=== PATIENT | female | born 1945 | race Caucasian/White ===

== ENCOUNTER 2016-08-21 11:17 | Outpatient (RCR) | payer MEDICARE, OTHER ==
--- OUTSIDE RECORDS SUMMARY | 2016-07-03 09:14 | XMS REPORT | Continuity of Care Document ---
Author Author [facility] Organization [facility] Address Unknown Phone Unavailable Care Team Providers Care Purchasing Contracting Clerk Name Role Phone Self, Referral PCP Unavailable Source Comments Some departments are not documenting in the electronic medical record. If you do not see the information that you expected, contact Release of Information in the Health Information Management department at [phone] for further assistance in locating additional records.[facility] Active Allergies and Adverse Reactions Not on File Current Medications Not on file Active Problems Not on file Most Recent Encounters Date Type Specialty Providers Description 06/19/2016 Telephone Oncology Jessie Cassidy RN Other Social History Tobacco Use Types Packs/Day Years Used Date Never Assessed Plan of Care Health Maintenance Due Date Last Done Comments Hepatitis C Screening 1945 Physical (Comprehensive) 1954 Exam Pertussis Vaccine 1958 Tetanus Vaccine 1964 Breast Cancer Screening 1987 Colorectal Cancer 1997 Screening Shingles Vaccine 2007 Osteoporosis Screening 2012 Prevnar/Pneumovax (#1) 2012 Influenza Vaccine 05/18/2016 Results from Last 3 Months PATHOLOGY REPORTS FROM OUTSIDE SCAN (04/10/2016 1:36 PM)Only the most recent of 2 results within the time period is included. Narrative Ordered by an unspecified provider.
[~2016-08-21 11:17] MED LIST: APIX2.5T PO; APIX5TAB PO; CALC-140 PO; CALC-654 PO; CARBOPLATIN IV SCH; CETI-214 PO; CHLO473M4 MM; CHOL10003 PO; CITA10TA7 PO; CNC1KV IJ; D5W IV SCH; DIGO125T18 PO; DIGO250T15 PO; DILT120C85 PO; DILT240C86 PO; ETOPOSIDE 160 MG in NORMAL SALINE (CANCER CENTER) 500 ML IV SCH; FAMOTIDINE 20MG/2ML IV (CANCER CTR) IV SCH; FISH1CAP15 PO; FLUT12AE4 IH; FOSAPREPITANT 150 MG/NS 150 MG IVPB (CANCER CTR) IV PRN; FURO40TA4 PO; HEParin (CENTRAL IV FLUSH) 500 UNIT/5 ML SYR ONE; HYDR-3812 PO; LISI2.5T PO; LORA0.5T PO; MAGN400T39 PO; METO-272 PO; METO-333 PO; METO50TA2 PO; MMT17NA NSEACH; NS IV 1000 ML (CANCER CTR) IV SCH; NS IV 500 ML (CANCER CENTER) IV SCH; OMEP20CA12 PO; ONDA8TAB12 PO; ONDANSETRON 16 MG, DEXAMETHASONE 10 MG/NS 50 ML IVPB IV SCH; PALONOSETRON 0.25 MG, DEXAMETHASONE 10 MG/NS 50 ML IVPB IV PRN; POTA10TA14 PO; POTA10TA6 PO; PRD10T PO; PRED10TA22 PO; TRAZ-28 PO; URSO300C3 PO; ZOLP10TA5 PO
[2016-09-08] MEDS ORDERED: HEParin (CENTRAL IV FLUSH) 500 UNIT/5 ML SYR ONE (11:23)
[2016-09-20] MEDS ORDERED: DILT240C PO (13:16)
[2016-09-20] MEDS ORDERED: DOXY100C2 PO (13:51)
[2016-09-20] MEDS ORDERED: GUAI120013 PO (13:51)
[2016-09-27] MEDS ORDERED: HYDR-3812 PO (10:41)
[2016-09-27] MEDS ORDERED: AMIO200T2 PO (10:41)
[2016-09-27] MEDS ORDERED: DILT120C63 PO (10:41)
[2016-09-27] MEDS ORDERED: LACT20SO2 PO (10:41)
[2016-09-27] MEDS ORDERED: ALPR0.5T7 PO (10:41)
[2016-09-27] MEDS ORDERED: LEVO750T9 PO (10:41)
[2016-09-27] MEDS ORDERED: DIGO125T18 PO (10:41)
[2016-09-27] MEDS ORDERED: ALPR0.5T PO (11:36)
== END 2016-10-01 | disposition home or self-care (01) ==
LOC: ONC 11:17
PROVIDERS: ATTEND Internal Medicine Hematology & Oncology
DX: C50.611 Malignant neoplasm of axillary tail of right female breast (principal); C79.51 Secondary malignant neoplasm of bone; Z92.21 Personal history of antineoplastic chemotherapy; Z92.3 Personal history of irradiation
CPT/HCPCS: 99213

== ENCOUNTER 2016-09-20 10:37 | Inpatient (IN) | payer MEDICARE, OTHER ==
[2016-09-20] VITALS (9 sets, daily range): BP systolic 91–132; BP diastolic 65–106
[~2016-09-20] VITALS: Ht 172.7 cm; Wt 57.8 kg
[~2016-09-20 10:37] MED LIST changes: -CARBOPLATIN IV SCH; -D5W IV SCH; -ETOPOSIDE 160 MG in NORMAL SALINE (CANCER CENTER) 500 ML IV SCH; -FAMOTIDINE 20MG/2ML IV (CANCER CTR) IV SCH; -FOSAPREPITANT 150 MG/NS 150 MG IVPB (CANCER CTR) IV PRN; -HEParin (CENTRAL IV FLUSH) 500 UNIT/5 ML SYR ONE; -NS IV 1000 ML (CANCER CTR) IV SCH; -NS IV 500 ML (CANCER CENTER) IV SCH; -ONDANSETRON 16 MG, DEXAMETHASONE 10 MG/NS 50 ML IVPB IV SCH; -PALONOSETRON 0.25 MG, DEXAMETHASONE 10 MG/NS 50 ML IVPB IV PRN
--- OUTSIDE RECORDS SUMMARY | 2016-09-20 10:43 | XMS REPORT | Continuity of Care Document ---
Author Author [facility] Organization [facility] Address Unknown Phone Unavailable Care Team Providers Care Manpower Development Advisor Name Role Phone Self, Referral PCP Unavailable Source Comments Some departments are not documenting in the electronic medical record. If you do not see the information that you expected, contact Release of Information in the Health Information Management department at [phone] for further assistance in locating additional records.[facility] Active Allergies and Adverse Reactions Not on File Current Medications Not on file Active Problems Not on file Social History Tobacco Use Types Packs/Day Years Used Date Never Assessed Plan of Care Health Maintenance Due Date Last Done Comments Hepatitis C Screening 1945 Physical (Comprehensive) 1954 Exam Pertussis Vaccine 1958 Tetanus Vaccine 1964 Breast Cancer Screening 1987 Colorectal Cancer 1997 Screening Shingles Vaccine 2007 Osteoporosis Screening 2012 Prevnar/Pneumovax (#1) 2012 Influenza Vaccine 05/18/2016 Results from Last 3 Months Not on file
--- NOTE | 2016-09-20 10:56 | ED Cardiac General ---
History of Present Illness General Stated Complaint: ANKLES/FEET SWELLING UNABLE TO SLEEP Source: patient Exam Limitations: no limitations History of Present Illness Time seen by provider: 10:54 Initial Comments To ER with lower extremity swelling and orthopnea getting progressively worse over the past 4-5 days. She has a history of congestive heart failure and atrial fibrillation followed by Dr. Carrillo. She states that she is unable to sleep because of the dyspnea when lying flat. She does take Lasix at home she believes it to be 40 mg daily. Echo report from July shows LVEF 30-35%. 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 Severity: moderate Associated Systoms: No Chest Pain, No Cough, No Diaphoresis, No Fever/Chills, No Headaches, No Loss of Appetite, No Malaise, No Nausea/Vomiting, No Rash, No Seizure, No Shortness of Air, No Syncope, No Weakness Allergies and Home Medications Allergies Coded Allergies: adhesive tape (Verified Allergy, Unknown, 04/16/08) cefdinir (Verified Allergy, Unknown, NAUSEA, 03/13/16) celecoxib (Verified Allergy, Unknown, NAUSEA, 03/13/16) clarithromycin (Verified Allergy, Unknown, 04/16/08) latex (Verified Allergy, Unknown, HIVES, 03/13/16) metolazone (Verified Adverse Reaction, Severe, SICK TO STOMACH, 08/10/16) Home Medications Apixaban 2.5 Mg Tablet 2.5 MG PO BID (Reported) Calcium Carbonate/Vitamin D3 1 Each Tablet 1 TAB PO BID (Reported) Chlorhexidine Gluconate 473 Ml Mouthwash 0.5 OZ MM BID (Reported) Cholecalciferol (Vitamin D3) 1,000 Unit Tablet 1,000 UNIT PO BID (Reported) Cyanocobalamin 1,000 Mcg/Ml Inj 1,000 MCG IJ MONTHLY (Reported) Diltiazem HCl 240 Mg Cap.er.24h 240 MG PO DAILY (Reported) Fish Oil/Dha/Epa 1 Each Capsule 1,200 MG PO BID (Reported) Fluticasone/Salmeterol 12 Gm Hfa.aer.ad 1 PUFF IH BID (Reported) Furosemide 40 Mg Tablet 80 MG PO DAILY (Reported) TAKES 2 (40 MG) TABLETS Hydrocodone/Acetaminophen 1 Each Tablet 1 TAB PO Q6H PRN PRN PAIN (Reported) Lisinopril 2.5 Mg Tablet 2.5 MG PO DAILY (Reported) Magnesium Oxide 400 Mg Tablet 400 MG PO BID (Reported) Mometasone Furoate 17 Gm Naspr 1 SPRAY NSEACH DAILY PRN PRN ALLERGIES (Reported ) Ondansetron HCl 8 Mg Tablet 8 MG PO Q8H PRN PRN NAUSEA/VOMITING (Reported) Potassium Chloride 10 Meq Tab.er.prt 20 MEQ PO BID (Reported) TAKES 2 (10 MEQ) TABLETS Trazodone HCl 50 Mg Tablet 50 MG PO HS (Reported) Ursodiol 300 Mg Capsule 600 MG PO DAILY (Reported) TAKES 2 (300 MG) CAPSULES Ursodiol 300 Mg Capsule 300 MG PO HS (Reported) Zolpidem Tartrate 10 Mg Tablet 10 MG PO HS PRN PRN INSOMNIA (Reported) Review of Systems Constitutional: see HPI EENTM: No Symptoms Reported Respiratory: See HPI Orthopnea Shortness of Air Cardiovascular: No Symptoms Reported Gastrointestinal: No Symptoms Reported Genitourinary: No Symptoms Reported Musculoskeletal: no symptoms reported Skin: no symptoms reported Psychiatric/Neurological: No Symptoms Reported Endocrine: No Symptoms Reported Hematologic/Lymphatic: No Symptoms Reported Past Rblmuxj-Gdhmim-Amddxk Hx Patient Social History Type Used: Cigarettes Recent Foreign Travel: No Contact w/Someone Who Travel: No Recent Hopitalizations: No Immunizations Up To Date Date of Influenza Vaccine: Jun 10, 2016 Surgeries HX Surgeries: Yes (shoulder sx, toe sx, port placed) Surgeries: Breast, Hysterectomy, Orthopedic Respiratory Hx Respiratory Disorders: No Cardiovascular Hx Cardiac Disorders: Yes Cardiac Disorders: Atrial Fibrillation Neurological Hx Neurological Disorders: No 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 System Hx 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 Disorders: No Genitourinary Hx Genitourinary Disorders: No Gastrointestinal Hx Gastrointestinal Disorders: Yes (Fatty liver) Musculoskeletal Hx Musculoskeletal Disorders: Yes (bone ca) Musculoskeletal Disorders: Arthritis Endocrine Hx Endocrine Disorders: No HEENT HX ENT Disorders: No Cancer Hx Cancer: Yes Cancer: Bone, Breast Psychosocial Hx Psychiatric Problems: Yes Behavioral Health Disorders: Depression Integumentary HX Skin/Integumentary Disorder: No Blood Transfusions Hx Blood Disorders: No Physical Exam Vital Signs Vital Sign - Last 12Hours 09/20/16 11:00 Temp 97.1 Pulse 155 Resp 20 B/P 97/81 Pulse Ox 95 O2 Delivery Room Air Capillary Refill : General Appearance: No Apparent Distress WD/WN HEENT: PERRL/EOMI TMs Normal Neck: Full Range of Motion Normal Inspection Other (JVD) Respiratory: No Accessory Muscle Use No Respiratory Distress Wheezing (left upper lobe) Other (speaks in full sentences, no respiratory distress) Cardiovascular: Irregularly Irregular (rate of 140s) Gastrointestinal: Non Tender Soft Extremity: Pedal Edema (4+ bilateral lower extremities) Neurologic/Psychiatric: Alert Oriented x3 No Motor/Sensory Deficits Skin: Normal Color Warm/Dry Progress/Results/Core Measures Results/Orders Lab Results Laboratory Tests Test 09/20/16 11:05 Range/Units Alanine Aminotransferase (ALT/SGPT) 28 0-55 U/L Albumin 3.7 3.2-4.5 G/DL Alkaline Phosphatase 121 40-136 U/L Anion Gap 10 5-14 MMOL/L Aspartate Amino Transf (AST/SGOT) 29 5-34 U/L B-Type Natriuretic Peptide 920.4 H <100.0 PG/ML BUN/Creatinine Ratio 20 Basophils # (Auto) 0.0 0.0-0.1 10^3/uL Basophils (%) (Auto) 0 0-10 % Blood Urea Nitrogen 15 7-18 MG/DL Calcium Level 9.1 8.5-10.1 MG/DL Carbon Dioxide Level 25 21-32 MMOL/L Chloride Level 88 L 98-107 MMOL/L Creatinine 0.76 0.60-1.30 MG/DL Digoxin Level < 0.30 L 0.80-2.00 NG/ML Eosinophils # (Auto) 0.0 0.0-0.3 10^3/uL Eosinophils (%) (Auto) 0 0-10 % Estimat Glomerular Filtration Rate > 60 Glucose Level 136 H 70-105 MG/DL Hematocrit 41 35-52 % Hemoglobin 14.4 11.5-16.0 G/DL Lymphocytes # (Auto) 0.9 L 1.0-4.0 X 10^3 Lymphocytes (%) (Auto) 10 L 12-44 % Magnesium Level 1.6 L 1.8-2.4 MG/DL Mean Corpuscular Hemoglobin 34 25-34 PG Mean Corpuscular Hemoglobin Concent 36 32-36 G/DL Mean Corpuscular Volume 96 80-99 FL Mean Platelet Volume 10.0 7.4-10.4 FL Monocytes # (Auto) 1.1 H 0.0-1.0 X 10^3 Monocytes (%) (Auto) 12 0-12 % Neutrophils # (Auto) 6.9 1.8-7.8 X 10^3 Neutrophils (%) (Auto) 78 H 42-75 % Platelet Count 220 130-400 10^3/uL Potassium Level 4.4 3.6-5.0 MMOL/L Red Blood Count 4.23 L 4.35-5.85 10^6/uL Red Cell Distribution Width 13.9 10.0-14.5 % Sodium Level 123 *L 135-145 MMOL/L Total Bilirubin 0.6 0.1-1.0 MG/DL Total Protein 6.5 6.4-8.2 G/DL Troponin I < 0.30 <0.30 NG/ML White Blood Count 8.9 4.3-11.0 10^3/uL My Orders Orders-GADIEL BARR APRN Cbc With Automated Diff (09/20/16 10:53) Comprehensive Metabolic Panel (09/20/16 10:53) BNP (09/20/16 10:53) Saline Lock/Iv-Start (09/20/16 10:53) Chest 1 View, Ap/Pa Only (09/20/16 10:53) Ekg Tracing (09/20/16 10:53) Magnesium (09/20/16 10:53) Levalbuterol (Non-Formulary) (Xopenex (N (09/20/16 11:00) Diltiazem Injection (Cardizem Injection) (09/20/16 11:15) Digoxin (09/20/16 11:03) Sodium Chloride (Ad... W/Diltiazem Drip (09/20/16 11:15) Troponin I (09/20/16 11:45) Medications Given in ED Current Medications Medications Dose Ordered Sig/Natty Route Start Time Stop Time Status Last Admin Dose Admin Diltiazem HCl 10 mg ONCE ONCE IVP 09/20/16 11:15 09/20/16 11:16 DC 09/20/16 11:26 10 MG Vital Signs/I&O Vital Sign - Last 12Hours 09/20/16 09/20/16 09/20/16 11:00 11:29 11:45 Temp 97.1 Pulse 155 127 Resp 20 18 B/P 97/81 104/65 Pulse Ox 95 94 96 O2 Delivery Room Air Room Air Progress Note : Progress Note ECHO report from 08/10/16 : 1. Moderate to moderately severe impairment of global left ventricular systolic function with global hypokinesis of left ventricular ejection fraction of approximately 30 to 35%, 2. Aortic stenosis with valve area approximately 1 sq cm. 3. Moderate tricuspid regurgitation. 4. Pulmonary artery systolic pressure is estimated to be approximately 45 mmHg. 5. Mitral annular calcification without significant mitral stenosis. 6. Mild concentric left ventricular hypertrophy. 7. No significant pericardial effusion is seen on this study. There appears to be some degree of pleural effusion. Diagnostic Imaging Diagonstic Imaging: Xray Plain Films/CT/US/NM/MRI: chest Comments [facility]: [facility] REC#: [id number] PT STATUS: REG ER : 1945 PHYSICIAN: GADIEL BRAR APRN ADMIT DATE: 09/20/16/ER Draft Date of Exam:09/20/16 CHEST 1 VIEW, AP/PA ONLY EXAMINATION: Portable upright radiograph of the chest. INDICATION: Feet and ankle swelling. FINDINGS: The heart size is enlarged with interstitial thickening likely related to edema. There is a right basilar infiltrate and atelectasis with a small to moderate effusion. There is a tiny effusion on the left side. There is an infusion port with the at the mid SVC level similar to prior exam. Surgical clips near the right axilla noted. IMPRESSION: There is interstitial pulmonary edema and right basilar infiltrate and effusion. Dictated on workstation # [id number] Dict: 09/20/16 1125 Trans: 09/20/16 1133 [facility] [id number] Interpreted by: WANG LOPEZ MD Electronically signed by: Departure Communication Time/Spoke to Admitting Phy: 13:01 Communication Will admit to Dr. Hopkins Time/Spoke to Consulting Physi: 13:01 Communication/Consulting Dr. Tuttle to consult Progress Notes 1149- her heart rate has improved from the 140s down to around 100 still atrial fibrillation. She feels better, however her blood pressure remains low at upper 90s to low 100 systolic despite appearing fluid overloaded. We will hold off on diuretics pending Dr. Tuttle's guidance. She does request to be DO NOT RESUSCITATE status. Impression Impression: Primary Impression: Atrial fibrillation with rapid ventricular response Additional Impressions: CHF (congestive heart failure) Metastatic carcinoma to bone Disposition: ADMITTED INPATIENT Condition: Improved Decision to Admit Reason: Admit from ER (General) Decision to Admit/Date: Sep 20, 2016 Time/Decision to Admit Time: 13:02 Departure-Patient Inst. Referrals: JANET VILLARREAL MD (PCP/Family) Primary Care Physician GADIEL BRAR APRN Sep 20, 2016 10:56 Primary Care Physician GADIEL BRAR APRN Sep 20, 2016 10:56
[2016-09-20] MEDS ORDERED: RT-LEVALBUTEROL (XOPENEX) 1.25 MG/3 ML NEB NON-FORMULARY INH SCH (11:00)
[2016-09-20 11:12] LABS: BASOPHILS % (AUTO) 0 % (0-10); EOSINOPHILS % (AUTO) 0 % (0-10); LYMPHOCYTES # (AUTO) 0.9 X 10^3 (1.0-4.0); LYMPHOCYTES % (AUTO) 10 % (12-44); MEAN CORPUSCULAR HEMOGLOBIN 34 PG (25-34); MEAN CORPUSCULAR HGB CONC 36 G/DL (32-36); MEAN CORPUSCULAR VOLUME 96 FL (80-99); MONOCYTES # (AUTO) 1.1 X 10^3 (0.0-1.0); MONOCYTES % (AUTO) 12 % (0-12); NEUTROPHILS # (AUTO) 6.9 X 10^3 (1.8-7.8); NEUTROPHILS % (AUTO) 78 % (42-75); PLATELET COUNT 220 10^3/uL (130-400); RED BLOOD COUNT 4.23 10^6/uL (4.35-5.85); RED CELL DISTRIBUTION WIDTH 13.9 % (10.0-14.5); WHITE BLOOD COUNT 8.9 10^3/uL (4.3-11.0)
[2016-09-20] MEDS ORDERED: DILTIAZEM DRIP 100 MG in SODIUM CHLORIDE (ADD-VANTAGE) 100 ML IV SCH (11:15)
[2016-09-20] MEDS ORDERED: DILTIAZEM 25 MG/5 ML INJ (CARDIZEM) VIAL IVP ONE (11:15)
--- NOTE | 2016-09-20 11:34 | Diagnostic Imaging Report ---
EXAMINATION: Portable upright radiograph of the chest. INDICATION: Feet and ankle swelling. FINDINGS: The heart size is enlarged with interstitial thickening likely related to edema. There is a right basilar infiltrate and atelectasis with a small to moderate effusion. There is a tiny effusion on the left side. There is an infusion port with the at the mid SVC level similar to prior exam. Surgical clips near the right axilla noted. IMPRESSION: There is interstitial pulmonary edema and right basilar infiltrate and effusion. Dictated by: Dictated on workstation # [id number]
[2016-09-20 11:39] LABS: ALANINE AMINOTRANSFERASE 28 U/L (0-55); ALBUMIN 3.7 G/DL (3.2-4.5); ANION GAP 10 MMOL/L (5-14); ASPARTATE AMINO TRANSFERASE 29 U/L (5-34); BILIRUBIN,TOTAL 0.6 MG/DL (0.1-1.0); BLOOD UREA NITROGEN 15 MG/DL (7-18); BUN/CREATININE RATIO 20; CALCIUM 9.1 MG/DL (8.5-10.1); CARBON DIOXIDE 25 MMOL/L (21-32); CHLORIDE 88 MMOL/L (98-107); CREATININE SERUM 0.76 MG/DL (0.60-1.30); GFR ESTIMATED > 60; GLUCOSE 136 MG/DL (70-105); MAGNESIUM 1.6 MG/DL (1.8-2.4); POTASSIUM 4.4 MMOL/L (3.6-5.0); TOTAL PROTEIN 6.5 G/DL (6.4-8.2)
[2016-09-20 11:42] LABS: SODIUM 123 MMOL/L (135-145)
[2016-09-20 11:45] LABS: DIGOXIN < 0.30 NG/ML (0.80-2.00)
--- NOTE | 2016-09-20 12:59 | Consultation-Cardiology ---
HPI-Cardiology Cardiology Consultation Date of Consultation 09/20/16 Date of Admission Indication: Afib with RVR, AE CHF HPI Patient is a very pleasant 71y/o female with history of PAF, CHF, , metastatic small cell CA. Presented to the ER with complaints of increased edema and dyspnea over the past 3-4 days. Complaining inability to sleep secondary to orthopnea. Denies any CP. Denies syncope. Currently patient is in Afib with HR in [id number]'s and hypotensive with systolic BP in the 90's. Patient was seen and evaluated with Kylie, she is a 71-year-old lady with history of congestive heart failure, chronic compensated left ventricular systolic dysfunction, nonischemic cardiomyopathy with ejection fraction around 30 percent, permanent atrial fibrillation. Came into the hospital for increasing shortness of breath and orthopnea with pedal edema. Paroxysmal nocturnal dyspnea. Noted to be tachycardic and in decompensated heart failure. Patient was borderline hypotensive, had difficulties with controlling her heart rate in the past due to hypotension, she was intolerant to digoxin and beta blockers, maintained on Cardizem 240 mg daily. She is maintained on oral anticoagulation and tolerated it well. Had extensive history with history of small cell carcinoma metastasis to the bone, breast cancer, received Adriamycin in the past. Home Medications & Allergies Allergies: Coded Allergies: adhesive tape (Verified Allergy, Unknown, 04/16/08) cefdinir (Verified Allergy, Unknown, NAUSEA, 03/13/16) celecoxib (Verified Allergy, Unknown, NAUSEA, 03/13/16) clarithromycin (Verified Allergy, Unknown, 04/16/08) latex (Verified Allergy, Unknown, HIVES, 03/13/16) metolazone (Verified Adverse Reaction, Severe, SICK TO STOMACH, 08/10/16) Home Medication List Reviewed: Yes LJF-Eanlau-Fppfym Hx Patient Social History Marital Status: Alcohol Use: Occasionally Uses Recreational Drug Use: No Smoking Status: Current Everyday Smoker Type Used: Cigarettes Recent Foreign Travel: No Recent Infectious Disease Expo: No Recent Hopitalizations: No Physical Abuse Screen: No Sexual Abuse: No Immunizations Up To Date Date of Influenza Vaccine: Jun 10, 2016 Past Medical History CHF, PAF, breast CA, Metatstatic small cell lung CA, Family Medical History Family Medical Hx noncontributory to her current condition Constitutional: No diaphoresis, No dizziness, No fever, malaise weakness EENTM: No blurred vision, No double vision Respiratory: dyspnea on exertion orthopnea short of breath Cardiovascular: No chest pain, edemaNo palpitations, No syncope Gastrointestinal: No abdominal pain, No constipation, No diarrhea Genitourinary: No dysuria, No frequency Musculoskeletal: back pain joint swelling Skin: No lesions, No rash Psychiatric/Neurological: Denies Anxiety, Denies Emotional Problems Reviewed Test Results Reviewed Test Results Lab Laboratory Tests 09/20/16 11:05: Alanine Aminotransferase (ALT/SGPT) 28, Albumin 3.7, Alkaline Phosphatase 121, Anion Gap 10, Aspartate Amino Transf (AST/SGOT) 29, B-Type Natriuretic Peptide 920.4H, BUN/Creatinine Ratio 20, Basophils # (Auto) 0.0, Basophils (%) (Auto) 0 , Blood Urea Nitrogen 15, Calcium Level 9.1, Carbon Dioxide Level 25, Chloride Level 88L, Creatinine 0.76, Digoxin Level < 0.30L, Eosinophils # (Auto) 0.0, Eosinophils (%) (Auto) 0, Estimat Glomerular Filtration Rate > 60, Glucose Level 136H, Hematocrit 41, Hemoglobin 14.4, Lymphocytes # (Auto) 0.9L, Lymphocytes (%) (Auto) 10L, Magnesium Level 1.6L, Mean Corpuscular Hemoglobin 34 , Mean Corpuscular Hemoglobin Concent 36, Mean Corpuscular Volume 96, Mean Platelet Volume 10.0, Monocytes # (Auto) 1.1H, Monocytes (%) (Auto) 12, Neutrophils # (Auto) 6.9, Neutrophils (%) (Auto) 78H, Platelet Count 220, Potassium Level 4.4, Red Blood Count 4.23L, Red Cell Distribution Width 13.9, Sodium Level 123*L, Total Bilirubin 0.6, Total Protein 6.5, Troponin I < 0.30, White Blood Count 8.9 ECG Impression ECG Initial ECG Rhythm: A Fib/Flutter Physical Exam Vital Signs Vital Sign - Last 12Hours 09/20/16 11:00 Temp 97.1 Pulse 155 Resp 20 B/P 97/81 Pulse Ox 95 O2 Delivery Room Air Capillary Refill : Less Than 3 Seconds General Appearance: No Apparent Distress WD/WN Anxious HEENT: PERRL/EOMI Normal ENT Inspection Neck: Non Tender Supple Respiratory: Chest Non Tender No Accessory Muscle Use No Respiratory Distress Decreased Breath Sounds Cardiovascular: No JVD Systolic Murmur Irregularly Irregular Tachycardia Other (+2-3 pitting edema bilaterally) Gastrointestinal: Non Tender Soft Rectal: Deferred Back: No CVA Tenderness Extremity: No Calf Tenderness Neurologic/Psychiatric: Alert 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 Most recent 2D echo 08/10/16 shows LVEF 30-35%; valvular heart disease consisting of mod-sev aortic stenosis (ao valve area 1 sq cm); MAC w/o significant MS; mod TR; PASP 45 mmHg. Continue to monitor. Atrial fibrillation, non-valvular, chronic, heart rate has been difficult to control in the past. Currently HR 100-[address]'s[address] on Cardizem gtt as blood pressure tolerates, add amiodarone, was intolerant to digoxin in the past , intolerant to beta blockers in the past. Intolerance to digoxin due to dizziness and nonspecific malaise Intolerance to beta-lelia due to symptomatic fall in chronically low bp Dilated cardiomyopathy, first documented in March 2016. 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 Status post adjuvant chemotherapy with Adriamycin and Cytoxan regimen 4 cycles followed by radiation therapy to the right breast completed in August 2008. Status post adjuvant hormonal therapy with Arimidex from August 2008 until early 2013. Thank you for allowing us to participate in the management of Ms. Newton. This is ATIF Reinoso as a scribe for Dr. Tuttle. This Dr. Tuttle, I have seen and evaluated Mrs. Newton with Kylie, she is laying down in bed, feeling better at this time, has been having worsening shortness of breath with orthopnea and pedal edema, noted to be in atrial fibrillation with rapid ventricular response, previously was intolerant to multiple medication to control her heart rate. Admitted to the intensive care unit and started on Cardizem drip. We will restart her home medication including oral anticoagulation in addition I am planning to continue with diuretics. Add amiodarone and evaluate partial response on examination lungs evaluation showed bilateral rhonchi, heart is tachycardic and irregular with systolic murmur, +2 pedal edema. I interviewed the patient, several for full physical examination and discussed the management plan with Kylie. Reviewed the note and agree with the current scribe, I made few modification to the note and used Italic Font KYLIE SHORT Sep 20, 2016 12:59 MAYCO TUTTLE MD Sep 20, 2016 14:09
[2016-09-20] MEDS ORDERED: DILT240C PO (13:16)
[2016-09-20] MEDS ORDERED: GUAI120013 PO (13:51)
[2016-09-20] MEDS ORDERED: DOXY100C2 PO (13:51)
[2016-09-20] MEDS: DILTIAZEM DRIP 100 MG in SODIUM CHLORIDE (ADD-VANTAGE) 100 ML IV SCH (14:00)
[2016-09-20] MEDS ORDERED: CATHETER FLUSH 10 ML SYR IV PRN (14:15)
[2016-09-20] MEDS ORDERED: AMIODARONE FOR BOLUS 150 MG in D5W 100 ML IVPB 100 ML IV NR (14:15)
[2016-09-20] MEDS ORDERED: AMIODARONE IV ONE (14:49)
[2016-09-20] MEDS ORDERED: SODIUM CHLORIDE (ADD-VANTAGE) 100 ML IV ONE (15:09)
[2016-09-20] MEDS ORDERED: DILTIAZEM 100 MG/VIAL (CARDIZEM) ADD-VANTAGE IV ONE (15:09)
--- NOTE | 2016-09-20 15:34 | History & Physical-Hospitalist ---
MILVIA FARLEY MED STUDENT 09/20/16 1534: HPI History of Present Illness: HPI/Chief Complaint CC: shortness of breath HPI: Ms. Newton is a 71yoF with a PMH of PAF, CHF, , and metastatic small cell CA admitted for increased work of breathing with lower extremity swelling that started roughly 5 days ago. She has had difficulty sleeping the last few days, and needs to sit up in bed. In the ED she was found to be in Afib with RVR. She has been in chronic afib for some time, and is intolerant to digoxin and beta blockers due to low blood pressure. Her pressure has been around 90-100/70-80's today. Her PCP is Dr. Gardner. Source: patient, RN/MD Exam Limitations: no limitations Date Seen 09/20/16 Attending Physician Katja Cummings DO PCP Edgar Gardner MD Referring Physician Date of Admission Sep 20, 2016 at 12:58 Home Medications & Allergies Home Medications Reviewed patient Home Medication Reconciliation Form Allergies Coded Allergies: adhesive tape (Verified Allergy, Unknown, 04/16/08) cefdinir (Verified Allergy, Unknown, NAUSEA, 03/13/16) celecoxib (Verified Allergy, Unknown, NAUSEA, 03/13/16) clarithromycin (Verified Allergy, Unknown, 04/16/08) latex (Verified Allergy, Unknown, HIVES, 03/13/16) metolazone (Verified Adverse Reaction, Severe, SICK TO STOMACH, 08/10/16) Past Lpnqzbn-Scoudt-Ubzlsn Hx Patient Social History Marrital Status: Alcohol Use: Occasionally Uses Recreational Drug Use: No Smoking Status: Current Everyday Smoker Type Used: Cigarettes Physical Abuse Screen: No Sexual Abuse: No Recent Foreign Travel: No Contact w/other who traveled: No Recent Hopitalizations: No Recent Infectious Disease Expo: No Immunizations Up To Date Date of Influenza Vaccine: Jun 10, 2016 Surgeries HX Surgeries: Yes (shoulder sx, toe sx, port placed) Surgeries: Breast, Hysterectomy, Orthopedic Respiratory Hx Respiratory Disorders: No Cardiovascular Hx Cardiovascular Disorders: Yes Cardiac Disorders: Atrial Fibrillation, Valvular Heart Disease Neurological Hx Neurological Disorders: No 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 System Hx 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 Disorders: No Genitourinary Hx Genitourinary Disorders: No Gastrointestinal Hx Gastrointestinal Disorders: Yes (Fatty liver) Musculoskeletal Hx Musculoskeletal Disorders: Yes (bone ca) Musculoskeletal Disorders: Arthritis Endocrine Hx Endocrine Disorders: No HEENT HX ENT Disorders: No Cancer Hx Cancer: Yes Cancer: Bone, Lung (small cell), Breast Psychosocial Hx Psychiatric Problems: Yes Behavioral Health Disorders: Depression Integumentary HX Skin/Integumentary Disorder: No Blood Transfusions Hx Blood Disorders: No Review of Systems Constitutional: No chills, No fever Respiratory: dyspnea on exertion orthopnea short of breath Cardiovascular: No chest pain All Other Systems Reviewed Negative Unless Noted: Yes Physical Exam Physical Exam Vital Signs Vital Sign - Last 12Hours 09/20/16 11:00 Temp 97.1 Pulse 155 Resp 20 B/P 97/81 Pulse Ox 95 O2 Delivery Room Air Capillary Refill : Less Than 3 Seconds General Appearance: No Apparent Distress Thin HEENT: PERRL/EOMI TMs Normal Normal ENT Inspection Pharynx Normal Neck: Full Range of Motion Normal Inspection Respiratory: Chest Non Tender Lungs Clear Normal Breath Sounds Cardiovascular: No JVD Irregularly Irregular Tachycardia Gastrointestinal: Normal Bowel Sounds No Organomegaly No Pulsatile Mass Non Tender Soft Rectal: Deferred Extremity: Pedal Edema (3+) Neurologic/Psychiatric: Alert Oriented x3 No Motor/Sensory Deficits Normal Mood/Affect Skin: Normal Color Warm/Dry Results Results/Procedures Lab Laboratory Tests 09/20/16 11:05 Radiology chest xray 09/20/16: There is interstitial pulmonary edema and right basilar infiltrate and effusion. Assessment/Plan Admission Diagnosis Afib with RVR Assessment and Plan 71yo with PMH of afib, CHF, metastatic SCC with new onset of SOA secondary to afib with RVR 1. Afib with RVR -will not tolerate digoxin or beta blockers -given bolus of amiodarone, will switch to oral afterwards -not a candidate for cardioversion due to chronic nature of her afib -will restart eloquis which she previously took -echo was done recently, will not redo -cardiology is consulted and following 2. CHF -cardiology following -chest xray with bibasilar infiltrate and effusion, will continue to monitor for increased work of breathing, currently breathing room air 3. metastatic small cell carcinoma -following Dr. 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 Pt was anxious throughout the night. Pt received Xanax but it did not make much of a difference. Pt could use morphine when she is really distressed. Pt was admitted before and wanted to go home on hospice. Patient Interview: Pt states her Oncologist is Dr. White. Physical exam was stable. Scribed by Simone Head under the direct supervision of Dr. Cummings. Source: patient, RN/MD Exam Limitations: no limitations Home Medications & Allergies Allergies Coded Allergies: adhesive tape (Verified Allergy, Unknown, 04/16/08) cefdinir (Verified Allergy, Unknown, NAUSEA, 03/13/16) celecoxib (Verified Allergy, Unknown, NAUSEA, 03/13/16) clarithromycin (Verified Allergy, Unknown, 04/16/08) latex (Verified Allergy, Unknown, HIVES, 03/13/16) metolazone (Verified Adverse Reaction, Severe, SICK TO STOMACH, 08/10/16) Past Dcmpjuq-Nowkib-Vlkwvz Hx Patient Social History Marrital Status: Employed/Student: employed ([employer] de[employer]) Surgeries HX Surgeries: Yes Respiratory Hx Respiratory Disorders: Yes Respiratory Disorders: COPD Cardiovascular Hx Cardiovascular Disorders: Yes Cardiac Disorders: Atrial Fibrillation, Cardiomyopathy, Chronic Edema/Swelling , Coronary Artery Disease, High Cholesterol, Hypertension, Valvular Heart Disease Neurological Hx Neurological Disorders: No Genitourinary Hx Genitourinary Disorders: Yes Genitourinary Disorders: Renal Failure Gastrointestinal Hx Gastrointestinal Disorders: Yes Gastrointestinal Disorders: Chronic Constipation Musculoskeletal Hx Musculoskeletal Disorders: No Endocrine Hx Endocrine Disorders: No HEENT HX ENT Disorders: No Cancer Hx Cancer: Yes Cancer: Bone, Lung (small cell), Breast Psychosocial Hx Psychiatric Problems: Yes Behavioral Health Disorders: Anxiety, Depression Integumentary HX Skin/Integumentary Disorder: No Review of Systems Constitutional: see HPI malaise weakness EENTM: no symptoms reported see HPI Respiratory: see HPI dyspnea on exertion orthopnea short of breath wheezing Cardiovascular: see HPI Gastrointestinal: see HPI abdominal pain (RUQ) Genitourinary: see HPI decreased output Musculoskeletal: see HPI back pain Skin: no symptoms reported see HPI Psychiatric/Neurological: See HPI Depressed All Other Systems Reviewed Negative Unless Noted: Yes Physical Exam Physical Exam Vital Signs Vital Sign - Last 12Hours 09/20/16 09/20/16 11:00 19:00 Temp 97.1 Pulse 155 Resp 20 B/P 97/81 Pulse Ox 95 O2 Delivery Room Air O2 Flow Rate 3.00 General Appearance: No Apparent Distress WD/WN Chronically ill Cachetic Thin Other (patient very withdrawn) Eyes: Bilateral Eye Normal Inspection, Bilateral Eye PERRL HEENT: PERRL/EOMI Normal ENT Inspection Pharynx Normal Neck: Full Range of Motion Normal Inspection Non Tender Supple Carotid Bruit Respiratory: Chest Non Tender No Accessory Muscle Use No Respiratory Distress Crackles Decreased Breath Sounds Wheezing Cardiovascular: No Edema No Gallop No JVD No Murmur Normal Peripheral Pulses Irregularly Irregular Tachycardia Gastrointestinal: Normal Bowel Sounds No Organomegaly No Pulsatile Mass Non Tender Soft Back: Normal Inspection No CVA Tenderness No Vertebral Tenderness Extremity: Normal Capillary Refill Normal Inspection Normal Range of Motion Non Tender No Calf Tenderness No Pedal Edema Neurologic/Psychiatric: Alert Oriented x3 No Motor/Sensory Deficits Normal Mood/Affect Skin: Normal Color Warm/Dry Lymphatic: No Adenopathy Results Results/Procedures Lab Laboratory Tests 09/20/16 11:05 09/21/16 04:40 Assessment/Plan Admission Diagnosis CHF Volume overload Anxiety Cancer w/widespread mets in apparent end of life stage Assessment and Plan Plan: Morphine 2mg IV q2 hours Initiate Xanax 0.[address] White consult Palliative Care consult Facilities Operator MILVIA FARLEY MED STUDENT Sep 20, 2016 15:34 KATJA CUMMINGS DO Sep 21, 2016 07:33
[2016-09-20] MEDS ORDERED: HYDROcodone/APAP 5 MG/325 MG (LORTAB) TAB PO PRN (18:00)
[2016-09-20] MEDS: HYDROcodone/APAP 5 MG/325 MG (LORTAB) TAB PO PRN (19:47)
[2016-09-20] MEDS: AMIODARONE 200 MG (CORDARONE) TAB PO SCH (20:13)
[2016-09-20] MEDS ORDERED: ALPRAZolam 0.25 MG (XANAX) TAB ONE ×2 (20:31→23:22)
[2016-09-20] MEDS ORDERED: ALPRAZolam 0.25 MG (XANAX) TAB PO ONE ×2 (20:45→23:30)
[2016-09-20] MEDS ORDERED: RT-ALBUTEROL/IPRATROPIUM 3 ML (DUONEB) VIAL INH SCH (21:00)
[2016-09-21] VITALS (24 sets, daily range): BP systolic 80–134; BP diastolic 40–112
[2016-09-21] MEDS: HYDROcodone/APAP 5 MG/325 MG (LORTAB) TAB PO PRN (01:33)
[2016-09-21 05:12] LABS: BASOPHILS % (AUTO) 1 % (0-10); EOSINOPHILS % (AUTO) 0 % (0-10); LYMPHOCYTES # (AUTO) 1.2 X 10^3 (1.0-4.0); LYMPHOCYTES % (AUTO) 14 % (12-44); MEAN CORPUSCULAR HEMOGLOBIN 34 PG (25-34); MEAN CORPUSCULAR HGB CONC 35 G/DL (32-36); MEAN CORPUSCULAR VOLUME 96 FL (80-99); MEAN PLATELET VOLUME 10.4 FL (7.4-10.4); MONOCYTES # (AUTO) 1.3 X 10^3 (0.0-1.0); MONOCYTES % (AUTO) 16 % (0-12); NEUTROPHILS # (AUTO) 5.9 X 10^3 (1.8-7.8); NEUTROPHILS % (AUTO) 69 % (42-75); PLATELET COUNT 244 10^3/uL (130-400); RED BLOOD COUNT 4.44 10^6/uL (4.35-5.85); RED CELL DISTRIBUTION WIDTH 13.8 % (10.0-14.5); WHITE BLOOD COUNT 8.5 10^3/uL (4.3-11.0)
[2016-09-21 05:27] LABS: ANION GAP 10 MMOL/L (5-14); BLOOD UREA NITROGEN 19 MG/DL (7-18); BUN/CREATININE RATIO 25; CALCIUM 9.4 MG/DL (8.5-10.1); CARBON DIOXIDE 26 MMOL/L (21-32); CHLORIDE 86 MMOL/L (98-107); CREATININE SERUM 0.76 MG/DL (0.60-1.30); GFR ESTIMATED > 60; GLUCOSE 129 MG/DL (70-105); MAGNESIUM 1.9 MG/DL (1.8-2.4); PHOSPHORUS 4.3 MG/DL (2.3-4.7); POTASSIUM 5.3 MMOL/L (3.6-5.0)
[2016-09-21 05:38] LABS: SODIUM 122 MMOL/L (135-145)
[2016-09-21] MEDS: KCL 20 MEQ TAB (K-DUR) PO SCH ×3 (05:40→20:55)
[2016-09-21] MEDS: MAGNESIUM 1 GM/100 ML IVPB 100 ML IV SCH (05:40)
[2016-09-21] MEDS: POTASSIUM CL 10MEQ/50ML IVPB 50 ML IV SCH (05:40)
[2016-09-21] MEDS ORDERED: DILTIAZEM 100 MG/VIAL (CARDIZEM) ADD-VANTAGE IV ONE (06:08)
[2016-09-21] MEDS ORDERED: SODIUM CHLORIDE (ADD-VANTAGE) 100 ML IV ONE (06:09)
[2016-09-21] MEDS: DILTIAZEM DRIP 100 MG in SODIUM CHLORIDE (ADD-VANTAGE) 100 ML IV SCH ×2 (06:22→15:51)
[2016-09-21] MEDS: morphine INJ 4 MG/ML 1 ML (VIAL/SYRINGE) IVP PRN (06:57)
[2016-09-21] MEDS: FUROSEMIDE 40 MG/4 ML INJ (LASIX) IVP SCH (07:08)
--- NOTE | 2016-09-21 07:11 | Pulmonary Consultation ---
History of Present Illness History of Present Illness Date of Consultation 09/21/16 07:04 Date of Admission Reason for Visit: Afib with RVR, AE CHF History of Present Illness 71yo with hx of metastatic small cell cancer and afib admitted secondary to worsening SOB and and bilateral LE edema. She was found to be in Afib RVR while in ED she was placed on cardizem gtt and transferred to ICU. today she is more dyspneic with accessory muscle use. She normally takes 80mg of lasix at home. Her BNP is 920. Her CXR shows cardiomegaly with increased bilateral infiltrates and pleural effusion. Currently unable to get full ROS secondary to respiratory distress. I am consulted for pulmonary management. Allergies and Home Medications Allergies Coded Allergies: adhesive tape (Verified Allergy, Unknown, 04/16/08) cefdinir (Verified Allergy, Unknown, NAUSEA, 03/13/16) celecoxib (Verified Allergy, Unknown, NAUSEA, 03/13/16) clarithromycin (Verified Allergy, Unknown, 04/16/08) latex (Verified Allergy, Unknown, HIVES, 03/13/16) metolazone (Verified Adverse Reaction, Severe, SICK TO STOMACH, 08/10/16) Home Medications Apixaban 2.5 Mg Tablet 2.5 MG PO BID (Reported) Calcium Carbonate/Vitamin D3 1 Each Tablet 1 TAB PO BID (Reported) Chlorhexidine Gluconate 473 Ml Mouthwash 0.5 OZ MM BID (Reported) Cholecalciferol (Vitamin D3) 1,000 Unit Tablet 1,000 UNIT PO BID (Reported) Cyanocobalamin 1,000 Mcg/Ml Inj 1,000 MCG IJ MONTHLY (Reported) Diltiazem HCl 240 Mg Cap.er.24h 240 MG PO DAILY (Reported) Doxycycline Hyclate 100 Mg Capsule 7Days 100 MG PO BID (Reported) FILLED 09/18/15 #14 FOR A 7 DAY THERAPY Fish Oil/Dha/Epa 1 Each Capsule 1,200 MG PO BID (Reported) Fluticasone/Salmeterol 12 Gm Hfa.aer.ad 1 PUFF IH BID (Reported) Furosemide 40 Mg Tablet 80 MG PO DAILY (Reported) TAKES 2 (40 MG) TABLETS Guaifenesin 1,200 Mg Tab.er.12h 1,200 MG PO BID (Reported) Hydrocodone/Acetaminophen 1 Each Tablet 1 TAB PO Q6H PRN PRN PAIN (Reported) Lisinopril 2.5 Mg Tablet 2.5 MG PO DAILY (Reported) Magnesium Oxide 400 Mg Tablet 400 MG PO BID (Reported) Mometasone Furoate 17 Gm Naspr 1 SPRAY NSEACH DAILY PRN PRN ALLERGIES (Reported ) Ondansetron HCl 8 Mg Tablet 8 MG PO Q8H PRN PRN NAUSEA/VOMITING (Reported) Potassium Chloride 10 Meq Tab.er.prt 20 MEQ PO BID (Reported) TAKES 2 (10 MEQ) TABLETS Trazodone HCl 50 Mg Tablet 50 MG PO HS (Reported) Ursodiol 300 Mg Capsule 600 MG PO DAILY (Reported) TAKES 2 (300 MG) CAPSULES Ursodiol 300 Mg Capsule 300 MG PO HS (Reported) Zolpidem Tartrate 10 Mg Tablet 10 MG PO HS PRN PRN INSOMNIA (Reported) Past Mnpwuhc-Nvzpne-Tapvgy Hx Patient Social History Alcohol Use: Occasionally Uses Recreational Drug Use: No Smoking Status: Current Everyday Smoker Type Used: Cigarettes Recent Foreign Travel: No Contact w/Someone Who Travel: No Recent Infectious Disease Expo: No Recent Hopitalizations: No Physical Abuse Screen: No Sexual Abuse: No Immunizations Up To Date Date of Influenza Vaccine: Jun 10, 2016 Surgeries HX Surgeries: Yes (shoulder sx, toe sx, port placed) Surgeries: Breast, Hysterectomy, Orthopedic Respiratory Hx Respiratory Disorders: No Cardiovascular Hx Cardiac Disorders: Yes Cardiac Disorders: Atrial Fibrillation, Valvular Heart Disease Neurological Hx Neurological Disorders: No 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 System Hx 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 Disorders: No Genitourinary Hx Genitourinary Disorders: No Gastrointestinal Hx Gastrointestinal Disorders: Yes (Fatty liver) Musculoskeletal Hx Musculoskeletal Disorders: Yes (bone ca) Musculoskeletal Disorders: Arthritis Endocrine Hx Endocrine Disorders: No HEENT HX ENT Disorders: No Cancer Hx Cancer: Yes Cancer: Bone, Lung (small cell), Breast Psychosocial Hx Psychiatric Problems: Yes Behavioral Health Disorders: Depression Integumentary HX Skin/Integumentary Disorder: No Blood Transfusions Hx Blood Disorders: No Exam Exam Vital Signs Date Time Temp Pulse Resp B/P Pulse Ox O2 Delivery O2 Flow Rate FiO2 09/21/16 06:22 112 100/64 09/21/16 06:00 129 15 124/112 90 Nasal Cannula 3.00 09/21/16 05:00 123 18 113/91 91 Nasal Cannula 3.00 09/21/16 04:10 93 Nasal Cannula 3.00 09/21/16 04:00 112 20 116/71 94 Nasal Cannula 3.00 09/21/16 03:00 109 12 114/97 94 Nasal Cannula 3.00 09/21/16 02:00 133 21 127/84 91 Nasal Cannula 3.00 09/21/16 01:00 130 09/21/16 01:00 130 15 117/77 95 Nasal Cannula 3.00 09/21/16 00:00 94 Nasal Cannula 3.00 09/21/16 00:00 116 20 134/90 91 Nasal Cannula 3.00 09/20/16 23:00 131 25 121/86 90 Nasal Cannula 3.00 09/20/16 22:00 134 21 105/74 94 Nasal Cannula 3.00 09/20/16 21:00 100 31 127/86 91 Nasal Cannula 3.00 09/20/16 20:00 152 26 115/78 92 Nasal Cannula 3.00 09/20/16 20:00 Nasal Cannula 3.00 09/20/16 19:15 95 Nasal Cannula 09/20/16 19:00 97.5 110 26 91/65 94 Nasal Cannula 3.00 09/20/16 19:00 105 09/20/16 18:15 20 118/92 09/20/16 17:45 116 18 104/76 09/20/16 16:45 128 18 119/106 09/20/16 15:56 132/95 09/20/16 14:12 108 09/20/16 13:30 97.1 115 18 96 Room Air 09/20/16 13:25 96 Room Air 09/20/16 11:45 96 Room Air 09/20/16 11:29 127 18 104/65 94 09/20/16 11:00 97.1 155 20 97/81 95 Room Air I & O 09/21/16 07:00 Intake Total 1005 ml Output Total 480 ml Balance 525 ml General Appearance: Anxious Moderate Distress Thin HEENT: PERRL/EOMI TMs Normal Normal ENT Inspection Pharynx Normal Neck: Full Range of Motion Normal Inspection Respiratory: Chest Non Tender Lungs Clear Normal Breath Sounds Cardiovascular: No JVD Irregularly Irregular Tachycardia Capillary Refill: Less Than 3 Seconds Extremity: Pedal Edema (3+) Neurologic/Psychiatric: Alert Oriented x3 No Motor/Sensory Deficits Normal Mood/Affect Skin: Normal Color Warm/Dry Results Lab Laboratory Tests 09/20/16 11:05 09/21/16 04:40 Assessment/Plan Assessment/Plan Acute respiratory failure with distress -80mg lasix IV first dose now -insert Vaughan -duoneb Q4 Afib RVR -cardizem gtt -Cardiology following pulmonary edema with pleural effusions -lasix Metastatic small cell lung cancer -Oncology is following 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
[2016-09-21] MEDS ORDERED: RT-ALBUTEROL/IPRATROPIUM 3 ML (DUONEB) VIAL ONE (07:17)
[2016-09-21] MEDS: RT-ALBUTEROL/IPRATROPIUM 3 ML (DUONEB) VIAL INH SCH ×4 (07:25→22:44)
[2016-09-21] MEDS ORDERED: RT-LEVALBUTEROL (XOPENEX) 1.25 MG/3 ML NEB NON-FORMULARY INH SCH (08:00)
[2016-09-21] MEDS ORDERED: ONDANSETRON 8 MG (ZOFRAN) ORAL DISSOLVE TAB PO PRN (08:15)
[2016-09-21] MEDS ORDERED: RT-ADVAIR HFA 115/21 MCG PER PUFF IH SCH (09:00)
[2016-09-21] MEDS ORDERED: lisINopril 5 MG (PRINIVIL) TABLET PO SCH (09:00)
[2016-09-21] MEDS: URSODIOL 300 MG CAPSULE PO SCH ×2 (09:00→20:54)
--- NOTE | 2016-09-21 09:00 | Progress Note-Hospitalist ---
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 Pt was anxious throughout the night. Pt received Xanax but it did not make much of a difference. Pt could use morphine when she is really distressed. Pt was admitted before and wanted to go home on hospice. Patient Interview: Pt states her Oncologist is Dr. White. Physical exam was stable. Scribed by Simone Head under the direct supervision of Dr. Cummings. Progress Notes/Assess & Plan Date Seen 09/21/16 Admission Dx/Process Afib with RVR Diagonsis/Assessment & Plan 71yo with PMH of afib, CHF, metastatic SCC with new onset of SOA secondary to afib with RVR 1. Afib with RVR -will not tolerate digoxin or beta blockers -given bolus of amiodarone, will switch to oral afterwards -not a candidate for cardioversion due to chronic nature of her afib -will restart eloquis which she previously took -echo was done recently, will not redo -cardiology is consulted and following 2. CHF -cardiology following -chest xray with bibasilar infiltrate and effusion, will continue to monitor for increased work of breathing, currently breathing room air -volume overloaded, will get lasix today 3. metastatic small cell carcinoma -following Dr. White as outpatient 4. 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 debility/cachexia -secondary to metastatic disease, do not anticipate improvement -offer supplementation to patient 6. COPD -continue TILE DESIGNER inhalers 7.. continued smoker 8. anxiety -alprazolam prn, zolpidem for sleep aid -trazadone qhs TIO CUMMINGS DO 09/22/16 1153: Progress Note Progress Notes/Assess & Plan Diagonsis/Assessment & Plan Patient seen and examined Reviewed information documented above Patient has very poor prognosis overall Change morphine to Dilaudid due to nausea Anxiolytics Oxygen Lasix MILVIA FARLEY MED STUDENT Sep 21, 2016 09:00 TIO CUMMINGS DO Sep 22, 2016 11:53
[2016-09-21] MEDS: guaiFENesin (MUCINEX) 600 MG TAB PO SCH ×2 (10:25→20:55)
[2016-09-21] MEDS: VITAMIN D3 1,000 UNITS (CHOLECALCIFEROL) TABLET PO SCH ×2 (10:25→20:55)
[2016-09-21] MEDS: AMIODARONE 200 MG (CORDARONE) TAB PO SCH ×2 (10:26→20:55)
[2016-09-21] MEDS: APIXABAN 2.5 MG (ELIQUIS) TABLET PO SCH ×2 (10:26→20:55)
[2016-09-21] MEDS: MAGNESIUM OXIDE (MAG-OX)400 MG TAB PO SCH ×2 (10:26→20:55)
--- NOTE | 2016-09-21 10:27 | Diagnostic Imaging Report ---
INDICATION: Dyspnea. TECHNIQUE: Single view chest 5:11 AM. CORRELATION STUDY: 09/20/2016 FINDINGS: A left-sided IJ Bhzbjf-x-Hlqm catheter is unchanged. Rather pronounced cardiac enlargement is noted. There is presence of pulmonary vascular congestion increasing since prior study. There is also prominent interstitial markings which have increased since prior study. Bilateral pleural effusions along with atelectasis or infiltrate lung bases also slightly increased. Surgical clips over the right axillary region. Likely prior surgical changes with resection of the distal right clavicle. IMPRESSION: 1. Overall worsening findings of the chest. Pulmonary vasculature with interstitial edema along with bilateral pleural effusions as well as infiltrate and/or atelectasis lung bases overall have increased. Dictated by: Dictated on workstation # [id number]
[2016-09-21] MEDS: CHLORHEXIDINE 0.12% SOLN 15 ML (PERIDEX) UDC MM SCH ×2 (10:33→20:54)
--- NOTE | 2016-09-21 14:21 | Cardiology Progress Note ---
Subjective Subjective/Events-last exam Patient is sitting up in bed. Complains of nausea. Denies any CP. Continues to have some dyspnea. Review of Systems General: No Night Sweats, Fatigue HEENT: No Visual Changes, No Dysphasia, No Sore Throat Pulmonary: Dyspnea CoughNo Pleuritic Chest Pain Cardiovascular: : Edema: PalpitationsNo: Chest Pain, Lt Headedness, Paroxysmal Noc. Dyspnea Gastrointestinal: : NauseaNo: Abdominal Pain, Vomiting Genitourinary: No Dysuria, No Frequency Musculoskeletal: No: back pain, neck pain Neurological: : Numbness: WeaknessNo: Change in speech, Confusion Objective-Cardiology Exam Last Set of Vital Signs Vital Signs 09/21/16 09/21/16 09/21/16 10:00 12:00 14:03 Temp 98.5 Pulse 129 Resp 30 B/P 113/86 Pulse Ox 96 O2 Delivery Nasal Cannula O2 Flow Rate 3.00 Capillary Refill : Less Than 3 Seconds I&O Bad tableGeneral: Alert, Oriented X3, Cooperative HEENT: Atraumatic, PERRLA Neck: Supple, No JVD, No Thyromegaly Lungs: Other (diminished breath sounds bibasilarly) Heart: Other (irregularly irregular, tachycardic) Abdomen: Normal Bowel Sounds, Soft Skin: No Rashes, No Significant Lesion Neuro: Normal Speech, Cranial Nerves 3-12 NL Psych/Mental Status: Mental Status NL, Mood NL Results Lab Laboratory Tests 09/21/16 04:40 A/P-Cardiology Admission Diagnosis CHF AF Metastatic carcinoma Tobaccoism Assessment/Plan Acute on chronic diastolic and systolic CHF, diurese as blood pressure tolerates. Most recent 2D echo 08/10/16 shows LVEF 30-35%; valvular heart disease consisting of mod-sev aortic stenosis (ao valve area 1 sq cm); MAC w/o significant MS; mod TR; PASP 45 mmHg. Continue to monitor. Atrial fibrillation, non-valvular, chronic, heart rate has been difficult to control in the past. Currently HR 100-120's. Intolerant to beta blockers and digoxin in the past. Currently on Cardizem gtt and PO amiodarone. Continue to monitor. Hyperkalemia- hold potassium, continue Lasix and continue to monitor. Hyponatremia Intolerance to digoxin due to dizziness and nonspecific malaise Intolerance to beta-lelia due to symptomatic fall in chronically low bp Dilated cardiomyopathy, first documented in March 2016. 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 Status post adjuvant chemotherapy with Adriamycin and Cytoxan regimen 4 cycles followed by radiation therapy to the right breast completed in August 2008. Status post adjuvant hormonal therapy with Arimidex from August 2008 until early 2013. Clinical Quality Measures DVT/VTE Risk/Contraindication: Risk Factor Score Per Nursin RFS Level Per Nursing on Admit: 4+=Very High BISHOP SHORT Sep 21, 2016 14:21
--- NOTE | 2016-09-21 14:42 | Cardiology Progress Note ---
Subjective Subjective/Events-last exam Patient is laying down in bed, complaining of nausea, fatigue and shortness of breath, active wheezing. Dizzy and lightheaded. Poor urine output Review of Systems General: No Chills, No Night Sweats, Fatigue Malaise AppetiteNo Other HEENT: No Head Aches, No Visual Changes, No Eye Pain, No Ear Pain, No Dysphasia , No Sinus Congestion, No Post Nasal Drip, No Sore Throat, No Other Pulmonary: Dyspnea Cough Pleuritic Chest PainNo Other Cardiovascular: : Edema: Orthopnea: Palpitations: Paroxysmal Noc. DyspneaNo: Chest Pain, Lt Headedness, Other Gastrointestinal: : Nausea: Vomiting Objective-Cardiology Exam Last Set of Vital Signs Vital Signs 09/21/16 09/21/16 09/21/16 10:00 12:00 14:03 Temp 98.5 Pulse 129 Resp 30 B/P 113/86 Pulse Ox 96 O2 Delivery Nasal Cannula O2 Flow Rate 3.00 Capillary Refill : Less Than 3 Seconds I&O Bad tableGeneral: Alert, Oriented X3, Cooperative HEENT: Atraumatic, PERRLA Neck: Supple, No JVD, No Thyromegaly Lungs: Other (diminished breath sounds bibasilarly) Heart: Normal S1, Other (irregularly irregular, tachycardic) Abdomen: Normal Bowel Sounds, Soft Skin: No Rashes, No Significant Lesion Neuro: Normal Speech, Cranial Nerves 3-12 NL Psych/Mental Status: Mental Status NL, Mood NL Results Lab Laboratory Tests 09/21/16 04:40 A/P-Cardiology Admission Diagnosis CHF AF Metastatic carcinoma Tobaccoism Assessment/Plan Atrial fibrillation with rapid ventricular response, difficult heart rate control due to the hypotension, on Cardizem drip, I added amiodarone without significant improvement, I will add digoxin and monitor closely Nausea and vomiting after receiving morphine. Patient is fairly uncomfortable next Hypotensive shock, multifactorial. Cannot receive IV fluid due to the pulmonary edema. Acute on chronic diastolic and systolic CHF, diurese as blood pressure tolerates. Most recent 2D echo 08/10/16 shows LVEF 30-35%; valvular heart disease consisting of mod-sev aortic stenosis (ao valve area 1 sq cm); MAC w/o significant MS; mod TR; PASP 45 , receiving IV Lasix with close monitoring to her blood pressure. Hyperkalemia, recommend holding potassium and magnesium replacement and monitor electrolyte, repeat potassium level at this point and reevaluated in the morning. 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 Intolerance to digoxin due to dizziness and nonspecific malaise, agreed to try a low dose digoxin and evaluate tolerance and response Intolerance to beta-lelia due to symptomatic fall in chronically low BP Dilated cardiomyopathy, first documented in March 2016. 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 Status post adjuvant chemotherapy with Adriamycin and Cytoxan regimen 4 cycles followed by radiation therapy to the right breast completed in August 2008. Status post adjuvant hormonal therapy with Arimidex from August 2008 until early 2013. Clinical Quality Measures DVT/VTE Risk/Contraindication: Risk Factor Score Per Nursin RFS Level Per Nursing on Admit: 4+=Very High MAYCO VICENTE MD Sep 21, 2016 14:42
[2016-09-21] MEDS ORDERED: DIGOXIN 0.25 MG/ML (LANOXIN) 2 ML AMP IV NR (14:45)
[2016-09-21] MEDS: ALPRAZolam 0.5 MG (XANAX) TAB PO PRN ×2 (16:08→21:01)
[2016-09-21] MEDS ORDERED: HYDROmorphone (DILAUDID) 2 MG/ML VIAL IVP PRN (17:00)
[2016-09-21] MEDS: RT-ADVAIR HFA 115/21 MCG PER PUFF IH SCH (19:00)
[2016-09-21] MEDS: traZODone 50 MG (DESYREL) TAB PO SCH (20:55)
[2016-09-22] VITALS (22 sets, daily range): BP systolic 72–127; BP diastolic 43–96
[2016-09-22] MEDS: RT-ALBUTEROL/IPRATROPIUM 3 ML (DUONEB) VIAL INH SCH ×6 (02:57→22:00)
[2016-09-22 04:27] LABS: BASOPHILS % (AUTO) 0 % (0-10); EOSINOPHILS # (AUTO) 0.1 10^3/uL (0.0-0.3); EOSINOPHILS % (AUTO) 1 % (0-10); LYMPHOCYTES % (AUTO) 12 % (12-44); MEAN CORPUSCULAR HEMOGLOBIN 34 PG (25-34); MEAN CORPUSCULAR HGB CONC 35 G/DL (32-36); MEAN CORPUSCULAR VOLUME 97 FL (80-99); MEAN PLATELET VOLUME 10.2 FL (7.4-10.4); MONOCYTES # (AUTO) 1.3 X 10^3 (0.0-1.0); MONOCYTES % (AUTO) 16 % (0-12); NEUTROPHILS # (AUTO) 5.7 X 10^3 (1.8-7.8); NEUTROPHILS % (AUTO) 71 % (42-75); PLATELET COUNT 185 10^3/uL (130-400); RED BLOOD COUNT 3.97 10^6/uL (4.35-5.85); RED CELL DISTRIBUTION WIDTH 13.6 % (10.0-14.5)
[2016-09-22 04:57] LABS: ALANINE AMINOTRANSFERASE 29 U/L (0-55); ALBUMIN 3.1 G/DL (3.2-4.5); ANION GAP 8 MMOL/L (5-14); ASPARTATE AMINO TRANSFERASE 28 U/L (5-34); BILIRUBIN,TOTAL 0.4 MG/DL (0.1-1.0); BLOOD UREA NITROGEN 25 MG/DL (7-18); BUN/CREATININE RATIO 29; CALCIUM 8.9 MG/DL (8.5-10.1); CARBON DIOXIDE 27 MMOL/L (21-32); CHLORIDE 86 MMOL/L (98-107); CREATININE SERUM 0.85 MG/DL (0.60-1.30); GFR ESTIMATED > 60; GLUCOSE 114 MG/DL (70-105); POTASSIUM 5.6 MMOL/L (3.6-5.0); TOTAL PROTEIN 5.7 G/DL (6.4-8.2)
[2016-09-22 05:00] LABS: SODIUM 121 MMOL/L (135-145)
[2016-09-22 05:05] LABS: DIGOXIN 0.56 NG/ML (0.80-2.00)
[2016-09-22] MEDS: MAGNESIUM 1 GM/100 ML IVPB 100 ML IV SCH (05:15)
[2016-09-22] MEDS: POTASSIUM CL 10MEQ/50ML IVPB 50 ML IV SCH (05:15)
[2016-09-22] MEDS: KCL 20 MEQ TAB (K-DUR) PO SCH ×3 (05:16→20:14)
[2016-09-22] MEDS ORDERED: NS IV 500 ML 500 ML ONE (05:17)
[2016-09-22] MEDS ORDERED: D5W 100 ML IVPB 100 ML IV ONE (05:20)
[2016-09-22] MEDS ORDERED: AMIODARONE FOR BOLUS 150 MG in D5W 100 ML IVPB 100 ML IV ONE (05:45)
[2016-09-22] MEDS ORDERED: NS IV 500 ML 500 ML IV ONE (05:45)
[2016-09-22] MEDS: RT-ADVAIR HFA 115/21 MCG PER PUFF IH SCH ×2 (06:47→19:03)
--- NOTE | 2016-09-22 07:16 | Diagnostic Imaging Report ---
INDICATION: Followup. Dyspnea. COMPARISON: 09/21/2016 FINDINGS: Single frontal radiographic view of the chest was obtained and continues to show persistent moderate cardiomegaly. Pulmonary vasculature congestion remains, but does appear to be improved. Diffuse interstitial opacities are also improved. Bilateral effusions remain, right greater than left. Right-sided effusion does appear greater in volume on today's study. There is associated bibasilar atelectasis and/or infiltrate. No pneumothorax is identified. Left-sided Port-A-Cath is stable. Bony structures are unchanged. IMPRESSION: 1. Interval improved pulmonary vascular congestion and interstitial edema. 2. Findings suspicious for increasing right-sided effusion with associated atelectasis and/or infiltrate. 3. Stable left basilar effusion with associated atelectasis and/or infiltrate. Dictated by: Dictated on workstation # [id number]
--- NOTE | 2016-09-22 08:01 | CONSULTATION REPORT ---
DATE OF CONSULTATION: 09/21/2016 The patient is admitted to ICU bed 10. REFERRING PHYSICIAN: Katja Hopkins D.O. IMPRESSION: 1. 71-year-old female with history of metastatic small cell cancer to the bone, presumably of lung origin, status post palliative radiation therapy to the left tibia completed on 03/16/2016. Status post chemotherapy with carboplatin and etoposide regimen x3 cycles, stopped due to toxicity and on surveillance. 2. Admitted with atrial fibrillation with rapid ventricular response, increased shortness of breath with orthopnea. 3. Hyponatremia most likely due to SIADH. Rule out recurrent small cell cancer vs. other etiology. 4. Previous history of stage IIA invasive ductal carcinoma of the right breast, status post lumpectomy with axillary node dissection followed by adjuvant chemotherapy with Adriamycin and Cytoxan regimen x4 cycles, and radiation therapy to the right breast, completing all treatment by August 2008. Status post adjuvant hormonal therapy with Arimidex from August 2008 until early 2013. RECOMMENDATIONS: 1. Continue management of atrial fibrillation with rapid ventricular response and dilated cardiomyopathy as you are doing. 2. With regards to the possibility of recurrent small cell cancer, the patient was scheduled for restaging studies in mid September 2016 on an outpatient basis. I discussed the option of obtaining the restaging scans now to rule out recurrence as the cause of her symptoms. The patient wanted to think about this and will decide by tomorrow. 3. If the patient undergoes restaging studies and does not have any evidence of recurrent disease, may proceed with cardiac interventions including pacemaker placement. 4. If she has evidence of recurrent small cell cancer, her prognosis is poor and I will discuss the options of palliative chemotherapy versus best supportive care. 5. I will follow the patient with you and make appropriate recommendations. Mrs. Newton is a 71-year-old female who was admitted to the hospital on 09/20/2016 with palpitations, increased shortness of breath even at rest, and weakness. She was noted to be in atrial fibrillation with rapid ventricular response which has been a chronic problem and difficult to control. She has history of metastatic small cell cancer to a single site in her tibia which was radiated and did not have an identifiable primary. Immunohistochemical pattern was consistent with lung origin. She underwent 3 cycles of chemotherapy with carboplatin and etoposide regimen, which was stopped due to side effects. Medical oncology consultation was requested for concurrent follow-up. PAST MEDICAL HISTORY: Significant for: 1. Stage 2A breast cancer diagnosed in 2007. She underwent lumpectomy and sentinel lymph node biopsy followed by adjuvant chemotherapy with Adriamycin and Cytoxan regimen x4 cycles followed by radiation therapy to the right breast. She then took hormonal therapy with Arimidex until early 2013. She was diagnosed with metastatic small cell cancer to the left tibia with no identifiable primary and underwent radiation therapy to this area in February 2016. She took chemotherapy with carboplatin and etoposide regimen for 3 cycles, which was stopped due to side effects and has been on surveillance. 2. She was diagnosed with paroxysmal atrial fibrillation and dilated cardiomyopathy in mid 2005 and has been on medical management. 3. She has moderate aortic stenosis. 4. She has history of COPD. 5. She has had hysterectomy in the past. SOCIAL HISTORY: The patient is single and lives in [place], [place]. She works at [employer] since a long time. She has extensive history of tobacco use and is continuing to smoke daily. She uses alcohol socially. Denied any recreational drug use. FAMILY HISTORY: Unremarkable and noncontributory. PHYSICAL EXAMINATION: Today showed an elderly female, thin appearing and week in mild respiratory distress. She was afebrile with a pulse rate and 94, respirations 11, blood pressure 108/72, and oxygen saturation of 94% on 3 liters of oxygen by nasal cannula. HEENT: Normocephalic, extraocular muscles intact. Conjunctivae pink, oral mucosa slightly dry. NECK: Supple. JVD was seen extending to the angle of jaw at 45 degrees. No cervical, supraclavicular, or axillary lymphadenopathy palpable. CHEST: Chest was symmetrical with a port present on the left side. LUNGS: With diminished to absent breath sounds in both lung bases. The rest of the lung aguilar with decreased breath sounds. No wheezes or rales heard. CARDIOVASCULAR EXAM: Borderline tachycardic, irregular with no murmurs heard. ABDOMEN: Soft, nontender with no hepatosplenomegaly or other masses palpable. EXTREMITIES: Showed no edema. NEUROLOGICAL EXAM: Showed no focal motor deficits. LABORATORY: CBC done today showed white count of 8.5, hemoglobin 15, and platelet count of 244,000 with neutrophil count of 5.9, and monocyte count of 1.3. Chemistry panel showed a sodium level of 122, potassium 5.3, BUN was 19 and creatinine 0.76 with GFR more than 60 mL per minute. Liver function studies were within normal limits from yesterday. BNP was elevated at 920.4. Troponin was less than 0.3. Digoxin level was less than 0.3. Chest x-ray done at the time of admission showed interstitial pulmonary edema, right basilar infiltrates and effusion. A repeat done today morning, showed worsening of the chest with bilateral pleural effusion, as well as infiltrate and/or atelectasis in the lung bases. Thank you for allowing me to participate in this patient's care. I will follow the patient with you and make appropriate recommendations. Job ID: [id number] Dictated Date: 09/21/2016 17:51:33 Chief Specialist Leed Date: 09/22/2016 07:47:01/jose CRUZ
--- NOTE | 2016-09-22 08:52 | Cardiology Progress Note ---
Subjective Subjective/Events-last exam patient is laying down in bed. Feeling slightly better, less nauseous, tired, did not sleep well, asking to go home. Still borderline tachycardic, has been off the Cardizem drip due to hypotension Review of Systems General: No Chills, No Night Sweats, Fatigue MalaiseNo Appetite, No Other HEENT: No Head Aches, No Visual Changes, No Eye Pain, No Ear Pain, No Dysphasia , No Sinus Congestion, No Post Nasal Drip, No Sore Throat, No Other Pulmonary: Dyspnea CoughNo Pleuritic Chest Pain, No Other Cardiovascular: : PalpitationsNo: Chest Pain, Edema, Lt Headedness, Orthopnea, Other, Paroxysmal Noc. Dyspnea Objective-Cardiology Exam Last Set of Vital Signs Vital Signs 09/22/16 09/22/16 09/22/16 09/22/16 03:00 06:00 06:52 07:00 Temp 97.1 Pulse 126 Resp 11 B/P 82/68 Pulse Ox 98 O2 Delivery Nasal Cannula O2 Flow Rate 3.50 Capillary Refill : Less Than 3 Seconds I&O Intake and Output 09/22/16 00:00 Intake Total 874 ml Output Total 655 ml Balance 219 ml Intake Oral 774 ml IV Total 100 ml Output Urine Total 655 ml General: Alert, Oriented X3, Cooperative HEENT: Atraumatic, PERRLA Neck: Supple, No JVD, No Thyromegaly Lungs: Other (diminished breath sounds bibasilarly) Heart: Normal S1, Other (irregularly irregular, tachycardic) Abdomen: Normal Bowel Sounds, Soft Skin: No Rashes, No Significant Lesion Neuro: Normal Speech, Cranial Nerves 3-12 NL Psych/Mental Status: Mental Status NL, Mood NL Results Lab Laboratory Tests 09/21/16 16:00 09/22/16 04:18 A/P-Cardiology Admission Diagnosis CHF AF Metastatic carcinoma Tobaccoism Assessment/Plan Atrial fibrillation with rapid ventricular response, difficult heart rate control due to the hypotension, I will stop Cardizem drip and start oral Cardizem, continue on digoxin andmonitor heart rate and blood pressure, planning to transfer to telemetry today. Nausea and vomiting, reporting improvement. Continue to monitor Hypotension, better blood pressure today, continue to monitor. Acute on chronic diastolic and systolic CHF, diurese as blood pressure tolerates. Most recent 2D echo 08/10/16 shows LVEF 30-35%; valvular heart disease consisting of mod-sev aortic stenosis (ao valve area 1 sq cm); MAC w/o significant MS; mod TR; PASP 45 , receiving IV Lasix with close monitoring to her blood pressure. Cannot tolerate beta blockers and or Patrick inhibitors and/or ARB due to hypotension Hyperkalemia,hold potassium supplement at this time and monitor. 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 Intolerance to digoxin due to dizziness and nonspecific malaise, agreed to try a low dose digoxin and evaluate tolerance and response, continue to monitor Intolerance to beta-lelia due to symptomatic fall in chronically low BP Dilated cardiomyopathy, first documented in March 2016. 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 White, received palliative radiation therapy. History of breast cancer. Seen and followed by Dr. Blue, had lumpectomy and axillary node dissection in February 2008, receive Adriamycin and Cytoxan for 4 cycles followed by radiation therapy. Not suitable of ICD placement, given life expectancy as described above Chronic tobacco use Clinical Quality Measures DVT/VTE Risk/Contraindication: Risk Factor Score Per Nursin RFS Level Per Nursing on Admit: 4+=Very High MAYCO VICENTE MD Sep 22, 2016 08:52
--- NOTE | 2016-09-22 09:52 | Pulmonary Progress Note ---
Subjective Subjective/Events-last exam pt reports that she is going home tomorrow; family is at bedside; she denies shortness of breath, she has pc with clear phlegm; she is wearing oxygen 3.5 and is at 98%. Exam Exam Vital Signs Date Time Temp Pulse Resp B/P Pulse Ox O2 Delivery O2 Flow Rate FiO2 09/22/16 07:00 126 09/22/16 06:52 98 Nasal Cannula 3.50 09/22/16 06:47 95 Nasal Cannula 3.50 09/22/16 06:00 99 11 82/68 91 Nasal Cannula 3.00 09/22/16 05:00 90 12 79/43 95 Nasal Cannula 3.00 09/22/16 04:10 96 Nasal Cannula 3.00 09/22/16 04:00 106 12 77/65 Nasal Cannula 3.00 09/22/16 03:00 97.1 114 20 82/63 92 Nasal Cannula 3.00 09/22/16 02:58 98 Nasal Cannula 3.50 09/22/16 02:00 124 10 83/68 Nasal Cannula 3.00 09/22/16 01:00 109 12 96/65 96 Nasal Cannula 3.00 09/22/16 01:00 110 09/22/16 00:00 96 Nasal Cannula 3.00 09/22/16 00:00 97.8 92 18 95/66 96 Nasal Cannula 3.00 09/22/16 00:00 74 10 95/66 94 Nasal Cannula 3.00 09/21/16 23:00 97 10 97/82 92 Nasal Cannula 3.00 09/21/16 22:45 93 Nasal Cannula 3.50 09/21/16 22:00 101 10 95/83 94 Nasal Cannula 3.00 09/21/16 21:00 112 15 97/84 88 Nasal Cannula 3.00 09/21/16 20:00 83 9 80/40 93 Nasal Cannula 3.00 09/21/16 20:00 94 Nasal Cannula 3.00 09/21/16 19:08 94 Nasal Cannula 3.50 09/21/16 19:00 103 09/21/16 19:00 95 Nasal Cannula 3.50 09/21/16 19:00 98.8 113 27 101/72 91 Nasal Cannula 3.00 09/21/16 18:00 100 18 100/75 Nasal Cannula 3.00 09/21/16 17:00 93 13 105/82 Nasal Cannula 3.00 09/21/16 16:00 94 11 108/72 Nasal Cannula 3.00 09/21/16 16:00 94 Nasal Cannula 4.00 09/21/16 15:51 111 121/82 09/21/16 15:00 135 13 121/82 Nasal Cannula 3.00 09/21/16 14:03 96 Nasal Cannula 3.00 09/21/16 14:00 105 16 83/55 Nasal Cannula 3.00 09/21/16 13:00 110 09/21/16 13:00 113 13 97/80 Nasal Cannula 3.00 09/21/16 12:00 94 Nasal Cannula 4.00 09/21/16 12:00 98.5 09/21/16 12:00 112 12 90/73 Nasal Cannula 3.00 09/21/16 11:00 128 16 109/94 Nasal Cannula 3.00 09/21/16 10:00 129 30 113/86 88 Nasal Cannula 3.00 I & O 09/22/16 07:00 Intake Total 1087 ml Output Total 485 ml Balance 602 ml General Appearance: No Apparent Distress WD/WN Chronically ill Cachetic Thin HEENT: PERRL/EOMI Normal ENT Inspection Pharynx Normal Neck: Full Range of Motion Normal Inspection Non Tender Supple Carotid Bruit Respiratory: Chest Non Tender No Accessory Muscle Use No Respiratory Distress Crackles Decreased Breath Sounds Cardiovascular: No Edema No Gallop No JVD No Murmur Normal Peripheral Pulses Irregularly Irregular Tachycardia Capillary Refill: Less Than 3 Seconds Peripheral Pulses: 1+ Dorsalis Pedis (R), 1+ Left Dors-Pedis (L), 1+ Radial Pulses (R), 1+ Radial Pulses (L) Gastrointestinal: non tender soft Extremity: Normal Capillary Refill Normal Inspection Normal Range of Motion Non Tender No Calf Tenderness No Pedal Edema Neurologic/Psychiatric: Alert Oriented x3 No Motor/Sensory Deficits Normal Mood/Affect Skin: Normal Color Warm/Dry Lymphatic: No Adenopathy Results Lab Laboratory Tests 09/20/16 11:05 09/21/16 04:40 09/21/16 16:00 09/22/16 04:18 Assessment/Plan Assessment/Plan Acute respiratory failure with distress -80mg Lasix IV first dose now -Vaughan- hematuria noted -DuoNeb Q4 Afib RVR -Cardizem gtt -Cardiology following pulmonary edema with pleural effusions -Lasix Metastatic small cell lung cancer -Oncology is following 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
[2016-09-22] MEDS: FUROSEMIDE 40 MG/4 ML INJ (LASIX) IVP SCH (10:27)
[2016-09-22] MEDS: CHLORHEXIDINE 0.12% SOLN 15 ML (PERIDEX) UDC MM SCH ×2 (10:27→20:09)
[2016-09-22] MEDS: URSODIOL 300 MG CAPSULE PO SCH ×2 (10:27→20:11)
[2016-09-22] MEDS: AMIODARONE 200 MG (CORDARONE) TAB PO SCH ×2 (10:28→20:10)
[2016-09-22] MEDS: VITAMIN D3 1,000 UNITS (CHOLECALCIFEROL) TABLET PO SCH ×2 (10:28→20:10)
[2016-09-22] MEDS: MAGNESIUM OXIDE (MAG-OX)400 MG TAB PO SCH ×2 (10:28→20:11)
[2016-09-22] MEDS: guaiFENesin (MUCINEX) 600 MG TAB PO SCH ×2 (10:28→20:10)
[2016-09-22] MEDS: DIGOXIN 0.125 MG (LANOXIN) TAB PO SCH (10:28)
[2016-09-22] MEDS: APIXABAN 2.5 MG (ELIQUIS) TABLET PO SCH ×2 (10:29→20:11)
--- NOTE | 2016-09-22 10:53 | Progress Note-Hospitalist ---
Progress Note HPI/CC on Admission Chart Review: WBC normal 8.5, Na+ 122, Creat 0.76, Will change fluid restriction from 4500 a day to 1200 a day, Reviewed Cardiology consultation chain maker machine: Pt had a rough night. Pt was anxious throughout the night. Pt received Xanax but it did not make much of a difference. Pt could use morphine when she is really distressed. Pt was admitted before and wanted to go home on hospice. Patient Interview: Pt states her Oncologist is Dr. White. Physical exam was stable. Scribed by Simone Head under the direct supervision of Dr. Cummings. Progress Notes/Assess & Plan Date Seen 09/22/16 Admission Dx/Process CHF Volume overload Anxiety Cancer w/widespread mets in apparent end of life stage Diagonsis/Assessment & Plan Patient Interview: Pt states that her throat hurts. Pt would like to DC tomorrow, but this is unlikely. Scribed by Marshall Briones under the direct supervision of Dr. Cummings. no fever heart rate 138 blood pressure 100/52 Patient's extremities are cyanotic and mottling noted Tachycardic and irregular 138 Decreased breath sounds are on all aguilar 2+ edema lower extremities to mid tibia and 1+ above the knee Cachexia noted Laboratory Tests 09/21/16 16:00 09/22/16 04:18 Assessment: Recurrent atrial for ablation with rapid ventricular response with volume overload Severe COPD End-stage cancer with widespread metastasis Active mottling Severe and worsening hyponatremia now near seizure threshold Hyperkalemia Plan: Added Chloraseptic spray for throat. Cardiology consulted Continue fluid restriction to prevent seizures Dilaudid Oxygen End of life care indicated but patient has been approached with palliative care and hospice and she declines all support TIO CUMMINGS DO Sep 22, 2016 10:53
[2016-09-22] MEDS ORDERED: CHLORASEPTIC SPRAY 177 ML LIQUID MC PRN (11:00)
[2016-09-22] MEDS ORDERED: DILTIAZEM 60 MG (CARDIZEM) TAB PO SCH (12:00)
[2016-09-22] MEDS ORDERED: NS IV 1000 ML 1,000 ML ONE (12:10)
[2016-09-22] MEDS: NS IV 1000 ML 1,000 ML IV SCH ×3 (12:32→14:32)
[2016-09-22] MEDS ORDERED: NS IV 1000 ML 1,000 ML IV ONE (13:45)
--- NOTE | 2016-09-22 14:16 | Progress Note-Standard ---
Standard Progress Note Progress Notes/Assess & Plan Progress/Assessment & Plan 71-year-old female admitted with shortness of breath and orthopnea and found to be in atrial fibrillation with rapid ventricular response. 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 She completed radiation therapy to the left tibia followed by chemotherapy with the carboplatinum and Etoposide regimen for 3 cycles which was stopped due to side effects. She has a remote history of breast cancer and underwent adjuvant chemotherapy with Adriamycin and Cytoxan regimen 4 cycles followed by hormonal therapy for 5 years. Patient is sitting up in bed today and feels slightly better. She is still unable to lie down flat. On the curing finisher she still continues to be in atrial fibrillation with a rate in the 140-150 range. Still has JVD extending to the angle of the jaw while sitting up in bed. Oral mucosa slightly dry. Lungs with absent sounds in both bases. Diminished sounds in upper lung aguilar without wheezing or rales. Cardiovascular exam was irregularly irregular, tachycardic without murmurs. Extremities showed no significant edema. Laboratory Tests 09/21/16 16:00 09/22/16 04:18 Chest x-ray slightly improved compared to yesterday but continued atelectasis/ effusion in the bases. A/P: 1. Atrial fibrillation with rapid ventricular response, continue management per cardiology. I have discussed the case with Dr. Tuttle and would recommend repeating the echocardiogram to rule out pericardial effusion or masses. 2. Hyponatremia, rule out SIADH and paraneoplastic syndrome due to small cell carcinoma versus other lung pathology. 3. History of metastatic small cell cancer to the bone, treatment as mentioned above. Once again discussed about restaging studies with the patient. Since she is feeling slightly better today but still cannot lay down flat for the scans, she would like to wait until her symptoms improve further. 4. History of stage II a breast cancer treated as mentioned above. Currently on surveillance. 5. Dr. Brandon covering until Sunday09/25/2016. GATO ACOSTA Sep 22, 2016 14:16
[2016-09-22] MEDS ORDERED: meTOprolol 5 MG/5 ML (LOPRESSOR) VIAL IV ONE (16:30)
[2016-09-22] MEDS ORDERED: DILTIAZEM 120 MG (CARDIZEM CD) CAP PO SCH (16:30)
[2016-09-22] MEDS: traZODone 50 MG (DESYREL) TAB PO SCH (20:10)
[2016-09-22] MEDS: ZOLPIDEM 5 MG (AMBIEN) TAB PO PRN (20:10)
[2016-09-22] MEDS: DILTIAZEM 120 MG (CARDIZEM CD) CAP PO SCH (20:10)
[2016-09-22] MEDS: ALPRAZolam 0.5 MG (XANAX) TAB PO PRN (21:30)
[2016-09-22] MEDS: morphine INJ 4 MG/ML 1 ML (VIAL/SYRINGE) IVP PRN (23:06)
[2016-09-23] VITALS (28 sets, daily range): BP systolic 71–155; BP diastolic 50–107
[2016-09-23] MEDS: RT-ALBUTEROL/IPRATROPIUM 3 ML (DUONEB) VIAL INH SCH ×6 (02:00→21:59)
[2016-09-23] MEDS: HYDROcodone/APAP 5 MG/325 MG (LORTAB) TAB PO PRN (03:26)
[2016-09-23 04:42] LABS: BASOPHILS % (AUTO) 0 % (0-10); EOSINOPHILS % (AUTO) 0 % (0-10); LYMPHOCYTES # (AUTO) 0.7 X 10^3 (1.0-4.0); LYMPHOCYTES % (AUTO) 9 % (12-44); MEAN CORPUSCULAR HEMOGLOBIN 34 PG (25-34); MEAN CORPUSCULAR HGB CONC 34 G/DL (32-36); MEAN CORPUSCULAR VOLUME 99 FL (80-99); MEAN PLATELET VOLUME 9.9 FL (7.4-10.4); MONOCYTES # (AUTO) 1.2 X 10^3 (0.0-1.0); MONOCYTES % (AUTO) 15 % (0-12); NEUTROPHILS % (AUTO) 76 % (42-75); PLATELET COUNT 180 10^3/uL (130-400); RED BLOOD COUNT 3.85 10^6/uL (4.35-5.85); RED CELL DISTRIBUTION WIDTH 13.7 % (10.0-14.5); WHITE BLOOD COUNT 7.8 10^3/uL (4.3-11.0)
[2016-09-23 05:17] LABS: ALANINE AMINOTRANSFERASE 26 U/L (0-55); ALBUMIN 3.2 G/DL (3.2-4.5); ANION GAP 9 MMOL/L (5-14); ASPARTATE AMINO TRANSFERASE 26 U/L (5-34); BILIRUBIN,TOTAL 0.3 MG/DL (0.1-1.0); BLOOD UREA NITROGEN 18 MG/DL (7-18); BUN/CREATININE RATIO 26; CALCIUM 8.3 MG/DL (8.5-10.1); CARBON DIOXIDE 27 MMOL/L (21-32); CHLORIDE 90 MMOL/L (98-107); CREATININE SERUM 0.69 MG/DL (0.60-1.30); GFR ESTIMATED > 60; GLUCOSE 139 MG/DL (70-105); MAGNESIUM 1.7 MG/DL (1.8-2.4); PHOSPHORUS 3.7 MG/DL (2.3-4.7); POTASSIUM 4.9 MMOL/L (3.6-5.0); SODIUM 126 MMOL/L (135-145); TOTAL PROTEIN 5.6 G/DL (6.4-8.2)
[2016-09-23 05:23] LABS: DIGOXIN 0.54 NG/ML (0.80-2.00)
[2016-09-23] MEDS: POTASSIUM CL 10MEQ/50ML IVPB 50 ML IV SCH (05:23)
[2016-09-23] MEDS: MAGNESIUM 1 GM/100 ML IVPB 100 ML IV SCH ×2 (05:47→07:38)
[2016-09-23] MEDS: APIXABAN 2.5 MG (ELIQUIS) TABLET PO SCH ×3 (09:00→21:00)
[2016-09-23] MEDS: CHLORHEXIDINE 0.12% SOLN 15 ML (PERIDEX) UDC MM SCH ×3 (09:00→21:45)
[2016-09-23] MEDS: MAGNESIUM OXIDE (MAG-OX)400 MG TAB PO SCH ×2 (09:00→21:00)
[2016-09-23] MEDS: DILTIAZEM 120 MG (CARDIZEM CD) CAP PO SCH ×3 (09:00→21:00)
[2016-09-23] MEDS: VITAMIN D3 1,000 UNITS (CHOLECALCIFEROL) TABLET PO SCH ×3 (09:00→21:00)
[2016-09-23] MEDS: KCL 20 MEQ TAB (K-DUR) PO SCH ×2 (09:00→21:00)
[2016-09-23] MEDS: FLUTICASONE NASAL SPRAY (FLONASE) 16 GM BTL NS SCH (09:00)
[2016-09-23] MEDS: guaiFENesin (MUCINEX) 600 MG TAB PO SCH ×2 (09:00→21:00)
[2016-09-23] MEDS: AMIODARONE 200 MG (CORDARONE) TAB PO SCH ×3 (09:00→21:00)
--- NOTE | 2016-09-23 09:21 | ECHOCARDIOGRAPHY REPORT ---
PROCEDURE PHYSICIAN: MAYCO VICENTE DATE OF PROCEDURE: 09/22/2016 TWO DIMENSIONAL ECHOCARDIOGRAM REPORT PRIMARY PHYSICIAN: OTHER PHYSICIAN: REFERRING PHYSICIAN: Dr. Gardner ORDERING PHYSICIAN: PRIMARY SECTIONIZER: Dr. Carrillo INDICATION FOR THE PROCEDURE: 1. Tachycardia. 2. Hypotension. MEASUREMENTS DERIVED VALUES LV DIAMETER (LAX) NORMALS NORMALS Diastolic 4.1 (3.6-5.2) Eject. Fract. 30% (60%+/-6%) Systolic (2.3-3.9) Diastolic Vol. % Shortening (0.22-0.42) Systolic Vol. Aortic Root IVS THICKNESS Diastolic 1.3 (0.6-1.1) LVPW THICKNESS Diastolic 1.3 (0.6-1.1) LA DIAMETER Systolic 5.6 (2.1-3.7) FINDINGS: 1. The left ventricle is normal in size with moderate left ventricular hypertrophy noted diffusely. Systolic function appeared to be reduced. Estimated ejection fraction 30%. 2. The left atrium is dilated. No clot or thrombus were seen within the left atrium. 3. The right atrium and right ventricle are prominent. No clot or thrombus were seen within the right side. 4. Mitral valve is calcified with moderate mitral regurgitation noted by color Doppler flow. No mitral valve prolapse. No mitral valve stenosis. 5. Aortic valve aortic is heavily calcified. Doppler across the aortic valve estimated the peak gradient of 59 mmHg, mean gradient of 36 mmHg. Calculated valve area of 1.1 sq cm. Moderate aortic valve stenosis. Mild to moderate aortic regurgitation noted by color Doppler flow. 6. Tricuspid valve is normal in morphology with moderate tricuspid regurgitation noted by color Doppler flow. Doppler across tricuspid valve estimated pulmonary artery pressure of 21+ right atrial pressure. 7. Pulmonic valve is functioning normally. 8. No pericardial effusion. IN CONCLUSION: 1. Moderate left ventricular hypertrophy with diffuse left ventricular hypokinesia. Systolic function is reduced. Estimated ejection fraction 30%. 2. Left atrial enlargement with prominent right heart chambers. 3. Moderate aortic valve stenosis, mild to moderate aortic regurgitation. 4. Calcified mitral valve with moderate mitral regurgitation. Mild to moderate tricuspid regurgitation. 5. Estimated pulmonary artery pressure of 30 mmHg. 6. No significant pericardial effusion was noted. Incidental finding, left-sided pleural effusion was noted on this study. Job ID: [id number] Dictated Date: 09/22/2016 19:24:53 Water Project Engineer Date: 09/23/2016 09:17:43 / tbk
[2016-09-23] MEDS: FUROSEMIDE 40 MG/4 ML INJ (LASIX) IVP SCH (09:43)
[2016-09-23] MEDS: DIGOXIN 0.125 MG (LANOXIN) TAB PO SCH (09:43)
[2016-09-23] MEDS: URSODIOL 300 MG CAPSULE PO SCH ×2 (09:45→21:00)
[2016-09-23] MEDS ORDERED: LIDOCAINE TOPICAL 4% 50 ML BTL MM PRN (10:00)
[2016-09-23] MEDS ORDERED: meTOprolol 5 MG/5 ML (LOPRESSOR) VIAL IV ONE (10:00)
[2016-09-23] MEDS ORDERED: NS IV 1000 ML 1,000 ML IV ONE (10:00)
[2016-09-23] MEDS ORDERED: ENOXAPARIN 60 MG/0.6 ML (LOVENOX) SYR SC ONE (10:00)
--- NOTE | 2016-09-23 10:06 | Cardiology Progress Note ---
Subjective Subjective/Events-last exam Patient is laying down in bed, still having nausea, was concerned about the use of digoxin due to the fact that it caused dizziness in the past. Still borderline tachycardic, borderline hypotensive. Did not respond well to most of the medication, we had a long discussion regarding the management plan, I discussed with her and attempt for SAMI with electrical cardioversion, after discussing all the pros and cons she agreed on proceeding with the procedure today. Review of Systems General: No Chills, No Night Sweats, No Fatigue, No Malaise, No Appetite, No Other HEENT: No Head Aches, No Visual Changes, No Eye Pain, No Ear Pain, No Dysphasia , No Sinus Congestion, No Post Nasal Drip, No Sore Throat, No Other Pulmonary: Dyspnea CoughNo Pleuritic Chest Pain, No Other Cardiovascular: : Edema: Orthopnea: PalpitationsNo: Chest Pain, Lt Headedness, Other, Paroxysmal Noc. Dyspnea Objective-Cardiology Exam Last Set of Vital Signs Vital Signs 09/22/16 09/23/16 09/23/16 09/23/16 09/23/16 09/23/16 17:00 04:00 06:00 07:00 07:04 08:00 Temp 98.1 Pulse 121 Resp 16 B/P 100/51 Pulse Ox 96 O2 Delivery Nasal Cannula O2 Flow Rate 3.00 Capillary Refill : Less Than 3 Seconds I&O Intake and Output 09/23/16 00:00 Intake Total 3250 ml Output Total 2650 ml Balance 600 ml Intake Oral 650 ml IV Total 2600 ml Output Urine Total 2650 ml General: Alert, Oriented X3, Cooperative HEENT: Atraumatic, PERRLA Neck: Supple, No JVD, No Thyromegaly Lungs: Other (diminished breath sounds bibasilarly) Heart: Normal S1, Other (irregularly irregular, tachycardic) Abdomen: Normal Bowel Sounds, Soft Skin: No Rashes, No Significant Lesion Neuro: Normal Speech, Cranial Nerves 3-12 NL Psych/Mental Status: Mental Status NL, Mood NL Results Lab Laboratory Tests 09/23/16 04:30 A/P-Cardiology Admission Diagnosis CHF AF Metastatic carcinoma Tobaccoism Assessment/Plan Atrial fibrillation with rapid ventricular response, still borderline tachycardic with old the medication use. I had a long discussion with her regarding her [id number], she agreed on the procedure. I will proceed with the procedure today. She has been drinking sips of water only today. I will maintain her nothing by mouth and proceed with the procedure in 3 hours. Nausea and vomiting, reporting improvement. Continue to monitor Hypotension, some improvement today. Continue to monitor blood pressure. Acute on chronic diastolic and systolic CHF, diurese as blood pressure tolerates. Most recent 2D echo 08/10/16 shows LVEF 30-35%; valvular heart disease consisting of mod-sev aortic stenosis (ao valve area 1 sq cm); MAC w/o significant MS; mod TR; PASP 45 , receiving IV Lasix with close monitoring to her blood pressure. Cannot tolerate beta blockers and or Patrick inhibitors and/or ARB due to hypotension Hyperkalemia,hold potassium supplement at this time and monitor. 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 Intolerance to digoxin due to dizziness and nonspecific malaise, currently using the medication at low dose, dig level is acceptable, not having any dizziness but still tachycardic. Intolerance to beta-lelia due to symptomatic hypotension Dilated cardiomyopathy, first documented in March 2016. 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 White, received palliative radiation therapy. History of breast cancer. Seen and followed by Dr. Blue, had lumpectomy and axillary node dissection in February 2008, receive Adriamycin and Cytoxan for 4 cycles followed by radiation therapy. Not suitable of ICD placement, given life expectancy as described above Chronic tobacco use Clinical Quality Measures DVT/VTE Risk/Contraindication: Risk Factor Score Per Nursin RFS Level Per Nursing on Admit: 4+=Very High MAYCO VICENTE MD Sep 23, 2016 10:06
[2016-09-23] MEDS: RT-ADVAIR HFA 115/21 MCG PER PUFF IH SCH ×2 (10:40→20:51)
--- NOTE | 2016-09-23 11:17 | Diagnostic Imaging Report ---
INDICATION: Dyspnea. Compared 09/22/2016. FINDINGS: Bilateral effusions, greater right Cardiomegaly, vascular congestion and perihilar infiltrates or edema all unchanged. IMPRESSION: Unchanged bilateral pleural-parenchymal opacities. Dictated by: Dictated on workstation # [id number]
[2016-09-23] MEDS ORDERED: LIDOCAINE 2% VISCOUS 15 ML UDC PO ONE (12:30)
[2016-09-23] MEDS ORDERED: proPOfol 200 MG/20 ML (DIPRIVAN) VIAL IV ONE (12:43)
[2016-09-23 13:28] LABS: ABG BASE EXCESS 3.3 MMOL/L (-2.5-2.5); ABG HCO3 32 MMOL/L (23-27); ABG OXYGEN SATURATION 99 % (94-100); ABG PCO2 65 MMHG (35-45); ABG PO2 134 MMHG (79-93); ABG TCO2 34.1 MMOL/L (21.0-31.0)
[2016-09-23 13:31] LABS: ABG PH 7.31 (7.37-7.43)
[2016-09-23 13:32] LABS: PATIENT TEMP 96.9
--- NOTE | 2016-09-23 13:40 | Diagnostic Imaging Report ---
INDICATION: Respiratory distress. FINDINGS: ET tube has been placed, the tip projects over the midthoracic trachea. Left IJ catheter projects over the level of the upper SVC, unchanged. Bilateral effusions, greater right, showed no obvious change in volume when differing patient positioning taken into account. Perihilar infiltrates and/or edema redemonstrated. IMPRESSION: ET tube in good position when differing positioning taken into account resulting in redistribution of the pleural fluid. No other obvious change has occurred. Dictated by: Dictated on workstation # [id number]
--- NOTE | 2016-09-23 13:45 | Cardiology Progress Note ---
Subjective Subjective/Events-last exam Patient was scheduled for SAMI with electrical cardioversion, after signing the consent, anesthesia or cold, conscious sedation achieved with assistance of anesthesia examination grader, SAMI probe was introduced with the most of the esophagus into the stomach, up and inquiring few images patient was becoming more cyanotic , did not notice any breathing effort, became bradycardic with a heart rate in the 40s. At that point I aborted the procedure, had transient asystole, Ambu bag was started and chest compression, she was given one dose of atropine 1 mg and one dose of epinephrine 1 mg, within 2 minutes pulse was established, patient was intubated and oxygen saturation returned to the 90-99 percent. I visited with the family, explaining the findings, I will not proceed with cardioversion at this time. Dr. Moe was notified and he will manage the ventilator Objective-Cardiology Exam Last Set of Vital Signs Vital Signs 09/22/16 09/23/16 09/23/16 09/23/16 09/23/16 17:00 07:00 07:04 08:00 10:41 Temp 98.5 Pulse 121 Resp 16 B/P 100/51 Pulse Ox 92 O2 Delivery Nasal Cannula O2 Flow Rate 3.50 Capillary Refill : Less Than 3 Seconds I&O Intake and Output 09/23/16 00:00 Intake Total 3250 ml Output Total 2650 ml Balance 600 ml Intake Oral 650 ml IV Total 2600 ml Output Urine Total 2650 ml General: Severe Distress, Other (Intubated) Neck: No JVD, No Thyromegaly Lungs: Other (Bilateral rhonchi) Heart: Normal S1, Other (Atrial fibrillation, systolic ejection murmur of aortic stenosis) Abdomen: Soft, Other (Diminished bowel sounds) Skin: No Rashes, No Significant Lesion Neuro: Other (Unresponsive) Results Lab Laboratory Tests 09/23/16 04:30 Laboratory Tests Test 09/23/16 04:30 09/23/16 13:20 Range/Units Alanine Aminotransferase (ALT/SGPT) 26 0-55 U/L Albumin 3.2 3.2-4.5 G/DL Alkaline Phosphatase 108 40-136 U/L Anion Gap 9 5-14 MMOL/L Aspartate Amino Transf (AST/SGOT) 26 5-34 U/L BUN/Creatinine Ratio 26 Basophils # (Auto) 0.0 0.0-0.1 10^3/uL Basophils (%) (Auto) 0 0-10 % Blood Urea Nitrogen 18 7-18 MG/DL Calcium Level 8.3 L 8.5-10.1 MG/DL Carbon Dioxide Level 27 21-32 MMOL/L Chloride Level 90 L 98-107 MMOL/L Creatinine 0.69 0.60-1.30 MG/DL Digoxin Level 0.54 L 0.80-2.00 NG/ML Eosinophils # (Auto) 0.0 0.0-0.3 10^3/uL Eosinophils (%) (Auto) 0 0-10 % Estimat Glomerular Filtration Rate > 60 Glucose Level 139 H 70-105 MG/DL Hematocrit 38 35-52 % Hemoglobin 13.1 11.5-16.0 G/DL Lymphocytes # (Auto) 0.7 L 1.0-4.0 X 10^3 Lymphocytes (%) (Auto) 9 L 12-44 % Magnesium Level 1.7 L 1.8-2.4 MG/DL Mean Corpuscular Hemoglobin 34 25-34 PG Mean Corpuscular Hemoglobin Concent 34 32-36 G/DL Mean Corpuscular Volume 99 80-99 FL Mean Platelet Volume 9.9 7.4-10.4 FL Monocytes # (Auto) 1.2 H 0.0-1.0 X 10^3 Monocytes (%) (Auto) 15 H 0-12 % Neutrophils # (Auto) 6.0 1.8-7.8 X 10^3 Neutrophils (%) (Auto) 76 H 42-75 % Phosphorus Level 3.7 2.3-4.7 MG/DL Platelet Count 180 130-400 10^3/uL Potassium Level 4.9 3.6-5.0 MMOL/L Red Blood Count 3.85 L 4.35-5.85 10^6/uL Red Cell Distribution Width 13.7 10.0-14.5 % Sodium Level 126 L 135-145 MMOL/L Total Bilirubin 0.3 0.1-1.0 MG/DL Total Protein 5.6 L 6.4-8.2 G/DL White Blood Count 7.8 4.3-11.0 10^3/uL Harvinder Test NA Arterial Blood Base Excess 3.3 H -2.5-2.5 MMOL/L Arterial Blood HCO3 32 H 23-27 MMOL/L Arterial Blood Oxygen Saturation 99 94-100 % Arterial Blood Partial Pressure CO2 65 H 35-45 MMHG Arterial Blood Partial Pressure O2 134 H 79-93 MMHG Arterial Blood Total CO2 34.1 H 21.0-31.0 MMOL/L Arterial Blood pH 7.31 *L 7.37-7.43 Blood Gas Inspired Oxygen 100% Blood Gas Patient Temperature 96.9 Blood Gas Puncture Site RIGHT RADIAL Blood Gas Ventilator Setting NA A/P-Cardiology Admission Diagnosis CHF AF Metastatic carcinoma Tobaccoism Assessment/Plan Status post CODE BLUE and cardiopulmonary arrest during SAMI procedure, probably secondary to sedation. Transient anoxic. With asystole, restored pulse after compression receiving one dose of epinephrine and one dose of atropine, intubated, heart rate and blood pressure are back to baseline. Oxygen saturation is ranging between 90-99 percent, we'll management and await full recovery and reevaluation of her mental status prior to any further attempt to cardiovert her Findings on the morning note : Atrial fibrillation with rapid ventricular response, still borderline tachycardic with old the medication use. I had a long discussion with her regarding her [address] [place], she agreed on the procedure. I will proceed with the procedure today. She has been drinking sips of water only today. I will maintain her nothing by mouth and proceed with the procedure in 3 hours. Nausea and vomiting, reporting improvement. Continue to monitor Hypotension, some improvement today. Continue to monitor blood pressure. Acute on chronic diastolic and systolic CHF, diurese as blood pressure tolerates. Most recent 2D echo 08/10/16 shows LVEF 30-35%; valvular heart disease consisting of mod-sev aortic stenosis (ao valve area 1 sq cm); MAC w/o significant MS; mod TR; PASP 45 , receiving IV Lasix with close monitoring to her blood pressure. Cannot tolerate beta blockers and or Patrick inhibitors and/or ARB due to hypotension Hyperkalemia,hold potassium supplement at this time and monitor. 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 Intolerance to digoxin due to dizziness and nonspecific malaise, currently using the medication at low dose, dig level is acceptable, not having any dizziness but still tachycardic. Intolerance to beta-lelia due to symptomatic hypotension Dilated cardiomyopathy, first documented in March 2016. 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 White, received palliative radiation therapy. History of breast cancer. Seen and followed by Dr. Mirza, had lumpectomy and axillary node dissection in February 2008, receive Adriamycin and Cytoxan for 4 cycles followed by radiation therapy. Not suitable of ICD placement, given life expectancy as described above Chronic tobacco use Clinical Quality Measures DVT/VTE Risk/Contraindication: Risk Factor Score Per Nursin RFS Level Per Nursing on Admit: 4+=Very High MAYCO VICENTE MD Sep 23, 2016 13:45
--- NOTE | 2016-09-23 13:46 | Cardiac Procedure Note-CS/ASA ---
Pre-Procedure Note Pre-Op Procedure Note H&P Reviewed The H&P was reviewed, patient examined and no changes noted. Date H&P Reviewed: Sep 23, 2016 Time H&P Reviewed: 12:30 Conscious Sedation Pre-Proced Time Reviewed: 12:30 ASA Class: 3 Airway Mallampati Classification: ([place] appropriate class) I. II. III, IV Lungs Heart ASA score ASA 1: a normal healthy patient ASA 2: a patient with a mild systemic disease (mid diabetes, controlled hypertension, obesity x ASA 3: a patient with a severe systemic disease that limits activity (angina , COPD, prior Myocardial infarction) ASA 4: a patient with an incapacitating disease that is a constant threat to life (CHF, renal failure) ASA 5: a moribund patient not expected to survive 24 hrs. (ruptured aneurysm) ASA 6: a declared brain patient whose organs are being harvested. For emergent operations, add the letter E after the classification Grade 3 Sedation Plan: Analgesia, Amnesia, Plan communicated to team members, Discussed options with patient/fam, Discussed risks with patient/fam Note The patient is an appropriate candidate to undergo the planned procedure, sedation, and anesthesia. The patient immediately re-assessed prior to indication. MAYCO VICENTE MD Sep 23, 2016 1:46 pm
--- NOTE | 2016-09-23 13:58 | Anesthesia-Procedure Note ---
Procedure Start/Stop Time Date of Procedure: Sep 23, 2016 Start Time: 13:00 Referring Physician: Dr. Tuttle Brief History Atrial Fibrillation with rate 100-120, CHF, , EF 30%, metastatic small cell cancer bone Stop Time: 13:35 Procedures/Interventions Procedures Called to ICU to provide sedation for SAMI/Cardioversion. Pt awake, oriented. Discussed sedation/MAC with patient, and possibility of assisted ventilatory support as necessary, she wishes to proceed. Baseline SP02 78% on monitor at procedure start on 4LNC. Propofol 20mg given with no loss of consciousness, spontaneous ventilating with regular rate. Additional 30mg given (Total of 50mg for procedure.) SAMI probe passed per cardiology with no event. Pt then had little to no respiratory effort. Jaw lift performed with agonal breathing pattern. Bradycardia present on monitor, no pulsatile waveform for pulse oximetry present. No palpable pulse. SAMI probe removed and began positive pressure ventilation with ambu bag at 15L 02 immediately with good chest rise. Compressions started at 1310. Atropine and Epi given @1311 (see code record/nurses notes). Return of rhythm with pulse rate 106. @1312 Direct laryngoscopy performed with mac 3 blade, grade 1 view. 7.0 ETT passed x 1 attempt. +ETCO2, +bilateral breath sounds auscultated. ABGs drawn and patient placed on ventilatory support, RT at bedside. Post intubation CXR done. Dr. Tuttle speaking with family. Pt to remain intubated and managed by dog breeder, may attempt cardioversion at a later date. NORMA SHEPHERD CRNA Sep 23, 2016 13:58
[2016-09-23] MEDS ORDERED: fentaNYL INJECTION 100 MCG/2 ML AMP ONE (14:12)
--- NOTE | 2016-09-23 14:56 | Progress Note-Standard ---
Standard Progress Note Progress Notes/Assess & Plan Progress/Assessment & Plan 71-year-old female admitted with shortness of breath and orthopnea and found to be in atrial fibrillation with rapid ventricular response. 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 She completed radiation therapy to the left tibia followed by chemotherapy with the carboplatinum and Etoposide regimen for 3 cycles which was stopped due to side effects. She has a remote history of breast cancer and underwent adjuvant chemotherapy with Adriamycin and Cytoxan regimen 4 cycles followed by hormonal therapy for 5 years. Patient had Code Blue during SAMI procedure, was resuscitated and is now intubated and on Vent; Family is at bedside; Dr. Tuttle consulting. Vital Signs 09/23/16 09/23/16 09/23/16 09/23/16 09/23/16 07:04 12:00 14:50 15:30 16:00 Temp 98.5 Pulse 144 Resp 26 B/P 100/51 Pulse Ox 93 O2 Delivery Mechanical Ventilator O2 Flow Rate 3.50 FiO2 80 Patient intubated and remains on that ventilator; tachycardia and JVD noted. Bilateral air entry present with coarse breath sounds bilaterally. Abdomen soft nondistended. Extremities with edema. Laboratory Tests 09/21/16 16:00 09/22/16 04:18 09/23/16 04:30 Laboratory Tests 09/21/16 04:40: Blood Urea Nitrogen 19H, Chloride Level 86L, Glucose Level 129H, Monocytes # ( Auto) 1.3H, Monocytes (%) (Auto) 16H, Potassium Level 5.3H, Sodium Level 122*L 09/21/16 16:00: 09/22/16 04:18: Blood Urea Nitrogen 25H, Chloride Level 86L, Glucose Level 114H, Monocytes # ( Auto) 1.3H, Monocytes (%) (Auto) 16H, Potassium Level 5.6H, Sodium Level 121*L, Albumin 3.1L, Digoxin Level 0.56L, Phosphorus Level 5.0H, Red Blood Count 3.97L , Total Protein 5.7L 09/23/16 04:30: Chloride Level 90L, Glucose Level 139H, Monocytes # (Auto) 1.2H, Monocytes (%) ( Auto) 15H, Sodium Level 126L, Digoxin Level 0.54L, Red Blood Count 3.85L, Total Protein 5.6L, Calcium Level 8.3L, Lymphocytes # (Auto) 0.7L, Lymphocytes (%) ( Auto) 9L, Magnesium Level 1.7L, Neutrophils (%) (Auto) 76H 09/23/16 13:20: Arterial Blood Base Excess 3.3H, Arterial Blood HCO3 32H, Arterial Blood Partial Pressure CO2 65H, Arterial Blood Partial Pressure O2 134H, Arterial Blood Total CO2 34.1H, Arterial Blood pH 7.31*L Chest x-ray done 09/23/15: FINDINGS: ET tube has been placed, the tip projects over the midthoracic trachea. Left IJ catheter projects over the level of the upper SVC, unchanged. Bilateral effusions, greater right, showed no obvious change in volume when differing patient positioning taken into account. Perihilar infiltrates and/or edema redemonstrated. IMPRESSION: ET tube in good position when differing positioning taken into account resulting in redistribution of the pleural fluid. No other obvious change has occurred. A/P: 1. Status post CODE BLUE during SAMI procedure in patient with very high risk and poor pre-existing cardiac function. 2. Atrial fibrillation with rapid ventricular response, continue management per cardiology. Refractory and persistent rapid ventricular response may suggest cardiac muscle/ mass infiltration with tumor 2. Hyponatremia, rule out SIADH and paraneoplastic syndrome due to small cell carcinoma versus other lung pathology. 3. History of metastatic small cell cancer to the bone, treatment as mentioned above. 4. History of stage II a breast cancer treated as mentioned above. Currently on surveillance. JOSEFINA JOHNSON MD Sep 23, 2016 14:56
--- NOTE | 2016-09-23 14:57 | Progress Note-Hospitalist ---
Standard Progress Note Progress Notes/Assess & Plan Date Seen 09/23/16 Diagnosis CHF Volume overload Anxiety Cancer w/widespread mets in apparent end of life stage Assess & Plan/Chief Complaint The patient had been taken by Dr. Tuttle for an attempt at cardioversion of her atrial fibrillation. Early in the process she became hypopneic and asystolic. Resuscitation followed but required intubation. It had been my hope to extubate relatively quickly as she is a DO NOT RESUSCITATE. She appeared to be very anxious and restless and ultimately I gave her 25 g of fentanyl. She is now poorly responsive to verbal. Her blood pressures in the 78/50 range. Pulse rate is 105-120 and remains in atrial fibrillation and she is on the ventilator. Physical exam: She does not respond to verbal stimulus or light touch about the face. Auscultation of the lung shows distant breath sounds. CV is irregular. Abdomen is soft. Extremities move spontaneously but not with response to touch. There appears to be 1+ edema. Impression: Carcinoma of the breast and also newer diagnosis of carcinoma of the lung. 2. Widely metastatic tumor. 3.atrial fibrillation. 4.cardiopulmonary collapse during attempt at cardioversion for atrial fibrillation. Plan: Discussed with family. They are clear that she would not wish to be on the ventilator for any prolonged period. It is again noted that she is a DO NOT RESUSCITATE. To that and I will attempt to extubate as quickly as possible. They are not clear at this time as to whether if the extubation is not tolerated, they would wish to reintubate Labs LENNY WARREN MD Sep 23, 2016 14:57 09/22/16 04:18 09/23/16 04:30 LENNY WARREN MD Sep 23, 2016 14:57
[2016-09-23] MEDS ORDERED: ATROPINE INJECTION 1 MG/10 ML SYR (ABBOTT) ONE (15:00)
[2016-09-23] MEDS ORDERED: EPINEPHrine 0.1 MG/ML 10 ML (HOSPIRA) SYR ONE (15:00)
[2016-09-23] MEDS ORDERED: fentaNYL INJECTION 100 MCG/2 ML AMP IVP PRN (15:20)
[2016-09-23] MEDS ORDERED: DILTIAZEM 100 MG/VIAL (CARDIZEM) ADD-VANTAGE IV ONE (15:21)
[2016-09-23] MEDS: fentaNYL INJECTION 100 MCG/2 ML AMP IVP PRN ×3 (16:57→22:54)
[2016-09-23] MEDS ORDERED: FUROSEMIDE 40 MG/4 ML INJ (LASIX) IVP ONE (17:45)
[2016-09-23] MEDS: DIGOXIN 0.25 MG/ML (LANOXIN) 2 ML AMP IV SCH (18:01)
[2016-09-23] MEDS: traZODone 50 MG (DESYREL) TAB PO SCH (21:00)
[2016-09-23] MEDS: morphine INJ 4 MG/ML 1 ML (VIAL/SYRINGE) IVP PRN (21:00)
[2016-09-23] MEDS ORDERED: [UNRECOGNIZED DRUG - OTHER] ONE ×2 (21:14→23:21)
[2016-09-23] MEDS ORDERED: D5W 250 ML (IVPB) 250 ML IV ONE ×2 (21:15→23:21)
[2016-09-23] MEDS: PHENYLEPHRINE INJECTION 10 MG in D5W 250 ML (IVPB) 249 ML IV SCH ×2 (21:39→23:34)
[2016-09-23] MEDS ORDERED: PHENYLEPHRINE INJECTION 10 MG in D5W 250 ML (IVPB) 249 ML IV SCH (21:45)
[2016-09-24] VITALS (28 sets, daily range): BP systolic 78–136; BP diastolic 60–107
[2016-09-24] MEDS: morphine INJ 4 MG/ML 1 ML (VIAL/SYRINGE) IVP PRN ×5 (00:07→08:17)
[2016-09-24] MEDS ORDERED: PHENYLEPHRINE INJ 10 MG/ML (NEO-SYNEPHRINE 1%) ONE ×4 (00:42→00:47)
[2016-09-24] MEDS: PHENYLEPHRINE IV SCH ×5 (01:06→14:19)
[2016-09-24] MEDS: D5W IV SCH ×5 (01:06→14:19)
[2016-09-24] MEDS ORDERED: D5W 250 ML (IVPB) 250 ML IV ONE (01:07)
[2016-09-24] MEDS: LORazepam INJ 2 MG/ML (ATIVAN) VIAL IV PRN ×2 (01:18→04:07)
[2016-09-24] MEDS: RT-ALBUTEROL/IPRATROPIUM 3 ML (DUONEB) VIAL INH SCH ×6 (02:03→22:00)
[2016-09-24 04:19] LABS: BASOPHILS % (AUTO) 0 % (0-10); EOSINOPHILS % (AUTO) 0 % (0-10); LYMPHOCYTES # (AUTO) 0.5 X 10^3 (1.0-4.0); LYMPHOCYTES % (AUTO) 3 % (12-44); MEAN CORPUSCULAR HEMOGLOBIN 34 PG (25-34); MEAN CORPUSCULAR HGB CONC 35 G/DL (32-36); MEAN CORPUSCULAR VOLUME 99 FL (80-99); MEAN PLATELET VOLUME 9.6 FL (7.4-10.4); MONOCYTES # (AUTO) 1.7 X 10^3 (0.0-1.0); MONOCYTES % (AUTO) 10 % (0-12); NEUTROPHILS # (AUTO) 14.5 X 10^3 (1.8-7.8); NEUTROPHILS % (AUTO) 87 % (42-75); PLATELET COUNT 211 10^3/uL (130-400); RED BLOOD COUNT 3.92 10^6/uL (4.35-5.85); WHITE BLOOD COUNT 16.7 10^3/uL (4.3-11.0)
[2016-09-24 04:38] LABS: ABG BASE EXCESS 7.3 MMOL/L (-2.5-2.5); ABG HCO3 35 MMOL/L (23-27); ABG OXYGEN SATURATION 97 % (94-100); ABG PCO2 62 MMHG (35-45); ABG PH 7.36 (7.37-7.43); ABG PO2 85 MMHG (79-93); ABG TCO2 36.5 MMOL/L (21.0-31.0)
[2016-09-24 04:41] LABS: ALANINE AMINOTRANSFERASE 28 U/L (0-55); ALBUMIN 2.9 G/DL (3.2-4.5); ANION GAP 9 MMOL/L (5-14); ASPARTATE AMINO TRANSFERASE 27 U/L (5-34); BILIRUBIN,TOTAL 0.8 MG/DL (0.1-1.0); BLOOD UREA NITROGEN 16 MG/DL (7-18); BUN/CREATININE RATIO 21; CALCIUM 8.3 MG/DL (8.5-10.1); CARBON DIOXIDE 30 MMOL/L (21-32); CHLORIDE 88 MMOL/L (98-107); CREATININE SERUM 0.77 MG/DL (0.60-1.30); GFR ESTIMATED > 60; GLUCOSE 139 MG/DL (70-105); MAGNESIUM 1.7 MG/DL (1.8-2.4); PHOSPHORUS 2.8 MG/DL (2.3-4.7); SODIUM 127 MMOL/L (135-145); TOTAL PROTEIN 5.4 G/DL (6.4-8.2)
[2016-09-24 04:42] LABS: ALLENS TEST YES-POS
[2016-09-24 04:48] LABS: DIGOXIN 0.67 NG/ML (0.80-2.00)
[2016-09-24 05:04] LABS: BAND NEUTROPHILS 0 %; BASOPHILS % (MANUAL) 0 %; EOSINOPHILS % (MANUAL) 0 %; LYMPHOCYTES % (MANUAL) 1 %; NEUTROPHILS % (MANUAL) 91 %
[2016-09-24 05:05] LABS: ANISOCYTOSIS SLIGHT
[2016-09-24] MEDS: POTASSIUM CL 10MEQ/50ML IVPB 50 ML IV SCH (05:41)
[2016-09-24] MEDS: MAGNESIUM 1 GM/100 ML IVPB 100 ML IV SCH (05:42)
[2016-09-24] MEDS: RT-ADVAIR HFA 115/21 MCG PER PUFF IH SCH ×2 (06:19→18:28)
[2016-09-24] MEDS: FUROSEMIDE 40 MG/4 ML INJ (LASIX) IVP SCH (08:16)
[2016-09-24] MEDS: DIGOXIN 0.25 MG/ML (LANOXIN) 2 ML AMP IV SCH (08:17)
[2016-09-24] MEDS: CHLORHEXIDINE 0.12% SOLN 15 ML (PERIDEX) UDC MM SCH ×2 (08:17→21:19)
[2016-09-24] MEDS: DILTIAZEM 120 MG (CARDIZEM CD) CAP PO SCH ×2 (09:00→21:00)
[2016-09-24] MEDS: MAGNESIUM OXIDE (MAG-OX)400 MG TAB PO SCH ×2 (09:00→21:02)
[2016-09-24] MEDS: URSODIOL 300 MG CAPSULE PO SCH ×2 (09:00→21:19)
[2016-09-24] MEDS: fentaNYL INJECTION 100 MCG/2 ML AMP IVP PRN (09:16)
--- NOTE | 2016-09-24 09:45 | Progress Note-Standard ---
Standard Progress Note Progress Notes/Assess & Plan Progress/Assessment & Plan 71-year-old female admitted with shortness of breath and orthopnea and found to be in atrial fibrillation with rapid ventricular response. 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 She completed radiation therapy to the left tibia followed by chemotherapy with the carboplatinum and Etoposide regimen for 3 cycles which was stopped due to side effects. She has a remote history of breast cancer and underwent adjuvant chemotherapy with Adriamycin and Cytoxan regimen 4 cycles followed by hormonal therapy for 5 years. Patient had Code Blue during SAMI procedure, was resuscitated and is now intubated and on Vent; Family remains at bedside; She is awake this morning and shakes her head when asked if she had any pain. She is breathing spontaneously and has been fighting tube. Dr. Tuttle and Dr. Moe also on the floor. Plan is for patient is to be extubated later this morning. Vital Signs 09/24/16 09/24/16 09/24/16 09/24/16 06:00 08:01 08:58 08:59 Temp 97.8 Pulse 128 Resp 15 B/P 129/85 Pulse Ox 98 O2 Delivery Mechanical Ventilator O2 Flow Rate 40.00 FiO2 30 Patient intubated and remains on that ventilator; tachycardia and JVD noted. Bilateral air entry present with coarse breath sounds bilaterally. Abdomen soft nondistended. Laboratory Tests 09/24/16 04:00 Laboratory Tests 09/21/16 16:00: 09/22/16 04:18: Albumin 3.1L, Blood Urea Nitrogen 25H, Chloride Level 86L, Digoxin Level 0.56L, Glucose Level 114H, Monocytes # (Auto) 1.3H, Monocytes (%) (Auto) 16H, Phosphorus Level 5.0H, Potassium Level 5.6H, Red Blood Count 3.97L, Sodium Level 121*L, Total Protein 5.7L 09/23/16 04:30: Chloride Level 90L, Digoxin Level 0.54L, Glucose Level 139H, Monocytes # (Auto) 1.2H, Monocytes (%) (Auto) 15H, Red Blood Count 3.85L, Sodium Level 126L, Total Protein 5.6L, Calcium Level 8.3L, Lymphocytes # (Auto) 0.7L, Lymphocytes (%) ( Auto) 9L, Magnesium Level 1.7L, Neutrophils (%) (Auto) 76H 09/23/16 13:20: Arterial Blood Base Excess 3.3H, Arterial Blood HCO3 32H, Arterial Blood Partial Pressure CO2 65H, Arterial Blood Partial Pressure O2 134H, Arterial Blood Total CO2 34.1H, Arterial Blood pH 7.31*L 09/24/16 04:00: Albumin 2.9L, Calcium Level 8.3L, Chloride Level 88L, Digoxin Level 0.67L, Glucose Level 139H, Lymphocytes # (Auto) 0.5L, Lymphocytes (%) (Auto) 3L, Magnesium Level 1.7L, Monocytes # (Auto) 1.7H, Neutrophils # (Auto) 14.5H, Neutrophils (%) (Auto) 87H, Red Blood Count 3.92L, Sodium Level 127L, Total Protein 5.4L, White Blood Count 16.7H 09/24/16 04:30: Arterial Blood Base Excess 7.3H, Arterial Blood HCO3 35H, Arterial Blood Partial Pressure CO2 62H, Arterial Blood Total CO2 36.5H, Arterial Blood pH 7.36L Chest x-ray done 09/23/15: FINDINGS: ET tube has been placed, the tip projects over the midthoracic trachea. Left IJ catheter projects over the level of the upper SVC, unchanged. Bilateral effusions, greater right, showed no obvious change in volume when differing patient positioning taken into account. Perihilar infiltrates and/or edema redemonstrated. IMPRESSION: ET tube in good position when differing positioning taken into account resulting in redistribution of the pleural fluid. No other obvious change has occurred. A/P: 1. Status post CODE BLUE during SAMI procedure in patient with very high risk and poor pre-existing cardiac function. 2. Atrial fibrillation with rapid ventricular response, continue management per cardiology. Refractory and persistent rapid ventricular response may suggest cardiac muscle/ mass infiltration with tumor 2. Hyponatremia, rule out SIADH and paraneoplastic syndrome due to small cell carcinoma versus other lung pathology. 3. History of metastatic small cell cancer to the bone, treatment as mentioned above. 4. History of stage II a breast cancer treated as mentioned above. Currently on surveillance. JOSEFINA JOHNSON MD Sep 24, 2016 09:45
--- NOTE | 2016-09-24 10:11 | Diagnostic Imaging Report ---
INDICATION: Dyspnea. COMPARISON: 09/23/2016 TECHNIQUE: Single frontal radiograph of the chest dated 09/24/2016. FINDINGS: Endotracheal tube and left-sided Port-A-Cath are stable. Cardiac silhouette is unchanged. Increasing small left basilar pleural-parenchymal opacity. Stable moderate right basilar pleural-parenchymal opacity. Mixed interstitial and airspace opacities are identified bilaterally, greatest within the right lung. No pneumothorax. Osseous structures are stable. IMPRESSION: 1. Increasing small left basilar pleural-parenchymal opacity with stable moderate right-sided pleural parenchymal opacity. 2. Extensive mixed interstitial and airspace opacities, right greater than left. This appears improved within the right upper lung, though much of this may simply be positional. 3. Endotracheal tube is stable. Dictated by: Dictated on workstation # [id number]
--- NOTE | 2016-09-24 10:18 | Cardiology Progress Note ---
Subjective Subjective/Events-last exam Patient is awake, on SIMV, breathing spontaneously, fairly anxious. Trying to remove the tube. Has wrist restraint. Unable to provide history, events overnight were reviewed Review of Systems General: Other (Unable to provide review of system due to current condition) Objective-Cardiology Exam Last Set of Vital Signs Vital Signs 09/24/16 09/24/16 09/24/16 09/24/16 06:00 08:01 08:58 08:59 Temp 97.8 Pulse 128 Resp 15 B/P 129/85 Pulse Ox 98 O2 Delivery Mechanical Ventilator O2 Flow Rate 40.00 FiO2 30 Capillary Refill : Less Than 3 Seconds I&O Intake and Output 09/24/16 00:00 Intake Total 820 ml Output Total 3667 ml Balance -2847 ml Intake Oral 370 ml IV Total 450 ml Output Urine Total 3667 ml General: Alert, Cooperative, Severe Distress, Other (Intubated) HEENT: PERRLA, EOMI Neck: No JVD, No Thyromegaly Lungs: Other (Bilateral rhonchi) Heart: Normal S1, Normal S2, Other (Atrial fibrillation, systolic ejection murmur of aortic stenosis, tachycardia) Abdomen: Normal Bowel Sounds, Soft, Other Extremities: No Clubbing, Other (Mild cyanosis, trace edema) Skin: No Rashes, No Significant Lesion Neuro: Other (Intubated, following commands) Results Lab Laboratory Tests 09/24/16 04:00 A/P-Cardiology Admission Diagnosis CHF AF Metastatic carcinoma Tobaccoism Assessment/Plan Status post CODE BLUE and cardiopulmonary arrest during SAMI procedure, on SIMV, being weaned off the ventilator today, possible extubation. Continue with weaning parameters. Possible extubation today. Atrial fibrillation with rapid ventricular response, being weaned off the ventilator, still tachycardic, on digoxin IV. Could not tolerate Cardizem due to hypotension. Once extubated we will restart the medications. Hypotension, started on Jim-Synephrine last night, currently borderline hypotensive. Acute on chronic diastolic and systolic CHF, diurese as blood pressure tolerates. Most recent 2D echo 08/10/16 shows LVEF 30-35%; valvular heart disease consisting of mod-sev aortic stenosis (ao valve area 1 sq cm); MAC w/o significant MS; mod TR; PASP 45 , receiving IV Lasix with close monitoring to her blood pressure. 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 Intolerance to digoxin due to dizziness and nonspecific malaise, currently using the medication at low dose, continue to monitor this level, restart oral medications once extubated Intolerance to beta-lelia due to symptomatic hypotension Metastatic small cell carcinoma to the bone, seen and evaluated by Dr. White, received palliative radiation therapy. History of breast cancer. Seen and followed by Dr. Blue, had lumpectomy and axillary node dissection in February 2008, receive Adriamycin and Cytoxan for 4 cycles followed by radiation therapy. Not suitable of ICD placement, given life expectancy as described above Chronic tobacco use Clinical Quality Measures DVT/VTE Risk/Contraindication: Risk Factor Score Per Nursin RFS Level Per Nursing on Admit: 4+=Very High MAYCO VICENTE MD Sep 24, 2016 10:18
--- NOTE | 2016-09-24 10:58 | Progress Note-Hospitalist ---
Standard Progress Note Progress Notes/Assess & Plan Date Seen 09/24/16 Diagnosis CHF Volume overload Anxiety Cancer w/widespread mets in apparent end of life stage Assess & Plan/Chief Complaint The patient tolerated SIMV over the night quite well. Her FiO2 was reduced to 30 percent with good maintenance of SaO2's. The family and was eager to have her extubated today. The patient had been a DO NOT RESUSCITATE however her difficulties occurred during an attempt at cardioversion and she was therefore resuscitated and intubated. I made it clear that I expected her to tolerate extubation however if she were to have difficulties I would not then re- intubate. The family agreed to these terms and also spoke to the patient who also agreed. The patient was then extubated and placed on nasal cannula. She appeared greatly relieved. Physical exam: She is alert. Color is good. Lungs show scattered Rales and rhonchi. CV remains irregular with a rate of 110 or more. There is no pedal edema Impression: Small cell carcinoma of the lung with diffuse metastases. 2 past history of breast cancer. 3. Persistent atrial fibrillation. Plan: Resume previous oral medications as soon as she demonstrates the ability to swallow. Continue pulmonary toilet. Labs Laboratory Tests 09/23/16 04:30 09/24/16 04:00 LENNY WARREN MD Sep 24, 2016 10:58
[2016-09-24] MEDS ORDERED: NS IV 1000 ML 1,000 ML ONE (12:56)
[2016-09-24] MEDS: FLUTICASONE NASAL SPRAY (FLONASE) 16 GM BTL NS SCH (13:07)
[2016-09-24] MEDS: KCL 20 MEQ TAB (K-DUR) PO SCH ×2 (13:08→21:02)
[2016-09-24] MEDS: VITAMIN D3 1,000 UNITS (CHOLECALCIFEROL) TABLET PO SCH ×2 (13:08→21:02)
[2016-09-24] MEDS: guaiFENesin (MUCINEX) 600 MG TAB PO SCH ×2 (13:08→21:01)
[2016-09-24] MEDS: APIXABAN 2.5 MG (ELIQUIS) TABLET PO SCH ×2 (15:43→21:02)
[2016-09-24] MEDS: AMIODARONE 200 MG (CORDARONE) TAB PO SCH ×2 (15:43→21:02)
[2016-09-24] MEDS: DIGOXIN 0.125 MG (LANOXIN) TAB PO SCH (15:43)
--- NOTE | 2016-09-24 17:26 | TEE REPORT ---
DATE OF PROCEDURE: 09/23/2016 TRANSESOPHAGEAL ECHOCARDIOGRAPHY REPORT: BRIEF HISTORY: Mrs. Newton is a 71-year-old lady with metastatic cancer, paroxysmal atrial fibrillation, admitted for increasing shortness of breath and atrial fibrillation with rapid ventricular response in addition to hypotension, attempted with multiple medications to achieve adequate control of her heart rate without success. Continued to have borderline hypotension, which is limiting the use of rate control medication. She was started on amiodarone, digoxin, metoprolol and Cardizem. Continue to be borderline tachycardic. We discussed the management plan and recommended SAMI with possible cardioversion. The procedure was explained in length to the patient, all pros and cons were explained. All questions were answered. The patient signed a consent, then she was placed in the left lateral decubitus position, conscious sedation achieved with the assistance of anesthesia. SAMI probe was introduced through the mouth to the esophagus and then to the stomach. Transgastric views were acquired and lower esophageal views were required. During the procedure, I noted that the patient became more cyanotic. At the beginning of the test, her oxygen saturation was around 80%. Had difficulties acquiring pulse oximetry. During the test, her heart rate became 40 and she was becoming more cyanotic. Anesthesia started with Ambu bag providing oxygen. The SAMI probe was removed, continue with attempts to resuscitate her without success. Became more bradycardic then had transient episode of asystole immediately. Chest compression were initiated. She was given 1 mg of atropine and 1 mg of epinephrine. Then she was intubated. Pulse was reestablished within 2 minutes. Oxygen saturation was ranging between 90 to 99% and she was ventilator dependent. FINDINGS: 1. The left ventricle is normal in size, diffuse left ventricular hypokinesia with estimated ejection fraction of 30%. 2. Left atrium and left atrial appendage are dilated with smoke in the left atrium and left atrial appendage. Low velocity by Doppler. I was unable to fully evaluate the left atrial appendage to rule out a thrombus. 3. Mitral valve is heavily calcified with moderate to moderately severe mitral regurgitation. 4. Aortic valve is heavily calcified with some opening noted. Mild to moderate aortic regurgitation was noted. The patient is known to have moderate to severe aortic stenosis. 5. Tricuspid valve appeared to be functioning normally with mild tricuspid regurgitation. IN CONCLUSION: 1. Dilated left atrium and left atrial appendage with smoke in the left atrial appendage. Low velocity by Doppler, unable to fully evaluate and rule out a thrombus at this point. 2. Diffuse left ventricular hypokinesia with estimated ejection fraction 30%. 3. Moderate to severe aortic valve stenosis. Mild to moderate aortic regurgitation. 4. Moderate to severe mitral regurgitation. 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
[2016-09-24] MEDS: traZODone 50 MG (DESYREL) TAB PO SCH (21:00)
[2016-09-24] MEDS ORDERED: HEParin (CENTRAL IV FLUSH) 500 UNIT/5 ML SYR IV ONE (23:30)
[2016-09-25] VITALS (23 sets, daily range): BP systolic 82–145; BP diastolic 60–94
[2016-09-25] MEDS: D5W IV SCH (01:32)
[2016-09-25] MEDS: PHENYLEPHRINE IV SCH (01:32)
[2016-09-25] MEDS: RT-ALBUTEROL/IPRATROPIUM 3 ML (DUONEB) VIAL INH SCH ×6 (01:37→22:15)
[2016-09-25] MEDS: HEParin (CENTRAL IV FLUSH) 500 UNIT/5 ML SYR IV SCH ×2 (03:59→21:23)
[2016-09-25 04:21] LABS: BASOPHILS % (AUTO) 0 % (0-10); EOSINOPHILS % (AUTO) 0 % (0-10); LYMPHOCYTES # (AUTO) 0.6 X 10^3 (1.0-4.0); LYMPHOCYTES % (AUTO) 5 % (12-44); MEAN CORPUSCULAR HEMOGLOBIN 34 PG (25-34); MEAN CORPUSCULAR HGB CONC 34 G/DL (32-36); MEAN CORPUSCULAR VOLUME 99 FL (80-99); MEAN PLATELET VOLUME 9.7 FL (7.4-10.4); MONOCYTES # (AUTO) 1.7 X 10^3 (0.0-1.0); MONOCYTES % (AUTO) 15 % (0-12); NEUTROPHILS # (AUTO) 8.6 X 10^3 (1.8-7.8); NEUTROPHILS % (AUTO) 79 % (42-75); PLATELET COUNT 139 10^3/uL (130-400); RED BLOOD COUNT 3.77 10^6/uL (4.35-5.85); RED CELL DISTRIBUTION WIDTH 14.2 % (10.0-14.5); WHITE BLOOD COUNT 10.9 10^3/uL (4.3-11.0)
[2016-09-25 04:44] LABS: ANION GAP 8 MMOL/L (5-14); BLOOD UREA NITROGEN 14 MG/DL (7-18); BUN/CREATININE RATIO 21; CALCIUM 8.5 MG/DL (8.5-10.1); CARBON DIOXIDE 32 MMOL/L (21-32); CHLORIDE 87 MMOL/L (98-107); CREATININE SERUM 0.68 MG/DL (0.60-1.30); GFR ESTIMATED > 60; GLUCOSE 101 MG/DL (70-105); MAGNESIUM 1.5 MG/DL (1.8-2.4); PHOSPHORUS 2.3 MG/DL (2.3-4.7); POTASSIUM 3.9 MMOL/L (3.6-5.0); SODIUM 127 MMOL/L (135-145)
[2016-09-25] MEDS: POTASSIUM CL 10MEQ/50ML IVPB 50 ML IV SCH (05:58)
[2016-09-25] MEDS: MAGNESIUM 1 GM/100 ML IVPB 100 ML IV SCH ×3 (06:00→09:43)
[2016-09-25] MEDS: RT-ADVAIR HFA 115/21 MCG PER PUFF IH SCH ×2 (07:14→20:34)
--- NOTE | 2016-09-25 07:23 | Pulmonary Progress Note ---
Subjective Subjective/Events-last exam pt is doing better she is s/p code during attempted cardioversion. Exam Exam Vital Signs Date Time Temp Pulse Resp B/P Pulse Ox O2 Delivery O2 Flow Rate FiO2 09/25/16 06:00 118 18 116/81 92 Nasal Cannula 3.00 09/25/16 05:00 128 15 91/65 91 Nasal Cannula 3.00 09/25/16 04:00 Nasal Cannula 3.00 09/25/16 04:00 98.0 133 14 91/76 91 Nasal Cannula 3.00 09/25/16 03:00 146 17 109/78 90 Nasal Cannula 3.00 09/25/16 02:00 135 17 94/68 95 Nasal Cannula 3.00 09/25/16 01:36 90 Nasal Cannula 3.00 09/25/16 01:00 142 09/25/16 01:00 144 15 120/79 90 Nasal Cannula 3.00 09/25/16 00:00 Nasal Cannula 3.00 09/25/16 00:00 98.0 151 18 105/77 90 Nasal Cannula 3.00 09/24/16 23:00 147 19 94/67 93 Nasal Cannula 3.00 09/24/16 22:00 158 15 115/93 93 Nasal Cannula 3.00 09/24/16 21:00 172 15 119/93 98 Nasal Cannula 3.00 09/24/16 20:00 Nasal Cannula 3.00 09/24/16 20:00 99.3 149 21 90/60 98 Nasal Cannula 3.00 09/24/16 19:00 156 16 84/62 98 Nasal Cannula 3.00 09/24/16 19:00 168 09/24/16 18:34 Nasal Cannula 3.00 09/24/16 18:28 95 Nasal Cannula 3.00 09/24/16 18:00 158 23 99/74 99 Nasal Cannula 4.00 09/24/16 17:00 165 15 87/64 100 Nasal Cannula 4.00 09/24/16 16:10 97.4 09/24/16 16:00 13 114/72 98 Nasal Cannula 4.00 09/24/16 15:57 Nasal Cannula 3.00 09/24/16 15:00 160 80/65 98 Nasal Cannula 4.00 09/24/16 14:43 96 Nasal Cannula 3.00 09/24/16 14:00 151 97/64 94 Nasal Cannula 4.00 09/24/16 13:00 147 09/24/16 13:00 134 102/90 95 Nasal Cannula 4.00 09/24/16 12:00 Nasal Cannula 3.00 09/24/16 12:00 97.3 09/24/16 11:15 98 Nasal Cannula 3.00 09/24/16 11:00 154 96/78 100 Nasal Cannula 4.00 09/24/16 10:45 100 Nasal Cannula 4.00 09/24/16 10:45 100 Nasal Cannula 3.00 3 09/24/16 10:00 149 108/71 100 Mechanical Ventilator 40.00 09/24/16 09:00 103 78/62 Mechanical Ventilator 40.00 09/24/16 08:59 97.8 09/24/16 08:58 Mechanical Ventilator 30 09/24/16 08:01 128 15 98 40 09/24/16 08:00 112 90/79 98 Mechanical Ventilator 40.00 I & O 09/25/16 07:00 Intake Total 1210 ml Output Total 2275 ml Balance -1065 ml General Appearance: No Apparent Distress WD/WN Chronically ill Cachetic Thin HEENT: PERRL/EOMI Normal ENT Inspection Pharynx Normal Neck: Full Range of Motion Normal Inspection Non Tender Supple Carotid Bruit Respiratory: Chest Non Tender No Accessory Muscle Use No Respiratory Distress Crackles Decreased Breath Sounds Cardiovascular: No Edema No Gallop No JVD No Murmur Normal Peripheral Pulses Irregularly Irregular Tachycardia Capillary Refill: Less Than 3 Seconds Peripheral Pulses: 1+ Dorsalis Pedis (R), 1+ Left Dors-Pedis (L), 1+ Radial Pulses (R), 1+ Radial Pulses (L) Gastrointestinal: non tender soft Extremity: Normal Capillary Refill Normal Inspection Normal Range of Motion Non Tender No Calf Tenderness No Pedal Edema Neurologic/Psychiatric: Alert Oriented x3 No Motor/Sensory Deficits Normal Mood/Affect Skin: Normal Color Warm/Dry Lymphatic: No Adenopathy Results Lab Laboratory Tests 09/24/16 04:00 09/25/16 03:55 Assessment/Plan Assessment/Plan Acute respiratory failure with distress Continue lasix -DuoNeb Q4 Status post CODE BLUE and cardiopulmonary arrest during SAMI procedure s/p vent Afib RVR -pt is off cardizem gtt pulmonary edema with pleural effusions -Lasix Metastatic small cell lung cancer -Oncology is following 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
[2016-09-25] MEDS ORDERED: LORazepam INJ 2 MG/ML (ATIVAN) VIAL IV PRN (08:00)
[2016-09-25] MEDS: guaiFENesin (MUCINEX) 600 MG TAB PO SCH ×2 (08:37→21:15)
[2016-09-25] MEDS: APIXABAN 2.5 MG (ELIQUIS) TABLET PO SCH ×2 (08:37→21:14)
[2016-09-25] MEDS: DIGOXIN 0.125 MG (LANOXIN) TAB PO SCH (08:37)
[2016-09-25] MEDS: KCL 20 MEQ TAB (K-DUR) PO SCH ×2 (08:37→21:15)
[2016-09-25] MEDS: MAGNESIUM OXIDE (MAG-OX)400 MG TAB PO SCH ×2 (08:37→21:15)
[2016-09-25] MEDS: AMIODARONE 200 MG (CORDARONE) TAB PO SCH ×2 (08:37→21:14)
[2016-09-25] MEDS: VITAMIN D3 1,000 UNITS (CHOLECALCIFEROL) TABLET PO SCH ×2 (08:37→21:15)
[2016-09-25] MEDS: DILTIAZEM 120 MG (CARDIZEM CD) CAP PO SCH ×2 (08:37→21:15)
[2016-09-25] MEDS: FUROSEMIDE 40 MG/4 ML INJ (LASIX) IVP SCH (08:37)
[2016-09-25] MEDS: FLUTICASONE NASAL SPRAY (FLONASE) 16 GM BTL NS SCH (08:38)
[2016-09-25] MEDS: URSODIOL 300 MG CAPSULE PO SCH ×2 (08:38→21:15)
[2016-09-25] MEDS: CHLORHEXIDINE 0.12% SOLN 15 ML (PERIDEX) UDC MM SCH ×2 (08:38→21:00)
--- NOTE | 2016-09-25 09:06 | Cardiology Progress Note ---
Subjective Subjective/Events-last exam patient is feeling better, still tachycardic, less dyspneic, having pain at her sternum Review of Systems General: No Chills, No Night Sweats, No Fatigue, No Malaise, No Appetite, No Other HEENT: No Head Aches, No Visual Changes, No Eye Pain, No Ear Pain, No Dysphasia , No Sinus Congestion, No Post Nasal Drip, No Sore Throat, No Other Pulmonary: Dyspnea CoughNo Pleuritic Chest Pain, No Other Cardiovascular: : Chest PainNo: Edema, Lt Headedness, Orthopnea, Other, Palpitations, Paroxysmal Noc. Dyspnea Objective-Cardiology Exam Last Set of Vital Signs Vital Signs 09/24/16 09/25/16 09/25/16 09/25/16 09/25/16 10:45 06:00 07:00 08:02 08:04 Temp 97.8 Pulse 129 Resp 18 B/P 116/81 O2 Delivery Nasal Cannula O2 Flow Rate 3.00 FiO2 3 Capillary Refill : Less Than 3 Seconds I&O Intake and Output 09/25/16 00:00 Intake Total 1861 ml Output Total 2375 ml Balance -514 ml Intake Oral 125 ml IV Total 1736 ml Output Urine Total 2375 ml General: Alert, Cooperative, Severe Distress, Other (Intubated) HEENT: PERRLA, EOMI Neck: No JVD, No Thyromegaly Lungs: Other (Bilateral rhonchi) Heart: Normal S1, Normal S2, Other (Atrial fibrillation, systolic ejection murmur of aortic stenosis, tachycardia) Abdomen: Normal Bowel Sounds, Soft, Other Extremities: No Clubbing, Other (Mild cyanosis, trace edema) Skin: No Rashes, No Significant Lesion Neuro: Other (Intubated, following commands) Results Lab Laboratory Tests 09/25/16 03:55 A/P-Cardiology Admission Diagnosis CHF AF Metastatic carcinoma Tobaccoism Assessment/Plan Atrial fibrillation with rapid ventricular response, restarted Cardizem CD 120 twice daily, continue on digoxin and amiodarone and monitor heart rate and blood pressure. Discussed the possibility of doing SAMI again with minimum sedation, patient preferred not to have the procedure done. Status post CODE BLUE secondary to sedation during SAMI. Recovered. Hypotension, better at this time, continue to monitor blood pressure Acute on chronic diastolic and systolic CHF, diurese as blood pressure tolerates. Most recent 2D echo 08/10/16 shows LVEF 30-35%; valvular heart disease consisting of mod-sev aortic stenosis (ao valve area 1 sq cm); MAC w/o significant MS; mod TR; PASP 45 , receiving IV Lasix with close monitoring to her blood pressure. 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 Intolerance to digoxin due to dizziness and nonspecific malaise, currently using the medication at low dose, continue to monitor this level, restart oral medications once extubated Intolerance to beta-lelia due to symptomatic hypotension Metastatic small cell carcinoma to the bone, seen and evaluated by Dr. White, received palliative radiation therapy. History of breast cancer. Seen and followed by Dr. Blue, had lumpectomy and axillary node dissection in February 2008, receive Adriamycin and Cytoxan for 4 cycles followed by radiation therapy. Not suitable of ICD placement, given life expectancy as described above Chronic tobacco use Clinical Quality Measures DVT/VTE Risk/Contraindication: Risk Factor Score Per Nursin RFS Level Per Nursing on Admit: 4+=Very High MAYCO VICENTE MD Sep 25, 2016 09:06
--- NOTE | 2016-09-25 09:22 | Diagnostic Imaging Report ---
INDICATION: Dyspnea. TECHNIQUE: A frontal chest was obtained at 0509 hours. COMPARISON: 09/24/2016. FINDINGS: There is cardiomegaly. There is central vascular congestion with interstitial edema and unchanged bibasilar infiltrates. There appears to be increasing right pleural fluid compared to the prior study. The patient has been extubated since the prior study. The Port-A-Cath is unchanged. IMPRESSION: Central vascular congestion with interstitial edema and cardiomegaly. Unchanged bibasilar infiltrates with mild increase in the right pleural fluid compared to the prior study. The patient has been extubated since the prior study. Dictated by: Dictated on workstation # [id number]
--- NOTE | 2016-09-25 11:29 | Progress Note-Hospitalist ---
MILVIA FARLEY MED STUDENT 09/25/16 1129: Progress Note HPI/CC on Admission Chart Review: WBC normal 10.9, Na+ 127, Creat 0.68, Will continue fluid restriction of 1200 a day, Reviewed Cardiology consultation Pt had a SAMI over the weekend for an attempt at cardioversion. Even with minimal sedation, she crashed during the procedure and needed chest compressions and resuscitation. Her pulse came back within the minute. She was intubated briefly. It is unknown at this time if she will tolerate any level of sedation for future procedures. 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 Patient Interview:Complains of sternal pain. She does not remember much of this weekend. She states she wants to stay in the ICU because she feels more comfortable there. Progress Notes/Assess & Plan Date Seen 09/25/16 Admission Dx/Process Afib with RVR Diagonsis/Assessment & Plan 71yo with PMH of afib, CHF, metastatic SCC with new onset of SOA secondary to afib with RVR 1. Afib with RVR -continue small dose of digoxin -restarted oral cardizem -continue oral amiodarone -heart rate continues to be elevated up to the 150's, will slowly change medications until rate is controlled -cardiology is consulted and following -unable to perform SAMI over weekend d/t patient not tolerating sedation, patient prefers to not have procedure done in future -cardiology following -chest xray with bibasilar infiltrate and effusion, will continue to monitor for increased work of breathing -volume overloaded, will get lasix today 3. metastatic small cell carcinoma -following Dr. White as outpatient 4. Hypernatremia -likely SIADH in setting of small cell carcinoma -continue fluid restriction -Na improving today at 127 5. debility/cachexia -secondary to metastatic disease, do not anticipate improvement -offer supplementation to patient 6. 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 continued smoker 8. anxiety -alprazolam prn, zolpidem for sleep aid -trazadone qhs TIO CUMMINGS DO 09/25/16 1204: Progress Note Progress Notes/Assess & Plan Diagonsis/Assessment & Plan Noted weekend events that included intubation after SAMI cause loss of airway and she was resuscitated along with chest compressions Very difficult situation considering her end-stage illness of cancer with metastasis Sodium level [id number] Patient appears to be improved today but overall having difficulty accepting overall fate She was to stay in the ICU because she feels more comfortable here which is making his physician very difficult Vitals stable, pleasant, flat affect Irregular irregular rhythm with tachycardia Decreased breath sounds in all aguilar with crackles noted in the bases Atrial fibrillation with rapid ventricular rate in widespread cancer patient Volume overload MILVIA FARLEY MED STUDENT Sep 25, 2016 11:29 TIO CUMMINGS DO Sep 25, 2016 12:04
[2016-09-25] MEDS: HYDROcodone/APAP 5 MG/325 MG (LORTAB) TAB PO PRN (13:03)
[2016-09-25] MEDS: traZODone 50 MG (DESYREL) TAB PO SCH (21:15)
[2016-09-26] VITALS (12 sets, daily range): BP systolic 85–132; BP diastolic 63–91
[2016-09-26] MEDS: RT-ALBUTEROL/IPRATROPIUM 3 ML (DUONEB) VIAL INH SCH ×6 (02:18→22:00)
[2016-09-26 05:24] LABS: BASOPHILS % (AUTO) 0 % (0-10); EOSINOPHILS # (AUTO) 0.1 10^3/uL (0.0-0.3); EOSINOPHILS % (AUTO) 1 % (0-10); LYMPHOCYTES # (AUTO) 0.5 X 10^3 (1.0-4.0); LYMPHOCYTES % (AUTO) 5 % (12-44); MEAN CORPUSCULAR HEMOGLOBIN 34 PG (25-34); MEAN CORPUSCULAR HGB CONC 34 G/DL (32-36); MEAN CORPUSCULAR VOLUME 98 FL (80-99); MEAN PLATELET VOLUME 9.7 FL (7.4-10.4); MONOCYTES # (AUTO) 1.4 X 10^3 (0.0-1.0); MONOCYTES % (AUTO) 15 % (0-12); NEUTROPHILS # (AUTO) 7.4 X 10^3 (1.8-7.8); NEUTROPHILS % (AUTO) 79 % (42-75); PLATELET COUNT 142 10^3/uL (130-400); RED BLOOD COUNT 3.71 10^6/uL (4.35-5.85); RED CELL DISTRIBUTION WIDTH 14.1 % (10.0-14.5); WHITE BLOOD COUNT 9.4 10^3/uL (4.3-11.0)
[2016-09-26 05:35] LABS: ANION GAP 8 MMOL/L (5-14); BLOOD UREA NITROGEN 12 MG/DL (7-18); BUN/CREATININE RATIO 18; CALCIUM 8.7 MG/DL (8.5-10.1); CARBON DIOXIDE 36 MMOL/L (21-32); CHLORIDE 90 MMOL/L (98-107); CREATININE SERUM 0.65 MG/DL (0.60-1.30); GFR ESTIMATED > 60; GLUCOSE 115 MG/DL (70-105); MAGNESIUM 1.8 MG/DL (1.8-2.4); PHOSPHORUS 2.6 MG/DL (2.3-4.7); POTASSIUM 3.7 MMOL/L (3.6-5.0); SODIUM 134 MMOL/L (135-145)
[2016-09-26] MEDS: POTASSIUM CL 10MEQ/50ML IVPB 50 ML IV SCH (05:51)
[2016-09-26] MEDS: MAGNESIUM 1 GM/100 ML IVPB 100 ML IV SCH (05:51)
[2016-09-26] MEDS: RT-ADVAIR HFA 115/21 MCG PER PUFF IH SCH ×2 (06:51→18:28)
--- NOTE | 2016-09-26 07:06 | Pulmonary Progress Note ---
Subjective Subjective/Events-last exam Pt complains of generalized pain. Exam Exam Vital Signs Date Time Temp Pulse Resp B/P Pulse Ox O2 Delivery O2 Flow Rate FiO2 09/26/16 06:48 91 Nasal Cannula 5.00 09/26/16 04:00 97.4 09/26/16 04:00 90 Nasal Cannula 5.00 09/26/16 04:00 109 11 95/72 92 Nasal Cannula 5.00 09/26/16 03:00 110 12 95/72 92 Nasal Cannula 5.00 09/26/16 02:18 92 Nasal Cannula 5.00 09/26/16 02:00 147 10 95/82 81 Nasal Cannula 5.00 09/26/16 01:00 133 12 85/63 93 Nasal Cannula 5.00 09/26/16 01:00 106 09/26/16 00:00 90 Nasal Cannula 5.00 09/26/16 00:00 96.6 92 Nasal Cannula 5.00 09/26/16 00:00 124 29 107/88 90 Nasal Cannula 5.00 09/25/16 23:00 156 14 89/68 96 Nasal Cannula 5.00 09/25/16 22:00 138 19 112/86 88 Nasal Cannula 5.00 09/25/16 21:00 138 19 108/68 88 Nasal Cannula 5.00 09/25/16 20:35 92 Nasal Cannula 5.00 09/25/16 20:00 98.1 93 Nasal Cannula 5.00 09/25/16 20:00 76 21 103/86 93 Nasal Cannula 5.00 09/25/16 20:00 92 Nasal Cannula 5.00 09/25/16 19:00 105 24 112/92 92 Nasal Cannula 5.00 09/25/16 19:00 103 09/25/16 18:00 94 102/69 97 Nasal Cannula 3.00 09/25/16 17:30 108/82 Nasal Cannula 3.00 09/25/16 16:30 107 105/62 Nasal Cannula 3.00 09/25/16 16:00 Nasal Cannula 3.00 09/25/16 16:00 97.7 09/25/16 15:30 127 82/68 91 Nasal Cannula 3.00 09/25/16 14:30 120 87/60 Nasal Cannula 3.00 09/25/16 13:49 90 Nasal Cannula 5.00 09/25/16 13:30 133 98/62 Nasal Cannula 3.00 09/25/16 13:00 107 09/25/16 12:28 97.3 09/25/16 12:28 Nasal Cannula 3.00 09/25/16 11:30 122 94/62 95 Nasal Cannula 3.00 09/25/16 10:56 93 Nasal Cannula 5.00 09/25/16 10:30 152 145/94 Nasal Cannula 3.00 09/25/16 09:00 109/78 Nasal Cannula 3.00 09/25/16 08:04 97.8 09/25/16 08:02 Nasal Cannula 3.00 09/25/16 08:00 141 15 119/88 Nasal Cannula 3.00 09/25/16 07:12 92 Nasal Cannula 5.00 09/25/16 07:12 92 I & O 09/26/16 07:00 Intake Total 960 ml Output Total 3625 ml Balance -2665 ml General Appearance: No Apparent Distress WD/WN Chronically ill Cachetic Thin HEENT: PERRL/EOMI Normal ENT Inspection Pharynx Normal Neck: Full Range of Motion Normal Inspection Non Tender Supple Carotid Bruit Respiratory: Chest Non Tender No Accessory Muscle Use No Respiratory Distress Crackles Decreased Breath Sounds Cardiovascular: No Edema No Gallop No JVD No Murmur Normal Peripheral Pulses Irregularly Irregular Tachycardia Capillary Refill: Less Than 3 Seconds Peripheral Pulses: 1+ Dorsalis Pedis (R), 1+ Left Dors-Pedis (L), 1+ Radial Pulses (R), 1+ Radial Pulses (L) Gastrointestinal: non tender soft Extremity: Normal Capillary Refill Normal Inspection Normal Range of Motion Non Tender No Calf Tenderness No Pedal Edema Neurologic/Psychiatric: Alert Oriented x3 No Motor/Sensory Deficits Normal Mood/Affect Skin: Normal Color Warm/Dry Lymphatic: No Adenopathy Results Lab Laboratory Tests 09/25/16 03:55 09/26/16 05:10 Assessment/Plan Assessment/Plan Acute respiratory failure with distress pulmonary edema with effusion Continue lasix -DuoNeb Q4 Status post CODE BLUE and cardiopulmonary arrest during SAMI procedure s/p vent Afib RVR -Cardiology following pulmonary edema with pleural effusions -Lasix 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
--- NOTE | 2016-09-26 07:31 | Diagnostic Imaging Report ---
INDICATION: Dyspnea. Comparison with 09/25/2016. FINDINGS: There continues to be cardiomegaly with bibasilar effusions and bilateral basilar alveolar infiltrates. There has been slight decrease in pulmonary venous congestive changes in the upper lungs when compared with previous exam. Left central line is unchanged. IMPRESSION: Findings are again noted of congestive failure with slight decrease in pulmonary venous congestion when compared with previous exam. Dictated by: Dictated on workstation # [id number]
[2016-09-26] MEDS: HYDROcodone/APAP 5 MG/325 MG (LORTAB) TAB PO PRN ×3 (07:50→22:17)
--- NOTE | 2016-09-26 08:09 | Cardiology Progress Note ---
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 No fever or chills, heart rate is slightly better Review of Systems General: No Chills, No Night Sweats, No Fatigue, No Malaise, No Appetite, No Other HEENT: No Head Aches, No Visual Changes, No Eye Pain, No Ear Pain, No Dysphasia , No Sinus Congestion, No Post Nasal Drip, No Sore Throat, No Other Pulmonary: Dyspnea CoughNo Pleuritic Chest Pain, No Other Cardiovascular: : Chest PainNo: Edema, Lt Headedness, Orthopnea, Other, Palpitations, Paroxysmal Noc. Dyspnea Objective-Cardiology Exam Last Set of Vital Signs Vital Signs 09/24/16 09/26/16 09/26/16 10:45 04:00 06:48 Pulse 109 Resp 11 B/P 95/72 Pulse Ox 91 O2 Delivery Nasal Cannula O2 Flow Rate 5.00 FiO2 3 Capillary Refill : Less Than 3 Seconds I&O Intake and Output 09/26/16 00:00 Intake Total 960 ml Output Total 3250 ml Balance -2290 ml Intake Oral 960 ml Output Urine Total 3250 ml General: Alert, Oriented X3, Cooperative, Moderate Distress HEENT: Atraumatic, PERRLA, EOMI, Mucous Memb Moist/[place] Neck: Supple, No Thyromegaly, Other (Neck veins aren't distended) Lungs: Other (Bilateral rhonchi, expiratory wheezing) Heart: Normal S1, Normal S2, Other (Atrial fibrillation, systolic ejection murmur of aortic stenosis, tachycardia) Abdomen: Normal Bowel Sounds, Soft Extremities: No Clubbing, No Cyanosis, Other Skin: No Rashes, No Significant Lesion Neuro: Normal Speech, Normal Tone, Sensation Intact Psych/Mental Status: Mental Status NL Results Lab Laboratory Tests 09/26/16 05:10 A/P-Cardiology Admission Diagnosis CHF AF Metastatic carcinoma Tobaccoism Assessment/Plan Atrial fibrillation with rapid ventricular response, I will change Cardizem CD to 240 mg daily, continue on amiodarone and digoxin and monitor heart rate. Monitor blood pressure closely Status post CODE BLUE secondary to sedation during SAMI. Recovered. Hypotension, better at this time, continue to monitor blood pressure Acute on chronic diastolic and systolic CHF, diurese as blood pressure tolerates. 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 White, received palliative radiation therapy. History of breast cancer. Seen and followed by Dr. Blue, had lumpectomy and axillary node dissection in February 2008, receive Adriamycin and Cytoxan for 4 cycles followed by radiation therapy. Not suitable of ICD placement, given life expectancy as described above Chronic tobacco use Clinical Quality Measures DVT/VTE Risk/Contraindication: Risk Factor Score Per Nursin RFS Level Per Nursing on Admit: 4+=Very High MAYCO VICENTE MD Sep 26, 2016 08:09
[2016-09-26] MEDS: HEParin (CENTRAL IV FLUSH) 500 UNIT/5 ML SYR IV SCH ×2 (08:31→20:59)
[2016-09-26] MEDS: DIGOXIN 0.125 MG (LANOXIN) TAB PO SCH (08:33)
[2016-09-26] MEDS: DILTIAZEM 240 MG (CARDIZEM CD) CAP PO SCH (08:33)
[2016-09-26] MEDS: VITAMIN D3 1,000 UNITS (CHOLECALCIFEROL) TABLET PO SCH ×2 (08:33→20:58)
[2016-09-26] MEDS: KCL 20 MEQ TAB (K-DUR) PO SCH ×2 (08:33→20:58)
[2016-09-26] MEDS: APIXABAN 2.5 MG (ELIQUIS) TABLET PO SCH ×2 (08:33→21:08)
[2016-09-26] MEDS: MAGNESIUM OXIDE (MAG-OX)400 MG TAB PO SCH ×2 (08:33→20:58)
[2016-09-26] MEDS: FUROSEMIDE 40 MG/4 ML INJ (LASIX) IVP SCH (08:33)
[2016-09-26] MEDS: guaiFENesin (MUCINEX) 600 MG TAB PO SCH ×2 (08:34→20:58)
[2016-09-26] MEDS: AMIODARONE 200 MG (CORDARONE) TAB PO SCH ×2 (08:34→20:58)
[2016-09-26] MEDS: morphine INJ 4 MG/ML 1 ML (VIAL/SYRINGE) IVP PRN (08:34)
--- NOTE | 2016-09-26 08:39 | Progress Note-Hospitalist ---
MARTINEMILVIA MED STUDENT 09/26/16 0839: Progress Note HPI/CC on Admission Chart Review: WBC continues to improve to 9.2 today, Na+ improving still 6to 134 , Creat 0.65, Will continue fluid restriction of 1200 a day, Reviewed Cardiology consultation Pt had a SAMI over the weekend for an attempt at cardioversion. Even with minimal sedation, she crashed during the procedure and needed chest compressions and resuscitation. Her pulse came back within the minute. She was intubated briefly. It is unknown at this time if she will tolerate any level of sedation for future procedures. Patient Interview:Patient continues to feel better and was in good spirits. Her only complaint is her dry cough that hurts her sternum. She reports her breathing and leg swelling are better. Progress Notes/Assess & Plan Date Seen 09/26/16 Admission Dx/Process Afib with RVR Diagonsis/Assessment & Plan 71yo with PMH of afib, CHF, metastatic SCC with new onset of SOA secondary to afib with RVR 1. Afib with RVR -continue small dose of digoxin -continue oral cardizem and amiodarone -heart rate better while interviewing patient, was in the lower 100's compared to 150 yesterday -cardiology is consulted and following -unable to perform SAMI over weekend d/t patient not tolerating sedation, patient prefers to not have procedure done in future -CXR today with improved pulmonary venous congestion, lasix appears to be working -doing much better today, will d/c catheter and tentatively plan for discharge tomorrow as long as no acute events occur 3. metastatic small cell carcinoma -following Dr. White as outpatient 4. 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 debility/cachexia -secondary to metastatic disease, do not anticipate improvement -offer supplementation to patient 6. COPD -continue [employer] inhalers 7.. continued smoker 8. anxiety -alprazolam prn, zolpidem for sleep aid -trazadone qhs 9. Constipation -start lactulose TIO CUMMINGS DO 09/26/16 1103: Progress Note Progress Notes/Assess & Plan Diagonsis/Assessment & Plan Patient feeling much better and overall getting around much better and heart rate is varied but now down to 92 with the very lowest. I did suggest home O2 evaluation which seemed to surprise her but will initiate that order in preparation for possible discharge tomorrow I did speak with case management social worker with the cancer Center and updated her on the plan for possible discharge tomorrow if able but prognosis is so poor is going to be difficult to place this patient without readmission for complete decompensation since she is a hospice candidate in my medical opinion. Palate of care consult has ensued but patient is not willing to even discuss end-of- life care due to the extensive metastasis I tried to reassure her and encourage her to learn more about end-of-life care. MILVIA FARLEY MED STUDENT Sep 26, 2016 08:39 TIO CUMMINGS DO Sep 26, 2016 11:03
[2016-09-26] MEDS: CHLORHEXIDINE 0.12% SOLN 15 ML (PERIDEX) UDC MM SCH ×2 (09:00→20:59)
[2016-09-26] MEDS: FLUTICASONE NASAL SPRAY (FLONASE) 16 GM BTL NS SCH (09:00)
[2016-09-26] MEDS: URSODIOL 300 MG CAPSULE PO SCH ×2 (09:31→20:59)
[2016-09-26] MEDS: LACTULOSE SYRUP 10GM/15ML (ENULOSE) 30ML UDC PO SCH ×2 (10:29→20:58)
[2016-09-26] MEDS: traZODone 50 MG (DESYREL) TAB PO SCH (20:58)
[2016-09-26] MEDS: ZOLPIDEM 5 MG (AMBIEN) TAB PO PRN (21:07)
[2016-09-27] VITALS (8 sets, daily range): BP systolic 82–130; BP diastolic 62–91
[2016-09-27] MEDS: RT-ALBUTEROL/IPRATROPIUM 3 ML (DUONEB) VIAL INH SCH ×3 (02:00→10:06)
[2016-09-27 04:49] LABS: BASOPHILS % (AUTO) 0 % (0-10); EOSINOPHILS # (AUTO) 0.2 10^3/uL (0.0-0.3); EOSINOPHILS % (AUTO) 2 % (0-10); LYMPHOCYTES # (AUTO) 0.6 X 10^3 (1.0-4.0); LYMPHOCYTES % (AUTO) 7 % (12-44); MEAN CORPUSCULAR HEMOGLOBIN 34 PG (25-34); MEAN CORPUSCULAR HGB CONC 34 G/DL (32-36); MEAN CORPUSCULAR VOLUME 99 FL (80-99); MEAN PLATELET VOLUME 9.5 FL (7.4-10.4); MONOCYTES # (AUTO) 1.6 X 10^3 (0.0-1.0); MONOCYTES % (AUTO) 16 % (0-12); NEUTROPHILS # (AUTO) 7.4 X 10^3 (1.8-7.8); NEUTROPHILS % (AUTO) 75 % (42-75); PLATELET COUNT 152 10^3/uL (130-400); RED BLOOD COUNT 3.89 10^6/uL (4.35-5.85); RED CELL DISTRIBUTION WIDTH 14.1 % (10.0-14.5); WHITE BLOOD COUNT 9.8 10^3/uL (4.3-11.0)
[2016-09-27] MEDS: HYDROcodone/APAP 5 MG/325 MG (LORTAB) TAB PO PRN (04:55)
[2016-09-27 05:07] LABS: ANION GAP 8 MMOL/L (5-14); BLOOD UREA NITROGEN 10 MG/DL (7-18); BUN/CREATININE RATIO 16; CALCIUM 8.8 MG/DL (8.5-10.1); CARBON DIOXIDE 36 MMOL/L (21-32); CHLORIDE 88 MMOL/L (98-107); CREATININE SERUM 0.62 MG/DL (0.60-1.30); GFR ESTIMATED > 60; GLUCOSE 109 MG/DL (70-105); MAGNESIUM 1.7 MG/DL (1.8-2.4); SODIUM 132 MMOL/L (135-145)
[2016-09-27] MEDS: POTASSIUM CL 10MEQ/50ML IVPB 50 ML IV SCH (05:43)
[2016-09-27] MEDS: MAGNESIUM 1 GM/100 ML IVPB 100 ML IV SCH (06:00)
--- NOTE | 2016-09-27 06:26 | Pulmonary Progress Note ---
Subjective Subjective/Events-last exam Pt feels improved no complications noted. Exam Exam Vital Signs Date Time Temp Pulse Resp B/P Pulse Ox O2 Delivery O2 Flow Rate FiO2 09/27/16 06:00 102 82/69 92 Nasal Cannula 6.00 09/27/16 05:00 140 130/91 90 Nasal Cannula 6.00 09/27/16 04:00 97.5 96 109/65 90 Nasal Cannula 6.00 09/27/16 03:00 90 108/67 Nasal Cannula 6.00 09/27/16 02:00 93 84/62 Nasal Cannula 6.00 09/27/16 01:00 99 09/27/16 01:00 99 102/81 92 Nasal Cannula 6.00 09/27/16 00:00 99.1 122 28 124/85 93 Nasal Cannula 6.00 09/26/16 23:00 112 17 114/71 92 Nasal Cannula 6.00 09/26/16 22:00 137 20 115/91 93 Nasal Cannula 6.00 09/26/16 21:00 149 24 132/83 91 Nasal Cannula 6.00 09/26/16 20:00 99 17 116/72 91 Nasal Cannula 6.00 09/26/16 20:00 98.9 Nasal Cannula 6.00 09/26/16 19:00 110 09/26/16 19:00 110 15 129/86 92 Nasal Cannula 6.00 09/26/16 18:29 92 Nasal Cannula 6.00 09/26/16 16:00 98.2 09/26/16 14:50 90 Nasal Cannula 6.00 09/26/16 14:44 93 5.00 09/26/16 13:00 105 09/26/16 12:00 92 Nasal Cannula 5.00 09/26/16 12:00 98.8 112 12 101/72 92 Nasal Cannula 5.00 09/26/16 11:07 90 Nasal Cannula 5.00 09/26/16 08:00 91 Nasal Cannula 5.00 09/26/16 08:00 98.5 116 21 104/80 91 Nasal Cannula 5.00 09/26/16 07:00 106 09/26/16 06:48 91 Nasal Cannula 5.00 I & O 09/27/16 07:00 Intake Total 1175 ml Output Total 2475 ml Balance -1300 ml General Appearance: No Apparent Distress WD/WN Chronically ill Cachetic Thin HEENT: PERRL/EOMI Normal ENT Inspection Pharynx Normal Neck: Full Range of Motion Normal Inspection Non Tender Supple Carotid Bruit Respiratory: Chest Non Tender No Accessory Muscle Use No Respiratory Distress Crackles Decreased Breath Sounds Cardiovascular: No Edema No Gallop No JVD No Murmur Normal Peripheral Pulses Irregularly Irregular Tachycardia Capillary Refill: Less Than 3 Seconds Peripheral Pulses: 1+ Dorsalis Pedis (R), 1+ Left Dors-Pedis (L), 1+ Radial Pulses (R), 1+ Radial Pulses (L) Gastrointestinal: non tender soft Extremity: Normal Capillary Refill Normal Inspection Normal Range of Motion Non Tender No Calf Tenderness No Pedal Edema Neurologic/Psychiatric: Alert Oriented x3 No Motor/Sensory Deficits Normal Mood/Affect Skin: Normal Color Warm/Dry Lymphatic: No Adenopathy Results Lab Laboratory Tests 09/26/16 05:10 09/27/16 04:30 Assessment/Plan Assessment/Plan Acute respiratory failure with distress pulmonary edema with effusion Continue lasix -DuoNeb Q4 PNA with Klebsiella -start merrem - pt is allergic to cephalosporins -could be switched to BCTM at discharge Status post CODE BLUE and cardiopulmonary arrest during SAMI procedure s/p vent Afib RVR -Cardiology following pulmonary edema with pleural effusions -Lasix Metastatic small cell lung cancer -Oncology is following 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
[2016-09-27] MEDS: RT-ADVAIR HFA 115/21 MCG PER PUFF IH SCH (06:44)
[2016-09-27] MEDS: FUROSEMIDE 40 MG/4 ML INJ (LASIX) IVP SCH (07:33)
[2016-09-27] MEDS: LACTULOSE SYRUP 10GM/15ML (ENULOSE) 30ML UDC PO SCH (07:33)
[2016-09-27] MEDS: morphine INJ 4 MG/ML 1 ML (VIAL/SYRINGE) IVP PRN (07:33)
[2016-09-27] MEDS: guaiFENesin (MUCINEX) 600 MG TAB PO SCH (07:34)
[2016-09-27] MEDS: APIXABAN 2.5 MG (ELIQUIS) TABLET PO SCH (07:34)
[2016-09-27] MEDS: AMIODARONE 200 MG (CORDARONE) TAB PO SCH (07:34)
[2016-09-27] MEDS: DIGOXIN 0.125 MG (LANOXIN) TAB PO SCH (07:34)
[2016-09-27] MEDS: KCL 20 MEQ TAB (K-DUR) PO SCH (07:34)
[2016-09-27] MEDS: DILTIAZEM 240 MG (CARDIZEM CD) CAP PO SCH (07:34)
[2016-09-27] MEDS: VITAMIN D3 1,000 UNITS (CHOLECALCIFEROL) TABLET PO SCH (07:35)
[2016-09-27] MEDS: URSODIOL 300 MG CAPSULE PO SCH (07:35)
--- NOTE | 2016-09-27 08:26 | Cardiology Progress Note ---
Subjective Subjective/Events-last exam Patient is feeling better, breathing better, asking to go home, chest is better, HR is slightly better Review of Systems General: No Chills, No Night Sweats, No Fatigue, No Malaise, No Appetite, No Other HEENT: No Head Aches, No Visual Changes, No Eye Pain, No Ear Pain, No Dysphasia , No Sinus Congestion, No Post Nasal Drip, No Sore Throat, No Other Pulmonary: Dyspnea CoughNo Pleuritic Chest Pain, No Other Cardiovascular: : Chest PainNo: Edema, Lt Headedness, Orthopnea, Other, Palpitations, Paroxysmal Noc. Dyspnea Objective-Cardiology Exam Last Set of Vital Signs Vital Signs 09/24/16 09/27/16 09/27/16 09/27/16 09/27/16 09/27/16 10:45 00:00 04:00 06:00 06:47 07:00 Temp 97.5 Pulse 118 Resp 28 B/P 82/69 Pulse Ox 90 O2 Delivery Nasal Cannula O2 Flow Rate 6.00 FiO2 3 Capillary Refill : Less Than 3 Seconds I&O Intake and Output 09/27/16 00:00 Intake Total 1200 ml Output Total 2650 ml Balance -1450 ml Intake Oral 1200 ml Output Urine Total 2500 ml Post Void Residual 150 ml General: Alert, Oriented X3, Cooperative, Moderate Distress HEENT: Atraumatic, PERRLA, EOMI, Mucous Memb Moist/[place] Neck: Supple, No Thyromegaly, Other (Neck veins aren't distended) Lungs: Other (Bilateral rhonchi, expiratory wheezing) Heart: Normal S1, Normal S2, Other (Atrial fibrillation, systolic ejection murmur of aortic stenosis, tachycardia) Abdomen: Normal Bowel Sounds, Soft Extremities: No Clubbing, No Cyanosis, Other Skin: No Rashes, No Significant Lesion Neuro: Normal Speech, Normal Tone, Sensation Intact Psych/Mental Status: Mental Status NL Results Lab Laboratory Tests 09/27/16 04:30 A/P-Cardiology Admission Diagnosis CHF AF Metastatic carcinoma Tobaccoism Assessment/Plan Atrial fibrillation with rapid ventricular response, continue on Digoxin and Amiodarone and continue Cardizem 240 in the morning and add 120 in evening, monitor HR and BP Status post CODE BLUE secondary to sedation during SAMI. Recovered. Pneumonia and pleural effusion, receiving antibiotics and managed by Dr Joseph and Kellie Hypotension, better at this time, continue to monitor blood pressure Acute on chronic diastolic and systolic CHF, diurese as blood pressure tolerates. 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 White, received palliative radiation therapy. History of breast cancer. Seen and followed by Dr. Blue, had lumpectomy and axillary node dissection in February 2008, receive Adriamycin and Cytoxan for 4 cycles followed by radiation therapy. Not suitable of ICD placement, given life expectancy as described above Chronic tobacco use Ok for discharge from cardiac standpoint and follow with Dr Carrillo next week Clinical Quality Measures DVT/VTE Risk/Contraindication: Risk Factor Score Per Nursin RFS Level Per Nursing on Admit: 4+=Very High MAYCO VICENTE MD Sep 27, 2016 08:26
--- NOTE | 2016-09-27 08:58 | Diagnostic Imaging Report ---
INDICATION: Dyspnea. COMPARISON: 09/26/2016. FINDINGS: The bilateral effusions (greater on the right), enlargement of the cardiac silhouette, and bilateral predominantly perihilar mixed interstitial and airspace opacities are all unchanged. There is no pneumothorax. There is a poor inspiratory volume with crowding of the lung markings and bibasilar atelectasis, greater right. A left IJ catheter tip projects over the level of the SVC, stable. IMPRESSION: Unchanged bilateral pleural/parenchymal opacities. Decreased inspiration and support apparatus. No pneumothorax. No change. Dictated by: Dictated on workstation # [id number]
[2016-09-27] MEDS: HEParin (CENTRAL IV FLUSH) 500 UNIT/5 ML SYR IV SCH (09:00)
[2016-09-27] MEDS: CHLORHEXIDINE 0.12% SOLN 15 ML (PERIDEX) UDC MM SCH (09:00)
[2016-09-27] MEDS: FLUTICASONE NASAL SPRAY (FLONASE) 16 GM BTL NS SCH (09:00)
--- NOTE | 2016-09-27 10:22 | Discharge Summary-Hospitalist ---
Diagnosis/Chief Complaint Date of Admission Sep 20, 2016 at 12:58 Date of Discharge Admission Diagnosis CHF Volume overload Anxiety Cancer w/widespread mets in apparent end of life stage Discharge Diagnosis 1. Afib with RVR -continue small dose of digoxin -continue oral cardizem and amiodarone -heart rate better while interviewing patient, was in the lower 100's compared to 150 yesterday -cardiology is consulted and following -unable to perform SAMI over weekend d/t patient not tolerating sedation, patient prefers to not have procedure done in future -CXR today with improved pulmonary venous congestion, lasix appears to be working -doing much better today, will d/c catheter and tentatively plan for discharge tomorrow as long as no acute events occur 3. metastatic small cell carcinoma -following Dr. White as outpatient 4. 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 debility/cachexia -secondary to metastatic disease, do not anticipate improvement -offer supplementation to patient 6. COPD -continue [employer] inhalers 7.. continued smoker 8. anxiety -alprazolam prn, zolpidem for sleep aid -trazadone qhs 9. Constipation -start lactulose Patient feeling much better and overall getting around much better and heart rate is varied but now down to 92 with the very lowest. I did suggest home O2 evaluation which seemed to surprise her but will initiate that order in preparation for possible discharge tomorrow I did speak with social services with the cancer Center and updated her on the plan for possible discharge tomorrow if able but prognosis is so poor is going to be difficult to place this patient without readmission for complete decompensation since she is a hospice candidate in my medical opinion. Palate of care consult has ensued but patient is not willing to even discuss end-of- life care due to the extensive metastasis I tried to reassure her and encourage her to learn more about end-of-life care. Reason Hospital Visit/Course Chart Review: WBC continues to improve to 9.2 today, Na+ improving still 6to 134 , Creat 0.65, Will continue fluid restriction of 1200 a day, Reviewed Cardiology consultation Pt had a SAMI over the weekend for an attempt at cardioversion. Even with minimal sedation, she crashed during the procedure and needed chest compressions and resuscitation. Her pulse came back within the minute. She was intubated briefly. It is unknown at this time if she will tolerate any level of sedation for future procedures. Patient Interview:Patient continues to feel better and was in good spirits. Her only complaint is her dry cough that hurts her sternum. She reports her breathing and leg swelling are better. Notes from 09/27/2016: Pharmacy Review: Pt has Klebsiella in her sputum. Levaquin 750, [address] worker: Pt qualified for 6L O2 continuous Pt took morphine once today Dr. Tuttle saw pt today Dr. Joseph started pt on Meropenem today. Patient Interview: Pt denies having any Lortab at home, and will need a new prescription. Pt states that she uses [facility]. Physical exam was stable. Pt denies having BM in the past few days, but has eaten very little. Klebsiella in sputum placed on Levaquin No fever vitals stable but heart rate does have labile levels at times Irregular irregular rhythm, clear to auscultation bilaterally but distant breath sounds all aguilar No edema Plan: DC 6 pills Levaquin 750 mg Lortab Bowel meds Home O2 6L Hospice consult for [facility] Follow-up with Cardiology and Oncology Scribed by Marshall Briones under the direct supervision of Dr. Cummings. Hospital course: Patient had a very lengthy complicated hospital course she was admitted for atrial fibrillation with rapid ventricular response with congestive heart failure volume overload and cardiology was consulted. She did undergo a SAMI during the hospital stay that resulted in a cardiac arrest compressions were performed along with intubation but she was extubated quickly. Overall her prognosis is extremely poor given the fact of the widespread metastasis we did begin speaking about hospice enrollment of which she was not ready just yet but patient is obviously at the end-stage of her life and we tried to support her in any way possible. She didn't meet criteria for home oxygen at 6 L continuous and information for hospice enrollment was given to the patient. Cardizem drip was ultimately converted over to pill form along with amiodarone and digoxin for rate control but they're again she does have end-stage problems and overall a very dismal prognosis but supportive care was given to the patient open communication and all in agreement with the plan for discharge home with her family with hospice information to enroll recommended. Discharge Summary Discharge Physical Examination Allergies: Coded Allergies: adhesive tape (Verified Allergy, Unknown, 04/16/08) cefdinir (Verified Allergy, Unknown, NAUSEA, 03/13/16) celecoxib (Verified Allergy, Unknown, NAUSEA, 03/13/16) clarithromycin (Verified Allergy, Unknown, 04/16/08) latex (Verified Allergy, Unknown, HIVES, 03/13/16) metolazone (Verified Adverse Reaction, Severe, SICK TO STOMACH, 08/10/16) Vitals & I&Os Vital Signs Date Time Temp Pulse Resp B/P Pulse Ox O2 Delivery O2 Flow Rate FiO2 09/27/16 10:06 92 Nasal Cannula 6.00 09/27/16 08:00 99.1 112 20 116/70 09/24/16 10:45 3 Hospital Course Labs (last 24 hrs) Laboratory Tests 09/27/16 04:30: Anion Gap 8, BUN/Creatinine Ratio 16, Basophils # (Auto) 0.0, Basophils (%) ( Auto) 0, Blood Urea Nitrogen 10, Calcium Level 8.8, Carbon Dioxide Level 36H, Chloride Level 88L, Creatinine 0.62, Eosinophils # (Auto) 0.2, Eosinophils (%) ( Auto) 2, Estimat Glomerular Filtration Rate > 60, Glucose Level 109H, Hematocrit 39, Hemoglobin 13.1, Lymphocytes # (Auto) 0.6L, Lymphocytes (%) (Auto ) 7L, Magnesium Level 1.7L, Mean Corpuscular Hemoglobin 34, Mean Corpuscular Hemoglobin Concent 34, Mean Corpuscular Volume 99, Mean Platelet Volume 9.5, Monocytes # (Auto) 1.6H, Monocytes (%) (Auto) 16H, Neutrophils # (Auto) 7.4, Neutrophils (%) (Auto) 75, Phosphorus Level 3.0, Platelet Count 152, Potassium Level 4.0, Red Blood Count 3.89L, Red Cell Distribution Width 14.1, Sodium Level 132L, White Blood Count 9.8 Microbiology 09/23/16 Gram Stain - Final, Complete 09/23/16 Sputum Culture - Final, Complete Klebsiella Oxytoca Normal cherry Pending Labs Laboratory Tests 09/27/16 04:30: Anion Gap 8, BUN/Creatinine Ratio 16, Basophils # (Auto) 0.0, Basophils (%) ( Auto) 0, Blood Urea Nitrogen 10, Calcium Level 8.8, Carbon Dioxide Level 36, Chloride Level 88, Creatinine 0.62, Eosinophils # (Auto) 0.2, Eosinophils (%) ( Auto) 2, Estimat Glomerular Filtration Rate > 60, Glucose Level 109, Hematocrit 39, Hemoglobin 13.1, Lymphocytes # (Auto) 0.6, Lymphocytes (%) (Auto) 7, Magnesium Level 1.7, Mean Corpuscular Hemoglobin 34, Mean Corpuscular Hemoglobin Concent 34, Mean Corpuscular Volume 99, Mean Platelet Volume 9.5, Monocytes # (Auto) 1.6, Monocytes (%) (Auto) 16, Neutrophils # (Auto) 7.4, Neutrophils (%) (Auto) 75, Phosphorus Level 3.0, Platelet Count 152, Potassium Level 4.0, Red Blood Count 3.89, Red Cell Distribution Width 14.1, Sodium Level 132, White Blood Count 9.8 Discharge Home Medications: Active Scripts Active Xanax (Alprazolam) 0.5 Mg Tablet 0.5 Mg PO TID PRN Levaquin (Levofloxacin) 750 Mg Tablet 750 Mg PO DAILY Lactulose 20 Gm/30 Ml Solution 10 Gm PO BID Diltiazem 24Hr Cd (Diltiazem HCl) 120 Mg Cap.er.24h 120 Mg PO HS Digox (Digoxin) 125 Mcg Tablet 0.125 Mg PO DAILY Amiodarone HCl 200 Mg Tablet 200 Mg PO BID Hydrocodon -Acetaminophen 5-325 (Hydrocodone/Acetaminophen) 1 Each Tablet 2 Tab PO Q6H PRN Reported Mucinex (Guaifenesin) 1,200 Mg Tab.er.12h 1,200 Mg PO BID Diltiazem 24Hr ER (Diltiazem HCl) 240 Mg Cap.er.24h 240 Mg PO DAILY Peridex (Chlorhexidine Gluconate) 473 Ml Mouthwash 0.5 Oz MM BID Advair Hfa 115-21 Mcg Inhaler (Fluticasone/Salmeterol) 12 Gm Hfa.aer.ad 1 Puff IH BID Cyanocobalamin Injection (Cyanocobalamin) 1,000 Mcg/Ml Inj 1,000 Mcg IJ MONTHLY Magnesium (Magnesium Oxide) 400 Mg Tablet 400 Mg PO BID Lisinopril 2.5 Mg Tablet 2.5 Mg PO DAILY Furosemide 40 Mg Tablet 80 Mg PO DAILY TAKES 2 (40 MG) TABLETS Nasonex (Mometasone Furoate) 17 Gm Naspr 1 [place] NSEACH DAILY PRN Klor-Con M10 (Potassium Chloride) 10 Meq Tab.er.prt 20 Meq PO BID TAKES 2 (10 MEQ) TABLETS Trazodone HCl 50 Mg Tablet 50 Mg PO HS Eliquis (Apixaban) 2.5 Mg Tablet 2.5 Mg PO BID Calcium + Vitamin D Tablet (Calcium Carbonate/Vitamin D3) 1 Each Tablet 1 Tab PO BID Zolpidem Tartrate 10 Mg Tablet 10 Mg PO HS PRN Ursodiol 300 Mg Capsule 300 Mg PO HS Ondansetron HCl 8 Mg Tablet 8 Mg PO Q8H PRN Fish Oil 1,200 mg Fish Oil (Fish Oil/Dha/Epa) 1 Each Capsule 1,200 Mg PO BID Vitamin D3 (Cholecalciferol (Vitamin D3)) 1,000 Unit Tablet 1,000 Unit PO BID Ursodiol 300 Mg Capsule 600 Mg PO DAILY TAKES 2 (300 MG) CAPSULES Instructions to patient/family Please see electonic discharge instructions given to patient. Clinical Quality Measures DVT/VTE Risk/Contraindication: Risk Factor Score Per Nursin RFS Level Per Nursing on Admit: 4+=Very High TIO CUMMINGS DO Sep 27, 2016 10:22
[2016-09-27] MEDS ORDERED: LACT20SO2 PO (10:41)
[2016-09-27] MEDS ORDERED: ALPR0.5T7 PO (10:41)
[2016-09-27] MEDS ORDERED: DIGO125T18 PO (10:41)
[2016-09-27] MEDS ORDERED: DILT120C63 PO (10:41)
[2016-09-27] MEDS ORDERED: LEVO750T9 PO (10:41)
[2016-09-27] MEDS ORDERED: AMIO200T2 PO (10:41)
[2016-09-27] MEDS ORDERED: HYDR-3812 PO (10:41)
--- NOTE | 2016-09-27 10:43 | Discharge Instructions ---
Discharge Instructions Discharge Medications New, Converted or Re-Newed RX: Transmitted to Pharmacy New Medications: Levofloxacin (Levaquin) 750 Mg Tablet 750 MG PO DAILY #6 TAB Alprazolam (Alprazolam) 0.5 Mg Tablet 0.5 MG PO TID PRN ANXIETY #30 TAB Amiodarone HCl (Amiodarone HCl) 200 Mg Tablet 200 MG PO BID #30 TAB Digoxin (Digox) 125 Mcg Tablet 0.125 MG PO DAILY #30 TAB Diltiazem HCl (Diltiazem 24Hr Cd) 120 Mg Cap.er.24h 120 MG PO HS #30 CAP Lactulose (Lactulose) 20 Gm/30 Ml Solution 10 GM PO BID #8 OZ Changed Medications: Hydrocodone/Acetaminophen (Hydrocodon -Acetaminophen 5-325) 1 Each Tablet 2 TAB PO Q6H PRN PAIN #60 (Changed from: 1 TAB) Continued Medications: Apixaban (Eliquis) 2.5 Mg Tablet 2.5 MG PO BID TAB Calcium Carbonate/Vitamin D3 (Calcium + Vitamin D Tablet) 1 Each Tablet 1 TAB PO BID TAB Chlorhexidine Gluconate (Peridex) 473 Ml Mouthwash 0.5 OZ MM BID ML Cholecalciferol (Vitamin D3) (Vitamin D3) 1,000 Unit Tablet 1000 UNIT PO BID TAB Cyanocobalamin (Cyanocobalamin Injection) 1,000 Mcg/Ml Inj 1000 MCG IJ MONTHLY VIAL Diltiazem HCl (Diltiazem 24Hr ER) 240 Mg Cap.er.24h 240 MG PO DAILY CAP Fish Oil/Dha/Epa (Fish Oil 1,200 mg Fish Oil) 1 Each Capsule 1200 MG PO BID CAP Fluticasone/Salmeterol (Advair Hfa 115-21 Mcg Inhaler) 12 Gm Hfa.aer.ad 1 PUFF IH BID GM Furosemide (Furosemide) 40 Mg Tablet 80 MG PO DAILY TAKES 2 (40 MG) TABLETS TAB Guaifenesin (Mucinex) 1,200 Mg Tab.er.12h 1200 MG PO BID TAB Lisinopril (Lisinopril) 2.5 Mg Tablet 2.5 MG PO DAILY Magnesium Oxide (Magnesium) 400 Mg Tablet 400 MG PO BID TAB Mometasone Furoate (Nasonex) 17 Gm Naspr 1 [place] NSEACH DAILY PRN ALLERGIES Ondansetron HCl (Ondansetron HCl) 8 Mg Tablet 8 MG PO Q8H PRN NAUSEA/VOMITING Potassium Chloride (Klor-Con M10) 10 Meq Tab.er.prt 20 MEQ PO BID TAKES 2 (10 MEQ) TABLETS Trazodone HCl (Trazodone HCl) 50 Mg Tablet 50 MG PO HS Ursodiol (Ursodiol) 300 Mg Capsule 600 MG PO DAILY TAKES 2 (300 MG) CAPSULES CAP Ursodiol (Ursodiol) 300 Mg Capsule 300 MG PO HS CAP Zolpidem Tartrate (Zolpidem Tartrate) 10 Mg Tablet 10 MG PO HS PRN INSOMNIA TAB Discontinued Medications: Doxycycline Hyclate (Doxycycline Hyclate) 100 Mg Capsule 100 MG PO BID FILLED 09/18/15 #14 FOR A 7 DAY THERAPY Days 7 CAP Patient Instructions Goal/Follow Up Appt: Dr Carrillo in [address] White in 1 week Patient Instructions: Consider Hospice enrollment Activity & Diet Discharge Diet: Cardiac Diet Activity as Tolerated: Yes TIO CUMMINGS DO Sep 27, 2016 10:43
[2016-09-27] MEDS ORDERED: ALPR0.5T PO (11:36)
[2016-09-27] MEDS ORDERED: MEROPENEM 1,000 MG in NORMAL SALINE (BAXTER MINI) 100 ML IV SCH (14:00)
[2016-09-27] MEDS ORDERED: DILTIAZEM 120 MG (CARDIZEM CD) CAP PO SCH (21:00)
== END 2016-09-27 13:35 | disposition home or self-care (01) | DRG 308 ==
LOC: EDUNIT# 10:37 → ER 10:40 → ICU 12:58 → UNDODISIN 09-27 11:07
PROVIDERS: ADMIT Internal Medicine; ATTEND Internal Medicine
PROC: 5A1935Z Respiratory Ventilation, Less than 24 Consecutive Hours (ICD-10-PCS; principal; 2016-09-23)
DX: I48.0 Paroxysmal atrial fibrillation (principal); I50.43 Acute on chronic combined systolic (congestive) and diastolic (congestive) heart failure; J96.00 Acute respiratory failure, unspecified whether with hypoxia or hypercapnia; R57.8 Other shock; C78.00 Secondary malignant neoplasm of unspecified lung; C79.51 Secondary malignant neoplasm of bone; E22.2 Syndrome of inappropriate secretion of antidiuretic hormone; R64 Cachexia; Z66 Do not resuscitate; I42.0 Dilated cardiomyopathy; J15.0 Pneumonia due to Klebsiella pneumoniae; J90 Pleural effusion, not elsewhere classified; J44.9 Chronic obstructive pulmonary disease, unspecified; I46.8 Cardiac arrest due to other underlying condition; I10 Essential (primary) hypertension; E87.5 Hyperkalemia; F17.210 Nicotine dependence, cigarettes, uncomplicated; F41.9 Anxiety disorder, unspecified; F32.9 Major depressive disorder, single episode, unspecified; I08.3 Combined rheumatic disorders of mitral, aortic and tricuspid valves; Z85.3 Personal history of malignant neoplasm of breast; K59.09 Other constipation; I50.1 Left ventricular failure, unspecified; E83.42 Hypomagnesemia
CPT/HCPCS: 36415; 71010; 80048; 80053; 80162; 82805; 83735; 83880; 84100; 84132; 84484; 85007; 85025; 85027; 87070; 87077; 87186; 87205; 93005; 93306; 93312; 94002; 94003; 94640; 94664; 94760; 94761; 94799; 96365; 96366

== ENCOUNTER 2016-10-01 20:11 | Emergency (ER) | payer MEDICARE, OTHER ==
[~2016-10-01] VITALS: Ht 172.7 cm; Wt 49.9 kg
[~2016-10-01 20:11] MED LIST changes: +ALPR0.5T PO; +ALPR0.5T7 PO; +AMIO200T2 PO; +DILT120C63 PO; +DILT240C PO; +DOXY100C2 PO; +GUAI120013 PO; +LACT20SO2 PO; +LEVO750T9 PO
--- OUTSIDE RECORDS SUMMARY | 2016-10-01 20:19 | XMS REPORT | Continuity of Care Document ---
Author Author [facility] Organization [facility] Address Unknown Phone Unavailable Care Team Providers Care Dairy Feed Sales Consultant Name Role Phone Self, Referral PCP Unavailable Source Comments Some departments are not documenting in the electronic medical record. If you do not see the information that you expected, contact Release of Information in the Health Information Management department at [phone] for further assistance in locating additional records.[facility] Active Allergies and Adverse Reactions Not on [...]
[2016-10-01] MEDS ORDERED: RT-ALBUTEROL/IPRATROPIUM 3 ML (DUONEB) VIAL ONE (20:25)
[2016-10-01] MEDS ORDERED: fentaNYL INJECTION 100 MCG/2 ML AMP IVP STA (20:38)
[2016-10-01] MEDS ORDERED: NS IV 500 ML 500 ML IV ONE (20:38)
--- NOTE | 2016-10-01 20:46 | ED General ---
General Chief Complaint: Respiratory Problems Stated Complaint: SOA, FEVER, A FIB Nursing Triage Note: CHEST WALL PAIN, SOA WORSE TODAY. DC' D FROM HOSPITAL 09/27/16 Nursing Sepsis Screen: Possible Sepsis Risk Source of Information: Patient, Family Exam Limitations: No Limitations History of Present Illness Time Seen by Provider: 20:25 Initial Comments Here with report of increasing shortness of air today. Discharged from the hospital 4 days ago after a bout of atrial fibrillation. She also had cardiac arrest after SAMI and was successfully resuscitated. Today she is complaining of central chest discomfort that has been going on for some time but worse today. Also increasing shortness of breath and difficulty with eating or drinking just due to fatigue. Denies fever or chills. Does report that she has wound to her bottom from being in bed so long. Denies nausea or vomiting. Also increasingly weak. Timing/Duration: 2-3 Days Severity: Moderate, Severe Modifying Factors: worse with Movement, improves with Rest Associated Systoms: Chest PainNo Cough, No Fever/Chills, Loss of AppetiteNo Nausea/Vomiting, Shortness of Air Weakness Allergies and Home Medications Allergies Coded Allergies: adhesive tape (Verified Allergy, Unknown, 04/16/08) cefdinir (Verified Allergy, Unknown, NAUSEA, 03/13/16) celecoxib (Verified Allergy, Unknown, NAUSEA, 03/13/16) clarithromycin (Verified Allergy, Unknown, 04/16/08) latex (Verified Allergy, Unknown, HIVES, 03/13/16) metolazone (Verified Adverse Reaction, Severe, SICK TO STOMACH, 08/10/16) Home Medications Alprazolam 0.5 Mg Tablet #30 0.5 MG PO TID PRN PRN ANXIETY Prescribed by: TIO CUMMINGS on 09/27/16 1136 Amiodarone HCl 200 Mg Tablet #30 200 MG PO BID Prescribed by: TIO CUMMINGS on 09/27/16 1041 Apixaban 2.5 Mg Tablet 2.5 MG PO BID (Reported) Calcium Carbonate/Vitamin D3 1 Each Tablet 1 TAB PO BID (Reported) Chlorhexidine Gluconate 473 Ml Mouthwash 0.5 OZ MM BID (Reported) Cholecalciferol (Vitamin D3) 1,000 Unit Tablet 1,000 UNIT PO BID (Reported) Cyanocobalamin 1,000 Mcg/Ml Inj 1,000 MCG IJ MONTHLY (Reported) Digoxin 125 Mcg Tablet #30 0.125 MG PO DAILY Prescribed by: TIO CUMMINGS on 09/27/16 1041 Diltiazem HCl 240 Mg Cap.er.24h 240 MG PO DAILY (Reported) Diltiazem HCl 120 Mg Cap.er.24h #30 120 MG PO HS Prescribed by: TIO CUMMINGS on 09/27/16 1041 Fish Oil/Dha/Epa 1 Each Capsule 1,200 MG PO BID (Reported) Fluticasone/Salmeterol 12 Gm Hfa.aer.ad 1 PUFF IH BID (Reported) Furosemide 40 Mg Tablet 80 MG PO DAILY (Reported) TAKES 2 (40 MG) TABLETS Guaifenesin 1,200 Mg Tab.er.12h 1,200 MG PO BID (Reported) Hydrocodone/Acetaminophen 1 Each Tablet #60 2 TAB PO Q6H PRN PRN PAIN Prescribed by: TIO CUMMINGS on 09/27/16 1041 Lactulose 20 Gm/30 Ml Solution #8 10 GM PO BID Prescribed by: TIO CUMMINGS on 09/27/16 1041 Levofloxacin 750 Mg Tablet #6 750 MG PO DAILY Prescribed by: TIO CUMMINGS on 09/27/16 1041 Lisinopril 2.5 Mg Tablet 2.5 MG PO DAILY (Reported) Magnesium Oxide 400 Mg Tablet 400 MG PO BID (Reported) Mometasone Furoate 17 Gm Naspr 1 SPRAY NSEACH DAILY PRN PRN ALLERGIES (Reported ) Ondansetron HCl 8 Mg Tablet 8 MG PO Q8H PRN PRN NAUSEA/VOMITING (Reported) Potassium Chloride 10 Meq Tab.er.prt 20 MEQ PO BID (Reported) TAKES 2 (10 MEQ) TABLETS Trazodone HCl 50 Mg Tablet 50 MG PO HS (Reported) Ursodiol 300 Mg Capsule 600 MG PO DAILY (Reported) TAKES 2 (300 MG) CAPSULES Ursodiol 300 Mg Capsule 300 MG PO HS (Reported) Zolpidem Tartrate 10 Mg Tablet 10 MG PO HS PRN PRN INSOMNIA (Reported) Constitutional: see HPINo chills, No fever EENTM: no symptoms reportedNo nose congestion, No throat pain Respiratory: no symptoms reported Cardiovascular: see HPI chest painNo edema, Hx of InterventionNo palpitations Gastrointestinal: loss of appetiteNo nausea, No vomiting Genitourinary: no symptoms reportedNo dysuria, No pain Musculoskeletal: joint pain muscle pain muscle weakness Skin: change in color (bruising from multiple IV sites.) Psychiatric/Neurological: No Symptoms Reported All Other Systems Reviewed Negative Unless Noted: Yes Past Jstsaib-Azehjz-Uithzi Hx Patient Social History Alcohol Use: Occasionally Uses Recreational Drug Use: No Smoking Status: Current Someday Smoker Type Used: Cigarettes Recent Foreign Travel: No Contact w/Someone Who Travel: No Recent Infectious Disease Expo: No Recent Hopitalizations: Yes (DC'D 09/27/16) Physical Abuse Screen: No Sexual Abuse: No Immunizations Up To Date Date of Influenza Vaccine: Jun 10, 2016 Seasonal Allergies Seasonal Allergies: No Surgeries HX Surgeries: Yes Surgeries: Breast, Hysterectomy, Orthopedic Respiratory Hx Respiratory Disorders: Yes (HOME O2.) Cardiovascular Hx Cardiac Disorders: Yes Cardiac Disorders: Atrial Fibrillation, Cardiomyopathy, Chronic Edema/Swelling , Coronary Artery Disease, High Cholesterol, Hypertension, Valvular Heart Disease Neurological Hx Neurological Disorders: No 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 System : No Hx 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 Disorders: No 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 Genitourinary Hx Genitourinary Disorders: Yes Genitourinary Disorders: Renal Failure Gastrointestinal Hx Gastrointestinal Disorders: Yes Gastrointestinal Disorders: Chronic Constipation Musculoskeletal Hx Musculoskeletal Disorders: No Musculoskeletal Disorders: Arthritis Endocrine Hx Endocrine Disorders: No HEENT HX ENT Disorders: No Cancer Hx Cancer: Yes Cancer: Bone, Lung, Breast Psychosocial Hx Psychiatric Problems: Yes Behavioral Health Disorders: Anxiety, Depression Integumentary HX Skin/Integumentary Disorder: No Blood Transfusions Hx Blood Disorders: No Reviewed Nursing Assessment Reviewed/Agree w Nursing PMH: Yes Family Medical History Significant Family History: No Pertinent Family Hx Physical Exam Vital Signs Vital Sign - Last 12Hours 10/01/16 20:27 Temp 99.5 Pulse 92 Resp 34 B/P 126/58 Pulse Ox 100 O2 Delivery Nasal Cannula O2 Flow Rate 6 Capillary Refill : Less Than 3 Seconds General Appearance: No Apparent Distress WD/WN HEENT: PERRL/EOMI Pharynx Normal Neck: Non Tender Supple Respiratory: Crackles Decreased Breath Sounds Wheezing Other (tender along the midsternum anteriorly.) Cardiovascular: Systolic Murmur Irregularly Irregular Gastrointestinal: Non Tender Soft Back: Normal Inspection No CVA Tenderness No Vertebral Tenderness Neurologic/Psychiatric: Alert Oriented x3 Skin: Normal Color Warm/Dry Date of ETT Placement: Sep 23, 2016 Progress/Results/Core Measures Results/Orders Lab Results Laboratory Tests Test 10/01/16 20:45 10/01/16 22:26 Range/Units Alanine Aminotransferase (ALT/SGPT) 22 0-55 U/L Albumin 3.2 3.2-4.5 G/DL Alkaline Phosphatase 110 40-136 U/L Anion Gap 11 5-14 MMOL/L Aspartate Amino Transf (AST/SGOT) 28 5-34 U/L B-Type Natriuretic Peptide 248.0 H <100.0 PG/ML BUN/Creatinine Ratio 19 Band Neutrophils 4 % Basophils # (Auto) 0.0 0.0-0.1 10^3/uL Basophils % (Manual) 0 % Basophils (%) (Auto) 0 0-10 % Blood Morphology Comment NORMAL Blood Urea Nitrogen 14 7-18 MG/DL C-Reactive Protein High Sensitivity 2.47 H 0.00-0.50 MG/DL Calcium Level 8.8 8.5-10.1 MG/DL Carbon Dioxide Level 33 H 21-32 MMOL/L Chloride Level 89 L 98-107 MMOL/L Creatinine 0.72 0.60-1.30 MG/DL Eosinophils # (Auto) 0.1 0.0-0.3 10^3/uL Eosinophils % (Manual) 0 % Eosinophils (%) (Auto) 1 0-10 % Estimat Glomerular Filtration Rate > 60 Glucose Level 101 70-105 MG/DL Hematocrit 41 35-52 % Hemoglobin 13.8 11.5-16.0 G/DL Lymphocytes # (Auto) 0.5 L 1.0-4.0 X 10^3 Lymphocytes % (Manual) 11 % Lymphocytes (%) (Auto) 5 L 12-44 % Mean Corpuscular Hemoglobin 33 25-34 PG Mean Corpuscular Hemoglobin Concent 34 32-36 G/DL Mean Corpuscular Volume 99 80-99 FL Mean Platelet Volume 8.9 7.4-10.4 FL Monocytes # (Auto) 1.7 H 0.0-1.0 X 10^3 Monocytes % (Manual) 8 % Monocytes (%) (Auto) 16 H 0-12 % Neutrophils # (Auto) 8.3 H 1.8-7.8 X 10^3 Neutrophils % (Manual) 77 % Neutrophils (%) (Auto) 78 H 42-75 % Platelet Count 215 130-400 10^3/uL Potassium Level 4.1 3.6-5.0 MMOL/L Red Blood Count 4.15 L 4.35-5.85 10^6/uL Red Cell Distribution Width 14.2 10.0-14.5 % Sodium Level 133 L 135-145 MMOL/L Total Bilirubin 0.7 0.1-1.0 MG/DL Total Protein 6.0 L 6.4-8.2 G/DL Troponin I < 0.30 <0.30 NG/ML White Blood Count 10.6 4.3-11.0 10^3/uL Urine Bacteria NONE /HPF Urine Bilirubin NEGATIVE NEGATIVE Urine Casts NONE /LPF Urine Clarity CLEAR Urine Color YELLOW Urine Crystals NONE /LPF Urine Culture Indicated NO Urine Glucose (UA) NEGATIVE NEGATIVE Urine Ketones NEGATIVE NEGATIVE Urine Leukocyte Esterase NEGATIVE NEGATIVE Urine Mucus NEGATIVE /LPF Urine Nitrite NEGATIVE NEGATIVE Urine Protein NEGATIVE NEGATIVE Urine RBC NONE /HPF Urine RBC (Auto) NEGATIVE NEGATIVE Urine Specific [place] 1.010 L 1.016-1.022 Urine Squamous Epithelial Cells 0-2 /HPF Urine Urobilinogen 1 NORMAL MG/DL Urine WBC NONE /HPF Urine pH 8 5-9 My Orders Orders-LINO MOYA MD Albuterol/Ipra Inhalation Soln (Duoneb I (10/01/16 20:25) Cbc With Automated Diff (10/01/16 20:38) Comprehensive Metabolic Panel (10/01/16 20:38) Hs C Reactive Protein (10/01/16 20:38) Troponin I (10/01/16 20:38) Ua Culture If Indicated (10/01/16 20:38) Saline Lock/Iv-Start (10/01/16 20:38) Ekg Tracing (10/01/16 20:38) O2 (10/01/16 20:38) Monitor-Rhythm Ecg Trace Only (10/01/16 20:38) Chest 1 View, Ap/Pa Only (10/01/16 20:38) Fentanyl Injection (Sublimaze Injection (10/01/16 20:38) Saline Lock/Iv-Start (10/01/16 20:38) Ns Iv 500 Ml (Sodium Chloride 0.9%) (10/01/16 20:38) Manual Differential (10/01/16 20:45) BNP (10/01/16 21:42) Prednisone Tablet (Deltasone Tablet) (10/01/16 23:00) Rx-Albuterol Inhaler (Rx-Proair) (10/01/16 23:00) Incentive Spirometryrt Initial (10/01/16 22:53) Incentive Spirometry (Nursing) Q2H (10/01/16 22:53) Heparin (Central Iv Flush) (Heparin (Mae (10/01/16 23:15) Medications Given in ED Current Medications Medications Dose Ordered Sig/Natty Route Start Time Stop Time Status Last Admin Dose Admin Albuterol/ Ipratropium 3 ml 3 ml STK-MED ONCE .ROUTE 10/01/16 20:25 10/01/16 20:34 DC 10/01/16 20:40 3 ML Sodium Chloride 500 ml @ 0 mls/hr Q0M ONCE IV 10/01/16 20:38 10/01/16 20:41 DC 10/01/16 20:54 0 MLS/HR Vital Signs/I&O Vital Sign - Last 12Hours 10/01/16 10/01/16 10/01/16 10/01/16 20:27 20:37 20:50 21:00 Temp 99.5 Pulse 92 94 Resp 34 16 B/P 126/58 122/52 Pulse Ox 100 99 100 92 O2 Delivery Nasal Cannula Nasal Cannula Nasal Cannula Nasal Cannula O2 Flow Rate 6 5 5 5 10/01/16 10/01/16 10/01/16 21:30 22:00 22:30 Pulse 88 94 85 Resp 18 18 22 B/P 116/63 100/57 108/70 Pulse Ox 95 96 98 O2 Delivery Nasal Cannula Nasal Cannula Nasal Cannula O2 Flow Rate 5 5 5 Blood Pressure Mean: 80 Progress Note : Progress Note Seen and evaluated. IV via port access, labs, EKG and chest x-ray ordered. Fentanyl 50 g IV ordered. Normal saline 500 mL bolus. Monitor patient. 2300 : Overall much improved. Incentive spirometer given. Albuterol MDI given. Prednisone 40 mg by mouth given. We will continue that outpatient for a few days. She is to follow-up with her doctor. She has appointment with Dr. Carrillo in the morning. She will continue her own meds especially for pain. Discharged home with return precautions. Patient verbalize understanding instructions and agreement with plan. ECG Initial ECG Impression Date: Oct 01, 2016 Initial ECG Impression Time: 21:05 Initial ECG Rate: 109 Initial ECG Rhythm: A Fib/Flutter Initial ECG Impression: Atrial Fibrillation Comment Atrial fibrillation with left axis deviation. No evidence of ST elevation IN. Overall similar to previous of 09/22/16 but rate is improved. Interpreted by me. Diagnostic Imaging Diagonstic Imaging: Xray Plain Films/CT/US/NM/MRI: chest Comments [facility] [place], [place] NAME: REGGIE ERWIN [facility] REC#: [id number] PT STATUS: REG ER : 1945 PHYSICIAN: LINO MOYA MD ADMIT DATE: 10/01/16/ER Signed Date of Exam:10/01/16 CHEST 1 VIEW, AP/PA ONLY INDICATION: Dyspnea. Comparison with 09/27/2016. FINDINGS: There continues to be cardiomegaly. There continues to be bilateral prominence of pulmonary vasculature with bilateral pleural effusions. Pleural effusions have decreased slightly in volume since previous exam. Left Port-A-Cath unchanged. IMPRESSION: Findings are consistent with congestive failure with slight decrease in pleural effusions when compared with previous exam. Dictated by: Dictated on workstation # [id number] Dict: 10/01/162108 Trans: 10/01/162150 [facility] [id number] Interpreted by: NITA GUZMAN MD Electronically signed by: NITA GUZMAN MD 10/01/162153 Reviewed: Reviewed by Me Departure Impression Impression: Primary Impression: COPD (chronic obstructive pulmonary disease) Qualified Code: J41.0 - Simple chronic bronchitis Additional Impression: Chest pain Qualified Code: R07.9 - Chest pain, unspecified Disposition: HOME, SELF-CARE Condition: Improved Departure-Patient Inst. Decision time for Depature: 23:08 Referrals: JANET GARDNER MD (PCP/Family) Primary Care Physician Patient Instructions: Chest Pain (DC), Chronic Bronchitis (DC) Add. Discharge Instructions: All discharge instructions reviewed with patient and/or family. Voiced understanding. Take home medications as directed. Use incentive spirometer as instructed. You may use albuterol inhaler 2 puffs every 4 hours as needed for wheezing or shortness of breath. Continue oxygen. Continue home medication. You may take your hydrocodone for the chest pain. Follow-up with your doctor tomorrow as scheduled. Follow-up with Dr. Gardner in one to 2 days for recheck and further evaluation. Return for worse pain, fever, vomiting, weakness, breathing problems or other concerns as needed. Copy Copies To 1: JANET GARDNER MD Copies To 2: DAVID CARRILLO MD FACP FACC CCDS LINO MOYA MD Oct 01, 2016 20:46
[2016-10-01 21:00] VITALS: BP 122/52
[2016-10-01 21:05] LABS: BASOPHILS % (AUTO) 0 % (0-10); EOSINOPHILS # (AUTO) 0.1 10^3/uL (0.0-0.3); EOSINOPHILS % (AUTO) 1 % (0-10); LYMPHOCYTES # (AUTO) 0.5 X 10^3 (1.0-4.0); LYMPHOCYTES % (AUTO) 5 % (12-44); MEAN CORPUSCULAR HEMOGLOBIN 33 PG (25-34); MEAN CORPUSCULAR HGB CONC 34 G/DL (32-36); MEAN CORPUSCULAR VOLUME 99 FL (80-99); MEAN PLATELET VOLUME 8.9 FL (7.4-10.4); MONOCYTES # (AUTO) 1.7 X 10^3 (0.0-1.0); MONOCYTES % (AUTO) 16 % (0-12); NEUTROPHILS # (AUTO) 8.3 X 10^3 (1.8-7.8); NEUTROPHILS % (AUTO) 78 % (42-75); PLATELET COUNT 215 10^3/uL (130-400); RED BLOOD COUNT 4.15 10^6/uL (4.35-5.85); RED CELL DISTRIBUTION WIDTH 14.2 % (10.0-14.5); WHITE BLOOD COUNT 10.6 10^3/uL (4.3-11.0)
--- NOTE | 2016-10-01 21:22 | Diagnostic Imaging Report ---
INDICATION: Dyspnea. Comparison with 09/27/2016. FINDINGS: There continues to be cardiomegaly. There continues to be bilateral prominence of pulmonary vasculature with bilateral pleural effusions. Pleural effusions have decreased slightly in volume since previous exam. Left Port-A-Cath unchanged. IMPRESSION: Findings are consistent with congestive failure with slight decrease in pleural effusions when compared with previous exam. Dictated by: Dictated on workstation # [id number]
[2016-10-01 21:23] LABS: BAND NEUTROPHILS 4 %; BASOPHILS % (MANUAL) 0 %; EOSINOPHILS % (MANUAL) 0 %; LYMPHOCYTES % (MANUAL) 11 %; NEUTROPHILS % (MANUAL) 77 %
[2016-10-01 21:24] LABS: ALANINE AMINOTRANSFERASE 22 U/L (0-55); ALBUMIN 3.2 G/DL (3.2-4.5); ANION GAP 11 MMOL/L (5-14); ASPARTATE AMINO TRANSFERASE 28 U/L (5-34); BILIRUBIN,TOTAL 0.7 MG/DL (0.1-1.0); BLOOD UREA NITROGEN 14 MG/DL (7-18); BUN/CREATININE RATIO 19; CALCIUM 8.8 MG/DL (8.5-10.1); CARBON DIOXIDE 33 MMOL/L (21-32); CHLORIDE 89 MMOL/L (98-107); CREATININE SERUM 0.72 MG/DL (0.60-1.30); GFR ESTIMATED > 60; GLUCOSE 101 MG/DL (70-105); POTASSIUM 4.1 MMOL/L (3.6-5.0); SODIUM 133 MMOL/L (135-145); hs C REACTIVE PROTEIN 2.47 MG/DL (0.00-0.50)
[2016-10-01 21:30] VITALS: BP 116/63
[2016-10-01 21:30] LABS: TROPONIN I < 0.30 NG/ML (<0.30)
[2016-10-01 22:00] VITALS: BP 100/57
[2016-10-01 22:30] VITALS: BP 108/70
[2016-10-01 22:31] LABS: BILIRUBIN,URINE NEGATIVE (NEGATIVE); KETONES,URINE NEGATIVE (NEGATIVE); LEUKOCYTE ESTERASE ,URINE NEGATIVE (NEGATIVE); NITRITE,URINE NEGATIVE (NEGATIVE); PH,URINE 8 (5-9); PROTEIN,URINE NEGATIVE (NEGATIVE); UROBILINOGEN,URINE 1 MG/DL (NORMAL)
[2016-10-01 22:38] LABS: SQUAMOUS EPITHELIAL CELL,UR 0-2 /HPF
[2016-10-01] MEDS ORDERED: predniSONE 20 MG TAB PO ONE (23:00)
[2016-10-01] MEDS ORDERED: RX-ALBUTEROL INHALER (PROAIR) 8 GM IH PRN (23:00)
[2016-10-01] MEDS ORDERED: HEParin (CENTRAL IV FLUSH) 500 UNIT/5 ML SYR IV ONE (23:15)
[2016-10-01 23:27] VITALS: BP 99/60
== END 2016-10-01 23:27 | disposition home or self-care (01) ==
LOC: EDUNIT# 20:11 → ER 20:14
DX: J44.0 Chronic obstructive pulmonary disease with (acute) lower respiratory infection (principal); R07.9 Chest pain, unspecified; I48.2 Chronic atrial fibrillation; I10 Essential (primary) hypertension; I25.10 Atherosclerotic heart disease of native coronary artery without angina pectoris; F17.210 Nicotine dependence, cigarettes, uncomplicated; Z79.01 Long term (current) use of anticoagulants; Z79.899 Other long term (current) drug therapy; Z86.74 Personal history of sudden cardiac arrest
CPT/HCPCS: 36415; 71010; 80053; 81000; 83880; 84484; 85007; 85027; 86141; 93005; 93041; 94640; 94664; 96361; 96374; 96375

== ENCOUNTER → 2016-10-23 | Outpatient (CLI) | payer MEDICARE, OTHER ==
[~2016-10-23] MED LIST changes: +BARIUM SUSPENSION 2.1% (VANILLA SILQ) 450 ML PO ONE; +CATHETER FLUSH 10 ML SYR IV PRN; +HEParin (CENTRAL IV FLUSH) 500 UNIT/5 ML SYR ONE; +IOHEXOL 350 MG/ML 100 ML (OMNIPAQUE 350) VIAL IV ONE; +NS 100 ML (IVPB) BAG IV ONE
--- OUTSIDE RECORDS SUMMARY | 2016-10-23 07:43 | XMS REPORT | Continuity of Care Document ---
Author Author [facility] Organization [facility] Address Unknown Phone Unavailable Care Team Providers Care Preventative Maintenance Technician Name Role Phone Self, Referral PCP Unavailable Source Comments Some departments are not documenting in the electronic medical record. If you do not see the information that you expected, contact Release of Information in the Health Information Management department at [phone] for further assistance in locating additional records.[facility] Active Allergies and Adverse Reactions Not [...]
--- NOTE | 2016-10-23 09:12 | Diagnostic Imaging Report ---
PROCEDURE: CT chest and abdomen with contrast. TECHNIQUE: Multiple contiguous axial images were obtained through the chest and abdomen after the administration of intravenous contrast. INDICATION: Small cell lung cancer. COMPARISON: 02/16/2016. 100 mL of Omnipaque 350 is administered intravenously. FINDINGS: CT CHEST: There is background upper lobe predominant emphysema. There is subsegmental atelectasis in the medial aspect of the right upper lobe. There is nonspecific subpleural nodular density measuring 6 mm seen anteriorly at the hilar level in the midright lung and there is a small to moderate right pleural effusion. There are acute mildly displaced rib fractures at multiple levels involving the third, fourth, fifth and sixth right ribs anteriorly. Other upper and lower subacute rib fractures are seen bilaterally. There is no obvious underlying osseous lesion identified. The left lung demonstrate minimal atelectasis in the medial aspect of the left upper lobe. No significant consolidation or mass. No left pleural effusion. No pericardial effusion. The heart size is moderately enlarged. There is no mediastinal mass. No significantly enlarged lymph nodes in the mediastinum or julio is seen. No axillary lymphadenopathy is noted. There is a deformity in the upper to mid aspect of the sternum compatible with a subacute fracture. Nonspecific lucency within the medulla of the bone is seen in this region with no definite aggressive underlying mass seen. CT ABDOMEN: The liver, the gallbladder, the spleen, the adrenal glands, and the pancreas appear unremarkable. The kidneys have symmetric enhancement and contrast excretion. There is no hydronephrosis. The abdominal aorta is normal in caliber. No para-aortic significantly enlarged lymph node is seen. The osseous structures appear grossly unremarkable. IMPRESSION: CT CHEST: 1. There are rib fractures and sternal fractures. There is a small to moderate right pleural effusion and nonspecific subpleural nodule in the anterior aspect of the right upper lobe, all could be related to injury to the chest. No definitive underlying neoplasm or lytic bone masses identified. 2. Emphysema. CT ABDOMEN: No evidence of metastasis or tumor recurrence. Dictated by: Dictated on workstation # [id number]
== END ==
LOC: RAD 07:39
PROVIDERS: ATTEND Nurse Practitioner Adult Health
DX: C34.91 Malignant neoplasm of unspecified part of right bronchus or lung (principal); J90 Pleural effusion, not elsewhere classified; J43.8 Other emphysema; S22.41XA Multiple fractures of ribs, right side, initial encounter for closed fracture; S22.20XA Unspecified fracture of sternum, initial encounter for closed fracture; X58.XXXA Exposure to other specified factors, initial encounter; Y99.8 Other external cause status
CPT/HCPCS: 71260; 74160

== ENCOUNTER → 2016-11-20 | Outpatient (CLI) | payer MEDICARE, OTHER ==
[~2016-11-20] MED LIST changes: -BARIUM SUSPENSION 2.1% (VANILLA SILQ) 450 ML PO ONE; -CATHETER FLUSH 10 ML SYR IV PRN; -HEParin (CENTRAL IV FLUSH) 500 UNIT/5 ML SYR ONE; -IOHEXOL 350 MG/ML 100 ML (OMNIPAQUE 350) VIAL IV ONE; -NS 100 ML (IVPB) BAG IV ONE
--- OUTSIDE RECORDS SUMMARY | 2016-11-20 09:21 | XMS REPORT | Continuity of Care Document ---
Author Author [facility] Organization [facility] Address Unknown Phone Unavailable Care Team Providers Care Silo Operator Name Role Phone Self, Referral PCP Unavailable Source Comments Some departments are not documenting in the electronic medical record. If you do not see the information that you expected, contact Release of Information in the Health Information Management department at [phone] for further assistance in locating additional records.[facility] Active Allergies and Adverse Reactions Not [...]
[2016-11-20 10:09] LABS: MAGNESIUM 1.8 MG/DL (1.8-2.4)
[2016-11-20 10:24] LABS: DIGOXIN 1.84 NG/ML (0.80-2.00)
== END ==
LOC: LAB 09:17
PROVIDERS: ATTEND Internal Medicine Cardiovascular Disease
DX: I48.2 Chronic atrial fibrillation (principal); J43.8 Other emphysema; I42.0 Dilated cardiomyopathy; I11.0 Hypertensive heart disease with heart failure; I50.41 Acute combined systolic (congestive) and diastolic (congestive) heart failure; C79.51 Secondary malignant neoplasm of bone; Z72.0 Tobacco use
CPT/HCPCS: 80162; 83735

== ENCOUNTER → 2016-12-13 | Outpatient (CLI) | payer MEDICARE, OTHER ==
[~2016-12-13] MED LIST changes: +BARIUM SUSPENSION 2.1% (VANILLA SILQ) 450 ML PO ONE; +CATHETER FLUSH 10 ML SYR IV PRN; +HEParin (CENTRAL IV FLUSH) 500 UNIT/5 ML SYR IV ONE; +HEParin (CENTRAL IV FLUSH) 500 UNIT/5 ML SYR ONE; +IOHEXOL 350 MG/ML 100 ML (OMNIPAQUE 350) VIAL IV ONE; +NS 100 ML (IVPB) BAG IV ONE
--- NOTE | 2016-12-13 11:40 | Diagnostic Imaging Report ---
PROCEDURE: CT chest and abdomen with contrast. TECHNIQUE: Multiple contiguous axial images were obtained through the chest and abdomen after the administration of intravenous contrast. INDICATION: Metastatic breast cancer. 100 mL of Omnipaque 350 is administered intravenously. COMPARISON: Comparison with 10/23/2016. FINDINGS: CT CHEST: There is upper lobe predominant emphysema. Multiple rib fractures seen with expected evolution and some demonstrating healing. There is also osseous bridging seen at the margins of the sternal fracture with persistent displacement. There is persistent small left pleural effusion slightly smaller compared to the previous exam. Chronic atelectasis and scarring in the anterior medial upper lobes and the right middle lobes seen. There is no significant consolidation, mass or suspicious pulmonary nodule. There is a scattered left supraclavicular lymph node measuring 2.3 x 1.9 cm. On the previous exam, at that location, there was an 8mm nonspecific nodule. This is suggestive of developing lymph node metastasis. There is no mediastinal enlarged lymph node seen. No axillary lymphadenopathy is noted. No hilar adenopathy seen. There is dilatation of the right atrium and more prominent dilatation of the left atrium. The thoracic spine demonstrates mild degenerative changes. CT ABDOMEN: The liver, the gallbladder, the spleen, the pancreas, and adrenals appear unremarkable. The kidneys have symmetric enhancement and contrast excretion. There is normal caliber of the abdominal aorta. No para-aortic significantly enlarged lymph nodes seen. The lumbar spine demonstrate mild degenerative changes. There is fusion of the SI joint on the left side. IMPRESSION: CT CHEST: A 2.3 cm left supraclavicular nodule concerning for lymph node metastasis. This appears easily accessible for an excisional or ultrasound-guided biopsy if needed. CT ABDOMEN: No evidence of metastatic disease. Dictated by: Dictated on workstation # [id number]
--- NOTE | 2016-12-13 14:15 | Diagnostic Imaging Report ---
Whole body bone scan. Technique: After the intravenous administration of 24.7 mCi of Technetium 99m MDP, whole body delayed phase bone scan images were obtained with lateral views of the head and neck and the chest regions. Indication: Breast cancer with metastasis. Findings: There is multiple foci of increased radiotracer uptake seen in the anterior ribs bilaterally and less prominent posterior activity is seen. There is also intense increased radiotracer activity noted in the upper sternum. These are sites that correspond to multiple rib fractures and sternum fracture on CT scan with no obvious underlying mass. The spine demonstrates only mild increased radiotracer activity around the cervical and lower thoracic spine probably degenerative. There is ptosis of the right kidney. Otherwise the renal and urinary bladder uptake and excretion is normal. There is mild degenerative joint activity also seen and probably periosteal reactive related activity in a symmetric fashion in both the proximal and mid tibia. IMPRESSION: Findings likely related to simple rib and sternum fracture with no definitive evidence of osseous metastasis. Dictated by: Dictated on workstation # [id number]
== END ==
LOC: CARD 08:07
PROVIDERS: ATTEND Nurse Practitioner Adult Health
DX: C50.611 Malignant neoplasm of axillary tail of right female breast (principal); C79.51 Secondary malignant neoplasm of bone; C76.8 Malignant neoplasm of other specified ill-defined sites
CPT/HCPCS: 71260; 74160; 78306

== ENCOUNTER → 2016-12-21 | Outpatient (CLI) | payer MEDICARE, OTHER ==
[~2016-12-21] VITALS: Ht 172.7 cm; Wt 50.1 kg
[~2016-12-21] MED LIST changes: -BARIUM SUSPENSION 2.1% (VANILLA SILQ) 450 ML PO ONE; -CATHETER FLUSH 10 ML SYR IV PRN; -HEParin (CENTRAL IV FLUSH) 500 UNIT/5 ML SYR IV ONE; -HEParin (CENTRAL IV FLUSH) 500 UNIT/5 ML SYR ONE; -IOHEXOL 350 MG/ML 100 ML (OMNIPAQUE 350) VIAL IV ONE; +LIDOCAINE 1% INJ 20 ML (XYLOCAINE) VIAL ONE; -NS 100 ML (IVPB) BAG IV ONE
[2016-12-21 13:00] VITALS: BP 130/68
[2016-12-21 13:41] VITALS: BP 128/68
--- NOTE | 2016-12-21 14:07 | Diagnostic Imaging Report ---
EXAMINATION: US-guided core biopsy-neck. INDICATION: Left supraclavicular mass. History of breast cancer Current history and physical and other medical records are reviewed prior to the procedure. CONSENT: Informed consent was obtained from the patient. The risks, benefits, potential complications and alternatives were reviewed and all questions answered to the patient's satisfaction. The patient's vital signs, cardiac rhythm, and pulse oximetry with observed throughout the procedure by qualified nursing personnel. Sedation/medications: none. FINDINGS: 2.4 CM hypoechoic left supraclavicular mass. PROCEDURE: After maximal sterile barrier technique preparation and draping, 1% lidocaine was utilized for local anesthesia. With the patient in supine position, and via anterior approach, a 19-gauge guide needle is introduced into the left supraclavicular mass under live ultrasound guidance. After confirming adequate positioning with saved ultrasound images, multiple 20 gauge core biopsy specimens were obtained. The patient tolerated the procedure well with no immediate complications. IMPRESSION: Successful US-guided core biopsy of left supraclavicular mass. Dictated by: Dictated on workstation # [id number]
== END ==
LOC: RAD 12:34
PROVIDERS: ATTEND Nurse Practitioner Adult Health
DX: R22.1 Localized swelling, mass and lump, neck (principal); C50.611 Malignant neoplasm of axillary tail of right female breast; C79.51 Secondary malignant neoplasm of bone; C76.8 Malignant neoplasm of other specified ill-defined sites
CPT/HCPCS: 76942; 88305; 88341; 88342

== ENCOUNTER 2017-01-03 13:26 | Outpatient (RCR) | payer MEDICARE, OTHER ==
--- OUTSIDE RECORDS SUMMARY | 2016-10-09 09:35 | XMS REPORT | Continuity of Care Document ---
Author Author [facility] Organization [facility] Address Unknown Phone Unavailable Care Team Providers Care Ob/Gyn Nurse Name Role Phone Self, Referral PCP Unavailable Source Comments Some departments are not documenting in the electronic medical record. If you do not see the information that you expected, contact Release of Information in the Health Information Management department at [phone] for further assistance in locating additional records.[facility] Active Allergies and Adverse Reactions Not [...]
[2016-10-09 09:45] LABS: BASOPHILS # (AUTO) 0.1 10^3/uL (0.0-0.1); BASOPHILS % (AUTO) 1 % (0-10); EOSINOPHILS # (AUTO) 0.2 10^3/uL (0.0-0.3); EOSINOPHILS % (AUTO) 2 % (0-10); LYMPHOCYTES # (AUTO) 0.9 X 10^3 (1.0-4.0); LYMPHOCYTES % (AUTO) 12 % (12-44); MEAN CORPUSCULAR HEMOGLOBIN 33 PG (25-34); MEAN CORPUSCULAR HGB CONC 33 G/DL (32-36); MEAN CORPUSCULAR VOLUME 98 FL (80-99); MONOCYTES # (AUTO) 0.7 X 10^3 (0.0-1.0); MONOCYTES % (AUTO) 9 % (0-12); NEUTROPHILS # (AUTO) 5.5 X 10^3 (1.8-7.8); NEUTROPHILS % (AUTO) 76 % (42-75); PLATELET COUNT 312 10^3/uL (130-400); RED BLOOD COUNT 4.29 10^6/uL (4.35-5.85); RED CELL DISTRIBUTION WIDTH 14.4 % (10.0-14.5); WHITE BLOOD COUNT 7.2 10^3/uL (4.3-11.0)
[2016-10-09 10:13] LABS: ANION GAP 6 MMOL/L (5-14); BLOOD UREA NITROGEN 17 MG/DL (7-18); BUN/CREATININE RATIO 19; CALCIUM 8.7 MG/DL (8.5-10.1); CARBON DIOXIDE 31 MMOL/L (21-32); CHLORIDE 96 MMOL/L (98-107); GFR ESTIMATED > 60; GLUCOSE 146 MG/DL (70-105); MAGNESIUM 1.8 MG/DL (1.8-2.4); POTASSIUM 4.7 MMOL/L (3.6-5.0); SODIUM 133 MMOL/L (135-145)
[2016-10-09 17:00] LABS: ALANINE AMINOTRANSFERASE 14 U/L (0-55); ALBUMIN 3.3 G/DL (3.2-4.5); ASPARTATE AMINO TRANSFERASE 20 U/L (5-34); BILIRUBIN,TOTAL 0.4 MG/DL (0.1-1.0); LACTATE DEHYDROGENASE 266 U/L (125-220); TOTAL PROTEIN 6.1 G/DL (6.4-8.2)
[2016-11-20 09:28] LABS: BASOPHILS % (AUTO) 0 % (0-10); EOSINOPHILS # (AUTO) 0.1 10^3/uL (0.0-0.3); EOSINOPHILS % (AUTO) 1 % (0-10); LYMPHOCYTES # (AUTO) 0.9 X 10^3 (1.0-4.0); LYMPHOCYTES % (AUTO) 13 % (12-44); MEAN CORPUSCULAR HEMOGLOBIN 34 PG (25-34); MEAN CORPUSCULAR HGB CONC 34 G/DL (32-36); MEAN CORPUSCULAR VOLUME 101 FL (80-99); MEAN PLATELET VOLUME 9.6 FL (7.4-10.4); MONOCYTES # (AUTO) 0.9 X 10^3 (0.0-1.0); MONOCYTES % (AUTO) 12 % (0-12); NEUTROPHILS # (AUTO) 5.1 X 10^3 (1.8-7.8); NEUTROPHILS % (AUTO) 73 % (42-75); PLATELET COUNT 225 10^3/uL (130-400); RED BLOOD COUNT 3.39 10^6/uL (4.35-5.85)
[2016-11-20 10:17] LABS: ALANINE AMINOTRANSFERASE 15 U/L (0-55); ALBUMIN 3.5 G/DL (3.2-4.5); ANION GAP 10 MMOL/L (5-14); ASPARTATE AMINO TRANSFERASE 22 U/L (5-34); BILIRUBIN,TOTAL 0.5 MG/DL (0.1-1.0); BLOOD UREA NITROGEN 11 MG/DL (7-18); BUN/CREATININE RATIO 13; CALCIUM 8.9 MG/DL (8.5-10.1); CARBON DIOXIDE 29 MMOL/L (21-32); CHLORIDE 99 MMOL/L (98-107); CREATININE SERUM 0.83 MG/DL (0.60-1.30); GFR ESTIMATED > 60; GLUCOSE 102 MG/DL (70-105); LACTATE DEHYDROGENASE 172 U/L (125-220); SODIUM 138 MMOL/L (135-145); TOTAL PROTEIN 6.3 G/DL (6.4-8.2)
[2016-12-27 09:02] LABS: BASOPHILS % (AUTO) 0 % (0-10); EOSINOPHILS # (AUTO) 0.1 10^3/uL (0.0-0.3); EOSINOPHILS % (AUTO) 2 % (0-10); LYMPHOCYTES % (AUTO) 14 % (12-44); MEAN CORPUSCULAR HEMOGLOBIN 35 PG (25-34); MEAN CORPUSCULAR HGB CONC 34 G/DL (32-36); MEAN CORPUSCULAR VOLUME 103 FL (80-99); MEAN PLATELET VOLUME 9.8 FL (7.4-10.4); MONOCYTES # (AUTO) 0.8 X 10^3 (0.0-1.0); MONOCYTES % (AUTO) 10 % (0-12); NEUTROPHILS # (AUTO) 5.6 X 10^3 (1.8-7.8); NEUTROPHILS % (AUTO) 74 % (42-75); PLATELET COUNT 237 10^3/uL (130-400); RED BLOOD COUNT 3.83 10^6/uL (4.35-5.85); RED CELL DISTRIBUTION WIDTH 13.5 % (10.0-14.5); WHITE BLOOD COUNT 7.6 10^3/uL (4.3-11.0)
[2016-12-27 09:32] LABS: ALBUMIN 3.9 G/DL (3.2-4.5); BILIRUBIN,TOTAL 0.4 MG/DL (0.1-1.0); CALCIUM 9.5 MG/DL (8.5-10.1); CREATININE SERUM 0.93 MG/DL (0.60-1.30); POTASSIUM 3.7 MMOL/L (3.6-5.0); TOTAL PROTEIN 7.1 G/DL (6.4-8.2)
[~2017-01-03] VITALS: Ht 172.7 cm; Wt 54.4 kg
[~2017-01-03 13:26] MED LIST changes: -LIDOCAINE 1% INJ 20 ML (XYLOCAINE) VIAL ONE; +NS IV 500 ML (CANCER CENTER) IV SCH; +NS IV SCH; +ONDANSETRON 16 MG, DEXAMETHASONE 10 MG/NS 50 ML IVPB IV SCH; +TOPOTECAN HCL IV SCH
== END 2017-01-07 | disposition home or self-care (01) ==
LOC: ONC 13:26
PROVIDERS: ATTEND Internal Medicine Hematology & Oncology
DX: Z51.11 Encounter for antineoplastic chemotherapy (principal); C50.611 Malignant neoplasm of axillary tail of right female breast; C79.51 Secondary malignant neoplasm of bone; Z92.21 Personal history of antineoplastic chemotherapy; Z92.3 Personal history of irradiation
CPT/HCPCS: 36591; 80053; 83615; 83735; 85025; 96375; 96413; 99213

== ENCOUNTER → 2017-02-13 | Outpatient (CLI) | payer MEDICARE, OTHER ==
[~2017-02-13] MED LIST changes: -NS IV 500 ML (CANCER CENTER) IV SCH; -NS IV SCH; -ONDANSETRON 16 MG, DEXAMETHASONE 10 MG/NS 50 ML IVPB IV SCH; -TOPOTECAN HCL IV SCH
[2017-02-13 12:11] LABS: ALBUMIN 3.7 G/DL (3.2-4.5); BILIRUBIN,DIRECT 0.2 MG/DL (0.0-0.3); BILIRUBIN,INDIRECT 0.1 MG/DL; BILIRUBIN,TOTAL 0.3 MG/DL (0.1-1.0); TOTAL PROTEIN 6.8 G/DL (6.4-8.2)
== END ==
LOC: LAB 09:33
PROVIDERS: ATTEND Internal Medicine Gastroenterology
DX: R74.8 Abnormal levels of other serum enzymes (principal)
CPT/HCPCS: 80076

== ENCOUNTER → 2017-02-13 | Outpatient (CLI) | payer MEDICARE, OTHER ==
[2017-02-13 12:05] LABS: MAGNESIUM 1.9 MG/DL (1.8-2.4)
[2017-02-13 12:18] LABS: DIGOXIN 1.34 NG/ML (0.80-2.00)
== END ==
LOC: LAB 10:10
PROVIDERS: ATTEND Nurse Practitioner Family
DX: I48.2 Chronic atrial fibrillation (principal); I10 Essential (primary) hypertension
CPT/HCPCS: 80162; 83735

== ENCOUNTER → 2017-03-01 | Outpatient (CLI) | payer MEDICARE, OTHER ==
[~2017-03-01] MED LIST changes: +GADOBUTROL 7.5 MMOL/7.5 ML (GADAVIST) VIAL IV ONE
--- NOTE | 2017-03-01 11:43 | Diagnostic Imaging Report ---
PROCEDURE: MR imaging of the brain with and without contrast. TECHNIQUE: Multiplanar, multisequence MR imaging of the brain was performed with and without contrast. INDICATION: Dizziness, headache. History of breast cancer. 5 mL of Gadovist is administered intravenously. FINDINGS: There is no diffusion restriction to suggest an acute infarct or other diffusion abnormality. There is periventricular and deep white matter T2 hyperintense signal abnormalities without mass effect or edema. No associated enhancement. These are compatible with chronic microvascular ischemic changes and appear overall similar to prior exam of 03/29/2016. No enhancing mass. No hydrocephalus. No extra-axial fluid collection. The pituitary gland is normal in size. No hypothalamic or pineal region mass. The internal auditory canals and inner ear structures appear symmetric. The mastoid air cells and paranasal sinuses appear grossly unremarkable. The orbits appear symmetric. IMPRESSION: White matter findings are compatible with mild chronic microvascular ischemic changes, commonly seen at the patient's age. No acute infarct or evidence of metastasis. Dictated by: Dictated on workstation # [id number]
== END ==
LOC: RAD 07:48
PROVIDERS: ATTEND Nurse Practitioner Adult Health
DX: C50.611 Malignant neoplasm of axillary tail of right female breast (principal); C79.51 Secondary malignant neoplasm of bone
CPT/HCPCS: 70553

== ENCOUNTER → 2017-03-14 | Outpatient (CLI) | payer MEDICARE, OTHER ==
[~2017-03-14] MED LIST changes: +CATHETER FLUSH 10 ML SYR IV PRN; -GADOBUTROL 7.5 MMOL/7.5 ML (GADAVIST) VIAL IV ONE; +HEParin (CENTRAL IV FLUSH) 500 UNIT/5 ML SYR IV PRN; +HEParin (CENTRAL IV FLUSH) 500 UNIT/5 ML SYR ONE; +IOHEXOL 350 MG/ML 100 ML (OMNIPAQUE 350) VIAL IV ONE; +NS 100 ML (IVPB) BAG IV ONE
[2017-03-14] MEDS: CATHETER FLUSH 10 ML SYR IV PRN ×2 (10:10→11:14)
--- NOTE | 2017-03-14 13:38 | Diagnostic Imaging Report ---
PROCEDURE: CT chest with and without contrast. TECHNIQUE: Multiple contiguous axial images were obtained through the chest before and after administration of intravenous contrast. INDICATION: Breast cancer, chemotherapy. COMPARISON: Exam compared 12/13/2016. FINDINGS: Previously, there was an irregular 2.3 cm long axis metastatic appearing node anterosuperior to the junction of the mid to distal third of the left clavicle. This is not identified on prior however its conceivably present just above the bqjwj-ee-bvpw as the exam terminates at its expected lower margin. Predominantly airspace like irregular parenchymal density in the left upper lobe anteromedially measures a long axis of about 2.4 cm. This reflects adverse change from prior. Its density and morphology suggests an inflammatory process such as atelectasis and pneumonia however neoplasm cannot be entirely excluded. Its followup recommended with repeat exam in one to three months suggested. Some mild subpleural scarring chronic. There is a small right pleural effusion may be minimally increased from prior showing no evidence for its loculation. Chronic centrilobular emphysema stable. Multiple subacute incompletely healed rib fractures noted not appreciably changed from prior. No new bony abnormality. The heart is enlarged. The visualized upper abdomen nonacute. IMPRESSION: New irregular parenchymal opacity, left upper lobe anteromedially predominantly airspace in density favoring inflammatory process, followup however recommended. The previously noted pre-and supraclavicular left-sided node is not visualized but could be above the rwinc-id-chnq. Small right pleural effusion perhaps minimally increased. No other potential adverse change. Dictated by: Dictated on workstation # [id number]
--- NOTE | 2017-03-14 13:45 | Diagnostic Imaging Report ---
PROCEDURE: CT abdomen with contrast only. TECHNIQUE: Multiple contiguous axial images were obtained through the abdomen after the administration of intravenous contrast. INDICATION: Metastatic disease. COMPARISON: Compared with study of 12/13/2016. FINDINGS: An irregular presumed metastatic lymph node ventral and superior to the junction of the mid to distal thirds of the left clavicle on the prior is not appreciable on followup. It is conceivable but doubtful that this is just above the gnvhi-cm-jtet. A new irregular parenchymal opacity in the left upper lobe anteromedially measures a long axis of 2.9 cm. Its largely airspace in its density and suggestive of an area of inflammatory change and early pneumonia however neoplasm could not be excluded. It warrants followup given the development. There is minimal increase in small nonloculated right-sided pleural effusion. No appreciable pleural thickening and nodularity or abnormal enhancement. Multiple subacute chest wall fracture deformities again noted. No acute rib pathology. No hilar or mediastinal lymphadenopathy. Cardiomegaly and chronic cardiac calcifications, calcifications of the coronary arteries and calcifications of the aortic valvular leaflets unchanged. No axillary adenopathy. 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 There is no adrenal mass. The liver appeared negative. There is some distention of the cava as well as hepatic veins which may reflect elevated right heart pressures or hypervolemia. No liver mass. No abdominal adenopathy. The pancreas negative. There is no ascites. IMPRESSION: 1. Minimal increased right pleural effusion. Nonidentification of previous left supraclavicular node however its conceivable that this is above the gjvau-am-gcjf. No hilar, mediastinal or axillary lymphadenopathy. New pleural parenchymal opacity in the left upper lobe anteromedially is largely airspace in its density and suggestive of an inflammatory process however given the development from prior, a followup exam is suggested. 2. The abdominal portion of the study is stable and negative. Dictated by: Dictated on workstation # [id number]
--- NOTE | 2017-03-14 18:14 | Diagnostic Imaging Report ---
Whole body bone scan. Technique: After the intravenous administration of 25.6 mCi of Technetium 99m MDP, whole body delayed phase bone scan images were obtained with lateral views of the head and neck and the chest regions. Indication: Breast cancer. COMPARISON: 12/13/2016 Findings: There is decreased intensity of uptake along the sternum compatible with subacute fracture as suggested on prior exam. Also multiple ribs activity previously seen is now decreased in intensity compatible with posttraumatic changes. There is otherwise no suspicious central axial skeleton lesions in a pattern to suggest metastatic disease. There is ptosis of the right kidney into the right lower quadrant. Otherwise, the renal collecting system excretion and bladder activity is seen as expected. IMPRESSION: Diminishing activity in the sternum and ribs is suggestive of evolving posttraumatic changes with no scintigraphic evidence of osseous metastasis. Dictated by: Dictated on workstation # [id number]
== END ==
LOC: CARD 09:40
PROVIDERS: ATTEND Nurse Practitioner Adult Health
DX: R42 Dizziness and giddiness (principal); R51 Headache; C50.611 Malignant neoplasm of axillary tail of right female breast; C79.51 Secondary malignant neoplasm of bone; R91.8 Other nonspecific abnormal finding of lung field
CPT/HCPCS: 71270; 74160; 78306

== ENCOUNTER 2017-04-03 09:07 | Outpatient (RCR) | payer MEDICARE, OTHER ==
[2017-01-09 09:28] LABS: BASOPHILS % (AUTO) 0 % (0-10); EOSINOPHILS # (AUTO) 0.1 10^3/uL (0.0-0.3); EOSINOPHILS % (AUTO) 2 % (0-10); LYMPHOCYTES # (AUTO) 0.9 X 10^3 (1.0-4.0); LYMPHOCYTES % (AUTO) 14 % (12-44); MEAN CORPUSCULAR HEMOGLOBIN 35 PG (25-34); MEAN CORPUSCULAR HGB CONC 33 G/DL (32-36); MEAN CORPUSCULAR VOLUME 104 FL (80-99); MEAN PLATELET VOLUME 9.9 FL (7.4-10.4); MONOCYTES # (AUTO) 0.5 X 10^3 (0.0-1.0); MONOCYTES % (AUTO) 8 % (0-12); NEUTROPHILS # (AUTO) 4.8 X 10^3 (1.8-7.8); NEUTROPHILS % (AUTO) 76 % (42-75); PLATELET COUNT 168 10^3/uL (130-400); RED BLOOD COUNT 3.44 10^6/uL (4.35-5.85); RED CELL DISTRIBUTION WIDTH 12.3 % (10.0-14.5); WHITE BLOOD COUNT 6.4 10^3/uL (4.3-11.0)
[2017-01-09 09:52] LABS: ANION GAP 8 MMOL/L (5-14); BLOOD UREA NITROGEN 15 MG/DL (7-18); BUN/CREATININE RATIO 18; CALCIUM 9.1 MG/DL (8.5-10.1); CARBON DIOXIDE 32 MMOL/L (21-32); CHLORIDE 99 MMOL/L (98-107); CREATININE SERUM 0.82 MG/DL (0.60-1.30); GFR ESTIMATED > 60; GLUCOSE 113 MG/DL (70-105); POTASSIUM 4.1 MMOL/L (3.6-5.0); SODIUM 139 MMOL/L (135-145)
[2017-01-16 09:07] LABS: BASOPHILS % (AUTO) 0 % (0-10); EOSINOPHILS # (AUTO) 0.1 10^3/uL (0.0-0.3); EOSINOPHILS % (AUTO) 3 % (0-10); LYMPHOCYTES % (AUTO) 18 % (12-44); MEAN CORPUSCULAR HEMOGLOBIN 35 PG (25-34); MEAN CORPUSCULAR HGB CONC 34 G/DL (32-36); MEAN CORPUSCULAR VOLUME 104 FL (80-99); MEAN PLATELET VOLUME 9.8 FL (7.4-10.4); MONOCYTES # (AUTO) 0.5 X 10^3 (0.0-1.0); MONOCYTES % (AUTO) 9 % (0-12); NEUTROPHILS # (AUTO) 3.8 X 10^3 (1.8-7.8); NEUTROPHILS % (AUTO) 71 % (42-75); PLATELET COUNT 159 10^3/uL (130-400); RED BLOOD COUNT 3.22 10^6/uL (4.35-5.85); RED CELL DISTRIBUTION WIDTH 12.3 % (10.0-14.5); WHITE BLOOD COUNT 5.4 10^3/uL (4.3-11.0)
[2017-01-16 09:29] LABS: ANION GAP 8 MMOL/L (5-14); BLOOD UREA NITROGEN 14 MG/DL (7-18); BUN/CREATININE RATIO 16; CALCIUM 9.3 MG/DL (8.5-10.1); CARBON DIOXIDE 31 MMOL/L (21-32); CHLORIDE 100 MMOL/L (98-107); CREATININE SERUM 0.87 MG/DL (0.60-1.30); GFR ESTIMATED > 60; GLUCOSE 115 MG/DL (70-105); POTASSIUM 3.9 MMOL/L (3.6-5.0); SODIUM 139 MMOL/L (135-145)
[2017-01-23 11:10] LABS: BASOPHILS % (AUTO) 0 % (0-10); EOSINOPHILS % (AUTO) 1 % (0-10); LYMPHOCYTES # (AUTO) 0.8 X 10^3 (1.0-4.0); LYMPHOCYTES % (AUTO) 16 % (12-44); MEAN CORPUSCULAR HEMOGLOBIN 35 PG (25-34); MEAN CORPUSCULAR HGB CONC 34 G/DL (32-36); MEAN CORPUSCULAR VOLUME 101 FL (80-99); MEAN PLATELET VOLUME 9.5 FL (7.4-10.4); MONOCYTES # (AUTO) 0.8 X 10^3 (0.0-1.0); MONOCYTES % (AUTO) 15 % (0-12); NEUTROPHILS # (AUTO) 3.6 X 10^3 (1.8-7.8); NEUTROPHILS % (AUTO) 68 % (42-75); PLATELET COUNT 263 10^3/uL (130-400); RED BLOOD COUNT 3.24 10^6/uL (4.35-5.85); RED CELL DISTRIBUTION WIDTH 12.3 % (10.0-14.5); WHITE BLOOD COUNT 5.3 10^3/uL (4.3-11.0)
[2017-01-23 11:25] LABS: CREATININE SERUM 0.95 MG/DL (0.60-1.30)
[2017-01-31 09:00] LABS: BASOPHILS % (AUTO) 0 % (0-10); EOSINOPHILS % (AUTO) 0 % (0-10); LYMPHOCYTES # (AUTO) 0.9 X 10^3 (1.0-4.0); LYMPHOCYTES % (AUTO) 12 % (12-44); MEAN CORPUSCULAR HEMOGLOBIN 35 PG (25-34); MEAN CORPUSCULAR HGB CONC 34 G/DL (32-36); MEAN CORPUSCULAR VOLUME 102 FL (80-99); MEAN PLATELET VOLUME 9.5 FL (7.4-10.4); MONOCYTES # (AUTO) 0.9 X 10^3 (0.0-1.0); MONOCYTES % (AUTO) 13 % (0-12); NEUTROPHILS # (AUTO) 5.4 X 10^3 (1.8-7.8); NEUTROPHILS % (AUTO) 75 % (42-75); PLATELET COUNT 263 10^3/uL (130-400); RED BLOOD COUNT 3.43 10^6/uL (4.35-5.85); RED CELL DISTRIBUTION WIDTH 13.6 % (10.0-14.5); WHITE BLOOD COUNT 7.2 10^3/uL (4.3-11.0)
[2017-01-31 09:25] LABS: ALBUMIN 3.8 G/DL (3.2-4.5); BILIRUBIN,TOTAL 0.3 MG/DL (0.1-1.0); CALCIUM 9.5 MG/DL (8.5-10.1); CREATININE SERUM 1.04 MG/DL (0.60-1.30); MAGNESIUM 2.2 MG/DL (1.8-2.4); POTASSIUM 3.9 MMOL/L (3.6-5.0); TOTAL PROTEIN 6.9 G/DL (6.4-8.2)
[2017-02-06 09:05] LABS: BASOPHILS % (AUTO) 0 % (0-10); EOSINOPHILS % (AUTO) 1 % (0-10); LYMPHOCYTES # (AUTO) 1.1 X 10^3 (1.0-4.0); LYMPHOCYTES % (AUTO) 17 % (12-44); MEAN CORPUSCULAR HEMOGLOBIN 35 PG (25-34); MEAN CORPUSCULAR HGB CONC 34 G/DL (32-36); MEAN CORPUSCULAR VOLUME 102 FL (80-99); MEAN PLATELET VOLUME 9.4 FL (7.4-10.4); MONOCYTES # (AUTO) 0.5 X 10^3 (0.0-1.0); MONOCYTES % (AUTO) 8 % (0-12); NEUTROPHILS # (AUTO) 4.6 X 10^3 (1.8-7.8); NEUTROPHILS % (AUTO) 74 % (42-75); PLATELET COUNT 244 10^3/uL (130-400); RED BLOOD COUNT 3.33 10^6/uL (4.35-5.85); RED CELL DISTRIBUTION WIDTH 13.3 % (10.0-14.5); WHITE BLOOD COUNT 6.3 10^3/uL (4.3-11.0)
[2017-02-06 09:32] LABS: CALCIUM 9.3 MG/DL (8.5-10.1); CREATININE SERUM 1.1 MG/DL (0.60-1.30); POTASSIUM 3.8 MMOL/L (3.6-5.0)
[2017-02-13 09:10] LABS: RED BLOOD COUNT 3.07 10^6/uL (4.35-5.85); WHITE BLOOD COUNT 4.5 10^3/uL (4.3-11.0)
[2017-02-13 09:11] LABS: BASOPHILS % (AUTO) 0 % (0-10); EOSINOPHILS # (AUTO) 0.1 10^3/uL (0.0-0.3); EOSINOPHILS % (AUTO) 1 % (0-10); LYMPHOCYTES # (AUTO) 0.8 X 10^3 (1.0-4.0); LYMPHOCYTES % (AUTO) 17 % (12-44); MEAN CORPUSCULAR HEMOGLOBIN 36 PG (25-34); MEAN CORPUSCULAR HGB CONC 34 G/DL (32-36); MEAN CORPUSCULAR VOLUME 103 FL (80-99); MEAN PLATELET VOLUME 9.6 FL (7.4-10.4); MONOCYTES # (AUTO) 0.4 X 10^3 (0.0-1.0); MONOCYTES % (AUTO) 9 % (0-12); NEUTROPHILS # (AUTO) 3.2 X 10^3 (1.8-7.8); NEUTROPHILS % (AUTO) 73 % (42-75); PLATELET COUNT 127 10^3/uL (130-400); RED CELL DISTRIBUTION WIDTH 13.2 % (10.0-14.5)
[2017-02-13 10:00] LABS: CALCIUM 9.6 MG/DL (8.5-10.1); CREATININE SERUM 1.24 MG/DL (0.60-1.30); POTASSIUM 3.9 MMOL/L (3.6-5.0)
[2017-02-20 10:05] LABS: BASOPHILS % (AUTO) 1 % (0-10); EOSINOPHILS % (AUTO) 1 % (0-10); LYMPHOCYTES # (AUTO) 0.5 X 10^3 (1.0-4.0); LYMPHOCYTES % (AUTO) 19 % (12-44); MEAN CORPUSCULAR HEMOGLOBIN 35 PG (25-34); MEAN CORPUSCULAR HGB CONC 34 G/DL (32-36); MEAN CORPUSCULAR VOLUME 104 FL (80-99); MEAN PLATELET VOLUME 8.8 FL (7.4-10.4); MONOCYTES # (AUTO) 0.3 X 10^3 (0.0-1.0); MONOCYTES % (AUTO) 11 % (0-12); NEUTROPHILS # (AUTO) 1.9 X 10^3 (1.8-7.8); NEUTROPHILS % (AUTO) 68 % (42-75); PLATELET COUNT 133 10^3/uL (130-400); RED BLOOD COUNT 2.61 10^6/uL (4.35-5.85); RED CELL DISTRIBUTION WIDTH 13.6 % (10.0-14.5); WHITE BLOOD COUNT 2.8 10^3/uL (4.3-11.0)
[2017-02-20 10:55] LABS: ANION GAP 9 MMOL/L (5-14); BLOOD UREA NITROGEN 14 MG/DL (7-18); BUN/CREATININE RATIO 15; CALCIUM 9.2 MG/DL (8.5-10.1); CARBON DIOXIDE 29 MMOL/L (21-32); CHLORIDE 101 MMOL/L (98-107); CREATININE SERUM 0.91 MG/DL (0.60-1.30); GFR ESTIMATED > 60; GLUCOSE 143 MG/DL (70-105); POTASSIUM 3.9 MMOL/L (3.6-5.0); SODIUM 139 MMOL/L (135-145)
[2017-02-27 08:57] LABS: BASOPHILS % (AUTO) 0 % (0-10); EOSINOPHILS # (AUTO) 0.1 10^3/uL (0.0-0.3); EOSINOPHILS % (AUTO) 1 % (0-10); LYMPHOCYTES # (AUTO) 0.5 X 10^3 (1.0-4.0); LYMPHOCYTES % (AUTO) 8 % (12-44); MEAN CORPUSCULAR HEMOGLOBIN 35 PG (25-34); MEAN CORPUSCULAR HGB CONC 33 G/DL (32-36); MEAN CORPUSCULAR VOLUME 105 FL (80-99); MEAN PLATELET VOLUME 10.3 FL (7.4-10.4); MONOCYTES # (AUTO) 1.1 X 10^3 (0.0-1.0); MONOCYTES % (AUTO) 17 % (0-12); NEUTROPHILS # (AUTO) 4.8 X 10^3 (1.8-7.8); NEUTROPHILS % (AUTO) 74 % (42-75); PLATELET COUNT 323 10^3/uL (130-400); RED CELL DISTRIBUTION WIDTH 14.7 % (10.0-14.5); WHITE BLOOD COUNT 6.4 10^3/uL (4.3-11.0)
[2017-02-27 09:18] LABS: ALANINE AMINOTRANSFERASE 39 U/L (0-55); ALBUMIN 3.2 GM/DL (3.2-4.5); ANION GAP 9 MMOL/L (5-14); ASPARTATE AMINO TRANSFERASE 37 U/L (5-34); BILIRUBIN,TOTAL 0.5 MG/DL (0.1-1.0); BLOOD UREA NITROGEN 13 MG/DL (7-18); BUN/CREATININE RATIO 14 (0-20); CALCIUM 9.2 MG/DL (8.5-10.1); CHLORIDE 94 MMOL/L (98-107); CREATININE SERUM 0.91 MG/DL (0.60-1.30); GFR ESTIMATED > 60; GLUCOSE 126 MG/DL (70-105); LACTATE DEHYDROGENASE 370 U/L (125-220); MAGNESIUM 1.6 MG/DL (1.8-2.4); POTASSIUM 4.1 MMOL/L (3.6-5.0); SODIUM 136 MMOL/L (135-145); TOTAL PROTEIN 6.2 GM/DL (6.4-8.2)
[2017-02-27 09:32] LABS: CARBON DIOXIDE 33 MMOL/L (21-32)
[2017-03-06 09:07] LABS: BASOPHILS # (AUTO) 0.1 10^3/uL (0.0-0.1); BASOPHILS % (AUTO) 1 % (0-10); EOSINOPHILS # (AUTO) 0.1 10^3/uL (0.0-0.3); EOSINOPHILS % (AUTO) 2 % (0-10); LYMPHOCYTES # (AUTO) 0.7 X 10^3 (1.0-4.0); LYMPHOCYTES % (AUTO) 10 % (12-44); MEAN CORPUSCULAR HEMOGLOBIN 35 PG (25-34); MEAN CORPUSCULAR HGB CONC 33 G/DL (32-36); MEAN CORPUSCULAR VOLUME 104 FL (80-99); MEAN PLATELET VOLUME 9.6 FL (7.4-10.4); MONOCYTES # (AUTO) 0.9 X 10^3 (0.0-1.0); MONOCYTES % (AUTO) 13 % (0-12); NEUTROPHILS # (AUTO) 5.2 X 10^3 (1.8-7.8); NEUTROPHILS % (AUTO) 74 % (42-75); PLATELET COUNT 302 10^3/uL (130-400); RED BLOOD COUNT 2.86 10^6/uL (4.35-5.85); RED CELL DISTRIBUTION WIDTH 14.4 % (10.0-14.5)
[2017-03-06 09:19] LABS: ANION GAP 10 MMOL/L (5-14); BLOOD UREA NITROGEN 17 MG/DL (7-18); BUN/CREATININE RATIO 19 (0-20); CALCIUM 9.6 MG/DL (8.5-10.1); CARBON DIOXIDE 30 MMOL/L (21-32); CHLORIDE 98 MMOL/L (98-107); CREATININE SERUM 0.91 MG/DL (0.60-1.30); GFR ESTIMATED > 60; GLUCOSE 110 MG/DL (70-105); HEMOLYSIS 7 (-100-29); ICTERUS 0.1 (-100-1.9); LIPEMIA 15 (-100-49); POTASSIUM 4.5 MMOL/L (3.6-5.0); SODIUM 138 MMOL/L (135-145)
[2017-03-13 08:54] LABS: BASOPHILS % (AUTO) 0 % (0-10); EOSINOPHILS # (AUTO) 0.1 10^3/uL (0.0-0.3); EOSINOPHILS % (AUTO) 2 % (0-10); LYMPHOCYTES # (AUTO) 0.7 X 10^3 (1.0-4.0); LYMPHOCYTES % (AUTO) 14 % (12-44); MEAN CORPUSCULAR HEMOGLOBIN 34 PG (25-34); MEAN CORPUSCULAR HGB CONC 33 G/DL (32-36); MEAN CORPUSCULAR VOLUME 104 FL (80-99); MEAN PLATELET VOLUME 9.3 FL (7.4-10.4); MONOCYTES # (AUTO) 0.5 X 10^3 (0.0-1.0); MONOCYTES % (AUTO) 11 % (0-12); NEUTROPHILS # (AUTO) 3.3 X 10^3 (1.8-7.8); NEUTROPHILS % (AUTO) 73 % (42-75); PLATELET COUNT 125 10^3/uL (130-400); RED BLOOD COUNT 2.54 10^6/uL (4.35-5.85); RED CELL DISTRIBUTION WIDTH 14.7 % (10.0-14.5); WHITE BLOOD COUNT 4.6 10^3/uL (4.3-11.0)
[2017-03-13 09:15] LABS: ANION GAP 10 MMOL/L (5-14); BLOOD UREA NITROGEN 15 MG/DL (7-18); BUN/CREATININE RATIO 16 (0-20); CARBON DIOXIDE 30 MMOL/L (21-32); CHLORIDE 99 MMOL/L (98-107); CREATININE SERUM 0.91 MG/DL (0.60-1.30); POTASSIUM 3.9 MMOL/L (3.6-5.0); SODIUM 139 MMOL/L (135-145)
[2017-03-13 09:16] LABS: CALCIUM 9.1 MG/DL (8.5-10.1); GFR ESTIMATED > 60; GLUCOSE 107 MG/DL (70-105); HEMOLYSIS 10 (-100-29); ICTERUS 0.2 (-100-1.9); LIPEMIA 18 (-100-49)
[2017-03-21 09:51] LABS: BASOPHILS % (AUTO) 0 % (0-10); EOSINOPHILS % (AUTO) 0 % (0-10); LYMPHOCYTES % (AUTO) 21 % (12-44); MEAN CORPUSCULAR HEMOGLOBIN 34 PG (25-34); MEAN CORPUSCULAR HGB CONC 33 G/DL (32-36); MEAN CORPUSCULAR VOLUME 104 FL (80-99); MEAN PLATELET VOLUME 9.1 FL (7.4-10.4); MONOCYTES # (AUTO) 0.6 X 10^3 (0.0-1.0); MONOCYTES % (AUTO) 13 % (0-12); NEUTROPHILS # (AUTO) 3.1 X 10^3 (1.8-7.8); NEUTROPHILS % (AUTO) 65 % (42-75); PLATELET COUNT 247 10^3/uL (130-400); RED BLOOD COUNT 2.59 10^6/uL (4.35-5.85); RED CELL DISTRIBUTION WIDTH 15.6 % (10.0-14.5); WHITE BLOOD COUNT 4.7 10^3/uL (4.3-11.0)
[2017-03-21 10:43] LABS: POTASSIUM 4.4 MMOL/L (3.6-5.0)
[2017-03-21 10:44] LABS: CALCIUM 9.3 MG/DL (8.5-10.1); CREATININE SERUM 1.18 MG/DL (0.60-1.30)
[~2017-04-03] VITALS: Ht 172.7 cm; Wt 54.9 kg
[~2017-04-03 09:07] MED LIST changes: +ACETAMINOPHEN 500 MG TAB (TYLENOL) CANCER CTR ONE; -CATHETER FLUSH 10 ML SYR IV PRN; -HEParin (CENTRAL IV FLUSH) 500 UNIT/5 ML SYR IV PRN; -HEParin (CENTRAL IV FLUSH) 500 UNIT/5 ML SYR ONE; -IOHEXOL 350 MG/ML 100 ML (OMNIPAQUE 350) VIAL IV ONE; -NS 100 ML (IVPB) BAG IV ONE; +NS IV 500 ML (CANCER CENTER) IV SCH; +NS IV SCH; +ONDANSETRON 16 MG, DEXAMETHASONE 10 MG/NS 50 ML IVPB IV SCH; +TOPOTECAN HCL IV SCH
[2017-04-03 09:24] LABS: BASOPHILS % (AUTO) 1 % (0-10); EOSINOPHILS # (AUTO) 0.1 10^3/uL (0.0-0.3); EOSINOPHILS % (AUTO) 1 % (0-10); LYMPHOCYTES # (AUTO) 0.8 X 10^3 (1.0-4.0); LYMPHOCYTES % (AUTO) 13 % (12-44); MEAN CORPUSCULAR HEMOGLOBIN 35 PG (25-34); MEAN CORPUSCULAR HGB CONC 32 G/DL (32-36); MEAN CORPUSCULAR VOLUME 109 FL (80-99); MEAN PLATELET VOLUME 9.1 FL (7.4-10.4); MONOCYTES # (AUTO) 1.1 X 10^3 (0.0-1.0); MONOCYTES % (AUTO) 16 % (0-12); NEUTROPHILS # (AUTO) 4.6 X 10^3 (1.8-7.8); NEUTROPHILS % (AUTO) 70 % (42-75); PLATELET COUNT 254 10^3/uL (130-400); RED BLOOD COUNT 2.78 10^6/uL (4.35-5.85); RED CELL DISTRIBUTION WIDTH 17.9 % (10.0-14.5); WHITE BLOOD COUNT 6.6 10^3/uL (4.3-11.0)
[2017-04-03 09:50] LABS: ALBUMIN 3.5 GM/DL (3.2-4.5); BILIRUBIN,TOTAL 0.4 MG/DL (0.1-1.0); CALCIUM 9.1 MG/DL (8.5-10.1); MAGNESIUM 1.8 MG/DL (1.8-2.4); POTASSIUM 4.3 MMOL/L (3.6-5.0); TOTAL PROTEIN 6.3 GM/DL (6.4-8.2)
== END 2017-04-09 | disposition home or self-care (01) ==
LOC: ONC 09:07
PROVIDERS: ATTEND Internal Medicine Hematology & Oncology
DX: Z51.11 Encounter for antineoplastic chemotherapy (principal); C50.611 Malignant neoplasm of axillary tail of right female breast; C79.51 Secondary malignant neoplasm of bone; Z92.21 Personal history of antineoplastic chemotherapy; Z92.3 Personal history of irradiation
CPT/HCPCS: 36430; 36591; 80048; 80053; 80162; 83615; 83735; 85025; 86850; 86900; 86901; 86920; 96375; 96413; 99213

== ENCOUNTER 2017-05-29 09:07 | Outpatient (RCR) | payer MEDICARE, OTHER ==
[2017-04-10 09:16] LABS: BASOPHILS % (AUTO) 1 % (0-10); EOSINOPHILS # (AUTO) 0.1 10^3/uL (0.0-0.3); EOSINOPHILS % (AUTO) 2 % (0-10); LYMPHOCYTES # (AUTO) 0.8 X 10^3 (1.0-4.0); LYMPHOCYTES % (AUTO) 15 % (12-44); MEAN CORPUSCULAR HEMOGLOBIN 36 PG (25-34); MEAN CORPUSCULAR HGB CONC 33 G/DL (32-36); MEAN CORPUSCULAR VOLUME 108 FL (80-99); MEAN PLATELET VOLUME 9.4 FL (7.4-10.4); MONOCYTES # (AUTO) 0.6 X 10^3 (0.0-1.0); MONOCYTES % (AUTO) 11 % (0-12); NEUTROPHILS # (AUTO) 3.9 X 10^3 (1.8-7.8); NEUTROPHILS % (AUTO) 72 % (42-75); PLATELET COUNT 169 10^3/uL (130-400); RED BLOOD COUNT 2.72 10^6/uL (4.35-5.85); WHITE BLOOD COUNT 5.4 10^3/uL (4.3-11.0)
[2017-04-10 09:39] LABS: CALCIUM 8.9 MG/DL (8.5-10.1); POTASSIUM 3.8 MMOL/L (3.6-5.0)
[2017-04-17 09:16] LABS: BASOPHILS % (AUTO) 0 % (0-10); EOSINOPHILS # (AUTO) 0.1 10^3/uL (0.0-0.3); EOSINOPHILS % (AUTO) 2 % (0-10); LYMPHOCYTES # (AUTO) 0.7 X 10^3 (1.0-4.0); LYMPHOCYTES % (AUTO) 18 % (12-44); MEAN CORPUSCULAR HEMOGLOBIN 36 PG (25-34); MEAN CORPUSCULAR HGB CONC 33 G/DL (32-36); MEAN CORPUSCULAR VOLUME 109 FL (80-99); MEAN PLATELET VOLUME 9.1 FL (7.4-10.4); MONOCYTES # (AUTO) 0.3 X 10^3 (0.0-1.0); MONOCYTES % (AUTO) 9 % (0-12); NEUTROPHILS # (AUTO) 2.8 X 10^3 (1.8-7.8); NEUTROPHILS % (AUTO) 72 % (42-75); PLATELET COUNT 124 10^3/uL (130-400); RED BLOOD COUNT 2.39 10^6/uL (4.35-5.85); RED CELL DISTRIBUTION WIDTH 16.2 % (10.0-14.5); WHITE BLOOD COUNT 3.9 10^3/uL (4.3-11.0)
[2017-04-17 09:52] LABS: CALCIUM 9.1 MG/DL (8.5-10.1); CREATININE SERUM 1.09 MG/DL (0.60-1.30); POTASSIUM 3.9 MMOL/L (3.6-5.0)
[2017-04-24 10:39] LABS: BASOPHILS % (AUTO) 1 % (0-10); EOSINOPHILS % (AUTO) 1 % (0-10); LYMPHOCYTES # (AUTO) 0.7 X 10^3 (1.0-4.0); LYMPHOCYTES % (AUTO) 20 % (12-44); MEAN CORPUSCULAR HEMOGLOBIN 37 PG (25-34); MEAN CORPUSCULAR HGB CONC 34 G/DL (32-36); MEAN CORPUSCULAR VOLUME 110 FL (80-99); MEAN PLATELET VOLUME 9.8 FL (7.4-10.4); MONOCYTES # (AUTO) 0.3 X 10^3 (0.0-1.0); MONOCYTES % (AUTO) 9 % (0-12); NEUTROPHILS # (AUTO) 2.4 X 10^3 (1.8-7.8); NEUTROPHILS % (AUTO) 69 % (42-75); PLATELET COUNT 205 10^3/uL (130-400); RED BLOOD COUNT 2.32 10^6/uL (4.35-5.85); RED CELL DISTRIBUTION WIDTH 16.4 % (10.0-14.5); WHITE BLOOD COUNT 3.5 10^3/uL (4.3-11.0)
[2017-04-24 10:59] LABS: CALCIUM 9.3 MG/DL (8.5-10.1); CREATININE SERUM 1.15 MG/DL (0.60-1.30); POTASSIUM 3.9 MMOL/L (3.6-5.0)
[2017-05-01 09:35] LABS: BASOPHILS % (AUTO) 1 % (0-10); EOSINOPHILS # (AUTO) 0.1 10^3/uL (0.0-0.3); EOSINOPHILS % (AUTO) 1 % (0-10); LYMPHOCYTES # (AUTO) 0.6 X 10^3 (1.0-4.0); LYMPHOCYTES % (AUTO) 9 % (12-44); MEAN CORPUSCULAR HEMOGLOBIN 35 PG (25-34); MEAN CORPUSCULAR HGB CONC 31 G/DL (32-36); MEAN CORPUSCULAR VOLUME 111 FL (80-99); MONOCYTES # (AUTO) 0.9 X 10^3 (0.0-1.0); MONOCYTES % (AUTO) 14 % (0-12); NEUTROPHILS # (AUTO) 5.1 X 10^3 (1.8-7.8); NEUTROPHILS % (AUTO) 76 % (42-75); PLATELET COUNT 278 10^3/uL (130-400); RED BLOOD COUNT 2.58 10^6/uL (4.35-5.85); RED CELL DISTRIBUTION WIDTH 17.3 % (10.0-14.5); WHITE BLOOD COUNT 6.6 10^3/uL (4.3-11.0)
[2017-05-01 09:57] LABS: ALANINE AMINOTRANSFERASE 26 U/L (0-55); ALBUMIN 3.4 GM/DL (3.2-4.5); ANION GAP 8 MMOL/L (5-14); ASPARTATE AMINO TRANSFERASE 31 U/L (5-34); BILIRUBIN,TOTAL 0.3 MG/DL (0.1-1.0); BLOOD UREA NITROGEN 11 MG/DL (7-18); BUN/CREATININE RATIO 13; CALCIUM 8.7 MG/DL (8.5-10.1); CARBON DIOXIDE 31 MMOL/L (21-32); CHLORIDE 101 MMOL/L (98-107); CREATININE SERUM 0.85 MG/DL (0.60-1.30); GFR ESTIMATED > 60; GLUCOSE 116 MG/DL (70-105); LACTATE DEHYDROGENASE 218 U/L (125-220); MAGNESIUM 1.8 MG/DL (1.8-2.4); POTASSIUM 4.1 MMOL/L (3.6-5.0); SODIUM 140 MMOL/L (135-145); TOTAL PROTEIN 6.1 GM/DL (6.4-8.2)
[2017-05-01 10:40] LABS: BILIRUBIN,URINE NEGATIVE (NEGATIVE); KETONES,URINE NEGATIVE (NEGATIVE); LEUKOCYTE ESTERASE ,URINE NEGATIVE (NEGATIVE); NITRITE,URINE NEGATIVE (NEGATIVE); PH,URINE 6 (5-9); PROTEIN,URINE NEGATIVE (NEGATIVE); UROBILINOGEN,URINE NORMAL (NORMAL)
[2017-05-01 10:49] LABS: SQUAMOUS EPITHELIAL CELL,UR RARE /HPF; WBC,URINE 0-2 /HPF
[2017-05-08 09:05] LABS: BASOPHILS % (AUTO) 1 % (0-10); EOSINOPHILS # (AUTO) 0.1 10^3/uL (0.0-0.3); EOSINOPHILS % (AUTO) 1 % (0-10); LYMPHOCYTES # (AUTO) 0.8 X 10^3 (1.0-4.0); LYMPHOCYTES % (AUTO) 13 % (12-44); MEAN CORPUSCULAR HEMOGLOBIN 35 PG (25-34); MEAN CORPUSCULAR HGB CONC 32 G/DL (32-36); MEAN CORPUSCULAR VOLUME 110 FL (80-99); MEAN PLATELET VOLUME 9.2 FL (7.4-10.4); MONOCYTES # (AUTO) 0.8 X 10^3 (0.0-1.0); MONOCYTES % (AUTO) 13 % (0-12); NEUTROPHILS # (AUTO) 4.6 X 10^3 (1.8-7.8); NEUTROPHILS % (AUTO) 73 % (42-75); PLATELET COUNT 286 10^3/uL (130-400); RED BLOOD COUNT 2.53 10^6/uL (4.35-5.85); WHITE BLOOD COUNT 6.3 10^3/uL (4.3-11.0)
[2017-05-08 09:32] LABS: CALCIUM 9.4 MG/DL (8.5-10.1); CREATININE SERUM 0.95 MG/DL (0.60-1.30); POTASSIUM 3.8 MMOL/L (3.6-5.0)
[2017-05-24 10:08] LABS: BASOPHILS % (AUTO) 0 % (0-10); EOSINOPHILS # (AUTO) 0.1 10^3/uL (0.0-0.3); EOSINOPHILS % (AUTO) 2 % (0-10); LYMPHOCYTES # (AUTO) 1.2 X 10^3 (1.0-4.0); LYMPHOCYTES % (AUTO) 16 % (12-44); MEAN CORPUSCULAR HEMOGLOBIN 35 PG (25-34); MEAN CORPUSCULAR HGB CONC 32 G/DL (32-36); MEAN CORPUSCULAR VOLUME 110 FL (80-99); MONOCYTES # (AUTO) 0.9 X 10^3 (0.0-1.0); MONOCYTES % (AUTO) 12 % (0-12); NEUTROPHILS # (AUTO) 5.3 X 10^3 (1.8-7.8); NEUTROPHILS % (AUTO) 70 % (42-75); PLATELET COUNT 322 10^3/uL (130-400); RED BLOOD COUNT 2.79 10^6/uL (4.35-5.85); RED CELL DISTRIBUTION WIDTH 15.6 % (10.0-14.5); WHITE BLOOD COUNT 7.6 10^3/uL (4.3-11.0)
[2017-05-24 10:32] LABS: CALCIUM 8.9 MG/DL (8.5-10.1); CREATININE SERUM 0.96 MG/DL (0.60-1.30); POTASSIUM 4.3 MMOL/L (3.6-5.0)
[~2017-05-29] VITALS: Ht 172.7 cm; Wt 55.3 kg
[~2017-05-29 09:07] MED LIST changes: -ACETAMINOPHEN 500 MG TAB (TYLENOL) CANCER CTR ONE; +DEXAMETHASONE IV SCH; +ONDANSETRON IV SCH; +[UNRECOGNIZED DRUG - OTHER] IV SCH
[2017-05-29 09:51] LABS: BASOPHILS % (AUTO) 1 % (0-10); EOSINOPHILS # (AUTO) 0.1 10^3/uL (0.0-0.3); EOSINOPHILS % (AUTO) 1 % (0-10); LYMPHOCYTES % (AUTO) 11 % (12-44); MEAN CORPUSCULAR HGB CONC 32 G/DL (32-36); MEAN CORPUSCULAR VOLUME 110 FL (80-99); MEAN PLATELET VOLUME 10.4 FL (7.4-10.4); MONOCYTES % (AUTO) 12 % (0-12); NEUTROPHILS # (AUTO) 6.5 X 10^3 (1.8-7.8); NEUTROPHILS % (AUTO) 75 % (42-75); PLATELET COUNT 321 10^3/uL (130-400); RED BLOOD COUNT 2.96 10^6/uL (4.35-5.85); RED CELL DISTRIBUTION WIDTH 14.8 % (10.0-14.5); WHITE BLOOD COUNT 8.6 10^3/uL (4.3-11.0)
[2017-05-29 09:53] LABS: MEAN CORPUSCULAR HEMOGLOBIN 34 PG (25-34)
[2017-05-29 10:10] LABS: ALBUMIN 3.5 GM/DL (3.2-4.5); BILIRUBIN,TOTAL 0.3 MG/DL (0.1-1.0); CALCIUM 9.1 MG/DL (8.5-10.1); CREATININE SERUM 1.1 MG/DL (0.60-1.30); POTASSIUM 4.3 MMOL/L (3.6-5.0); TOTAL PROTEIN 6.4 GM/DL (6.4-8.2)
== END 2017-06-13 11:32 | disposition home or self-care (01) ==
LOC: ONC 09:07
PROVIDERS: ATTEND Internal Medicine Hematology & Oncology
DX: Z51.11 Encounter for antineoplastic chemotherapy (principal); C50.611 Malignant neoplasm of axillary tail of right female breast; C79.51 Secondary malignant neoplasm of bone; Z92.21 Personal history of antineoplastic chemotherapy; Z92.3 Personal history of irradiation
CPT/HCPCS: 36591; 80048; 80053; 81000; 83615; 83735; 85025; 96375; 96413

== ENCOUNTER → 2017-06-27 | Outpatient (CLI) | payer MEDICARE, OTHER ==
[~2017-06-27] MED LIST changes: +BARIUM SUSPENSION 2.1% (VANILLA SILQ) 450 ML PO ONE; -DEXAMETHASONE IV SCH; +HEParin (CENTRAL IV FLUSH) 500 UNIT/5 ML SYR ONE; +IOHEXOL 350 MG/ML 100 ML (OMNIPAQUE 350) VIAL IV ONE; +NS 100 ML (IVPB) BAG IV ONE; -NS IV 500 ML (CANCER CENTER) IV SCH; -NS IV SCH; -ONDANSETRON 16 MG, DEXAMETHASONE 10 MG/NS 50 ML IVPB IV SCH; -ONDANSETRON IV SCH; -TOPOTECAN HCL IV SCH; -[UNRECOGNIZED DRUG - OTHER] IV SCH
--- NOTE | 2017-06-27 12:10 | Diagnostic Imaging Report ---
PROCEDURE: CT chest and abdomen with contrast. TECHNIQUE: Multiple contiguous axial images were obtained through the chest and abdomen after the administration of intravenous contrast. INDICATION: History of breast cancer. 100 mL of Omnipaque 350 is administered intravenously. COMPARISON: Comparison exams from 03/14/2017 are reviewed. FINDINGS: CT CHEST: In the left supraclavicular region laterally, there is a lobulated mass measuring 3.2 x 4.4 x estimated 3.5 cm craniocaudally. This is not completely included on this exam. It is not well seen on the previous exam within the gyzan-ua-dtty of the chest. There is a tiny right pleural effusion or pleural thickening. This is improved compared to the previous study. Nonspecific mild septal thickening is seen in the inferior lingula, could relate to atelectasis. Minimal similar changes are seen in the right middle lobe. There is mild upper lobe predominant emphysema change noted. The cardiac size is at the upper limits of normal. There is moderate dilatation of the right and left atrium. The thoracic aorta is normal in caliber. There is no significantly enlarged mediastinal or hilar lymph nodes. No significant axillary lymphadenopathy is seen. Surgical clips in the right axilla and right breast are noted. The osseous structures demonstrate mild degenerative changes. There is suggestion of a mild compression fracture of T5 vertebral body. This appears to be new from 03/14/2017. No definite underlying mass is seen. CT ABDOMEN: There is a hyperenhancing focus seen in the right hepatic lobe measuring 9 mm. The delayed phase images demonstrates isodense appearance of this area to the rest of the liver. This is a nonspecific finding. Other similar areas are seen in the rest of the liver but appear more subtle. These appear more prominent compared to the prior exam, possibly related to the early phase of enhancement and may reflect mild areas of vascular shunting with no discrete mass. The spleen, the pancreas and the gallbladder appear unremarkable. The adrenal glands demonstrate minimal thickening with no discrete mass. The kidneys have symmetric enhancement and contrast excretion. There is no hydronephrosis. It is similar to the previous exam. The abdominal aorta is normal in caliber. No para-aortic significantly enlarged lymph node is seen. The osseous structures demonstrate mild degenerative changes. IMPRESSION: CT CHEST: 1. There is a lateral left supraclavicular mass measuring 4.4 cm in size. This was outside the obszt-su-szjg on the previous study. It is however larger when compared to study of 12/13/2016 where the supraclavicular region is included. There is no evidence of metastasis in the chest otherwise. 2. Mild compression fracture of T5 vertebral body with no obvious underlying mass. This is presumably osteoporotic. 3. Emphysema. CT ABDOMEN: Subcentimeter foci of subtle hyperenhancement in the liver parenchyma are likely related to areas of vascular shunting. No definite evidence of metastasis. Dictated by: Dictated on workstation # [id number]
--- NOTE | 2017-06-27 13:20 | Diagnostic Imaging Report ---
Whole body bone scan. Technique: After the intravenous administration of 25 mCi of Technetium 99m MDP, whole body delayed phase bone scan images were obtained with lateral views of the head and neck and the chest regions. Indication: Breast cancer. COMPARISON: 03/14/2017 Findings: There are multiple foci of mild increased radiotracer activity in the ribs and costochondral junctions bilaterally similar to the previous exam compatible with posttraumatic activity. Also sternal fracture confirmed on CT scan is again seen with moderate intensity area of activity seen. There is no increased intense areas of activity particularly within the central skeleton in a pattern to suggest metastatic disease. Minimal increased activity in T5 vertebral body correlates with a simple appearing compression fracture of T5 vertebral body. This correlates with fall followed by a mild upper thoracic pain that the patient reports two months ago with resolution of the symptoms at this time. Kidneys and bladder activity is seen. IMPRESSION: The findings are likely related to prior trauma involving the ribs, the sternum and T5 vertebral body with no suspicious pattern of activity to suggest metastatic disease in the osseous structures. Dictated by: Dictated on workstation # [id number]
== END ==
LOC: RAD 08:55
PROVIDERS: ATTEND Nurse Practitioner Adult Health
DX: C50.611 Malignant neoplasm of axillary tail of right female breast (principal); C79.51 Secondary malignant neoplasm of bone; J43.9 Emphysema, unspecified; K76.9 Liver disease, unspecified
CPT/HCPCS: 71260; 74160; 78306

== ENCOUNTER → 2017-09-12 | Outpatient (CLI) | payer MEDICARE, OTHER ==
[~2017-09-12] MED LIST changes: +ACHD5005 PO; -BARIUM SUSPENSION 2.1% (VANILLA SILQ) 450 ML PO ONE; +CATHETER FLUSH 10 ML SYR IV PRN; +HEParin (CENTRAL IV FLUSH) 500 UNIT/5 ML SYR IV ONE; -HYDR-3812 PO; -METO-272 PO; +METO-370 PO; +METO50TA15 PO; -METO50TA2 PO
--- NOTE | 2017-09-12 09:35 | Diagnostic Imaging Report ---
PROCEDURE: CT head with and without contrast. TECHNIQUE: Multiple contiguous axial images were obtained through the brain before and after the administration of intravenous contrast. INDICATION: Small cell carcinoma. CONTRAST: 100 mL of Omnipaque 350 is administered intravenously. FINDINGS: There is no intracranial hemorrhage seen on the unenhanced phase. There is periventricular and deep white matter hypodensities compatible with chronic microvascular ischemic changes. After contrast administration, no enhancing mass to suggest metastatic disease is identified. No hydrocephalus. No extra-axial fluid collection is seen. The calvarium, the paranasal sinuses and orbits visualized portions appear grossly unremarkable. IMPRESSION: No evidence of metastatic disease. Dictated by: Dictated on workstation # [id number]
--- NOTE | 2017-09-12 10:28 | Diagnostic Imaging Report ---
EXAMINATION: CT scan of the neck, chest, and abdomen with intravenous contrast. INDICATION: Small cell carcinoma followup. 100 mL of Omnipaque 350 is administered intravenously. COMPARISON: 06/27/2017. FINDINGS: CT NECK: There is interval resolution of the previously seen mass in the lateral aspect of the left supraclavicular region with residual nonspecific soft tissue thickening in the subcutaneous tissue at this level. There is no lymphadenopathy in the cervical chain on either side. The mucosal pharyngeal space appear normal. There is symmetric parotid and submandibular glands. The thyroid gland demonstrates asymmetric larger left lobe. The carotid arteries demonstrate prominent atherosclerotic plaque at the proximal aspect of the right ICA with estimated underlying stenosis less than 50%. The osseous structures appear grossly unremarkable. CT CHEST: There is upper lobe predominant emphysema. There is minimal atelectasis in the anterior medial aspect of the left upper lobe. There is a small to moderate right pleural effusion seen with no significant nodularity or enhancing components to suggest malignant etiology. The heart size is mildly enlarged. There is dilatation of the IVC and the right and left atria which could relate to heart failure. There is no significant lymphadenopathy in the julio, mediastinum or axilla. There is a left IJ infusion port with the tip at the lower SVC level. The osseous structures appear grossly unremarkable. CT ABDOMEN: The liver demonstrates a small focus of hyperenhancement in the right hepatic lobe superiorly measuring 6 mm, less prominent compared to the prior exam. Other smaller tiny foci in the right hepatic lobe more inferiorly are seen. This is probably related to areas of vascular shunting. The spleen is not enlarged. The adrenal glands on the right side is normal. The left adrenal gland area of thickening previously seen demonstrates increased fullness with suspected discrete nodule. Its maximum dimension is 1.5 cm. When measured in a comparable fashion, on 06/27/2017, it was 1.1 cm. 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 The kidneys have symmetric enhancement. No hydronephrosis. The abdominal aorta is normal in caliber. No para-aortic significantly enlarged lymph nodes seen. The osseous structures demonstrate degenerative changes. IMPRESSION: CT NECK: Resolution of the previously seen lateral left supraclavicular mass with the remaining nonspecific minimal subcutaneous thickening at this site. CT CHEST: Development of small to moderate right pleural effusion with no discrete nodule or mass. Emphysema. CT ABDOMEN: 1. Increased thickening in the left adrenal gland with suggestion of developing discrete nodule measuring 1.5 cm in length concerning for metastatic disease. Followup CT scan or PET/CT can be helpful. 2. Persistent subcentimeter hyperenhancing foci in the right hepatic lobe are favored to be related to vascular shunts. Dictated by: Dictated on workstation # [id number]
--- NOTE | 2017-09-12 13:19 | Diagnostic Imaging Report ---
EXAMINATION: Whole body bone scan. TECHNIQUE: After the intravenous administration of 26.4 mCi of Technetium 99m MDP, whole body delayed phase bone scan images were obtained with lateral views of the head and neck and the chest regions. INDICATION: Breast cancer. FINDINGS: When compared to 06/27/2017, there is a moderately intense area of increased uptake in the sternum without change, compatible with the prior injury. There is an area of moderate intensity of increased uptake projecting over the lower aspect of the right SI joint. There are no other suspicious areas of increased uptake, particularly within the axial skeleton, to suggest metastatic disease. The kidneys and bladder activity is expected from excretion. IMPRESSION: 1. New small area of increased moderate radiotracer uptake projecting over the lower aspect of the left sacroiliac joint. Being at the joint level and without other suspicious lesions, this could relate to arthritis, or possibly posttraumatic. A solitary metastasis in the left sacral ala is not entirely excluded. Evaluation with MRI or CT scan of the pelvis might be helpful. 2. Stable moderate intensity uptake in the sternum related to prior trauma. Dictated by: Dictated on workstation # [id number]
== END ==
LOC: CARD 08:33
PROVIDERS: ATTEND Internal Medicine Hematology & Oncology
DX: C80.1 Malignant (primary) neoplasm, unspecified (principal); C79.51 Secondary malignant neoplasm of bone; C79.89 Secondary malignant neoplasm of other specified sites
CPT/HCPCS: 70470; 70491; 71260; 74160; 78306

== ENCOUNTER → 2017-09-18 | Outpatient (RCR) | payer MEDICARE, OTHER ==
[2017-06-20 10:15] LABS: BASOPHILS % (AUTO) 1 % (0-10); EOSINOPHILS # (AUTO) 0.1 10^3/uL (0.0-0.3); EOSINOPHILS % (AUTO) 2 % (0-10); HEMATOCRIT 37 % (35-52); HEMOGLOBIN 11.9 G/DL (11.5-16.0); LYMPHOCYTES # (AUTO) 0.9 X 10^3 (1.0-4.0); LYMPHOCYTES % (AUTO) 15 % (12-44); MEAN CORPUSCULAR HEMOGLOBIN 34 PG (25-34); MEAN CORPUSCULAR HGB CONC 32 G/DL (32-36); MEAN CORPUSCULAR VOLUME 105 FL (80-99); MEAN PLATELET VOLUME 10.3 FL (7.4-10.4); MONOCYTES # (AUTO) 0.6 X 10^3 (0.0-1.0); MONOCYTES % (AUTO) 10 % (0-12); NEUTROPHILS # (AUTO) 4.4 X 10^3 (1.8-7.8); NEUTROPHILS % (AUTO) 72 % (42-75); PLATELET COUNT 203 10^3/uL (130-400); RED BLOOD COUNT 3.55 10^6/uL (4.35-5.85); RED CELL DISTRIBUTION WIDTH 14.1 % (10.0-14.5); WHITE BLOOD COUNT 6.1 10^3/uL (4.3-11.0)
[2017-06-20 10:37] LABS: ALANINE AMINOTRANSFERASE 17 U/L (0-55); ALBUMIN 3.6 GM/DL (3.2-4.5); ALKALINE PHOSPHATASE 82 U/L (40-136); BILIRUBIN,TOTAL 0.3 MG/DL (0.1-1.0); BUN/CREATININE RATIO 15; CARBON DIOXIDE 33 MMOL/L (21-32); CHLORIDE 100 MMOL/L (98-107); CREATININE SERUM 0.92 MG/DL (0.60-1.30); GFR ESTIMATED > 60; GLUCOSE 103 MG/DL (70-105); MAGNESIUM 2.1 MG/DL (1.8-2.4); POTASSIUM 3.9 MMOL/L (3.6-5.0); SODIUM 139 MMOL/L (135-145); TOTAL PROTEIN 6.6 GM/DL (6.4-8.2)
[2017-07-19 09:24] LABS: BASOPHILS % (AUTO) 0 % (0-10); EOSINOPHILS % (AUTO) 0 % (0-10); HEMATOCRIT 38 % (35-52); HEMOGLOBIN 12.3 G/DL (11.5-16.0); LYMPHOCYTES # (AUTO) 0.9 X 10^3 (1.0-4.0); LYMPHOCYTES % (AUTO) 12 % (12-44); MEAN CORPUSCULAR HEMOGLOBIN 33 PG (25-34); MEAN CORPUSCULAR HGB CONC 33 G/DL (32-36); MEAN CORPUSCULAR VOLUME 101 FL (80-99); MEAN PLATELET VOLUME 10.4 FL (7.4-10.4); MONOCYTES # (AUTO) 0.7 X 10^3 (0.0-1.0); MONOCYTES % (AUTO) 10 % (0-12); NEUTROPHILS # (AUTO) 5.4 X 10^3 (1.8-7.8); NEUTROPHILS % (AUTO) 77 % (42-75); PLATELET COUNT 227 10^3/uL (130-400); RED BLOOD COUNT 3.77 10^6/uL (4.35-5.85); RED CELL DISTRIBUTION WIDTH 13.6 % (10.0-14.5)
[2017-07-19 09:48] LABS: ALBUMIN 3.6 GM/DL (3.2-4.5); BILIRUBIN,TOTAL 0.3 MG/DL (0.1-1.0); CALCIUM 9.2 MG/DL (8.5-10.1); CREATININE SERUM 0.97 MG/DL (0.60-1.30); POTASSIUM 4.2 MMOL/L (3.6-5.0); TOTAL PROTEIN 6.7 GM/DL (6.4-8.2)
[2017-08-16 10:31] LABS: BASOPHILS % (AUTO) 0 % (0-10); EOSINOPHILS # (AUTO) 0.1 10^3/uL (0.0-0.3); EOSINOPHILS % (AUTO) 1 % (0-10); HEMATOCRIT 37 % (35-52); LYMPHOCYTES # (AUTO) 0.6 X 10^3 (1.0-4.0); LYMPHOCYTES % (AUTO) 9 % (12-44); MEAN CORPUSCULAR HEMOGLOBIN 33 PG (25-34); MEAN CORPUSCULAR HGB CONC 33 G/DL (32-36); MEAN CORPUSCULAR VOLUME 100 FL (80-99); MEAN PLATELET VOLUME 10.1 FL (7.4-10.4); MONOCYTES # (AUTO) 0.7 X 10^3 (0.0-1.0); MONOCYTES % (AUTO) 10 % (0-12); NEUTROPHILS # (AUTO) 5.4 X 10^3 (1.8-7.8); NEUTROPHILS % (AUTO) 80 % (42-75); PLATELET COUNT 169 10^3/uL (130-400); RED BLOOD COUNT 3.66 10^6/uL (4.35-5.85); RED CELL DISTRIBUTION WIDTH 13.8 % (10.0-14.5); WHITE BLOOD COUNT 6.8 10^3/uL (4.3-11.0)
[2017-08-16 10:50] LABS: ALBUMIN 3.6 GM/DL (3.2-4.5); BILIRUBIN,TOTAL 0.4 MG/DL (0.1-1.0); CALCIUM 9.1 MG/DL (8.5-10.1); CREATININE SERUM 1.03 MG/DL (0.60-1.30); POTASSIUM 4.2 MMOL/L (3.6-5.0); TOTAL PROTEIN 6.4 GM/DL (6.4-8.2)
[~2017-09-18] MED LIST changes: -CATHETER FLUSH 10 ML SYR IV PRN; -HEParin (CENTRAL IV FLUSH) 500 UNIT/5 ML SYR IV ONE; -HEParin (CENTRAL IV FLUSH) 500 UNIT/5 ML SYR ONE; -IOHEXOL 350 MG/ML 100 ML (OMNIPAQUE 350) VIAL IV ONE; -NS 100 ML (IVPB) BAG IV ONE
[2017-09-18 11:24] LABS: BASOPHILS % (AUTO) 0 % (0-10); EOSINOPHILS # (AUTO) 0.1 10^3/uL (0.0-0.3); EOSINOPHILS % (AUTO) 1 % (0-10); HEMATOCRIT 36 % (35-52); HEMOGLOBIN 11.6 G/DL (11.5-16.0); LYMPHOCYTES # (AUTO) 0.7 X 10^3 (1.0-4.0); LYMPHOCYTES % (AUTO) 9 % (12-44); MEAN CORPUSCULAR HEMOGLOBIN 33 PG (25-34); MEAN CORPUSCULAR HGB CONC 33 G/DL (32-36); MEAN CORPUSCULAR VOLUME 101 FL (80-99); MONOCYTES # (AUTO) 0.8 X 10^3 (0.0-1.0); MONOCYTES % (AUTO) 10 % (0-12); NEUTROPHILS # (AUTO) 6.2 X 10^3 (1.8-7.8); NEUTROPHILS % (AUTO) 80 % (42-75); PLATELET COUNT 179 10^3/uL (130-400); RED BLOOD COUNT 3.53 10^6/uL (4.35-5.85); RED CELL DISTRIBUTION WIDTH 13.8 % (10.0-14.5); WHITE BLOOD COUNT 7.8 10^3/uL (4.3-11.0)
[2017-09-18 11:54] LABS: ALBUMIN 3.6 GM/DL (3.2-4.5); BILIRUBIN,TOTAL 0.4 MG/DL (0.1-1.0); CALCIUM 9.1 MG/DL (8.5-10.1); CREATININE SERUM 1.08 MG/DL (0.60-1.30); TOTAL PROTEIN 6.8 GM/DL (6.4-8.2)
== END | disposition home or self-care (01) ==
LOC: ONC 06-20 09:53
PROVIDERS: ATTEND Internal Medicine Hematology & Oncology
DX: Z51.0 Encounter for antineoplastic radiation therapy (principal); C50.611 Malignant neoplasm of axillary tail of right female breast; C79.51 Secondary malignant neoplasm of bone; Z92.21 Personal history of antineoplastic chemotherapy; Z92.3 Personal history of irradiation
CPT/HCPCS: 36415; 36591; 77290; 77295; 77300; 77334; 77336; 77402; 77417; 77470; 80053; 83615; 83735; 85025; 99213; 99214

== ENCOUNTER → 2017-09-25 | Outpatient (CLI) | payer MEDICARE, OTHER ==
--- NOTE | 2017-09-27 07:23 | Diagnostic Imaging Report ---
EXAM: PET/CT. INDICATION: Non-small cell lung carcinoma. TECHNIQUE: PET/CT imaging was obtained from the base of the skull through the pelvis after the administration of 14.3 mCi of F-[address] imaging was utilized for localization and attenuation correction purposes. The low energy CT utilized for attenuation correction is not considered to be of high enough spatial resolution to allow in and of itself a separate anatomical analysis. The previous PET/CT exam performed noted a hypermetabolic mass involving the proximal left tibia. The recent whole body bone scan of 09/12/2017 showed only slightly increased activity in this area. On this exam, there is again only slightly increased hypermetabolic activity. This is a significant improvement over the previous study. On the previous PET/CT exam, there was no other hypermetabolic activity identified to suggest malignancy. The CT neck, chest, abdomen and pelvis exams of 09/12/2017 however did note a new area of thickening involving the left adrenal gland. This measured approximately 1.5 cm. On this study, there is now indeed an increased metabolic activity associated with the left adrenal gland. This area has a maximum SUV of 5.0 and consequently should be considered neoplastic until proven otherwise. Furthermore, in the interval since the previous exam, a 1 cm hypermetabolic node has developed along the lateral aspect of the right thorax. This has a maximum SUV of 2.8 and this finding is worrisome for neoplasm, as well. There is also generalized increased activity about the left shoulder joint. This is probably due to muscular activity. No other hypermetabolic activity is seen to suggest the presence of neoplasm. The CT images through the thorax again show scar formation in the left upper lung. Most likely this is a sequela of radiation therapy. The small right pleural effusion seen on the previous CT chest exam is also again visualized and has decreased in size somewhat. The effusion now measures approximately 1.3 cm in maximum depth as opposed to 1.9 cm previously. IMPRESSION: 1. There are mixed results. There is much less hypermetabolic activity associated with the lesion arising from the proximal left tibia than noted on the prior exam. However, new areas of increased activity have developed in the left adrenal gland and in a small node along the periphery of the right thorax. These new areas of abnormal hypermetabolic activity should be considered neoplastic until proven otherwise. 2. These results were discussed with Dr. Blue by Dr. Agrawal at the time of dictation. Dictated by: Dictated on workstation # [id number]
== END ==
LOC: RAD 11:30
PROVIDERS: ATTEND Nurse Practitioner Adult Health
DX: C80.1 Malignant (primary) neoplasm, unspecified (principal); C79.51 Secondary malignant neoplasm of bone; C79.89 Secondary malignant neoplasm of other specified sites

== ENCOUNTER → 2018-01-17 | Outpatient (CLI) | payer MEDICARE, OTHER ==
[~2018-01-17] MED LIST changes: +BARIUM SUSPENSION 2.1% (VANILLA SILQ) 450 ML PO ONE; +CATHETER FLUSH 10 ML SYR IV PRN; +HEParin (CENTRAL IV FLUSH) 500 UNIT/5 ML SYR IV ONE; +HEParin (CENTRAL IV FLUSH) 500 UNIT/5 ML SYR ONE; +IOHEXOL 350 MG/ML 100 ML (OMNIPAQUE 350) VIAL IV ONE; +NS 250 ML (IVPB) BAG IV ONE
--- NOTE | 2018-01-17 09:42 | Diagnostic Imaging Report ---
PROCEDURE: CT chest and abdomen with contrast. TECHNIQUE: Multiple contiguous axial images were obtained through the chest and abdomen after the administration of intravenous contrast. INDICATION: Small cell cancer and adrenal metastases. Patient presents for followup. COMPARISON: Comparison is made with prior CT from 09/12/2017. FINDINGS: CT chest: There is a left chest wall port in place. No axillary lymphadenopathy is seen. There are surgical clips in the right axilla. No definite hilar or mediastinal lymphadenopathy is seen. No pericardial fluid is seen. Trace right pleural fluid is seen. Right-sided pleural effusion has significantly decreased in size since prior CT from August 2017. Parenchymal evaluation demonstrates centrilobular emphysematous changes in the upper lobes particularly. Area of atelectasis in the left upper lobe has improved. No parenchymal mass is seen. No infiltrates are identified. CT abdomen: Previously noted hyperenhancing mass in right lobe of liver remains visible and unchanged in size at approximately 5-6 mm. No additional liver mass is detected. Gallbladder is unremarkable. The pancreas and spleen are unremarkable. The right adrenal gland is unremarkable. Left adrenal gland mass has increased in size, now measuring 3.3 x 2.1 cm compared with approximately 1.5 x 1.0 cm. Kidneys are unremarkable. Aorta is nonaneurysmal. Visualized bowel loops are of normal caliber. There is no ascites. IMPRESSION: 1. Improved aeration to the left upper lobe since prior study from August. No thoracic lymphadenopathy or evidence of pulmonary metastatic disease is identified. The right-sided pleural effusion has significantly improved. 2. 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 Previously noted right lobe liver mass is stable. No new mass is seen. Dictated by: Dictated on workstation # [id number]
--- NOTE | 2018-01-17 12:59 | Diagnostic Imaging Report ---
INDICATION: Small cell carcinoma. TECHNIQUE: The patient was administered 26.7 mCi technetium 99m MDP intravenously and whole-body imaging was performed after a 3 hour delay. COMPARISON is made with prior exam from 09/12/2017. FINDINGS: There is uptake of activity by the axial and appendicular skeleton. There is uptake by both kidneys with excretion into the urinary bladder. Intense uptake in the mid sternum is similar to prior exam. The linear uptake involving the left sacrum near the SI joint best seen on the posterior projections appears stable to slightly less intense. No new focus of abnormal tracer accumulation is seen. IMPRESSION: Stable whole body bone scan when compared with examination from 09/12/2017. Dictated by: Dictated on workstation # [id number]
== END ==
LOC: CARD 08:14
PROVIDERS: ATTEND Internal Medicine Hematology & Oncology
DX: Z01.89 Encounter for other specified special examinations (principal); C80.1 Malignant (primary) neoplasm, unspecified; C79.72 Secondary malignant neoplasm of left adrenal gland; C79.51 Secondary malignant neoplasm of bone
CPT/HCPCS: 71260; 74160; 78306

== ENCOUNTER → 2018-02-13 | Outpatient (CLI) | payer MEDICARE, OTHER ==
[~2018-02-13] MED LIST changes: -BARIUM SUSPENSION 2.1% (VANILLA SILQ) 450 ML PO ONE; -CATHETER FLUSH 10 ML SYR IV PRN; +GADOBUTROL 7.5 MMOL/7.5 ML (GADAVIST) VIAL IV ONE; -HEParin (CENTRAL IV FLUSH) 500 UNIT/5 ML SYR IV ONE; -HEParin (CENTRAL IV FLUSH) 500 UNIT/5 ML SYR ONE; -IOHEXOL 350 MG/ML 100 ML (OMNIPAQUE 350) VIAL IV ONE; -NS 250 ML (IVPB) BAG IV ONE
--- NOTE | 2018-02-13 12:59 | Diagnostic Imaging Report ---
PROCEDURE: MR imaging of the brain with and without contrast. TECHNIQUE: Multiplanar, multisequence MR imaging of the brain was performed with and without contrast. INDICATION: New diagnosis of cancer complaining of shaking, recurrent falls and head pain. Remote history of breast cancer. Brain MRI compared 03/01/2017 and correlated with more recent CT performed 09/12/2017. Having developed since the previous exam is a tiny enhancing nodule measuring 5.5 mm cephalocaudal by 5 mm in the axial plane and the posterior fossa at the level of the posteromedial and superior margin of the cerebellar vermis. Seen best on postcontrast enhanced axial image 10, series 9, coronal image 9, series 10 and parasagittal image 14 series 11. It presents as a punctate focus of diffusion restriction and shows very slight elevated FLAIR and T2 signal. This is a new finding from prior therefore a metastatic deposit is suspected. Incidental tiny left frontal lobe venous angioma or developmental venous anomaly is a stable finding. No other areas of abnormal enhancement and no additional mass is suspected. There were no findings suggestive of hemorrhage nor infarct. No evidence for elevation of the intracranial pressures. The orbits, paranasal sinuses and mastoids were unremarkable. There are no abnormal extra-axial fluid collections. Impression: Tiny 5 mm posterior fossa nodule and development from previous unremarkable study. Solitary metastatic deposit could not be excluded. There was no other significant finding or change. Chronic mild atrophy and periventricular white matter small vessel sequelae were stable. Dictated by: Dictated on workstation # [id number]
== END ==
LOC: RAD 09:47
PROVIDERS: ATTEND Nurse Practitioner Adult Health
DX: C80.1 Malignant (primary) neoplasm, unspecified (principal); G31.9 Degenerative disease of nervous system, unspecified; R90.82 White matter disease, unspecified; R25.1 Tremor, unspecified; H53.9 Unspecified visual disturbance; Z85.3 Personal history of malignant neoplasm of breast
CPT/HCPCS: 70553

== ENCOUNTER 2018-03-07 10:44 | Outpatient (RCR) | payer MEDICARE, OTHER ==
[2018-01-10 09:53] LABS: BASOPHILS % (AUTO) 0 % (0-10); EOSINOPHILS % (AUTO) 0 % (0-10); HEMATOCRIT 36 % (35-52); HEMOGLOBIN 11.8 G/DL (11.5-16.0); LYMPHOCYTES # (AUTO) 0.6 X 10^3 (1.0-4.0); LYMPHOCYTES % (AUTO) 6 % (12-44); MEAN CORPUSCULAR HEMOGLOBIN 34 PG (25-34); MEAN CORPUSCULAR HGB CONC 33 G/DL (32-36); MEAN CORPUSCULAR VOLUME 104 FL (80-99); MONOCYTES # (AUTO) 0.9 X 10^3 (0.0-1.0); MONOCYTES % (AUTO) 9 % (0-12); NEUTROPHILS % (AUTO) 84 % (42-75); PLATELET COUNT 206 10^3/uL (130-400); RED BLOOD COUNT 3.47 10^6/uL (4.35-5.85); RED CELL DISTRIBUTION WIDTH 13.4 % (10.0-14.5); WHITE BLOOD COUNT 9.4 10^3/uL (4.3-11.0)
[2018-01-10 10:18] LABS: ALANINE AMINOTRANSFERASE 37 U/L (0-55); ALBUMIN 3.7 GM/DL (3.2-4.5); ALKALINE PHOSPHATASE 103 U/L (40-136); BILIRUBIN,TOTAL 0.4 MG/DL (0.1-1.0); BUN/CREATININE RATIO 21; CALCIUM 9.2 MG/DL (8.5-10.1); CARBON DIOXIDE 33 MMOL/L (21-32); CHLORIDE 98 MMOL/L (98-107); CREATININE SERUM 0.91 MG/DL (0.60-1.30); GFR ESTIMATED > 60; GLUCOSE 116 MG/DL (70-105); POTASSIUM 4.3 MMOL/L (3.6-5.0); SODIUM 138 MMOL/L (135-145); TOTAL PROTEIN 7.2 GM/DL (6.4-8.2)
[2018-01-22 09:59] LABS: BASOPHILS % (AUTO) 0 % (0-10); EOSINOPHILS % (AUTO) 0 % (0-10); HEMATOCRIT 37 % (35-52); HEMOGLOBIN 12.3 G/DL (11.5-16.0); LYMPHOCYTES # (AUTO) 0.7 X 10^3 (1.0-4.0); LYMPHOCYTES % (AUTO) 8 % (12-44); MEAN CORPUSCULAR HEMOGLOBIN 34 PG (25-34); MEAN CORPUSCULAR HGB CONC 34 G/DL (32-36); MEAN CORPUSCULAR VOLUME 102 FL (80-99); MEAN PLATELET VOLUME 10.3 FL (7.4-10.4); MONOCYTES # (AUTO) 0.9 X 10^3 (0.0-1.0); MONOCYTES % (AUTO) 10 % (0-12); NEUTROPHILS # (AUTO) 7.1 X 10^3 (1.8-7.8); NEUTROPHILS % (AUTO) 82 % (42-75); PLATELET COUNT 195 10^3/uL (130-400); RED CELL DISTRIBUTION WIDTH 13.5 % (10.0-14.5); WHITE BLOOD COUNT 8.7 10^3/uL (4.3-11.0)
[2018-01-22 10:29] LABS: ALBUMIN 3.8 GM/DL (3.2-4.5); BILIRUBIN,TOTAL 0.6 MG/DL (0.1-1.0); CREATININE SERUM 0.96 MG/DL (0.60-1.30); POTASSIUM 4.4 MMOL/L (3.6-5.0); TOTAL PROTEIN 6.9 GM/DL (6.4-8.2)
[2018-02-05 10:08] LABS: BASOPHILS % (AUTO) 1 % (0-10); EOSINOPHILS # (AUTO) 0.1 10^3/uL (0.0-0.3); EOSINOPHILS % (AUTO) 1 % (0-10); HEMATOCRIT 38 % (35-52); HEMOGLOBIN 12.5 G/DL (11.5-16.0); LYMPHOCYTES # (AUTO) 0.7 X 10^3 (1.0-4.0); LYMPHOCYTES % (AUTO) 11 % (12-44); MEAN CORPUSCULAR HEMOGLOBIN 34 PG (25-34); MEAN CORPUSCULAR HGB CONC 33 G/DL (32-36); MEAN CORPUSCULAR VOLUME 101 FL (80-99); MEAN PLATELET VOLUME 10.7 FL (7.4-10.4); MONOCYTES # (AUTO) 0.6 X 10^3 (0.0-1.0); MONOCYTES % (AUTO) 9 % (0-12); NEUTROPHILS % (AUTO) 78 % (42-75); PLATELET COUNT 201 10^3/uL (130-400); RED BLOOD COUNT 3.72 10^6/uL (4.35-5.85); RED CELL DISTRIBUTION WIDTH 12.8 % (10.0-14.5); WHITE BLOOD COUNT 6.4 10^3/uL (4.3-11.0)
[2018-02-05 10:25] LABS: ALBUMIN 3.7 GM/DL (3.2-4.5); BILIRUBIN,TOTAL 0.5 MG/DL (0.1-1.0); CALCIUM 9.2 MG/DL (8.5-10.1); CREATININE SERUM 1.37 MG/DL (0.60-1.30); TOTAL PROTEIN 6.8 GM/DL (6.4-8.2)
[2018-02-05 11:03] LABS: BILIRUBIN,URINE NEGATIVE (NEGATIVE); CLARITY,URINE CLEAR; COLOR,URINE YELLOW; GLUCOSE, URINE (UA) NEGATIVE (NEGATIVE); KETONES,URINE NEGATIVE (NEGATIVE); LEUKOCYTE ESTERASE ,URINE NEGATIVE (NEGATIVE); NITRITE,URINE NEGATIVE (NEGATIVE); PH,URINE 6 (5-9); PROTEIN,URINE NEGATIVE (NEGATIVE); UROBILINOGEN,URINE NORMAL (NORMAL)
[2018-02-05 11:14] LABS: BACTERIA,URINE NEGATIVE /HPF; HYALINE CASTS, URINE 25-50 /LPF; WBC,URINE RARE /HPF
[2018-02-12 10:40] LABS: CREATININE SERUM 1.26 MG/DL (0.60-1.30)
[2018-03-05 15:08] LABS: BASOPHILS % (AUTO) 0 % (0-10); EOSINOPHILS % (AUTO) 0 % (0-10); HEMATOCRIT 44 % (35-52); HEMOGLOBIN 15.2 G/DL (11.5-16.0); LYMPHOCYTES # (AUTO) 0.6 X 10^3 (1.0-4.0); LYMPHOCYTES % (AUTO) 2 % (12-44); MEAN CORPUSCULAR HEMOGLOBIN 33 PG (25-34); MEAN CORPUSCULAR HGB CONC 35 G/DL (32-36); MEAN CORPUSCULAR VOLUME 96 FL (80-99); MEAN PLATELET VOLUME 10.1 FL (7.4-10.4); MONOCYTES # (AUTO) 1.3 X 10^3 (0.0-1.0); MONOCYTES % (AUTO) 5 % (0-12); NEUTROPHILS # (AUTO) 21.8 X 10^3 (1.8-7.8); NEUTROPHILS % (AUTO) 92 % (42-75); PLATELET COUNT 259 10^3/uL (130-400); RED BLOOD COUNT 4.58 10^6/uL (4.35-5.85); RED CELL DISTRIBUTION WIDTH 12.8 % (10.0-14.5); WHITE BLOOD COUNT 23.6 10^3/uL (4.3-11.0)
[2018-03-05 15:30] LABS: ALBUMIN 3.2 GM/DL (3.2-4.5); CALCIUM 9.4 MG/DL (8.5-10.1); CREATININE SERUM 1.37 MG/DL (0.60-1.30); POTASSIUM 4.2 MMOL/L (3.6-5.0); TOTAL PROTEIN 6.5 GM/DL (6.4-8.2)
[~2018-03-07] VITALS: Ht 172.7 cm; Wt 54.4 kg
[~2018-03-07 10:44] MED LIST changes: -AMIO200T2 PO; +AMIO200T4 PO; -GADOBUTROL 7.5 MMOL/7.5 ML (GADAVIST) VIAL IV ONE; +NIVOLUMAB 200 MG, NIVOLUMAB 40 MG in NS (IVPB) CANCER CENTER 50 ML IV SCH; +NS (IVPB) CANCER CENTER 250 ML IV SCH; +NS IV 1000 ML (CANCER CTR) 1,000 ML ONE; +TRAZ-189 PO; -TRAZ-28 PO
[2018-03-13] MEDS ORDERED: PRAM0.257 PO (13:19)
[2018-03-13] MEDS ORDERED: POTA10CA68 PO (13:19)
[2018-03-13] MEDS ORDERED: DILT120C85 PO (13:19)
[2018-03-13] MEDS ORDERED: NYST1000 PO (13:41)
[2018-03-13] MEDS ORDERED: HYDR-3812 PO (13:41)
[2018-03-13] MEDS ORDERED: FEXO180T84 PO (13:41)
[2018-03-13] MEDS ORDERED: AMIO200T4 PO (13:41)
[2018-03-13] MEDS ORDERED: LORA0.5T PO (13:41)
[2018-03-13] MEDS ORDERED: DIGO125T PO (13:41)
[2018-03-15] MEDS ORDERED: DIGO125T PO (12:58)
[2018-03-15] MEDS ORDERED: FURO40TA4 PO (12:58)
[2018-03-15] MEDS ORDERED: AMIO200T4 PO (12:58)
[2018-03-15] MEDS ORDERED: LISI2.5T PO (12:58)
[2018-03-15] MEDS ORDERED: POTA10CA68 PO (12:58)
== END 2018-03-19 | disposition home or self-care (01) ==
LOC: ONC 10:44
PROVIDERS: ATTEND Internal Medicine Hematology & Oncology
DX: Z51.0 Encounter for antineoplastic radiation therapy (principal); Z51.11 Encounter for antineoplastic chemotherapy; C50.611 Malignant neoplasm of axillary tail of right female breast; C79.51 Secondary malignant neoplasm of bone; C79.89 Secondary malignant neoplasm of other specified sites; J43.9 Emphysema, unspecified; K76.9 Liver disease, unspecified; R51 Headache; H53.9 Unspecified visual disturbance; R25.1 Tremor, unspecified
CPT/HCPCS: 36415; 36591; 70553; 77290; 77295; 77300; 77334; 77336; 77417; 77470; 80048; 80053; 81000; 83615; 85025; 96360; 96413; 99214

== ENCOUNTER 2018-03-13 11:52 | Observation (INO) | payer MEDICARE, OTHER ==
[~2018-03-13] VITALS: Ht 175.3 cm; Wt 52.2 kg
[~2018-03-13 11:52] MED LIST changes: -NIVOLUMAB 200 MG, NIVOLUMAB 40 MG in NS (IVPB) CANCER CENTER 50 ML IV SCH; -NS (IVPB) CANCER CENTER 250 ML IV SCH; -NS IV 1000 ML (CANCER CTR) 1,000 ML ONE
[2018-03-13 12:21] LABS: BASOPHILS % (AUTO) 0 % (0-10); EOSINOPHILS % (AUTO) 0 % (0-10); HEMATOCRIT 41 % (35-52); LYMPHOCYTES # (AUTO) 0.4 X 10^3 (1.0-4.0); LYMPHOCYTES % (AUTO) 3 % (12-44); MEAN CORPUSCULAR HEMOGLOBIN 33 PG (25-34); MEAN CORPUSCULAR HGB CONC 34 G/DL (32-36); MEAN CORPUSCULAR VOLUME 97 FL (80-99); MEAN PLATELET VOLUME 10.4 FL (7.4-10.4); MONOCYTES # (AUTO) 0.7 X 10^3 (0.0-1.0); MONOCYTES % (AUTO) 6 % (0-12); NEUTROPHILS # (AUTO) 10.6 X 10^3 (1.8-7.8); NEUTROPHILS % (AUTO) 90 % (42-75); PLATELET COUNT 268 10^3/uL (130-400); RED BLOOD COUNT 4.21 10^6/uL (4.35-5.85); RED CELL DISTRIBUTION WIDTH 13.6 % (10.0-14.5); WHITE BLOOD COUNT 11.7 10^3/uL (4.3-11.0)
[2018-03-13 12:45] LABS: ALBUMIN 2.5 GM/DL (3.2-4.5); BILIRUBIN,TOTAL 0.8 MG/DL (0.1-1.0); CALCIUM 8.1 MG/DL (8.5-10.1); CREATININE SERUM 1.45 MG/DL (0.60-1.30); TOTAL PROTEIN 5.3 GM/DL (6.4-8.2)
[2018-03-13 12:53] LABS: LYMPHOCYTES % (MANUAL) 3 %; MONOCYTES % (MANUAL) 10 %; NEUTROPHILS % (MANUAL) 87 %; RBC MORPH NORMAL
[2018-03-13 13:01] LABS: DIGOXIN 2.52 NG/ML (0.80-2.00)
--- NOTE | 2018-03-13 13:10 | Diagnostic Imaging Report ---
PATIENT HISTORY: Cough and weakness. TECHNIQUE: Single frontal view of the chest COMPARISON: 10/01/2016 FINDINGS: Lung volumes are mildly large. There is mild cardiomegaly. There is central vascular congestion and diffuse interstitial opacities. The left-sided Port-A-Cath tip projects over the mid SVC. No pneumothorax or pleural effusion is seen. Old right-sided rib fractures noted. There is stable widening of the right acromioclavicular joint. IMPRESSION: 1. Cardiomegaly with central vascular congestion and mild interstitial edema. No significant pleural effusion. Dictated by: Dictated on workstation # [id number]
[2018-03-13] MEDS ORDERED: PRAM0.257 PO (13:19)
[2018-03-13] MEDS ORDERED: POTA10CA68 PO (13:19)
[2018-03-13] MEDS ORDERED: DILT120C85 PO (13:19)
[2018-03-13 13:22] LABS: INR 1.5 (0.8-1.4); PROTHROMBIN TIME PATIENT 18.1 SEC (12.2-14.7)
[2018-03-13] MEDS ORDERED: DIGO125T PO (13:41)
[2018-03-13] MEDS ORDERED: FEXO180T84 PO (13:41)
[2018-03-13] MEDS ORDERED: NYST1000 PO (13:41)
[2018-03-13] MEDS ORDERED: AMIO200T4 PO (13:41)
[2018-03-13] MEDS ORDERED: HYDR-3812 PO (13:41)
[2018-03-13] MEDS ORDERED: LORA0.5T PO (13:41)
[2018-03-13] MEDS ORDERED: NS IV 1000 ML 1,000 ML IV SCH (13:45)
--- NOTE | 2018-03-13 14:05 | ED General ---
General Chief Complaint: General Problems/Pain Stated Complaint: WEAKNESS Nursing Triage Note: PT ARRIVED PER EMS, PT HAS PORT ACCESSED BY EMS W NS INFUSING. PT CO OF WEAKNESS, STATES HAS NOT EATING WELL FOR A COUPLE WEEKS, HAS CA LUNGS W METS TO BRAIN, PT IS GETTING RADIATION AT THIS X. PT STATES HAS NOT TAKEN STERIODS FOR A WEEK Nursing Sepsis Screen: No Definite Risk History of Present Illness Date Seen by Provider: Mar 13, 2018 Time Seen by Provider: 13:00 Initial Comments Patient is a 72-year-old female who is brought to the emergency room by [facility] for reports of increased weakness for the past 2 weeks. 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 She is accompanied by her brother and [id number] they have been her caretakers for a while and they report she has become so weak she can no longer get up by herself and that's why they had to call EMS for transport because they could not get her out of the chair today. Timing/Duration: Other (2 weeks) Severity: Moderate Associated Systoms: Malaise, Weakness Allergies and Home Medications Allergies Coded Allergies: adhesive tape (Verified Allergy, Unknown, 04/16/08) cefdinir (Verified Allergy, Unknown, NAUSEA, 03/13/16) celecoxib (Verified Allergy, Unknown, NAUSEA, 03/13/16) clarithromycin (Verified Allergy, Unknown, 04/16/08) latex (Verified Allergy, Unknown, HIVES, 03/13/16) metolazone (Verified Adverse Reaction, Severe, SICK TO STOMACH, 08/10/16) Home Medications Amiodarone HCl 200 Mg Tablet, 200 MG PO BID, (Reported) Apixaban 2.5 Mg Tablet, 2.5 MG PO BID, (Reported) Chlorhexidine Gluconate 473 Ml Mouthwash, 0.5 OZ MM BID, (Reported) Cholecalciferol (Vitamin D3) 1,000 Unit Tablet, 1,000 UNIT PO BID, (Reported) Cyanocobalamin 1,000 Mcg/Ml Inj, 1,000 MCG IJ MONTHLY, (Reported) Digoxin 125 Mcg Tablet, 125 MCG PO DAILY, (Reported) Diltiazem HCl 120 Mg Capsule.er, 120 MG PO HS, (Reported) Fexofenadine HCl 180 Mg Tablet, 180 MG PO DAILY, (Reported) Furosemide 40 Mg Tablet, 40 MG PO BID, (Reported) Guaifenesin 1,200 Mg Tab.er.12h, 1,200 MG PO BID, (Reported) Hydrocodone/Acetaminophen 1 Each Tablet, 1-2 TAB PO Q6H PRN for PAIN-MODERATE, ( Reported) Lisinopril 2.5 Mg Tablet, 2.5 MG PO DAILY, (Reported) Lorazepam 0.5 Mg Tablet, 0.5 MG PO DAILY PRN for ANXIETY, (Reported) Magnesium Oxide 400 Mg Tablet, 400 MG PO BID, (Reported) Mometasone Furoate 17 Gm Naspr, 1 SPRAY NSEACH DAILY PRN for ALLERGIES, ( Reported) Nystatin 100,000 Unit/1 Ml Oral.susp, 5 ML PO QID, (Reported) FILLED 03-05-18 SWISH AND RETAIN IN MOUTH LONG POSSIBLE THEN SWALLOW Potassium Chloride 10 Meq Capsule.er, 10 MEQ PO DAILY, (Reported) Pramipexole Di-HCl 0.25 Mg Tablet, 0.25 MG PO HS, (Reported) Ursodiol 300 Mg Capsule, 300 MG PO BID, (Reported) LAST FILLED #[id number] 08-29-17 Patient Home Medication List Home Medication List Reviewed: Yes Review of Systems Constitutional: see HPI, malaise, weakness EENTM: see HPI, blurred vision Respiratory: see HPI; No cough, No dyspnea on exertion Cardiovascular: see HPI; No chest pain, No edema Gastrointestinal: see HPI; No abdominal pain, No constipation, No diarrhea, No nausea, No vomiting Genitourinary: see HPI; No decreased output, No discharge, No dysuria Musculoskeletal: see HPI; No gout, No joint pain, No joint swelling, No muscle pain Skin: see HPI; No change in color, No change in hair/nails Psychiatric/Neurological: See HPI; Denies Anxiety, Denies Depressed Hematologic/Lymphatic: See HPI; Denies Anemia, Denies Blood Clots Immunological/Allergic: see HPI; denies food allergy All Other Systems Reviewed Negative Unless Noted: Yes Past Aiggvsv-Kunejk-Juamyj Hx Past Med/Social Hx: Reviewed Nursing Past Med/Soc Hx Patient Social History Alcohol Use: Denies Use Number of Drinks Today: AA Alcohol Beverage of Choice: Beer Recreational Drug Use: No Smoking Status: Former Smoker Type Used: Cigarettes Recent Foreign Travel: No Contact w/Someone Who Travel: No Recent Infectious Disease Expo: No Recent Hopitalizations: Yes (DC'D 09/27/16) Immunizations Up To Date Date of Influenza Vaccine: Jun 10, 2016 Seasonal Allergies Seasonal Allergies: No Past Medical History Surgeries: Yes (shoulder sx, toe sx, port placed) Breast, Hysterectomy, Orthopedic Respiratory: Yes (HOME O2.) Currently Using CPAP: No Currently Using BIPAP: No Cardiac: No Atrial Fibrillation, Cardiomyopathy, Chronic Edema/Swelling, Coronary Artery Disease, High Cholesterol, Hypertension, Valvular Heart Disease Neurological: No 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 Genitourinary: No Renal Failure Gastrointestinal: Yes (Fatty liver) Chronic Constipation Musculoskeletal: No (bone ca) Arthritis Endocrine: No Cancer: Yes Bone, Lung, Breast Did You Recieve Any Treatments: Yes What Type of Treatment Did You: Chemotherapy Psychosocial: Yes Anxiety, Depression Integumentary: No Blood Disorders: No Family Medical History Reviewed Nursing Family Hx No Pertinent Family Hx Physical Exam Vital Signs Vital Signs - First Documented 03/13/18 16:44 FiO2 32 Capillary Refill : Less Than 3 Seconds General Appearance: No Apparent Distress, WD/WN HEENT: PERRL/EOMI, TMs Normal, Normal ENT Inspection, Pharynx Normal Neck: Full Range of Motion, Normal Inspection, Non Tender, Supple Respiratory: Chest Non Tender, Lungs Clear, Normal Breath Sounds, No Accessory Muscle Use, No Respiratory Distress Cardiovascular: Regular Rate, Rhythm, No Edema, No Gallop, No JVD, No Murmur, Normal Peripheral Pulses Gastrointestinal: Normal Bowel Sounds, No Organomegaly, No Pulsatile Mass, Non Tender, Soft Back: Normal Inspection, No CVA Tenderness, No Vertebral Tenderness Extremity: Normal Capillary Refill, Normal Inspection, Normal Range of Motion, Non Tender, No Calf Tenderness, No Pedal Edema, Other (the patient is experiencing generalized weakness. She requires 1-2 assist to get her out of the bed into the commode.) Neurologic/Psychiatric: Alert, Oriented x3, Normal Mood/Affect Skin: Normal Color, Warm/Dry Lymphatic: No Adenopathy Focused Exam Lactate Level 03/13/18 13:00: Lactic Acid Level 0.69 Lactic Acid Level Procedures/Interventions Date of ETT Placement: Sep 23, 2016 Progress/Results/Core Measures Suspected Sepsis Recent Fever Within 48 Hours: No Infection Criteria Present: None New/Unexplained Altered Menta: No Sepsis Screen: No Definite Risk SIRS Temperature:97.0 Pulse: 68 Respiratory Rate: 18 Laboratory Tests 03/13/18 11:57: White Blood Count 11.7H Blood Pressure 93 /45 Mean: 61 03/13/18 13:00: Lactic Acid Level 0.69 Laboratory Tests 03/13/18 11:57: Creatinine 1.45H, Platelet Count 268, Total Bilirubin 0.8 03/13/18 13:00: INR Comment 1.5H Results/Orders Lab Results Laboratory Tests Test 03/13/18 11:57 03/13/18 13:00 03/13/18 14:40 Range/Units White Blood Count 11.7 H 4.3-11.0 10^3/uL Red Blood Count 4.21 L 4.35-5.85 10^6/uL Hemoglobin 14.0 11.5-16.0 G/DL Hematocrit 41 35-52 % Mean Corpuscular Volume 97 80-99 FL Mean Corpuscular Hemoglobin 33 25-34 PG Mean Corpuscular Hemoglobin Concent 34 32-36 G/DL Red Cell Distribution Width 13.6 10.0-14.5 % Platelet Count 268 130-400 10^3/uL Mean Platelet Volume 10.4 7.4-10.4 FL Neutrophils (%) (Auto) 90 H 42-75 % Lymphocytes (%) (Auto) 3 L 12-44 % Monocytes (%) (Auto) 6 0-12 % Eosinophils (%) (Auto) 0 0-10 % Basophils (%) (Auto) 0 0-10 % Neutrophils # (Auto) 10.6 H 1.8-7.8 X 10^3 Lymphocytes # (Auto) 0.4 L 1.0-4.0 X 10^3 Monocytes # (Auto) 0.7 0.0-1.0 X 10^3 Eosinophils # (Auto) 0.0 0.0-0.3 10^3/uL Basophils # (Auto) 0.0 0.0-0.1 10^3/uL Neutrophils % (Manual) 87 % Lymphocytes % (Manual) 3 % Monocytes % (Manual) 10 % Blood Morphology Comment NORMAL Sodium Level 134 L 135-145 MMOL/L Potassium Level 4.0 3.6-5.0 MMOL/L Chloride Level 95 L 98-107 MMOL/L Carbon Dioxide Level 30 21-32 MMOL/L Anion Gap 9 5-14 MMOL/L Blood Urea Nitrogen 45 H 7-18 MG/DL Creatinine 1.45 H 0.60-1.30 MG/DL Estimat Glomerular Filtration Rate 36 BUN/Creatinine Ratio 31 Glucose Level 113 H 70-105 MG/DL Calcium Level 8.1 L 8.5-10.1 MG/DL Total Bilirubin 0.8 0.1-1.0 MG/DL Aspartate Amino Transf (AST/SGOT) 278 H 5-34 U/L Alanine Aminotransferase (ALT/SGPT) 419 H 0-55 U/L Alkaline Phosphatase 220 H 40-136 U/L Troponin I < 0.30 <0.30 NG/ML Total Protein 5.3 L 6.4-8.2 GM/DL Albumin 2.5 L 3.2-4.5 GM/DL Digoxin Level 2.52 *H 0.80-2.00 NG/ML Prothrombin Time 18.1 H 12.2-14.7 SEC INR Comment 1.5 H 0.8-1.4 Activated Partial Thromboplast Time 33 24-35 SEC Lactic Acid Level 0.69 0.50-2.00 MMOL/L Urine Color YELLOW Urine Clarity CLEAR Urine pH 6 5-9 Urine Specific Minerva 1.010 L 1.016-1.022 Urine Protein NEGATIVE NEGATIVE Urine Glucose (UA) NEGATIVE NEGATIVE Urine Ketones NEGATIVE NEGATIVE Urine Nitrite NEGATIVE NEGATIVE Urine Bilirubin NEGATIVE NEGATIVE Urine Urobilinogen NORMAL NORMAL MG/DL Urine Leukocyte Esterase 3+ H NEGATIVE Urine RBC (Auto) NEGATIVE NEGATIVE Urine RBC NONE /HPF Urine WBC 25-50 H /HPF Urine Squamous Epithelial Cells RARE /HPF Urine Crystals NONE /LPF Urine Bacteria TRACE /HPF Urine Casts PRESENT /LPF Urine Hyaline Casts 5-10 H /LPF Urine Mucus NEGATIVE /LPF Urine Culture Indicated YES Micro Results Microbiology 03/13/18 Urine Culture - Preliminary, Resulted Sent To [facility] My Orders Orders - JOSELIN ORTIZ Cbc With Automated Diff (03/13/18 12:01) Comprehensive Metabolic Panel (03/13/18 12:01) Lactic Acid Analyzer (03/13/18 12:01) Blood Culture (03/13/18 12:01) Sputum Culture (03/13/18 12:01) Ua Culture If Indicated (03/13/18 12:01) Protime With Inr (03/13/18 12:01) Partial Thromboplastin Time (03/13/18 12:01) Chest 1 View, Ap/Pa Only (03/13/18 12:01) O2 (03/13/18 12:01) Saline Lock/Iv-Start (03/13/18 12:01) Vital Signs Adult Sepsis Patie Q15M (03/13/18 12:01) Digoxin (03/13/18 12:01) Manual Differential (03/13/18 11:57) Ekg Tracing (03/13/18 13:11) Ns Iv 1000 Ml (Sodium Chloride 0.9%) (03/13/18 13:45) Troponin I (03/13/18 15:06) Urine Culture (03/13/18 14:40) Vital Signs/I&O 03/13/18 03/13/18 03/13/18 03/13/18 11:52 11:52 15:49 16:05 Temp 97.0 97.3 Pulse 68 57 70 Resp 18 18 20 B/P (MAP) 93/45 (61) 101/43 127/60 (82) Pulse Ox 100 100 100 93 O2 Delivery Nasal Cannula Nasal Cannula Nasal Cannula O2 Flow Rate 3.00 3.00 3.00 03/13/18 03/13/18 03/13/18 03/13/18 16:30 16:44 16:44 19:00 Pulse 66 62 Pulse Ox 98 98 98 O2 Delivery Nasal Cannula Nasal Cannula O2 Flow Rate 3.00 3.00 FiO2 32 03/13/18 19:38 Pulse Ox 98 O2 Delivery Nasal Cannula O2 Flow Rate 3.00 Capillary Refill : Less Than 3 Seconds Blood Pressure Mean: 61 Progress Note : Time: 15:[address] Ponce and care management were consulted in regards to the patient potentially meeting the SIRS criteria and they believe that the patient's symptoms are cancer related and that she does not meet sepsis criteria. ECG Initial ECG Impression Date: Mar 13, 2018 Initial ECG Impression Time: 21:26 Initial ECG Rate: 67 Initial ECG Rhythm: A Fib/Flutter Diagnostic Imaging Diagonstic Imaging: Xray Plain Films/CT/US/NM/MRI: chest Comments NAME: REGGIE ERWIN [facility] REC#: [id number] PT STATUS: REG ER : 1945 PHYSICIAN: JOSELIN ORTIZ ADMIT DATE: 03/13/18/ER Signed Date of Exam: 03/13/18 CHEST 1 VIEW, AP/PA ONLY PATIENT HISTORY: Cough and weakness. TECHNIQUE: Single frontal view of the chest COMPARISON: 10/01/2016 FINDINGS: Lung volumes are mildly large. There is mild cardiomegaly. There is central vascular congestion and diffuse interstitial opacities. The left-sided Port-A-Cath tip projects over the mid SVC. No pneumothorax or pleural effusion is seen. Old right-sided rib fractures noted. There is stable widening of the right acromioclavicular joint. IMPRESSION: 1. Cardiomegaly with central vascular congestion and mild interstitial edema. No significant pleural effusion. Dictated by: Dictated on workstation # [id number] Dict: 03/13/18 1307 Trans: 03/13/18 1519 Interpreted by: KADY QUAN MD Electronically signed by: KADY QUAN MD 03/13/18 1519 Reviewed: Reviewed by Me Departure Communication (Admissions) Time/Spoke to Admitting Phy: 14:[address] Ponce in regards to admission for Reggie and she agrees that the patient does meet admission criteria. She is to be admitted to cardiac stepdown with telemetry. Impression Primary Impression: Generalized weakness Additional Impression: Hypotension Qualified Codes: I95.9 - Hypotension, unspecified Disposition: 09 ADMITTED INPATIENT Condition: Stable/Unchanged Admissions Decision to Admit Reason: Admit from ER (Trauma) Decision to Admit/Date: Mar 13, 2018 Time/Decision to Admit Time: 14:45 Departure-Patient Inst. Referrals: JANET VILLARREAL MD (PCP/Family) Primary Care Physician JOSELIN ORTIZ Mar 13, 2018 14:05
[2018-03-13 14:56] LABS: BILIRUBIN,URINE NEGATIVE (NEGATIVE); CLARITY,URINE CLEAR; COLOR,URINE YELLOW; GLUCOSE, URINE (UA) NEGATIVE (NEGATIVE); KETONES,URINE NEGATIVE (NEGATIVE); LEUKOCYTE ESTERASE ,URINE 3+ (NEGATIVE); NITRITE,URINE NEGATIVE (NEGATIVE); PH,URINE 6 (5-9); PROTEIN,URINE NEGATIVE (NEGATIVE); UROBILINOGEN,URINE NORMAL (NORMAL)
[2018-03-13 15:06] LABS: BACTERIA,URINE TRACE /HPF; SQUAMOUS EPITHELIAL CELL,UR RARE /HPF; WBC,URINE 25-50 /HPF
--- OUTSIDE RECORDS SUMMARY | 2018-03-13 15:40 | XMS REPORT | Clinical Summary ---
Author Author [facility] Organization [facility] Address Unknown Phone Unavailable Care Team Providers Care Cardiothoracic Surgeon Name Role Phone Self, Referral PCP Unavailable Source Comments Some departments are not documenting in the electronic medical record. If you do not see the information that you expected, contact Release of Information in the Health Information Management department at [phone] for further assistance in locating additional records.[facility] Allergies Not on File Current Medications Not on file Active Problems Not on file Social History Tobacco Use Types Packs/Day Years Used Date Never Assessed Sex Assigned at Date Recorded Not on file Last Filed Vital Signs Not on file Plan of Treatment Health Maintenance Due Date Last Done Comments HEPATITIS C SCREENING 1945 PHYSICAL (COMPREHENSIVE) 1954 EXAM PERTUSSIS VACCINE 1958 TETANUS VACCINE 1964 BREAST CANCER SCREENING 1987 COLORECTAL CANCER 1997 SCREENING SHINGLES RECOMBINANT 1997 VACCINE (1 of 2) OSTEOPOROSIS SCREENING 2012 PNEUMONIA (PCV13/PPSV23) 2012 VACCINES (1 of 2 - PCV13) INFLUENZA VACCINE 06/17/2018 Results Not on filefrom Last 3 Months
--- NOTE | 2018-03-13 15:51 | History & Physical-Hospitalist ---
History of Present Illness HPI/Chief Complaint Pt is a 72CF with a PMH of metastatic small cell lung cancer who presented to the ER due to generalized weakness. She states that her symptoms started about 2 weeks ago and has progressed to the point where she is hardly able to ambulate through her house. She is normally very independent and can even do her own grocery shopping. She did start radiation to a brain lesion roughly 2 weeks ago as well. She was on a decadron taper for this which she believe was causing her symptoms so she stopped that on 03/09. She denies any nausea but has had a decreased appetite with little intake. Source: patient, family Exam Limitations: no limitations Date Seen 03/13/18 Time Seen by Provider: 15:45 Attending Physician Reagan Mason MD PCP Edgar Gardner MD Referring Physician Date of Admission Mar 13, 2018 at 15:36 Home Medications & Allergies Home Medications Reviewed patient Home Medication Reconciliation performed by pharmacy medication reconciliations environmental field technician and/or nursing. Patients Allergies have been reviewed. Allergies Allergies Coded Allergies adhesive tape (Verified Allergy, Unknown, 04/16/08) cefdinir (Verified Allergy, Unknown, NAUSEA, 03/13/16) celecoxib (Verified Allergy, Unknown, NAUSEA, 03/13/16) clarithromycin (Verified Allergy, Unknown, 04/16/08) latex (Verified Allergy, Unknown, HIVES, 03/13/16) metolazone (Verified Adverse Reaction, Severe, SICK TO STOMACH, 08/10/16) Past Chnkpkz-Lzjute-Cbmtuw Hx Past Med/Social Hx: Reviewed Nursing Past Med/Soc Hx Patient Social History Alcohol Use: Denies Use Number of Drinks Today: AA Alcohol Beverage of Choice: Beer Recreational Drug Use: No Smoking Status: Former Smoker Type Used: Cigarettes Recent Foreign Travel: No Contact w/other who traveled: No Recent Hopitalizations: Yes (DC'D 09/27/16) Recent Infectious Disease Expo: No Immunizations Up To Date Date of Influenza Vaccine: Jun 10, 2016 Seasonal Allergies Seasonal Allergies: No Past Medical History Surgeries: Breast, Hysterectomy, Orthopedic Respiratory: COPD Currently Using CPAP: No Currently Using BIPAP: No Cardiac: Atrial Fibrillation, Cardiomyopathy, Chronic Edema/Swelling, Coronary Artery Disease, High Cholesterol, Hypertension, Valvular Heart Disease 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: No Hysterectomy Genitourinary: Renal Failure Gastrointestinal: Chronic Constipation Musculoskeletal: Arthritis Cancer: Brain, Bone, Lung, Breast Did You Recieve Any Treatments: Yes What Type of Treatment Did You: Chemotherapy Psychosocial: Anxiety, Depression History of Blood Disorders: No Family History Reviewed Nursing Family Hx No Pertinent Family Hx Review of Systems Constitutional: weakness Physical Exam Physical Exam Vital Signs Vital Signs - First Documented 03/13/18 16:44 FiO2 32 Capillary Refill : Less Than 3 Seconds General Appearance: Chronically ill, Thin HEENT: No Scleral Icterus (L), No Scleral Icterus (R) Neck: Non Tender, Supple Respiratory: Lungs Clear, No Accessory Muscle Use, No Respiratory Distress Cardiovascular: Normal Peripheral Pulses, Systolic Murmur, Irregularly Irregular Gastrointestinal: Normal Bowel Sounds, Non Tender, Soft Extremity: No Calf Tenderness, No Pedal Edema Neurologic/Psychiatric: Alert, Oriented x3, Normal Mood/Affect Skin: Normal Color, Warm/Dry Results Results/Procedures Labs Laboratory Tests 03/13/18 11:57 Patient resulted labs reviewed. 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 Status: Acute Assessment & Plan: Oncology consulted, appreciate recs (3) CHF (congestive heart failure) Status: Acute Assessment & Plan: EF 35% on last echo with mod-severe aortic stensosi Will consult Cardiology Concerning for progressive valvular disease as etiology of symptoms Qualifiers: Heart failure type: systolic Heart failure chronicity: chronic Qualified Codes: I50.22 - Chronic systolic (congestive) heart failure (4) Atrial fibrillation Status: Acute Assessment & Plan: On digoxin Level high will hold Rate well controlled currently On anticoagulation Qualifiers: Atrial fibrillation type: chronic Qualified Codes: I48.2 - Chronic atrial fibrillation REAGAN MASON MD Mar 13, 2018 3:51 pm
[2018-03-13 16:05] VITALS: BP 127/60
[2018-03-13] MEDS ORDERED: CATHETER FLUSH 10 ML SYR IV PRN (16:15)
[2018-03-13 16:44] VITALS: BP 101/43
[2018-03-13] MEDS ORDERED: RT-ALBUTEROL SULF 2.5 MG/3 ML PRE-MIX VIAL INH PRN (17:00)
[2018-03-13] MEDS: NS IV 1000 ML 1,000 ML IV SCH (17:44)
[2018-03-13] MEDS ORDERED: ANTACID SUSP 30 ML UDC (MYLANTA) PO PRN (19:15)
[2018-03-13] MEDS ORDERED: MILK OF MAGNESIA 400 MG/5 ML 30 ML UDC PO PRN (19:15)
[2018-03-13] MEDS ORDERED: ONDANSETRON 4 MG/2 ML (SDV) Z0FRAN IV PRN (19:15)
[2018-03-13] MEDS ORDERED: BENZONATATE 100 MG (TESSALON) CAPSULE PO PRN (19:15)
[2018-03-13] MEDS ORDERED: MELATONIN 3 MG TABLET PO PRN (19:15)
[2018-03-13 19:25] VITALS: BP 110/56
[2018-03-13] MEDS: RT-ALBUTEROL SULF 2.5 MG/3 ML PRE-MIX VIAL INH SCH (19:38)
[2018-03-14] MEDS: ACETAMINOPHEN 325 MG TABLET PO PRN (00:03)
[2018-03-14 00:15] VITALS: BP 118/58
[2018-03-14] MEDS: NS IV 1000 ML 1,000 ML IV SCH ×3 (03:45→22:51)
[2018-03-14 04:38] VITALS: BP 127/70
[2018-03-14 05:44] LABS: BASOPHILS % (AUTO) 0 % (0-10); EOSINOPHILS % (AUTO) 0 % (0-10); HEMATOCRIT 34 % (35-52); HEMOGLOBIN 11.7 G/DL (11.5-16.0); LYMPHOCYTES # (AUTO) 0.3 X 10^3 (1.0-4.0); LYMPHOCYTES % (AUTO) 3 % (12-44); MEAN CORPUSCULAR HEMOGLOBIN 33 PG (25-34); MEAN CORPUSCULAR HGB CONC 34 G/DL (32-36); MEAN CORPUSCULAR VOLUME 97 FL (80-99); MEAN PLATELET VOLUME 10.2 FL (7.4-10.4); MONOCYTES # (AUTO) 0.6 X 10^3 (0.0-1.0); MONOCYTES % (AUTO) 5 % (0-12); NEUTROPHILS # (AUTO) 11.3 X 10^3 (1.8-7.8); NEUTROPHILS % (AUTO) 93 % (42-75); PLATELET COUNT 221 10^3/uL (130-400); RED BLOOD COUNT 3.52 10^6/uL (4.35-5.85); RED CELL DISTRIBUTION WIDTH 13.7 % (10.0-14.5); WHITE BLOOD COUNT 12.2 10^3/uL (4.3-11.0)
[2018-03-14 06:13] LABS: BILIRUBIN,TOTAL 0.5 MG/DL (0.1-1.0); CALCIUM 7.5 MG/DL (8.5-10.1); CREATININE SERUM 0.93 MG/DL (0.60-1.30); POTASSIUM 3.5 MMOL/L (3.6-5.0); TOTAL PROTEIN 4.3 GM/DL (6.4-8.2)
[2018-03-14 06:19] LABS: DIGOXIN 1.87 NG/ML (0.80-2.00)
[2018-03-14] MEDS: RT-ALBUTEROL SULF 2.5 MG/3 ML PRE-MIX VIAL INH SCH ×2 (08:24→19:48)
[2018-03-14 08:30] VITALS: BP 102/55
--- NOTE | 2018-03-14 09:15 | Consultation-Cardiology ---
HPI-Cardiology Cardiology Consultation: Date of Consultation 03/14/18 Time Seen by Provider: 09:20 Date of Admission 03-13-18 Attending Physician Fanta Mason MD Admitting Physician Edgar Gardner MD Consulting Physician Mel Carrillo MD HPI: Chief Complaint: Gen weakness Ms. Newton is a 72year old female who has been admitted to [facility] from the ED with increasing generalized weakness and malaise. 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 She states she took 3-4 days of steroid tx and began to feel weak. She then stopped the steroid thinking this may be the cause, but her symptoms continued to worsen. She states yesterday she was unable to even get out of a chair at home even with the assistance of her brother. She reports no appetite and she has not been eating or drinking well. She reports constipation. No c/o CP, palpitations, syncope or near syncope. No c/o dyspnea. She does use oxygen at home. Review of Systems-Cardiology Review of Systems Constitutional: No chills, No fever; malaise, tiredness, weight loss Eyes: vision change (when taking steroids; resolved after stopping) Ears/Nose/Throat: No epistaxis, No recent hearing loss Respiratory: As described under HPI Cardiovascular: As described under HPI Gastrointestinal: constipation; No diarrhea, No nausea, No vomiting Genitourinary: No dysuria, No hematuria Musculoskeletal: no symptoms reported Skin: No rash, No ulcerations Psychiatric/Neurological: No seizure, No focal weakness, No syncope Hematologic: No bleeding abnormalities All Other Systems Reviewed Negative Unless Noted: Yes FAA-Sgmbnq-Dhuweo Hx Patient Social History Alcohol Use: Denies Use Recreational Drug Use: No Smoking Status: Former Smoker Type Used: Cigarettes Recent Foreign Travel: No Recent Infectious Disease Expo: No Hospitalization with Isolation: Denies Physical Abuse Screen: No Sexual Abuse: No Immunizations Up To Date Date of Influenza Vaccine: Jun 10, 2016 Past Medical History PMH As described under Assessment. Family Medical History Family Medical History: Does not report fam history of early CAD or SCD Allergies and Home Medications Allergies Coded Allergies: adhesive tape (Verified Allergy, Unknown, 04/16/08) cefdinir (Verified Allergy, Unknown, NAUSEA, 03/13/16) celecoxib (Verified Allergy, Unknown, NAUSEA, 03/13/16) clarithromycin (Verified Allergy, Unknown, 04/16/08) latex (Verified Allergy, Unknown, HIVES, 03/13/16) metolazone (Verified Adverse Reaction, Severe, SICK TO STOMACH, 08/10/16) Home Medications Amiodarone HCl 200 Mg Tablet, 200 MG PO BID, (Reported) Apixaban 2.5 Mg Tablet, 2.5 MG PO BID, (Reported) Chlorhexidine Gluconate 473 Ml Mouthwash, 0.5 OZ MM BID, (Reported) Cholecalciferol (Vitamin D3) 1,000 Unit Tablet, 1,000 UNIT PO BID, (Reported) Cyanocobalamin 1,000 Mcg/Ml Inj, 1,000 MCG IJ MONTHLY, (Reported) Digoxin 125 Mcg Tablet, 125 MCG PO DAILY, (Reported) Diltiazem HCl 120 Mg Capsule.er, 120 MG PO HS, (Reported) Fexofenadine HCl 180 Mg Tablet, 180 MG PO DAILY, (Reported) Furosemide 40 Mg Tablet, 40 MG PO BID, (Reported) Guaifenesin 1,200 Mg Tab.er.12h, 1,200 MG PO BID, (Reported) Hydrocodone/Acetaminophen 1 Each Tablet, 1-2 TAB PO Q6H PRN for PAIN-MODERATE, ( Reported) Lisinopril 2.5 Mg Tablet, 2.5 MG PO DAILY, (Reported) Lorazepam 0.5 Mg Tablet, 0.5 MG PO DAILY PRN for ANXIETY, (Reported) Magnesium Oxide 400 Mg Tablet, 400 MG PO BID, (Reported) Mometasone Furoate 17 Gm Naspr, 1 SPRAY NSEACH DAILY PRN for ALLERGIES, ( Reported) Nystatin 100,000 Unit/1 Ml Oral.susp, 5 ML PO QID, (Reported) FILLED 03-05-18 SWISH AND RETAIN IN MOUTH LONG POSSIBLE THEN SWALLOW Potassium Chloride 10 Meq Capsule.er, 10 MEQ PO DAILY, (Reported) Pramipexole Di-HCl 0.25 Mg Tablet, 0.25 MG PO HS, (Reported) Ursodiol 300 Mg Capsule, 300 MG PO BID, (Reported) LAST FILLED #[id number] 08-29-17 Patient Home Medication List Home Medication List Reviewed: Yes Physical Exam-Cardiology Physical Exam Vital Signs/I&O 03/14/18 03/14/18 03/14/18 03/14/18 04:38 07:15 08:30 09:00 Temp 98.4 97.5 Pulse 70 64 68 Resp 20 18 B/P (MAP) 127/70 (89) 102/55 (71) Pulse Ox 97 97 97 O2 Delivery Nasal Cannula Nasal Cannula Nasal Cannula O2 Flow Rate 3.00 3.00 3.00 03/14/18 13:08 Pulse 58 03/14/18 00:00 Intake Total 1300 ml Output Total 100 ml Balance 1200 ml Capillary Refill : Less Than 3 Seconds Constitutional: AAO x 3, other (thin) HEENT: PERRL, hearing is well preserved Neck: No carotid bruit; carotid pulses are 2 + bilaterally Respiratory: No accessory muscle use, No respiratory distress; chest expansion is symmetric, chest is bilaterally symmetric, other (diminshed lower lobes bilat ) Cardiovascular: irregularly irregular; No JVD; S1 and S2, systolic murmur (3/ MSM) Gastrointestinal: No tender; audible bowel sounds Rectal: deferred Extremities: no lower extremity edema bilateral Neurologic/Psychiatric: grossly intact Skin: No rash, No ulcerations Other comments Generalized weakness Data Review Labs Laboratory Tests 03/14/18 05:34: White Blood Count 12.2H, Red Blood Count 3.52L, Hemoglobin 11.7, Hematocrit 34L , Mean Corpuscular Volume 97, Mean Corpuscular Hemoglobin 33, Mean Corpuscular Hemoglobin Concent 34, Red Cell Distribution Width 13.7, Platelet Count 221, Mean Platelet Volume 10.2, Neutrophils (%) (Auto) 93H, Lymphocytes (%) (Auto) 3L , Monocytes (%) (Auto) 5, Eosinophils (%) (Auto) 0, Basophils (%) (Auto) 0, Neutrophils # (Auto) 11.3H, Lymphocytes # (Auto) 0.3L, Monocytes # (Auto) 0.6, Eosinophils # (Auto) 0.0, Basophils # (Auto) 0.0, Sodium Level 137, Potassium Level 3.5L, Chloride Level 104, Carbon Dioxide Level 25, Anion Gap 8, Blood Urea Nitrogen 27H, Creatinine 0.93, Estimat Glomerular Filtration Rate 60, BUN/ Creatinine Ratio 29, Glucose Level 106H, Calcium Level 7.5L, Total Bilirubin 0.5 , Aspartate Amino Transf (AST/SGOT) 218H, Alanine Aminotransferase (ALT/SGPT) 319H, Alkaline Phosphatase 171H, Total Protein 4.3L, Albumin 2.0L, Digoxin Level 1.87 Microbiology 03/13/18 Urine Culture - Preliminary, Resulted See Comments Sent To [facility] NAME: REGGIE NEWTON [facility] REC#: [id number] PT STATUS: REG ER : 1945 PHYSICIAN: JOSELIN ORTIZ ADMIT DATE: 03/13/18/ER Signed Date of Exam: 03/13/18 CHEST 1 VIEW, AP/PA ONLY PATIENT HISTORY: Cough and weakness. TECHNIQUE: Single frontal view of the chest COMPARISON: 10/01/2016 FINDINGS: Lung volumes are mildly large. There is mild cardiomegaly. There is central vascular congestion and diffuse interstitial opacities. The left-sided Port-A-Cath tip projects over the mid SVC. No pneumothorax or pleural effusion is seen. Old right-sided rib fractures noted. There is stable widening of the right acromioclavicular joint. IMPRESSION: 1. Cardiomegaly with central vascular congestion and mild interstitial edema. No significant pleural effusion. Dictated by: Dictated on workstation # [id number] Dict: 03/13/18 1307 Trans: 03/13/18 1519 Interpreted by: KADY QUAN MD Electronically signed by: KADY QUAN MD 03/13/18 1519 ECG Impression ECG Comment A-fib with controlled rate A/P-Cardiology Assessment/Admission Diagnosis Generalized fatigue/malaise Dig toxicity UTI - medical services managing Elevated liver enzymes Chronic diastolic and systolic CHF, class III, multiple hospitalizations since Jul 2016 Cardiac arrest (stated to be bradycardic and apneic in Anesthesiology notes) on 09/23/16 at time of SAMI by Dr Tuttle that showed the following: Dilated left atrium and left atrial appendage with smoke in the left atrial appendage. Low velocity by Doppler, unable to fully evaluate and rule out a thrombus at this point. Diffuse left ventricular hypokinesia with estimated ejection fraction 30% . Moderate to severe aortic valve stenosis. Mild to moderate aortic regurgitation.Moderate to severe mitral regurgitation. Atrial fibrillation, non-valvular, chronic, heart rate difficult to control, currently controlled H/O Intolerance to digoxin due to dizziness and nonspecific malaise Intolerance to beta-lelia due to symptomatic fall in chronically low bp Dilated cardiomyopathy, first documented in March 2016. Echo of 08/10/16 shows LVEF 30-35%; valvular heart disease consisting of mod- sev aortic stenosis (ao valve area 1 sq cm); MAC w/o significant MS; mod TR; PASP 45 mmHg Metastatic carcinoma to the bone. 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 Status post adjuvant chemotherapy with Adriamycin and Cytoxan regimen 4 cycles followed by radiation therapy to the right breast completed in August 2008. Status post adjuvant hormonal therapy with Arimidex from August 2008 until early 2013. Metastatic disease to the brain for which she is on radiation tx Clinical Quality Measures DVT/VTE Risk/Contraindication: Risk Factor Score Per Nursin RFS Level Per Nursing on Admit: 4+=Very High KIRSTEN STARK Mar 14, 2018 09:15
--- NOTE | 2018-03-14 09:49 | Progress Note-Hospitalist ---
Subjective HPI/CC On Admission Date Seen by Provider: Mar 14, 2018 Time Seen by Provider: 09:44 Pt is a 72CF with a PMH of metastatic small cell lung cancer who presented to the ER due to generalized weakness. She states that her symptoms started about 2 weeks ago and has progressed to the point where she is hardly able to ambulate through her house. She is normally very independent and can even do her own grocery shopping. She did start radiation to a brain lesion roughly 2 weeks ago as well. She was on a decadron taper for this which she believe was causing her symptoms so she stopped that on 03/09. She denies any nausea but has had a decreased appetite with little intake. Subjective/Events-last exam Pt reports feeling about the same. Was up with help to bathroom. PT at bedside about to begin therapy. Focused Exam Lactate Level 03/13/18 13:00: Lactic Acid Level 0.69 Objective Exam Vital Signs Vital Signs Date Time Temp Pulse Resp B/P (MAP) Pulse Ox O2 Delivery O2 Flow Rate FiO2 03/14/18 09:00 97 Nasal Cannula 3.00 03/14/18 08:30 97.5 68 18 102/55 (71) 03/13/18 16:44 32 Capillary Refill : Less Than 3 Seconds General Appearance: Chronically ill, Cachetic Respiratory: Lungs Clear, No Respiratory Distress Cardiovascular: Systolic Murmur, Irregularly Irregular Gastrointestinal: Normal Bowel Sounds, Non Tender, Soft Extremity: No Calf Tenderness, No Pedal Edema Neurologic/Psychiatric: Alert, Oriented x3 Results/Procedures Lab Laboratory Tests 03/14/18 05:34 Patient resulted labs reviewed. Imaging: Reviewed Imaging Report Assessment/Plan Assessment and Plan Assess & Plan/Chief Complaint Generalized weakness Diagnosis/Problems Diagnosis/Problems (1) Generalized weakness Status: Acute Assessment & Plan: Will consult PT/OT Consider IRU admission Await echo to evaluate for worsening valvular disease (2) Metastatic carcinoma to bone Status: Acute Assessment & Plan: Oncology consulted, appreciate recs (3) CHF (congestive heart failure) Status: Acute Assessment & Plan: EF 35% on last echo with mod-severe aortic stensosi Will consult Cardiology Concerning for progressive valvular disease as etiology of symptoms Discussed with Samia Aquino NP for Dr. Carrillo Likely would not be candidate for valve replacement (even TAVR) due to comorbidities Qualifiers: Heart failure type: systolic Heart failure chronicity: chronic Qualified Codes: I50.22 - Chronic systolic (congestive) heart failure (4) Atrial fibrillation Status: Acute Assessment & Plan: On digoxin Level high will hold Rate well controlled currently On anticoagulation Qualifiers: Atrial fibrillation type: chronic Qualified Codes: I48.2 - Chronic atrial fibrillation Clinical Quality Measures DVT/VTE Risk/Contraindication: Risk Factor Score Per Nursin RFS Level Per Nursing on Admit: 4+=Very High REAGAN SARAH MD Mar 14, 2018 9:49 am
--- NOTE | 2018-03-14 10:23 | Physical Therapy Evaluation ---
PT Evaluation-General Medical Diagnosis Admission Date Mar 13, 2018 at 15:36 Medical Diagnosis: weakness Onset Date: Mar 13, 2018 Therapy Diagnosis Therapy Diagnosis: weakness;abn gait Height/Weight Height (Feet): 5 Height (Inches): 9.00 Weight (Pounds): 115 Weight (Ounces): 0.0 Precautions Precautions/Isolations: Standard Precautions Weight Bear Status Right Lower Extremity: Right Weight Bearing/Tolerated Left Lower Extremity: Left Weight Bearing/Tolerated Referral Physician: Marlon Reason for Referral: Evaluation/Treatment Medical History Pertinent Medical History: Atrial Fib, Arthritis, CAD, COPD, HTN, Renal Insufficiency Additional Medical History hx of brain, bone, lung and breast CA; high cholesterol Current History Pt presented to hospital with increasing weakness over the past 2 weeks. She has recently started a new cancer treatment and is on steroids, per her report Reviewed History: Yes Social History Home: Single Level Current Living Status: Alone Entry Into Home: Stairs With Railing Prior/Core FIM Prior Level of Function Functional [place] Measure 0=Not Assessed/NA 4=Minimal Assistance 1=Total Assistance 5=Supervision or Setup 2=Maximal Assistance 6=Modified [place] 3=Moderate Assistance 7=Complete [place] Bed Mobility: 7 Transfers (B,C,W/C) (FIM): 7 Gait: 7 Pt was able to do her own grocery shopping and driving as well until about 2 weeks ago. PT Evaluation-Current Subjective Reports she feels dizzy with sitting up initially. Reports she feels weak, but wants to get up and move. Reports she does not have much of an appetite. Pain Numeric Pain Scale: 0-No Pain Objective Patient Orientation: Person, Place, Time, Situation Problem Solving: Good Attachments: Oxygen (2l/min;in situ during and post treatmeht), IV ROM/Strength ROM Lower Extremities wNL Strength Lower Extremities grossly 3/5 throughout Integumentary/Posture Integumentary refer to nursing notes. Bowel Incontinence: No Bladder Incontinence: No Posture rounded shoulders but symmetrical Neuromuscular (Tone, Coordination, Reflexes) functional Sensory Vision: Wears Glasses Hearing: Functional Hand Dominance: Right Sensation Right Lower Extremit: Intact Sensation Left Lower Extremity: Intact Transfers Functional [place] Measure 0=Not Assessed/NA 4=Minimal Assistance 1=Total Assistance 5=Supervision or Setup 2=Maximal Assistance 6=Modified [place] 3=Moderate Assistance 7=Complete [place] Transfers (B, C, W/C) (FIM): 4 Supine to/from Sit: 4 Sit to/from Stand: 4 MIn assist to sit up in bed to lift her trunk; she required min assist to stand as well as verbal cues for hand placement. Required min assist to transfer off the toilet as well. Gait Mode of Locomotion: Walk Anticipated Mode of Locomotion: Walk Gait (FIM): 2 Distance: 25 ft and 15 ft Gait Level of Assist: 4 Gait Assistive Device: FWW Comments/Gait Description Unsteady due to weakness and dizziness; slow gait with cautious steps. Balance Sitting Static: Fair Sitting Dynamic: Fair Standing Static: Fair Standing Dynamic: Fair Treatment Up in room; toileted. Assessment/Needs Presents with gross functional weakness that limits her transfers, bed mobility , gait, balance and general safety. She will benefit from russelle dPT to address functional strength to progress her mobility to allow her to return home as before. Rehab Potential: Guarded PT Alf Goals Alf Goals PT Critical Care Nurse Specialist Goals Time Frame: Mar 21, 2018 Transfers (B,C,W/C) (FIM): 6 Gait (FIM): 6 Gait distance (FIM): 3=150 ft Gait Assistive Device: FWW PT Plan Problem List Problem List: Activity Tolerance, Functional Strength, Safety, Balance, Gait, Transfer, Bed Mobility Treatment/Plan Treatment Plan: Continue Plan of Care Treatment Plan: Bed Mobility, Education, Functional Activity Rosemary, Functional Strength, Gait, Safety, Therapeutic Exercise, Transfers Treatment Duration: Mar 21, 2018 Frequency: 6 times per week Estimated Hrs Per Day: .5 hour per day Patient and/or Family Agrees t: Yes Safety Risks/Education Patient Education: Transfer Techniques, Safety Issues Teaching Recipient: Patient Teaching Methods: Discussion Response to Teaching: Reinforcement Needed Time/GCodes Time In: 950 Time Out: 1015 Total Billed Treatment Time: 25 Total Billed Treatment visit EVM 15 FA 10 JUAN A MAYERS PT Mar 14, 2018 10:23
--- NOTE | 2018-03-14 11:45 | Consultation-Cardiology ---
HPI-Cardiology Cardiology Consultation: Date of Consultation 03/14/18 Time Seen by Provider: 10:40 Date of Admission Attending Physician Fanta Mason MD Admitting Physician Edgar Gardner MD Consulting Physician DAVID SCHUMACHER MD, MA, FACP, FACC, FSCAI, CCDS HPI: Chief Complaint: Gen weakness Ms. Newton is a 72year old female who has been admitted to [facility] from the ED with increasing generalized weakness and malaise. 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 She states she took 3-4 days of steroid tx and began to feel weak. She then stopped the steroid thinking this may be the cause, but her symptoms continued to worsen. She states yesterday she was unable to even get out of a chair at home even with the assistance of her brother. She reports no appetite and she has not been eating or drinking well. She reports constipation. No c/o CP, palpitations, syncope or near syncope. No c/o dyspnea. She does use oxygen at home. Review of Systems-Cardiology Review of Systems Constitutional: No chills, No fever; malaise, tiredness, weight loss Eyes: vision change (when taking steroids; resolved after stopping) Ears/Nose/Throat: No epistaxis, No recent hearing loss Respiratory: As described under HPI Cardiovascular: As described under HPI Gastrointestinal: constipation; No diarrhea, No nausea, No vomiting Genitourinary: No dysuria, No hematuria Musculoskeletal: other (gen body discomfort) Skin: No rash, No ulcerations Psychiatric/Neurological: No seizure, No focal weakness, No syncope Hematologic: No bleeding abnormalities All Other Systems Reviewed Negative Unless Noted: Yes [id number]-Bdrypl Hx Patient Social History Alcohol Use: Denies Use Recreational Drug Use: No Smoking Status: Former Smoker Type Used: Cigarettes Recent Foreign Travel: No Recent Infectious Disease Expo: No Hospitalization with Isolation: Denies Physical Abuse Screen: No Sexual Abuse: No Immunizations Up To Date Date of Influenza Vaccine: Jun 10, 2016 Past Medical History PMH As described under Assessment. Family Medical History Family Medical History: Does not report fam history of early CAD or SCD Allergies and Home Medications Allergies Coded Allergies: adhesive tape (Verified Allergy, Unknown, 04/16/08) cefdinir (Verified Allergy, Unknown, NAUSEA, 03/13/16) celecoxib (Verified Allergy, Unknown, NAUSEA, 03/13/16) clarithromycin (Verified Allergy, Unknown, 04/16/08) latex (Verified Allergy, Unknown, HIVES, 03/13/16) metolazone (Verified Adverse Reaction, Severe, SICK TO STOMACH, 08/10/16) Home Medications Amiodarone HCl 200 Mg Tablet, 200 MG PO BID, (Reported) Apixaban 2.5 Mg Tablet, 2.5 MG PO BID, (Reported) Chlorhexidine Gluconate 473 Ml Mouthwash, 0.5 OZ MM BID, (Reported) Cholecalciferol (Vitamin D3) 1,000 Unit Tablet, 1,000 UNIT PO BID, (Reported) Cyanocobalamin 1,000 Mcg/Ml Inj, 1,000 MCG IJ MONTHLY, (Reported) Digoxin 125 Mcg Tablet, 125 MCG PO DAILY, (Reported) Diltiazem HCl 120 Mg Capsule.er, 120 MG PO HS, (Reported) Fexofenadine HCl 180 Mg Tablet, 180 MG PO DAILY, (Reported) Furosemide 40 Mg Tablet, 40 MG PO BID, (Reported) Guaifenesin 1,200 Mg Tab.er.12h, 1,200 MG PO BID, (Reported) Hydrocodone/Acetaminophen 1 Each Tablet, 1-2 TAB PO Q6H PRN for PAIN-MODERATE, ( Reported) Lisinopril 2.5 Mg Tablet, 2.5 MG PO DAILY, (Reported) Lorazepam 0.5 Mg Tablet, 0.5 MG PO DAILY PRN for ANXIETY, (Reported) Magnesium Oxide 400 Mg Tablet, 400 MG PO BID, (Reported) Mometasone Furoate 17 Gm Naspr, 1 SPRAY NSEACH DAILY PRN for ALLERGIES, ( Reported) Nystatin 100,000 Unit/1 Ml Oral.susp, 5 ML PO QID, (Reported) FILLED 03-05-18 SWISH AND RETAIN IN MOUTH LONG POSSIBLE THEN SWALLOW Potassium Chloride 10 Meq Capsule.er, 10 MEQ PO DAILY, (Reported) Pramipexole Di-HCl 0.25 Mg Tablet, 0.25 MG PO HS, (Reported) Ursodiol 300 Mg Capsule, 300 MG PO BID, (Reported) LAST FILLED #[id number] 08-29-17 Patient Home Medication List Home Medication List Reviewed: Yes Physical Exam-Cardiology Physical Exam Vital Signs/I&O 03/14/18 03/14/18 03/14/18 03/14/18 00:15 01:00 04:38 07:15 Temp 99.2 98.4 Pulse 81 64 70 64 Resp 18 20 B/P (MAP) 118/58 (78) 127/70 (89) Pulse Ox 97 97 O2 Delivery Nasal Cannula Nasal Cannula O2 Flow Rate 3.00 3.00 03/14/18 03/14/18 08:30 09:00 Temp 97.5 Pulse 68 Resp 18 B/P (MAP) 102/55 (71) Pulse Ox 97 97 O2 Delivery Nasal Cannula Nasal Cannula O2 Flow Rate 3.00 3.00 03/14/18 00:00 Intake Total 1300 ml Output Total 100 ml Balance 1200 ml Capillary Refill : Less Than 3 Seconds Constitutional: AAO x 3, other (cachetic appearing) HEENT: PERRL, hearing is well preserved Neck: No carotid bruit; carotid pulses are 2 + bilaterally Respiratory: No accessory muscle use, No respiratory distress; chest expansion is symmetric, chest is bilaterally symmetric, other (diminshed lower lobes bilat ) Cardiovascular: irregularly irregular; No JVD; S1 and S2, systolic murmur (3/6 MSM) Gastrointestinal: No tender; audible bowel sounds Rectal: deferred Extremities: no lower extremity edema bilateral Neurologic/Psychiatric: grossly intact Skin: No rash, No ulcerations Data Review Labs Laboratory Tests 03/13/18 11:57: White Blood Count 11.7H, Red Blood Count 4.21L, Hemoglobin 14.0, Hematocrit 41, Mean Corpuscular Volume 97, Mean Corpuscular Hemoglobin 33, Mean Corpuscular Hemoglobin Concent 34, Red Cell Distribution Width 13.6, Platelet Count 268, Mean Platelet Volume 10.4, Neutrophils (%) (Auto) 90H, Lymphocytes (%) (Auto) 3L , Monocytes (%) (Auto) 6, Eosinophils (%) (Auto) 0, Basophils (%) (Auto) 0, Neutrophils # (Auto) 10.6H, Lymphocytes # (Auto) 0.4L, Monocytes # (Auto) 0.7, Eosinophils # (Auto) 0.0, Basophils # (Auto) 0.0, Neutrophils % (Manual) 87, Lymphocytes % (Manual) 3, Monocytes % (Manual) 10, Blood Morphology Comment NORMAL, Sodium Level 134L, Potassium Level 4.0, Chloride Level 95L, Carbon Dioxide Level 30, Anion Gap 9, Blood Urea Nitrogen 45H, Creatinine 1.45H, Estimat Glomerular Filtration Rate 36, BUN/Creatinine Ratio 31, Glucose Level 113H, Calcium Level 8.1L, Total Bilirubin 0.8, Aspartate Amino Transf (AST/SGOT ) 278H, Alanine Aminotransferase (ALT/SGPT) 419H, Alkaline Phosphatase 220H, Troponin I < 0.30, Total Protein 5.3L, Albumin 2.5L, Digoxin Level 2.52*H 03/13/18 13:00: Prothrombin Time 18.1H, INR Comment 1.5H, Activated Partial Thromboplast Time 33 , Lactic Acid Level 0.69 03/13/18 14:40: Urine Color YELLOW, Urine Clarity CLEAR, Urine pH 6, Urine Specific [place] 1.010L, Urine Protein NEGATIVE, Urine Glucose (UA) NEGATIVE, Urine Ketones NEGATIVE, Urine Nitrite NEGATIVE, Urine Bilirubin NEGATIVE, Urine Urobilinogen NORMAL, Urine Leukocyte Esterase 3+H, Urine RBC (Auto) NEGATIVE, Urine RBC NONE , Urine WBC 25-50H, Urine Squamous Epithelial Cells RARE, Urine Crystals NONE, Urine Bacteria TRACE, Urine Casts PRESENT, Urine Hyaline Casts 5-10H, Urine Mucus NEGATIVE, Urine Culture Indicated YES 03/14/18 05:34: White Blood Count 12.2H, Red Blood Count 3.52L, Hemoglobin 11.7, Hematocrit 34L , Mean Corpuscular Volume 97, Mean Corpuscular Hemoglobin 33, Mean Corpuscular Hemoglobin Concent 34, Red Cell Distribution Width 13.7, Platelet Count 221, Mean Platelet Volume 10.2, Neutrophils (%) (Auto) 93H, Lymphocytes (%) (Auto) 3L , Monocytes (%) (Auto) 5, Eosinophils (%) (Auto) 0, Basophils (%) (Auto) 0, Neutrophils # (Auto) 11.3H, Lymphocytes # (Auto) 0.3L, Monocytes # (Auto) 0.6, Eosinophils # (Auto) 0.0, Basophils # (Auto) 0.0, Sodium Level 137, Potassium Level 3.5L, Chloride Level 104, Carbon Dioxide Level 25, Anion Gap 8, Blood Urea Nitrogen 27H, Creatinine 0.93, Estimat Glomerular Filtration Rate 60, BUN/ Creatinine Ratio 29, Glucose Level 106H, Calcium Level 7.5L, Total Bilirubin 0.5 , Aspartate Amino Transf (AST/SGOT) 218H, Alanine Aminotransferase (ALT/SGPT) 319H, Alkaline Phosphatase 171H, Total Protein 4.3L, Albumin 2.0L, Digoxin Level 1.87 Microbiology 03/13/18 Urine Culture - Preliminary, Resulted See Comments Sent To Rml A/P-Cardiology Assessment/Admission Diagnosis Generalized weakness likely due to malignancy-related cachexia/[id number] Dig toxicity UTI - medical services managing Elevated liver enzymes Chronic diastolic and systolic CHF, class III, multiple hospitalizations since Jul 2016 Cardiac arrest (stated to be bradycardic and apneic in Anesthesiology notes) on 09/23/16 at time of SAMI by Dr Tuttle that showed the following: Dilated left atrium and left atrial appendage with smoke in the left atrial appendage. Low velocity by Doppler, unable to fully evaluate and rule out a thrombus at this point. Diffuse left ventricular hypokinesia with estimated ejection fraction 30% . Moderate to severe aortic valve stenosis. Mild to moderate aortic regurgitation.Moderate to severe mitral regurgitation. Echo of 03/14/18: LVEF 50-55%, mild conc LVH, mild LA enlargement, mild to mod MAC, grade 3 diastolic dysfunction of LV, severe with peak pressure gradient approx 100 mmHg and valve area approx 0.7 sq cm Atrial fibrillation, non-valvular, chronic, heart rate difficult to control, currently controlled H/O Intolerance to digoxin due to dizziness and nonspecific malaise Intolerance to beta-lelia due to symptomatic fall in chronically low bp Dilated cardiomyopathy, first documented in March 2016. Metastatic carcinoma to the bone. 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 Status post adjuvant chemotherapy with Adriamycin and Cytoxan regimen 4 cycles followed by radiation therapy to the right breast completed in August 2008. Status post adjuvant hormonal therapy with Arimidex from August 2008 until early 2013. Metastatic disease to the brain for which she is on radiation tx Discussion and Recomendations * Complex management due to multiple comorbidities * D/c dig and amiodarone for now * Dilt for vent rate control * Focus on nutrition and wgt gain * Not a suitable candidate for aortic valve intervention, given cachexia and poor prognosis reported by the Onc Svce * Monitor labs Clinical Quality Measures DVT/VTE Risk/Contraindication: Risk Factor Score Per Nursin RFS Level Per Nursing on Admit: 4+=Very High DAVID SCHUMACHER MD FACP [facility] Mar 14, 2018 11:45
[2018-03-14] MEDS ORDERED: HYDROCODONE PO PRN (12:15)
[2018-03-14] MEDS ORDERED: LORazepam 0.5 MG (ATIVAN) TABLET PO PRN (12:15)
[2018-03-14] MEDS ORDERED: PATIENT MAY USE OWN MEDS, ALL MC SCH (12:15)
[2018-03-14] MEDS ORDERED: ACETAMINOPHEN PO PRN (12:15)
[2018-03-14] MEDS ORDERED: HYDROcodone/APAP 5 MG/325 MG (LORTAB) TAB PO PRN (13:15)
--- NOTE | 2018-03-14 16:27 | Occupational Therapy Eval ---
OT Evaluation-General/PLF Medical Diagnosis Admission Date Mar 13, 2018 at 15:36 Medical Diagnosis: weakness/metastatic small cell lung CA Onset Date: Mar 13, 2018 Therapy Diagnosis Therapy Diagnosis: Decreased ADL skills Height/Weight Height (Feet): 5 Height (Inches): 9.00 Weight (Pounds): 115 Weight (Ounces): 0.0 Precautions Precautions/Isolations: Fall Prevention, Standard Precautions Safety Interventions: Move Closer to Desk Weight Bear Status Weight Bearing Restriction: Weight Bearing/Tolerated Referral Physician: Marlon Referral Reason: Activity Tolerance, Self Care, Strengthening/ROM Medical History Pertinent Medical History: Atrial Fib, Arthritis, CAD, COPD, HTN, Renal Insufficiency Additional Medical History Breast surgery, hysterectomy, Current History Pt. has been undergoing chemotherapy. Recently became too weak to be at home by self. Reviewed History: Yes Social History Home: Single Level Current Living Status: Alone Entry Into Home: Stairs With Railing ADL-Prior Level of Function ADL PLOF Comments Pt. states that she has not driven since June, but before this hospitalization she was independent with most daily tasks. DME/Equipment: Shower DME/Equipment Comments Pt. states that she doesn't have any equipment and doesn't use any equipment. States that her sister did loan her a walker a few days ago, but she was "too weak" to use it at the time. OT Current Status Subjective Pt. does not report pain but states that she is very tired. Appearance Pt. is in bed. States that she just got back from the bathroom. States that she is too tired to get up again. Mental Status/Objective Patient Orientation: Person, Place, Time, Situation Attachments: IV, Oxygen Current Glasses/Contacts: Yes Dentures/Partials: Yes Hand Dominance: Right Upper Extremity ROM Pt. has limited ROM in shoulders. States that she fell some time ago near the cancer center, and hurt her right shoulder. Has difficulty in her left as well and states that she receives shots for them. Pt. demonstrated 90 degrees bilateral shoulder ROM. Upper Extremity Strength Right air technician- 3/5 Left air technician-3+/5 ADL-Treatment Functional [place] Measure 0=Not Assessed/NA 4=Minimal Assistance 1=Total Assistance 5=Supervision or Setup 2=Maximal Assistance 6=Modified [place] 3=Moderate Assistance 7=Complete IndependenceIRFPAI Quality Coding Scale 6 Independent with activity with or without an assistive device 5 Patient requires set up or clean up by helper. Patient completes activity by themselves 4 Supervision or touching assist (CGA). [place] provide cues , steadying assist 3 The helper provides less than half the effort to complete the activity 2 The helper provides more than half the effort to complete the activity 1 Dependent. The helper does all the effort to complete an activity 7 Patient refused to complete or attempt activity 9 The patient did not perform the activity before the current illness or injury 88 Not attempted due to Medical conditions or safety concerns Other Treatments Pt. reports feeling too fatigued to stand again. OT asked her how she was able to get to the bathroom previously. States that she had to use the walker, gait belt, and a nurse aide to assist her. States that it was difficult. Pt. reports having no appetite, and occasionally "choking." Pt. states that previous to this hospitalization, she was able to take care of self and manage all ADLs. Pt. currently resides alone in [place]. Education OT Patient Education: Correct positioning, Reviewed precautions, Rehab process Teaching Recipient: Patient Teaching Methods: Discussion Response to Teaching: Verbalize Understanding OT Short Term Goals Short Term Goals Time Frame: Mar 21, 2018 Eating(FIM): 5 Grooming(FIM): 4 Bathing(FIM): 4 Upper Body Dressing(FIM): 4 Lower Body Dressing(FIM): 4 Toileting(FIM): 4 Transfers (B,C,W/C) (FIM): 4 Toilet/Commode Transfer(FIM): 4 Shower Transfer(FIM): 4 Additional Short Term Goals: 1-Demonstrate ADL Tasks, 2-Verbalize Understanding , 3-ImproveStrength/Rosemary 1=Demonstrate adherence to instructed precautions during ADL tasks. 2=Patient will verbalize/demonstrate understanding of assistive devices/ modifications for ADL. 3=Patient will improve strength/tolerance for activity to enable patient to perform ADL's. OT Area Cleaner Goals Area Cleaner Goals Time Frame: Apr 04, 2018 Eating (FIM): 6 Grooming(FIM): 6 Bathing(FIM): 5 Upper Body Dressing(FIM): 5 Lower Body Dressing(FIM): 5 Toileting(FIM): 6 Transfers (B,C,W/C) (FIM): 6 Toilet/Commode Transfer(FIM): 6 Shower Transfer(FIM): 5 Additional Goals: 1-Demonstrate ADL Tasks, 2-Verbalize Understanding, 3- ImproveStrength/Rosemary 1=Demonstrate adherence to instructed precautions during ADL tasks. 2=Patient will verbalize/demonstrate understanding of assistive devices/ modifications for ADL. 3=Patient will improve strength/tolerance for activity to enable patient to perform ADL's. OT Education/Plan Problem List/Assessment Assessment: Decreased Activ Tolerance, Decreased UE Strength, Dependent Transfers, Impaired Bed Mobility, Impaired Funct Balance, Impaired I ADL's, Impaired Self-Care Skills, Restricted Funct UE ROM Discharge Recommendations Plan/Recommendations: Continue POC Comment Equipment needs and discharge location to be determined. Patient/Family Goals Pt. states that her goal is to be more independent and to gain her strength back. Treatment Plan/Plan of Care Treatment,Training & Education: Yes Patient would benefit from OT for education, treatment and training to promote independence in ADL's, mobility, safety and/or upper extremity function for ADL' s. Plan of Care: ADL Retraining, Caregiver Training, Functional Mobility, UE Funct Exercise/Act Treatment Duration: Apr 04, 2018 Frequency: 5 times per week Estimated Hrs Per Day: .25 hour per day Agreement: Yes Rehab Potential: Guarded Time/GCodes Start Time: 15:30 Stop Time: 15:45 Total Time Billed (hr/min): 15 Billed Treatment Time 1, EVH x 15minutes DEEPAK MIXON OT Mar 14, 2018 16:27
[2018-03-14 16:31] VITALS: BP 126/61
[2018-03-14 20:00] VITALS: BP 124/58
[2018-03-14] MEDS: APIXABAN 2.5 MG (ELIQUIS) TABLET PO SCH (20:19)
[2018-03-14] MEDS: URSODIOL 300 MG CAPSULE PO SCH (20:21)
[2018-03-14] MEDS ORDERED: NON-FORMULARY MEDICATION 1 EA EA (Diltiazem HCl (Diltiazem ER) 120 MG) PO SCH (21:00)
[2018-03-14] MEDS ORDERED: DILTIAZEM 120 MG (CARDIZEM CD) CAP PO SCH ×2 (21:00)
[2018-03-14] MEDS ORDERED: PATIENT MAY USE OWN MED,SINGLE MED PO SCH ×2 (21:00)
--- NOTE | 2018-03-14 22:08 | CONSULTATION REPORT ---
DATE OF SERVICE: 03/14/2018 REFERRING PHYSICIAN: Fanta Mason MD. The patient is admitted to room 424. IMPRESSION: 1. A 72-year-old female diagnosed with extensive stage small cell lung cancer in mid 2016 with bone metastasis. 2. Status post multiple chemotherapy regimens including carboplatin and etoposide x3, topotecan x5, Camptosar x1 and Opdivo x1. 3. Recent diagnosis of brain metastasis, status post whole brain radiation therapy. 4. The patient admitted with increasing weakness and decreased performance status. 5. History of severe aortic stenosis and on medical management. RECOMMENDATIONS: 1. Continue management of acute symptoms as you are doing. 2. Her prognosis from metastatic small cell cancer to the bone, adrenal glands and brain is extremely poor and she has had numerous rounds of treatments. There are no other agents to try and we have discussed hospice care with her in the past. 3. Consider nursing home social worker consult for reevaluation of living arrangements. The patient has been living by herself and was managing with help from her family members. Because of her progressive disease and worsening physical condition, she may not be able to live by herself for much longer. Discussion need to be held about other options including hospice care. BRIEF HISTORY: The patient is a 72-year-old female who presented to the emergency room with worsening generalized weakness. The patient has been getting worse for the past few weeks and got to the point where she was unable to get up and move around at all. She has not been eating and drinking well. She has just completed whole brain radiation therapy for brain metastasis from small cell lung cancer and stopped the Decadron taper prematurely. Today, she is feeling slightly better and is awake and oriented and answering appropriately. She is still very weak and is trying to work with physical therapy and strengthening. She denied any headaches or visual changes. No new lumps or masses. PAST MEDICAL HISTORY: Significant for a diagnosis of small cell lung cancer in mid 2015 with bone metastasis without an identifiable primary. She received palliative chemotherapy with carboplatin and etoposide regimen x3 cycles and she stopped treatment because of side effects. She was diagnosed with a left supraclavicular lymph node metastasis and underwent chemotherapy with topotecan with minimal response and radiation therapy with an excellent response. 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 She tried treatments with the Opdivo x1 cycle and did not tolerate this and decided not to take any treatment. In 01/2017 she was diagnosed with a brain metastasis and was started on palliative radiation therapy and has just completed this. She has a previous history of stage IIA right breast cancer diagnosed in 02/2008 and underwent adjuvant chemotherapy with Adriamycin and Cytoxan regimen x4 followed by radiation therapy and adjuvant hormonal therapy. OTHER MEDICAL PROBLEMS: Include chronic diastolic and systolic congestive heart failure with multiple hospitalizations. She had a cardiac arrest in early 2016. She has moderate to severe aortic stenosis and moderate to severe mitral regurgitation. History of atrial fibrillation. She also has a history of COPD. PAST SURGICAL HISTORY: Include lumpectomy and sentinel lymph node biopsy in 2007, hysterectomy in the past. SOCIAL HISTORY: The patient is single and lives alone in [place], [place]. She previously worked at [employer]. She has extensive history of tobacco use and has continued this throughout. She uses alcohol socially and denied any recreational drug use. FAMILY HISTORY: Unremarkable. PHYSICAL EXAMINATION: GENERAL: Today showed an elderly female, thin and weak appearing, awake and oriented and in no acute distress. VITAL SIGNS: Temperature was 97.1, pulse rate 78, respirations 18, blood pressure 126/61, oxygen saturation of 93% on 3 liters of oxygen by nasal cannula. HEENT: Normocephalic with alopecia. Extraocular muscles intact. Conjunctivae pink, oral mucosa moist. NECK: Supple, with no JVD. No cervical, supraclavicular or axillary lymphadenopathy palpable. CHEST: Showed left-sided port. Lungs with diminished breath sounds bilaterally without any wheezes or rales. CARDIOVASCULAR: Regular with frequent missed beats. Grade II systolic murmur was heard. ABDOMEN: Soft, nontender with no hepatosplenomegaly or other masses palpable. EXTREMITIES: Showed no edema. NEUROLOGIC: Showed no focal motor deficits. Overall, motor strength was 4/5 bilaterally. LABORATORY DATA: CBC done today showed WBC 12.2, hemoglobin 11.7, platelet count 221,000 with neutrophil count 11.3 and lymphocyte count 0.3. Chemistry panel showed normal electrolytes except potassium level of 3.5. BUN was 27 and creatinine 0.93 with GFR of 60. Yesterday at the time of admission, the BUN was 45 and creatinine 1.45 with GFR of 36 mL per minute. Nonfasting glucose was 106. AST was elevated at 218, ALT at 319, alkaline phosphatase 171 and albumin 2.0. Chest x-ray done at the time of admission showed cardiomegaly with central vascular congestion and mild interstitial edema. No significant pleural effusion noted. Most recent MRI of the brain from 02/13/2018 showed a 5 mm posterior fossa nodule and a solitary metastatic deposit was suspected. No other significant findings or changes. Chronic mild atrophy and periventricular white matter small vessel sequelae were stable. Thank you for allowing me to participate in this patient's care. I will follow the patient with you and make appropriate recommendations. Job ID: [id number] DocumentID: [id number] Dictated Date: 03/14/2018 17:17:39 Pigs Feet Cleaner Date: 03/14/2018 22:08:12 Dictated By: GATO ACOSTA MD MTDD
[2018-03-14 23:55] VITALS: BP 103/55
[2018-03-15 04:10] VITALS: BP 107/52
[2018-03-15 08:30] VITALS: BP 129/58
[2018-03-15] MEDS: URSODIOL 300 MG CAPSULE PO SCH (08:30)
[2018-03-15] MEDS: APIXABAN 2.5 MG (ELIQUIS) TABLET PO SCH (08:30)
[2018-03-15] MEDS ORDERED: PATIENT MAY USE OWN MED,SINGLE MED PO SCH ×2 (09:00)
[2018-03-15] MEDS: RT-ALBUTEROL SULF 2.5 MG/3 ML PRE-MIX VIAL INH SCH (10:02)
[2018-03-15] MEDS: ACETAMINOPHEN 325 MG TABLET PO PRN (10:07)
[2018-03-15] MEDS: NS IV 1000 ML 1,000 ML IV SCH (10:07)
[2018-03-15 10:09] VITALS: BP 129/58
--- NOTE | 2018-03-15 10:09 | Progress Note-Cardiology ---
Cardiology SOAP Progress Note Subjective: Gen malaise and weakness and intermittent headaches No cp or palp or syncope No shortness of breath at rest. Short of breath with exertional activity Objective: I&O/Vital Signs 03/14/18 03/15/18 03/15/18 03/15/18 23:55 01:00 04:10 06:58 Temp 98.8 98.6 Pulse 85 66 66 54 Resp 18 18 B/P (MAP) 103/55 (71) 107/52 (70) Pulse Ox 94 95 O2 Delivery Nasal Cannula Nasal Cannula O2 Flow Rate 3.00 3.00 03/15/18 07:54 O2 Delivery Nasal Cannula O2 Flow Rate 3.00 03/15/18 00:00 Intake Total 780 ml Output Total 1100 ml Balance -320 ml Weight (Pounds): 115 Weight (Ounces): 0.0 Weight (Calculated Kilograms): [id number] Constitutional: AAO x 3, other (cachetic appearing) Respiratory: No accessory muscle use, No respiratory distress; chest expansion is symmetric, chest is bilaterally symmetric, other (diminshed lower lobes bilat ) Cardiovascular: irregularly irregular; No JVD; S1 and S2, systolic murmur (/ MSM) Gastrointestional: No tender; audible bowel sounds Extremities: no lower extremity edema bilateral Neurologic/Psychiatric: grossly intact Skin: No rash, No ulcerations Results/Procedures: Labs Microbiology 03/13/18 Blood Culture - Preliminary, Resulted No growth 03/13/18 Urine Culture - Preliminary, Resulted See Comments Sent To [facility] Laboratory Tests 03/13/18 11:57 03/14/18 05:34 A/P: Assessment: Generalized weakness likely due to malignancy-related cachexia/wohsdgm-px-vyceer Dig toxicity UTI - medical services managing Elevated liver enzymes Chronic diastolic and systolic CHF, class III, multiple hospitalizations since Jul 2016 Cardiac arrest (stated to be bradycardic and apneic in Anesthesiology notes) on 09/23/16 at time of [facility] by Dr Tuttle that showed the following: Dilated left atrium and left atrial appendage with smoke in the left atrial appendage. Low velocity by Doppler, unable to fully evaluate and rule out a thrombus at this point. Diffuse left ventricular hypokinesia with estimated ejection fraction 30% . Moderate to severe aortic valve stenosis. Mild to moderate aortic regurgitation.Moderate to severe mitral regurgitation. Echo of 03/14/18: LVEF 55-65%, mild conc LVH, mild LA enlargement, mild to mod MAC, grade 3 diastolic dysfunction of LV, severe with peak pressure gradient approx 110 mmHg and valve area approx 0.7 sq cm Atrial fibrillation, non-valvular, chronic, heart rate difficult to control, currently controlled H/O Intolerance to digoxin due to dizziness and nonspecific malaise Intolerance to beta-lelia due to symptomatic fall in chronically low bp Dilated cardiomyopathy, first documented in March 2016. Metastatic carcinoma to the bone. 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 Status post adjuvant chemotherapy with Adriamycin and Cytoxan regimen 4 cycles followed by radiation therapy to the right breast completed in August 2008. Status post adjuvant hormonal therapy with Arimidex from August 2008 until early 2013. Metastatic disease to the brain for which she is on radiation tx Plan: * Complex management due to multiple comorbidities * D/c dig and amiodarone for now * Dilt for vent rate control * Focus on nutrition and wgt gain * Not a suitable candidate for aortic valve intervention, given cachexia and poor prognosis reported by the Onc Svce * Replenish K * Monitor labs * I spoke with Dr Mason this am re: Ms Newton * Dr Tuttle covering Cardiology over the weekend DAVID SCHUMACHER MD FACP FACC CCDS Mar 15, 2018 10:09
[2018-03-15] MEDS ORDERED: KCL 20 MEQ TAB (K-DUR) PO NR (10:15)
--- NOTE | 2018-03-15 10:55 | Discharge Summary-Hospitalist ---
Diagnosis/Chief Complaint Date of Admission Mar 13, 2018 at 3:36 pm Date of Discharge Discharge Date: Mar 15, 2018 Admission Diagnosis Generlized weakness Discharge Diagnosis (1) Generalized weakness Status: Acute Assessment & Plan: Will consult PT/OT Will DC to IRU today Worsening aortic stenosis Discussed with Dr Carrillo and ok to DC to rehab (2) Metastatic carcinoma to bone Status: Acute Assessment & Plan: Oncology consulted, appreciate recs (3) CHF (congestive heart failure) Status: Acute Assessment & Plan: EF 35% on last echo with mod-severe aortic stensosi Will consult Cardiology Concerning for progressive valvular disease as etiology of symptoms Discussed with Samia Walsh- CRM MARKETING SPECIALIST for Dr. Carrillo Likely would not be candidate for valve replacement (even TAVR) due to comorbidities (4) Atrial fibrillation Status: Acute Assessment & Plan: On digoxin Level high will hold Rate well controlled currently On anticoagulation Discharge Summary Procedures/Consulations Dr Carrillo- Cardiology Discharge Physical Exam Allergies: Coded Allergies: adhesive tape (Verified Allergy, Unknown, 04/16/08) cefdinir (Verified Allergy, Unknown, NAUSEA, 03/13/16) celecoxib (Verified Allergy, Unknown, NAUSEA, 03/13/16) clarithromycin (Verified Allergy, Unknown, 04/16/08) latex (Verified Allergy, Unknown, HIVES, 03/13/16) metolazone (Verified Adverse Reaction, Severe, SICK TO STOMACH, 08/10/16) Vitals & I&Os Vital Signs Date Time Temp Pulse Resp B/P (MAP) Pulse Ox O2 Delivery O2 Flow Rate FiO2 03/15/18 10:09 98.7 58 18 129/58 (81) 92 Nasal Cannula 2.00 03/13/18 16:44 32 General Appearance: Alert, Oriented X3, No Acute Distress Respiratory: Clear to Auscultation Cardiovascular: Regular Rate Hospital Course Pt was admitted to hospital for generalized weakness. She was evaluated by PT/ OT and deemed a good candidate for IRU given quick decline in functional status. She did have and echo which revealed severe aortic stenosis. I discussed this finding with patient and informed her of overall functional status decline may be secondary to that. She was discharged to IRU in stable condition. Labs (last 24 hrs) Microbiology 03/13/18 Blood Culture - Preliminary, Resulted No growth 03/13/18 Urine Culture - Preliminary, Resulted See Comments Sent To [facility] Patient resulted labs reviewed. Imaging: Reviewed Imaging Report Discussion & Recommendations Discharge Planning: >30 minutes discharge planning Discharge Home Medications: Active Scripts Active Reported Nystatin 100,000 Unit/1 Ml Oral.susp 5 Ml PO QID FILLED 03-05-18 SWISH AND RETAIN IN MOUTH LONG POSSIBLE THEN SWALLOW Lorazepam 0.5 Mg Tablet 0.5 Mg PO DAILY PRN Nell Allergy (Fexofenadine HCl) 180 Mg Tablet 180 Mg PO DAILY Hydrocodone-Acetamin 5-325 mg (Hydrocodone/Acetaminophen) 1 Each Tablet 1-2 Tab PO Q6H PRN Diltiazem ER (Diltiazem HCl) 120 Mg Capsule.er 120 Mg PO HS Pramipexole Dihydrochloride (Pramipexole Di-HCl) 0.25 Mg Tablet 0.25 Mg PO HS Mucinex (Guaifenesin) 1,200 Mg Tab.er.12h 1,200 Mg PO BID Peridex (Chlorhexidine Gluconate) 473 Ml Mouthwash 0.5 Oz MM BID Cyanocobalamin Injection (Cyanocobalamin) 1,000 Mcg/Ml Inj 1,000 Mcg IJ MONTHLY Magnesium (Magnesium Oxide) 400 Mg Tablet 400 Mg PO BID Nasonex (Mometasone Furoate) 17 Gm Naspr 1 [place] NSEACH DAILY PRN Eliquis (Apixaban) 2.5 Mg Tablet 2.5 Mg PO BID Vitamin D3 (Cholecalciferol (Vitamin D3)) 1,000 Unit Tablet 1,000 Unit PO BID Ursodiol 300 Mg Capsule 300 Mg PO BID LAST FILLED #270 08-29-17 Instructions to patient/family Please see electronic discharge instructions given to patient. Clinical Quality Measures DVT/VTE Risk/Contraindication: Risk Factor Score Per Nursin RFS Level Per Nursing on Admit: 4+=Very High Problem Qualifiers (1) CHF (congestive heart failure): Heart failure type: systolic Heart failure chronicity: chronic Qualified Codes: I50.22 - Chronic systolic (congestive) heart failure (2) Atrial fibrillation: Atrial fibrillation type: chronic Qualified Codes: I48.2 - Chronic atrial fibrillation REAGAN SARAH MD Mar 15, 2018 10:54 am
[2018-03-15 11:16] LABS: ALANINE AMINOTRANSFERASE 241 U/L (0-55); ALKALINE PHOSPHATASE 177 U/L (40-136); BILIRUBIN,TOTAL 0.6 MG/DL (0.1-1.0); BUN/CREATININE RATIO 16; CALCIUM 7.4 MG/DL (8.5-10.1); CARBON DIOXIDE 24 MMOL/L (21-32); CHLORIDE 108 MMOL/L (98-107); CREATININE SERUM 0.61 MG/DL (0.60-1.30); GFR ESTIMATED > 60; GLUCOSE 64 MG/DL (70-105); POTASSIUM 4.2 MMOL/L (3.6-5.0); SODIUM 138 MMOL/L (135-145); TOTAL PROTEIN 4.6 GM/DL (6.4-8.2)
[2018-03-15] MEDS ORDERED: AMIO200T4 PO (12:58)
[2018-03-15] MEDS ORDERED: DIGO125T PO (12:58)
[2018-03-15] MEDS ORDERED: FURO40TA4 PO (12:58)
[2018-03-15] MEDS ORDERED: LISI2.5T PO (12:58)
[2018-03-15] MEDS ORDERED: POTA10CA68 PO (12:58)
--- OUTSIDE RECORDS SUMMARY | 2018-03-19 13:33 | XMS REPORT | Clinical Summary ---
Author Author [facility] Organization [facility] Address Unknown Phone Unavailable Care Team Providers Care Pantographer Name Role Phone Self, Referral PCP Unavailable Source Comments Some departments are not documenting in the electronic medical record. If you do not see the information that you expected, contact Release of Information in the Health Information Management department at [phone] for further assistance in locating additional records.[facility] Allergies Not on File Current Medications Not [...]
== END 2018-03-15 10:45 ==
LOC: EDUNIT# 11:52 → ER 11:53 → 4TH 15:36 → UNDOADMIN 15:36 → 4TH 16:00 → UNDODISIN 03-15 10:45
PROVIDERS: ADMIT Family Medicine; ATTEND Family Medicine
DX: I35.0 Nonrheumatic aortic (valve) stenosis (principal); R64 Cachexia; R62.7 Adult failure to thrive; N39.0 Urinary tract infection, site not specified; C79.31 Secondary malignant neoplasm of brain; C79.51 Secondary malignant neoplasm of bone; C77.0 Secondary and unspecified malignant neoplasm of lymph nodes of head, face and neck; C79.71 Secondary malignant neoplasm of right adrenal gland; I11.0 Hypertensive heart disease with heart failure; Z66 Do not resuscitate; I50.42 Chronic combined systolic (congestive) and diastolic (congestive) heart failure; C79.72 Secondary malignant neoplasm of left adrenal gland; J44.9 Chronic obstructive pulmonary disease, unspecified; I42.0 Dilated cardiomyopathy; I48.2 Chronic atrial fibrillation; R85 Abnormal findings in specimens from digestive organs and abdominal cavity; Z92.3 Personal history of irradiation; Z99.81 Dependence on supplemental oxygen; F17.210 Nicotine dependence, cigarettes, uncomplicated; I25.10 Atherosclerotic heart disease of native coronary artery without angina pectoris; E78.00 Pure hypercholesterolemia, unspecified; K76.0 Fatty (change of) liver, not elsewhere classified; F41.9 Anxiety disorder, unspecified; F32.9 Major depressive disorder, single episode, unspecified; K59.09 Other constipation; M19.91 Primary osteoarthritis, unspecified site; Z85.118 Personal history of other malignant neoplasm of bronchus and lung; Z85.3 Personal history of malignant neoplasm of breast
CPT/HCPCS: 36415; 36556; 71045; 80053; 80162; 81000; 83605; 84484; 85007; 85025; 85027; 85610; 85730; 87040; 87088; 87186; 93005; 94640; 94760; 96360

== ENCOUNTER 2018-03-15 09:58 | Inpatient (IN) | payer MEDICARE, OTHER ==
[~2018-03-15] VITALS: Ht 172.7 cm; Wt 48.8 kg
[~2018-03-15 09:58] MED LIST changes: +DIGO125T PO; +FEXO180T84 PO; +HYDR-3812 PO; +NYST1000 PO; +POTA10CA68 PO; +PRAM0.257 PO
[2018-03-15] MEDS ORDERED: KCL 20 MEQ TAB (K-DUR) PO NR (10:15)
[2018-03-15 11:00] VITALS: BP 109/57
--- NOTE | 2018-03-15 11:28 | Physical Therapy Evaluation ---
PT Evaluation-General Medical Diagnosis Admission Date Mar 15, 2018 at 10:45 Medical Diagnosis: weakness; hypotension Onset Date: Mar 13, 2018 Therapy Diagnosis Therapy Diagnosis: weakness; abn gait Height/Weight Height (Feet): 5 Height (Inches): 9.00 Weight (Pounds): 115 Weight (Ounces): 0.0 Precautions Precautions/Isolations: Standard Precautions Referral Physician: Chinmay Reason for Referral: Evaluation/Treatment Medical History Pertinent Medical History: Atrial Fib, Arthritis, CAD, COPD, HTN, Renal Insufficiency Additional Medical History Pt is a 72CF with a PMH of metastatic small cell lung cancer who presented to the ER due to generalized weakness. She states that her symptoms started about 2 weeks ago and has progressed to the point where she is hardly able to ambulate through her house. She is normally very independent and can even do her own grocery shopping. She did start radiation to a brain lesion roughly 2 weeks ago as well. She was on a decadron taper for this which she believe was causing her symptoms so she stopped that on 03/09. She denies any nausea but has had a decreased appetite with little intake.--this is from the H&P for admission to acute hospital on 03/13/18 Current History Pt transferred to ARU for functional strngth and mobility training to allow her to return home and manage her mobility with as little assist as possible. Reviewed History: Yes Social History Current Living Status: Alone Entry Into Home: Stairs With Railing Prior/Core FIM Prior Level of Function Functional [place] Measure 0=Not Assessed/NA 4=Minimal Assistance 1=Total Assistance 5=Supervision or Setup 2=Maximal Assistance 6=Modified [place] 3=Moderate Assistance 7=Complete [place] Bed Mobility: 7 Transfers (B,C,W/C) (FIM): 7 Gait: 7 Pt has been driving and doing her own grocery shopping as well; however, in the past 2 weeks she has had a general decline. PT Evaluation-Current Subjective Pt reports she feels tired today. Reports she is also feeling weak today. Pain Numeric Pain Scale: 0-No Pain Location: No Pain Reported Objective Patient Orientation: Person, Place, Time, Situation Problem Solving: Good Attachments: Central Line, Oxygen (3l/min) ROM/Strength ROM Lower Extremities WNL Strenght Lower Extremities B LE strength is grossly 3/5 throughout. Integumentary/Posture Integumentary Refer to nursing notes. Bowel Incontinence: No Bladder Incontinence: No Posture Thin and frail; rounded shoulders but symmetrical Neuromuscular (Tone, Coordination, Reflexes) Intact and functional Sensory Vision: Wears Glasses Hearing: Functional Hand Dominance: Right Sensation Right Lower Extremit: Intact Sensation Left Lower Extremity: Intact Transfers Functional [place] Measure 0=Not Assessed/NA 4=Minimal Assistance 1=Total Assistance 5=Supervision or Setup 2=Maximal Assistance 6=Modified [place] 3=Moderate Assistance 7=Complete IndependenceIRFPAI Quality Coding Scale 6 Independent with activity with or without an assistive device 5 Patient requires set up or clean up by helper. Patient completes activity by themselves 4 Supervision or touching assist (CGA). [place] provide cues , steadying assist 3 The helper provides less than half the effort to complete the activity 2 The helper provides more than half the effort to complete the activity 1 Dependent. The helper does all the effort to complete an activity 7 Patient refused to complete or attempt activity 9 The patient did not perform the activity before the current illness or injury 88 Not attempted due to Medical conditions or safety concerns Transfers (B, C, W/C) (FIM): 3 Roll Left to Right (QC): 5 Supine to/from Sit: 5 Sit to/from Stand: 3 (varies from min to mod assist depending on surface height. ) Sit to Lying (QC): 4 (CGA for legs) Lying to Sitting/Side of Bed(Q: 5 Sit to Stand (QC): 3 Chair/Xik-xl-Ggitd Xfer(QC): 4 (Min assist and use of FWW for safety. ) Unsteady with initial standing. Gait Does the Patient Walk?: Yes Mode of Locomotion: Walk Anticipated Mode of Locomotion: Walk Gait (FIM): 2 Distance (FIM): 3=572-88 ft Walk 10 feet (QC): 4 Walk 50 ft with 2 Turns(QC): 4 Walk 150 ft (QC): 88 (unable to walk this distance at this time) Walking 10ft/uneven surface-QC: 4 (min assist to for balacne and safety) Distance: 50 ft Gait Level of Assist: 4 Gait Persons Needed: 1 Gait Assistive Device: FWW Comments/Gait Description Gait is slow with decreased step length; unsteady due to functional weakness. Wheelchair Training Does the Pt Use a Wheelchair?: No Stairs Stairs (FIM): 2 #of Steps: 1 Level of Assist: 4 1 Step (curb) (QC): 4 4 Steps (QC): 88 (not safe to attempt 4 steps) Assistive Device: Walker 12 Steps (QC): 88 Balance Sitting Static: Good Sitting Dynamic: Fair Standing Static: Fair Standing Dynamic: Fair Picking up an Object (QC): 88 (unsafe to attempt) Treatment Functional gait and transfers; pt toileted and needed min assit to stand from raised toilet seat. Education on safety and ARU expectations. Assessment/Needs Pt presents with diagnosis metastatic cancer and had an acute hospital stay due to progressive weakness. She has been referred to ARU for functional strengthening and mobility to progress her to be mod indep in her home. He is cooperative and motivated to make gains that will allow her to discharge home. She requires assist with functional transfers, her gait is limited and balance is limited primarily due to weakness; she also has lumited functional activity tolerance. Rehab Potential: Guarded PT Short Term Goals Short Term Goals Time Frame: Mar 22, 2018 Transfers (B,C,W/C) (FIM): 5 Gait (FIM): 4 Distance (FIM): 3=150 ft Gait Assistive Device: FWW PT Forest Supervisor Goals Long-Term Goals PT Long-Term Goals Time Frame: Apr 03, 2018 Transfers (B,C,W/C) (FIM): 6 Sit to Lying (QC): 6 Lying-Sitting on Side/Bed(QC): 6 Sit to Stand (QC): 6 Roll Left to Right (QC): 6 Chair/Cxi-cp-Mwgmk Xfer(QC): 6 Car Transfer (QC): 6 Does the Patient Walk: Yes Gait (FIM): 6 Gait distance (FIM): 3=150 ft Walk 10 feet (QC): 6 Walk 10ft-Uneven Surface(QC): 6 Walk 50ft with 2 Turns (QC): 6 Walk 150 ft (QC): 6 Gait Assistive Device: FWW Does the Pt use WC or Scooter?: No Stairs (FIM): 5 # of Steps: 4 (household number) 1 Step (curb) (QC): 6 4 Steps (QC): 6 12 Steps (QC): 88 Picking up an Object (QC): 4 All LTG;'s are set at a level that would allow her to be mod indep in her home. PT Plan Problem List Problem List: Activity Tolerance, Functional Strength, Safety, Balance, Gait, Transfer, Bed Mobility Treatment/Plan Treatment Plan: Continue Plan of Care Treatment Plan: Bed Mobility, Education, Functional Activity Rosemary, Functional Strength, Group Therapy, Gait, Safety, Therapeutic Exercise, Transfers Treatment Duration: Apr 03, 2018 Frequency: At least 5 of 7 days/Wk (IRF) Estimated Hrs Per Day: 1.5 hours per day Patient and/or Family Agrees t: Yes Safety Risks/Education Patient Education: Transfer Techniques, Safety Issues Teaching Recipient: Patient Teaching Methods: Demonstration, Discussion Response to Teaching: Reinforcement Needed Time/GCodes Time In: 1045 Time Out: 1115 Total Billed Treatment Time: 30 Total Billed Treatment visit EVM 15 FA 15 JUAN A MAYERS PT Mar 15, 2018 11:28
[2018-03-15] MEDS ORDERED: ONDANSETRON 4 MG/2 ML (SDV) Z0FRAN IV PRN (11:30)
[2018-03-15] MEDS ORDERED: LORazepam 0.5 MG (ATIVAN) TABLET PO PRN (11:30)
[2018-03-15] MEDS ORDERED: MELATONIN 3 MG TABLET PO PRN (11:30)
[2018-03-15] MEDS ORDERED: ANTACID SUSP 30 ML UDC (MYLANTA) PO PRN (11:30)
[2018-03-15] MEDS ORDERED: BENZONATATE 100 MG (TESSALON) CAPSULE PO PRN (11:30)
[2018-03-15] MEDS ORDERED: CATHETER FLUSH 10 ML SYR IV PRN (11:30)
[2018-03-15] MEDS ORDERED: PATIENT MAY USE OWN MEDS, ALL MC SCH (11:30)
[2018-03-15] MEDS ORDERED: MILK OF MAGNESIA 400 MG/5 ML 30 ML UDC PO PRN (11:30)
--- NOTE | 2018-03-15 11:39 | ST Cognitive Linguistic Eval ---
Speech Evaluation-General Medical Diagnosis Metastatic Lung CA Therapy Diagnosis Therapy Diagnosis: Cognitive Linguistic Skills WNL Referral Referring Physician: Dr. Kaveh Moy Reason for Referral: Evaluation/Treatment Cognitive Evaluation Medical History Pertinent Medical History: Atrial Fib, Arthritis, CAD, COPD, HTN, Renal Insufficiency Current History The patient was recently admitted to [facility] with a diagnosis of debility secondary to metastatic lung cancer. Speech PLF-Current Status Prior Level of Function The patient denied prior challenges with speech, language, or cognition. Subjective The patient was seated upright in a recliner upon entrance. The patient greeted the clinician and was agreeable to participation in the cognitive evaluation. Language Eval: Auditory Comprehends Simple Yes/No Ques: Functional Indent/Objects Multiple Phan: Functional Ident/Pics in Multiple Phan: Functional Follows 1-Step Commands: Functional Follows General Conversations: Functional Language Eval: Verbal Language Completes Spontaneous Greeting: Functional Produces Auto, Serial Info: Functional Imitates Simple Words/Phrases: Functional Word Finding: Mild Requests Basic Needs: Functional States Basic Personal Info: Functional Expresses Complex Ideas: Functional Cognitive Patient Orientation The patient was oriented to month, day of week, and location. Objective Cognitive Domain Attention: WNL Memory: Mild Problem Solving: Functional Objective Impression The patient displayed cognitive linguistic skills within normal limits and appropriate for completion of ADL's. Communication/Social Cognition Comprehension: 6 Expression: 6 Social Interaction: 7 Problem Solvin Memory: 5 Speech Patient Assess Expression of Ideas/Wants: Expression (4) Understanding Verbal Content: Understands (4) Brief Interview-Mental Status: Yes Repetition of Three Words: Three (3) Temporal Orientation: Year: Missed by more than 5 yrs (0) Temporal Orientation: Month: Accurate within 5 days(2) Temporal Orientation: Day: Correct (1) Recall : Wear to say "Sock": Yes, no cue required (2) Recall : Color: Yes, no cue required (2) Recall : Bed: Yes, no cue required (2) Speech-Plan Treatment Plan Speech Therapy Treatment Plan: Discontinue ST Evaluation, only. Frequency: Modified Program (IRF) (No ST warranted.) Estimated Hrs Per Day: Other (No ST warranted.) Rehab Potential: Guarded Safety Risks/Education Teaching Recipient: Patient Teaching Methods: Discussion Response to Teaching: Verbalize Understanding Education Topics Provided: Results, Recommendations, Plan of Care Time Speech Therapy Time In: 11:15 Speech Therapy Time Out: 11:30 Total Billed Time: 15 Billed Treatment Time 1, TOD MARCELINO Mar 15, 2018 11:39
--- NOTE | 2018-03-15 11:56 | Occupational Therapy Eval ---
OT Evaluation-General/PLF Medical Diagnosis Admission Date Mar 15, 2018 at 10:45 Medical Diagnosis: Metastatic Lung CA Onset Date: Mar 13, 2018 Therapy Diagnosis Therapy Diagnosis: decr self car, decr act dada, decr funct mobility, weakness Height/Weight Height (Feet): 5 Height (Inches): 9.00 Weight (Pounds): 115 Weight (Ounces): 0.0 Precautions Precautions/Isolations: Standard Precautions Referral Physician: Chinmay Referral Reason: Evaluation/Treatment Medical History Pertinent Medical History: Atrial Fib, Arthritis, CAD, COPD, HTN, Renal Insufficiency Additional Medical History Aortic stenosis. Cardiomyopathy. Chronic edema/swelling. Anxiety, depression. Bone, breast, lung, brain cancer Current History Pt admitted through ED with progressive weakness for 2 week period and was too weak to car for herself. Has had chemo and recently had brain radiation for cancer. Reviewed History: Yes Social History Home: Single Level Current Living Status: Alone Entry Into Home: Stairs With Railing ADL-Prior Level of Function ADL PLOF Comments Pt reported that she has been able to manage her basic self care needs until recently. She hasb't driven for awhile but was able to go to the store with family for shopping. 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 DME/Equipment: Bedside Commode (over toilet), Shower, Shower Hose Rice Cleaning Machine Tender OT Current Status Subjective Pt seen in room, up in recliner, agreeable to OT. Pain reported 0/10 Appearance Alert, cooperative Mental Status/Objective Attachments: Oxygen, Saline Lock Current Glasses/Contacts: Yes Hearing Aids: No Dentures/Partials: No Hand Dominance: Right Upper Extremity ROM Grossly WFL bilat. Able to reach overhead actively but reported she has an old injury in R shoulder from a fall and gets shots in it. Upper Extremity Sensation No problems, per pt report ADL-Treatment ADL-Current Pt was able to open packages, cut food and feed herself without assistive devices. She declined bathing and dressing. She was min assist with mobility and transfers with PT, with FWW. Functional [place] Measure 0=Not Assessed/NA 4=Minimal Assistance 1=Total Assistance 5=Supervision or Setup 2=Maximal Assistance 6=Modified [place] 3=Moderate Assistance 7=Complete IndependenceIRFPAI Quality Coding Scale 6 Independent with activity with or without an assistive device 5 Patient requires set up or clean up by helper. Patient completes activity by themselves 4 Supervision or touching assist (CGA). [place] provide cues , steadying assist 3 The helper provides less than half the effort to complete the activity 2 The helper provides more than half the effort to complete the activity 1 Dependent. The helper does all the effort to complete an activity 7 Patient refused to complete or attempt activity 9 The patient did not perform the activity before the current illness or injury 88 Not attempted due to Medical conditions or safety concerns Eating (FIM): 7 Eating (QC): 6 Education OT Patient Education: Purpose of tx/functional activities, Rehab process Teaching Recipient: Patient, Family Teaching Methods: Discussion Response to Teaching: Verbalize Understanding OT Short Term Goals Short Term Goals Time Frame: Mar 22, 2018 Toilet/Commode Transfer(FIM): 5 1=Demonstrate adherence to instructed precautions during ADL tasks. 2=Patient will verbalize/demonstrate understanding of assistive devices/ modifications for ADL. 3=Patient will improve strength/tolerance for activity to enable patient to perform ADL's. OT Computer Typesetter Keyliner Goals Detention Goals Time Frame: Apr 05, 2018 Eating (FIM): 7 Eating (QC): 6 Groomin Oral Hygiene (QC): 6 Bathing(FIM): 5 Shower/Bathe Self (QC): 5 Upper Body Dressing(FIM): 6 Upper Body Dressing (QC): 6 Lower Body Dressing(FIM): 6 Lower Body Dressing (QC): 6 On/Off Footwear (QC): 6 Toileting(FIM): 6 Toileting Hygiene (QC): 6 Toilet/Commode Transfer(FIM): 6 Toilet/Commode Transfer (QC): 6 Shower Transfer(FIM): 5 Additional Goals: 1-Demonstrate ADL Tasks, 2-Verbalize Understanding, 3- ImproveStrength/Rosemary 1=Demonstrate adherence to instructed precautions during ADL tasks. 2=Patient will verbalize/demonstrate understanding of assistive devices/ modifications for ADL. 3=Patient will improve strength/tolerance for activity to enable patient to perform ADL's. OT Education/Plan Problem List/Assessment Assessment: Decreased Activ Tolerance, Decreased UE Strength, Dependent Transfers, Impaired Funct Balance, Impaired Self-Care Skills Pt would benefit from skilled OT to increase her independence in basic self care to allow her to safely return home Discharge Recommendations Plan/Recommendations: Continue POC Treatment Plan/Plan of Care Treatment,Training & Education: Yes Patient would benefit from OT for education, treatment and training to promote independence in ADL's, mobility, safety and/or upper extremity function for ADL' s. Plan of Care: ADL Retraining, Functional Mobility, Group Exercise/Act as Ind ( education, exercise, activity tolerance, funct mobility, socialization), UE Funct Exercise/Act, UE Neuromus Re-Ed/Coord Treatment Duration: Apr 05, 2018 Frequency: At least 5 of 7 days/Wk (IRF) Estimated Hrs Per Day: 1.5 hours per day Agreement: Yes Rehab Potential: Guarded Time/GCodes Start Time: 11:30 Stop Time: 11:45 Total Time Billed (hr/min): 15 Billed Treatment Time visit, 15 minutes evaluation moderate intensity ARON PANTOJA OT Mar 15, 2018 11:56
[2018-03-15] MEDS ORDERED: FURO40TA4 PO (12:58)
[2018-03-15] MEDS ORDERED: AMIO200T4 PO (12:58)
[2018-03-15] MEDS ORDERED: LISI2.5T PO (12:58)
[2018-03-15] MEDS ORDERED: POTA10CA68 PO (12:58)
[2018-03-15] MEDS ORDERED: DIGO125T PO (12:58)
--- NOTE | 2018-03-15 13:28 | Occupational Ther Daily Note ---
OT Current Status-Daily Note Subjective Pt seen in room, up in recliner. No pain mentioned but she was nauseated and got meds from nursing Appearance Alert, cooperative Mental Status/Objective Functional [place] Measure 0=Not Assessed/NA 4=Minimal Assistance 1=Total Assistance 5=Supervision or Setup 2=Maximal Assistance 6=Modified [place] 3=Moderate Assistance 7=Complete [place] ADL-Treatment Pt needed min assist to get up from recliner, skilled cues for hand placement. Walked witih min assist, FWW to bathroom and got on BSC over toilet with CGA. She uses a BSC over toilet at home. She was able to manage her clothing with CGA , FWW and also managed hygiene. Washed hands with setup. Pt walked to w/c with min assist, FWW and was able to get into chair with CGA and cues for hand placement. Discussed plans for ADLs with her in the morning. She is concerned about being too weak to shower because she wasn't able to shower upstairs in acute care. Her transfer abilities would allow her to safely transfer onto shower bench to bathe, with assistance. Functional [place] Measure 0=Not Assessed/NA 4=Minimal Assistance 1=Total Assistance 5=Supervision or Setup 2=Maximal Assistance 6=Modified [place] 3=Moderate Assistance 7=Complete IndependenceIRFPAI Quality Coding Scale 6 Independent with activity with or without an assistive device 5 Patient requires set up or clean up by helper. Patient completes activity by themselves 4 Supervision or touching assist (CGA). [place] provide cues , steadying assist 3 The helper provides less than half the effort to complete the activity 2 The helper provides more than half the effort to complete the activity 1 Dependent. The helper does all the effort to complete an activity 7 Patient refused to complete or attempt activity 9 The patient did not perform the activity before the current illness or injury 88 Not attempted due to Medical conditions or safety concerns Grooming (FIM): 5 Oral Hygiene (QC): 5 Toileting (FIM): 4 (CGA for getting pants up/down but she was able to do it. Able to manage hygiene. BSC over toilet) Toileting Hygiene (QC): 4 Toilet/Commode Transfer (FIM): 4 (CGA getting on/off BSC over toilet, FWW, grab bar. She uses BSC over toilet at home) Toilet Transfer (QC): 4 Other Treatment Bilat UE strength is 4/5 Education OT Patient Education: Modified ADL techniques, Purpose of tx/functional activities, Safety issues, Transfer techniques Teaching Recipient: Patient Teaching Methods: Discussion Response to Teaching: Verbalize Understanding, Return Demonstration, Reinforcement Needed OT Short Term Goals Short Term Goals Time Frame: Mar 22, 2018 Toilet/Commode Transfer(FIM): 5 1=Demonstrate adherence to instructed precautions during ADL tasks. 2=Patient will verbalize/demonstrate understanding of assistive devices/ modifications for ADL. 3=Patient will improve strength/tolerance for activity to enable patient to perform ADL's. OT Mcc Goals Bus Analyst Goals Time Frame: Apr 05, 2018 Eating (FIM): 7 Eating (QC): 6 Groomin Oral Hygiene (QC): 6 Bathing(FIM): 5 Shower/Bathe Self (QC): 5 Upper Body Dressing(FIM): 6 Upper Body Dressing (QC): 6 Lower Body Dressing(FIM): 6 Lower Body Dressing (QC): 6 On/Off Footwear (QC): 6 Toileting(FIM): 6 Toileting Hygiene (QC): 6 Toilet/Commode Transfer(FIM): 6 Toilet/Commode Transfer (QC): 6 Shower Transfer(FIM): 5 Additional Goals: 1-Demonstrate ADL Tasks, 2-Verbalize Understanding, 3- ImproveStrength/Rosemary 1=Demonstrate adherence to instructed precautions during ADL tasks. 2=Patient will verbalize/demonstrate understanding of assistive devices/ modifications for ADL. 3=Patient will improve strength/tolerance for activity to enable patient to perform ADL's. OT Education/Plan Problem List/Assessment Pt would benefit from skilled OT to increase her independence in basic self care to allow her to safely return home Discharge Recommendations Plan/Recommendations: Continue POC Treatment Plan/Plan of Care Patient would benefit from OT for education, treatment and training to promote independence in ADL's, mobility, safety and/or upper extremity function for ADL' s. Plan of Care: ADL Retraining, Functional Mobility, Group Exercise/Act as Ind ( education, exercise, activity tolerance, funct mobility, socialization), UE Funct Exercise/Act, UE Neuromus Re-Ed/Coord Treatment Duration: Apr 05, 2018 Frequency: At least 5 of 7 days/Wk (IRF) Estimated Hrs Per Day: 1.5 hours per day Agreement: Yes Rehab Potential: Guarded Time/GCodes Start Time: 12:30 Stop Time: 13:00 Total Time Billed (hr/min): 30 Billed Treatment Time visit, 30 minutes ADL ARON PANTOJA OT Mar 15, 2018 13:28
[2018-03-15] MEDS ORDERED: CYANOCOBALAMIN INJ 1000 MCG/ML IM NR (13:30)
--- NOTE | 2018-03-15 13:35 | PM&R Post Admission Assessment ---
Post Admission Physician Asses Date seen by provider: Mar 15, 2018 Time seen by provider: 13:00 Admisison Dx: (1) Debility The preadmission screen agrees with the post admission assessment that the patient is a good candidate for inpatient rehabilitation. The patient will have a comprehensive program of inpatient rehabilitation with a goal of maximizing level of functional independence prior to discharge home with HHC vs Hospice. The patient will have PT/OT ninety minutes per day, each discipline, five days a week for 14 days for gait, strengthening, conditioning, balance, ADLs, any patient/family/caregiver training as necessary. Speech therapy to do cognitive assessment and treat as indicated. Rehabilitation nursing to assist with bowel, bladder, skin, wound care, medication administration, pain management. Automobile Repossessor to assist with discharge planning, community reentry. SCD's for DVT prophylaxis. She appears to be well motivated to participate in three hours of therapy a day. She should be able to tolerate three hours of therapy a day from a medical standpoint. She should benefit from the three hours of therapy a day. She has a reasonable discharge plan, reasonable discharge rehabilitation goals and a supportive family. She has various comorbidities that need to be closely monitored with medications and treatments adjusted on a daily basis as needed. 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 Risks for this patient include: 1. Fall 2. Fracture 3. DVT 4. Pulmonary embolism 5. Wound infection 6. Skin breakdown 7. Contractures 8. Poorly controlled pain 9. Urinary retention 10. UTI 11. Respiratory infection 12. Aspiration 13. CHF 14. Poorly controlled AFIB 15. Estimated Length of Stay: 14 days Prognosis: Rehab prognosis appears good for goal of discharge home with HHC VS Hospice modified independent to supervision for ADLs and mobility skills. General: Alert, Oriented X3, Cooperative, No Acute Distress HEENT: Atraumatic, PERRLA, EOMI, Mucous Memb Moist/[place], Other (alopecia 92 by N/C in place) Neck: Supple, No JVD Lungs: Clear to Auscultation Heart: Regular Rate, Other (Port in place left chest) Abdomen: Normal Bowel Sounds, Soft, No Tenderness Extremities: No Edema Neuro: Other (Generalized weakness sensation and cognition intact) NITA THOMAS MD Mar 15, 2018 13:34
--- NOTE | 2018-03-15 14:20 | HISTORY AND PHYSICAL ---
DATE OF SERVICE: 03/15/2018 CHIEF COMPLAINT: Generalized weakness. HISTORY OF PRESENT ILLNESS: The patient is a 72-year-old female with extensive stage small cell lung cancer diagnosed in mid 2016 with bone METs She is status post multiple chemotherapy regimens including carboplatin and etoposide x3, Topotecan x5, Camptosar x1 with recent diagnosis of brain METs status post whole brain radiation therapy. The patient was admitted to [facility] due to increasing weakness and difficulty managing at home alone in [place], [place]. 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 Currently, she requires assistance for ADLs and mobility skills. Prior to this, she was modified independent with a walker in a single level home. PAST MEDICAL HISTORY: Lung cancer with METs to the bone and now the brain status post chemo and RT, severe aortic stenosis followed by hospitalist service and cardiology, atrial fibrillation controlled with digoxin. PAST SURGICAL HISTORY: Has a port. ALLERGIES: ADHESIVE TAPE, CELECOXIB, CLARITHROMYCIN, LATEX, METOLAZONE, CEFDINIR. FAMILY HISTORY: Noncontributory. SOCIAL HISTORY: As per above. REVIEW OF SYSTEMS: A 10-point review of systems significant for generalized weakness. MEDICATIONS: Ursodiol 300 mg p.o. b.i.d., Eliquis 2.5 mg p.o. b.i.d., diltiazem 120 mg p.o. each day at bedtime. Pramipexole 0.25 mg p.o. each day at bedtime, Proventil treatments b.i.d., Tylenol 650 mg p.o. q.4 hours p.r.n. mild pain, Proventil inhaler q.2 hours p.r.n. shortness of breath or wheezing, hydrocodone APAP 5 one tablet p.o. q.6 hours p.r.n. moderate pain. Lorazepam 0.5 mg p.o. daily p.r.n. anxiety, melatonin 3 mg p.o. each day at bedtime p.r.n. insomnia, milk of magnesia 30 mL p.o. daily p.r.n. constipation. Tessalon 100 mg p.o. t.i.d. p.r.n. cough. Zofran 4 mg q.6 hours IV p.r.n. nausea, vomiting. K-Dur 20 mEq p.o. daily. PHYSICAL EXAMINATION: GENERAL: Significant for a pleasant female sitting in chair in no acute distress with O2 by nasal cannula in place. VITAL SIGNS: She is afebrile, pulse is 58, respirations 18, blood pressure 129/58, O2 sat 92% on 2 liters of O2 by nasal cannula. HEENT: She is alert and oriented, in no acute distress. She is alopecia due to the recent chemo. Vision, speech, hearing grossly intact. No oral lesions noted. NECK: Supple without mass. HEART: Regular rhythm. CHEST: Clear. ABDOMEN: Soft, nontender, bowel sounds present. EXTREMITIES: No lower leg edema, no calf tenderness. MUSCULOSKELETAL: The patient has functional passive range of motion of all four extremities. NEUROLOGIC: Cognition grossly intact. Sensation intact to touch. MUSCULOSKELETAL: Strength 3/5 both lower limbs. She has fair plus strength both upper limbs. She is independent for eating. She is min to mod assist for transfers, min assist for ambulation short distances with a front wheel walker. She has dyspnea on exertion and limited endurance, fatigues easily. IMPRESSION: 1. Ambulatory dysfunction secondary to general debilitation secondary to extensive stage small cell lung cancer 01/2016 with bone MET and to brain, status post chemotherapy and radiation therapy. 2. Severe aortic stenosis been followed by cardiology. 3. Atrial fibrillation, controlled with digoxin. 4. Congestive heart failure with ejection fraction of 35%. Cardiology following. 5. S/P port placement PLAN: The patient will have a comprehensive program of inpatient rehabilitation with goal of maximizing level of functional independence prior to discharge home to her apartment, quite possibly with hospice services. The patient will have PT, OT 90 minutes per day each discipline, 5 days a week for 14 days. Please see post-admission physician evaluation, which is a separate document for details of plan of care. Speech therapy has done cognitive screen, cognitive assessment found the patient to be intact and they signed off at this time. Rehabilitation nursing assist with bowel, bladder, skin care, medication administration, pain management. Social service to assist with discharge planning, community reentry. Respiratory therapy to assist with O2 administration, respiratory treatment administration, monitoring O2 sats. Follow up with Dr. Mason hospital service and Dr. White medical oncology and Dr. Peguero radiation oncology and cardiology as per their schedule. The PCP is Dr. Gardner who follows her on an inpatient basis. ESTIMATED LENGTH OF STAY: 10 to 14 days. PROGNOSIS: Rehab prognosis appears fair for goal of enhancing level of functional independence at least short term for goal of returning home modified independent , supervision for ADLs and mobility skills quite possibly with hospice services. DIET: Regular. CODE STATUS: Do not resuscitate. Job ID: [id number] DocumentID: [id number] Dictated Date: 03/15/2018 13:29:09 Exceptional Children Teacher Date: 03/15/2018 14:19:53 Dictated By: NITA THOMAS MD MTDD
--- NOTE | 2018-03-15 14:24 | Occupational Ther Daily Note ---
OT Current Status-Daily Note Subjective Pt seen in gym after group. Pt reported vision "going in and out" and being blurry, since radiation tx. Mental Status/Objective Functional [place] Measure 0=Not Assessed/NA 4=Minimal Assistance 1=Total Assistance 5=Supervision or Setup 2=Maximal Assistance 6=Modified [place] 3=Moderate Assistance 7=Complete [place] ADL-Treatment Functional [place] Measure 0=Not Assessed/NA 4=Minimal Assistance 1=Total Assistance 5=Supervision or Setup 2=Maximal Assistance 6=Modified [place] 3=Moderate Assistance 7=Complete IndependenceIRFPAI Quality Coding Scale 6 Independent with activity with or without an assistive device 5 Patient requires set up or clean up by helper. Patient completes activity by themselves 4 Supervision or touching assist (CGA). [place] provide cues , steadying assist 3 The helper provides less than half the effort to complete the activity 2 The helper provides more than half the effort to complete the activity 1 Dependent. The helper does all the effort to complete an activity 7 Patient refused to complete or attempt activity 9 The patient did not perform the activity before the current illness or injury 88 Not attempted due to Medical conditions or safety concerns Other Treatment Pt did 10 minutes bilat UE exercise on arm bike set at 15W resistance, to strengthen arms to help with transfers and standing during ADLs. She worked at a steady pace and didn't take any recovery breaks. O2 in place nc during tx. Care transferred to PT. Education OT Patient Education: Exercise program, Purpose of tx/functional activities Teaching Recipient: Patient Teaching Methods: Discussion Response to Teaching: Verbalize Understanding OT Short Term Goals Short Term Goals Time Frame: Mar 22, 2018 Toilet/Commode Transfer(FIM): 5 1=Demonstrate adherence to instructed precautions during ADL tasks. 2=Patient will verbalize/demonstrate understanding of assistive devices/ modifications for ADL. 3=Patient will improve strength/tolerance for activity to enable patient to perform ADL's. OT Assisted Goals Assisted Goals Time Frame: Apr 05, 2018 Eating (FIM): 7 Eating (QC): 6 Groomin Oral Hygiene (QC): 6 Bathing(FIM): 5 Shower/Bathe Self (QC): 5 Upper Body Dressing(FIM): 6 Upper Body Dressing (QC): 6 Lower Body Dressing(FIM): 6 Lower Body Dressing (QC): 6 On/Off Footwear (QC): 6 Toileting(FIM): 6 Toileting Hygiene (QC): 6 Toilet/Commode Transfer(FIM): 6 Toilet/Commode Transfer (QC): 6 Shower Transfer(FIM): 5 Additional Goals: 1-Demonstrate ADL Tasks, 2-Verbalize Understanding, 3- ImproveStrength/Rosemary 1=Demonstrate adherence to instructed precautions during ADL tasks. 2=Patient will verbalize/demonstrate understanding of assistive devices/ modifications for ADL. 3=Patient will improve strength/tolerance for activity to enable patient to perform ADL's. OT Education/Plan Problem List/Assessment Pt would benefit from skilled OT to increase her independence in basic self care to allow her to safely return home Discharge Recommendations Plan/Recommendations: Continue POC Treatment Plan/Plan of Care Patient would benefit from OT for education, treatment and training to promote independence in ADL's, mobility, safety and/or upper extremity function for ADL' s. Plan of Care: ADL Retraining, Functional Mobility, Group Exercise/Act as Ind ( education, exercise, activity tolerance, funct mobility, socialization), UE Funct Exercise/Act, UE Neuromus Re-Ed/Coord Treatment Duration: Apr 05, 2018 Frequency: At least 5 of 7 days/Wk (IRF) Estimated Hrs Per Day: 1.5 hours per day Agreement: Yes Rehab Potential: Guarded Time/GCodes Start Time: 14:00 Stop Time: 14:15 Total Time Billed (hr/min): 15 Billed Treatment Time visit, 15 minutes exercise ARON PANTOJA OT Mar 15, 2018 14:24
--- NOTE | 2018-03-15 14:35 | Physical Therapy Daily Note ---
PT Daily Note-Current Subjective Patient just got through with OT, agrees to PT, need to score a car transfer. Patient has no complaints of pain. Appearance Patient on toilet with nursing at end of treatment. Mental Status Patient Orientation: Normal For Age Attachments: Oxygen Transfers Functional [place] Measure 0=Not Assessed/NA 4=Minimal Assistance 1=Total Assistance 5=Supervision or Setup 2=Maximal Assistance 6=Modified [place] 3=Moderate Assistance 7=Complete IndependenceIRFPAI Quality Coding Scale 6 Independent with activity with or without an assistive device 5 Patient requires set up or clean up by helper. Patient completes activity by themselves 4 Supervision or touching assist (CGA). [place] provide cues , steadying assist 3 The helper provides less than half the effort to complete the activity 2 The helper provides more than half the effort to complete the activity 1 Dependent. The helper does all the effort to complete an activity 7 Patient refused to complete or attempt activity 9 The patient did not perform the activity before the current illness or injury 88 Not attempted due to Medical conditions or safety concerns Transfers (B, C, W/C) (FIM): 4 Sit to/from Stand: 4 Bed to/from Chair: 4 Car Transfer (QC): 4 Patient performed 3 stand pivot transfers, one to the car transfer machine, one from the car transfer machine, and one to the toilet. Patient needs min assist for sit to stand. Car transfer performed with CGA. Weight Bearing Right Lower Extremity: Right Weight Bearing/Tolerated Left Lower Extremity: Left Weight Bearing/Tolerated Treatments transfers, car transfer, toileting Assessment Current Status: Fair Progress Patient very weak, needs assist with sit to stand. PT Short Term Goals Short Term Goals Time Frame: Mar 22, 2018 Gait (FIM): 4 Distance (FIM): 3=150 ft Gait Assistive Device: FWW PT Flow Coordinator Goals Flow Coordinator Goals PT Flow Coordinator Goals Time Frame: Apr 03, 2018 Transfers (B,C,W/C) (FIM): 6 Sit to Lying (QC): 6 Lying-Sitting on Side/Bed(QC): 6 Sit to Stand (QC): 6 Roll Left to Right (QC): 6 Chair/Ede-iu-Awjwc Xfer(QC): 6 Car Transfer (QC): 6 Does the Patient Walk: Yes Gait (FIM): 6 Gait distance (FIM): 3=150 ft Walk 10 feet (QC): 6 Walk 10ft-Uneven Surface(QC): 6 Walk 50ft with 2 Turns (QC): 6 Walk 150 ft (QC): 6 Gait Assistive Device: FWW Does the Pt use WC or Scooter?: No Stairs (FIM): 5 # of Steps: 4 (household number) 1 Step (curb) (QC): 6 4 Steps (QC): 6 12 Steps (QC): 88 Picking up an Object (QC): 4 PT Plan Problem List Problem List: Activity Tolerance, Functional Strength, Safety, Balance, Gait, Transfer, Bed Mobility, ROM Treatment/Plan Treatment Plan: Continue Plan of Care Treatment Plan: Bed Mobility, Education, Functional Activity Rosemary, Functional Strength, Group Therapy, Gait, Safety, Therapeutic Exercise, Transfers Treatment Duration: Apr 03, 2018 Frequency: At least 5 of 7 days/Wk (IRF) Estimated Hrs Per Day: 1.5 hours per day Patient and/or Family Agrees t: Yes Safety Risks/Education Patient Education: Transfer Techniques, Correct Positioning, Safety Issues Teaching Recipient: Patient Teaching Methods: Demonstration, Discussion Response to Teaching: Reinforcement Needed Time/GCodes Time In: 1415 Time Out: 1430 Total Billed Treatment Time: 15 Total Billed Treatment 1 visit FA JASON CHEN PT Mar 15, 2018 14:34
--- NOTE | 2018-03-15 14:45 | Therapy Group Daily Note ---
Therapy Daily Group Note Exercises Fine Motor, UE Exercise Other/Notes Pt transported via w/c to OT/PT group in [facility]. Group consisted of introductions (name, place living, fun story), socialization, dynamic sitting, fine motor and B UE activities. Pt introduced self appropriately and actively listened to peers. Pt contributed to conversations and began discussions with peers. Pt demonstrated good fine motor skills during activity by isolating thin object, manipulating with digits then placing in designated spot with UE extended against gravity. Pt fatigued easily, continued all tasks slowly. OTR/ L took over care after group. All needs met. Start Time: 13:00 Stop Time: 14:00 Total Billed Treatment Time: 60 Total Billed Treatment 1-GRP JUAN A TELLEZ Mar 15, 2018 14:45
[2018-03-15 17:10] VITALS: BP 124/62
[2018-03-15] MEDS: RT-ALBUTEROL SULF 2.5 MG/3 ML PRE-MIX VIAL INH SCH (17:53)
[2018-03-15] MEDS: ACETAMINOPHEN 325 MG TABLET PO PRN (18:44)
[2018-03-15] MEDS: PATIENT'S OWN MED (RX USE ONLY) PO SCH (19:31)
[2018-03-15] MEDS: APIXABAN 2.5 MG (ELIQUIS) TABLET PO SCH (19:32)
[2018-03-15] MEDS: URSODIOL PO SCH (19:32)
[2018-03-15] MEDS: DILTIAZEM 120 MG (CARDIZEM CD) CAP PO SCH (19:32)
[2018-03-16 05:03] VITALS: BP 107/62
--- NOTE | 2018-03-16 08:57 | PM & R (SOAP) Progress Note ---
Subjective This was a face to face visit with the patient. Date Seen by Provider: Mar 16, 2018 Time Seen by Provider: 08:00 Subjective/Events-last exam Patient was seen in her room this AM lying in bed Appears quite fatigued.Patient min assist for transfers Appears to be adjusting well to unit Review of Systems General: Fatigue Pulmonary: Dyspnea Objective Physician Exam Last Set of Vital Signs Vital Signs Date Time Temp Pulse Resp B/P (MAP) Pulse Ox O2 Delivery O2 Flow Rate FiO2 03/16/18 05:03 98.6 70 16 107/62 (77) 91 Nasal Cannula 2.00 Capillary Refill : I&O Intake and Output 03/16/18 00:00 Intake Total 720 ml Balance 720 ml Intake Oral 720 ml # Voids 3 # Bowel Movements 1 # [place] 1 Daily Weight Change Yes, 2-13 lbs General: Alert, Oriented X3, Cooperative, No Acute Distress HEENT: Atraumatic, PERRLA, EOMI, Mucous Memb Moist/[place], Other Neck: Supple, No JVD Lungs: Clear to Auscultation Heart: Regular Rate, Other Abdomen: Normal Bowel Sounds, Soft, No Tenderness Extremities: No Edema Neuro: Other Assessment/Plan Assessment and Plan General debil secondary to Small cell lung CA with mets to bone and brain s/p chemo and RT Resp insufficiency on 02 supplement Severe A FIB controlled with med CHF with EF of 35 % S/P port placement DNR status Cardiomegaly being followed by Cardiology Plan Continue PT/OT/Pain Management DR Mason informed of consult yesterday to follow patient medically while on IRU F/U with Cardiology and Medonc (1) Debility Status: Acute Co-Morbidities that are continuing to impact the rehab process: (include details ) NITA THOMAS MD Mar 16, 2018 08:57
[2018-03-16] MEDS: ACETAMINOPHEN 325 MG TABLET PO PRN ×3 (09:03→23:20)
[2018-03-16] MEDS: APIXABAN 2.5 MG (ELIQUIS) TABLET PO SCH ×2 (09:03→20:03)
[2018-03-16] MEDS: URSODIOL PO SCH ×2 (09:04→20:04)
[2018-03-16 10:06] VITALS: BP 107/62
[2018-03-16] MEDS: RT-ALBUTEROL SULF 2.5 MG/3 ML PRE-MIX VIAL INH SCH ×2 (10:06→17:56)
--- NOTE | 2018-03-16 10:15 | Occupational Ther Daily Note ---
OT Current Status-Daily Note Subjective Pt alert, lying in bed. CHINO attempted 1x and pt requested to wait for 20 min for headache (pain 10/10) to recede, Nrsg brought pain meds. On 2nd attempt pt agrees to therapy. Still c/o headache though was not as painful. Mental Status/Objective Patient Orientation: Person, Place, Time, Situation Functional [place] Measure 0=Not Assessed/NA 4=Minimal Assistance 1=Total Assistance 5=Supervision or Setup 2=Maximal Assistance 6=Modified [place] 3=Moderate Assistance 7=Complete [place] ADL-Treatment Functional [place] Measure 0=Not Assessed/NA 4=Minimal Assistance 1=Total Assistance 5=Supervision or Setup 2=Maximal Assistance 6=Modified [place] 3=Moderate Assistance 7=Complete IndependenceIRFPAI Quality Coding Scale 6 Independent with activity with or without an assistive device 5 Patient requires set up or clean up by helper. Patient completes activity by themselves 4 Supervision or touching assist (CGA). [place] provide cues , steadying assist 3 The helper provides less than half the effort to complete the activity 2 The helper provides more than half the effort to complete the activity 1 Dependent. The helper does all the effort to complete an activity 7 Patient refused to complete or attempt activity 9 The patient did not perform the activity before the current illness or injury 88 Not attempted due to Medical conditions or safety concerns Eating (FIM): 6 (Completes own set up and uses regular utensils.) Eating (QC): 6 Grooming (FIM): 6 (Sitting at sink, pt able to complete by self.) Oral Hygiene (QC): 6 Bathing (FIM): 4 (Using grabbar, hand held shower and shower bench pt able to complete own bathing/drying. Pt did require assist to turn on/off shower and lift hand held shower off of peg and put it back on. Assist to go from sit to stand and CGA in standing.) Bathing Location: L Arm, R Arm, L Upper Leg, R Upper Leg, L Lower Leg ( including foot), R Lower Leg (including foot), Chest, Abdomen, Buttocks, Perineal Area Shower/Bathe Self (QC): 3 Upper Body (FIM): 4 (After set up, pt able to don/doff shirt by self. Min A with sports bra.) Upper Body Dressing (QC): 3 Lower Body Dressing (FIM): 3 (After set up, pt is able to doff pants and socks by self in lying. Assist to thread 2nd foot into pant leg and donning socks.) Lower Body Dressing (QC): 3 On/Off Footwear (QC): 3 Toileting (FIM): 4 (CGA to in standing to manipulate clothing, hygiene by self. ) Toileting Hygiene (QC): 3 Toilet/Commode Transfer (FIM): 4 (Min A for transfer using BSC, FWW and grabbars.) Toilet Transfer (QC): 3 Shower Transfer(FIM): 3 (Using w/c, grabbar and shower bench pt able to complete transfer with mod A. More assist needed for sit to stand from shower bench.) Pt c/o headache coming back after shower and dressing. After therapy, pt lying in bed with call light/phone in reach. All needs met in room. OT Short Term Goals Short Term Goals Time Frame: Mar 22, 2018 Toilet/Commode Transfer(FIM): 5 1=Demonstrate adherence to instructed precautions during ADL tasks. 2=Patient will verbalize/demonstrate understanding of assistive devices/ modifications for ADL. 3=Patient will improve strength/tolerance for activity to enable patient to perform ADL's. OT Fdc Goals Fdc Goals Time Frame: Apr 05, 2018 Eating (FIM): 7 Eating (QC): 6 Groomin Oral Hygiene (QC): 6 Bathing(FIM): 5 Shower/Bathe Self (QC): 5 Upper Body Dressing(FIM): 6 Upper Body Dressing (QC): 6 Lower Body Dressing(FIM): 6 Lower Body Dressing (QC): 6 On/Off Footwear (QC): 6 Toileting(FIM): 6 Toileting Hygiene (QC): 6 Toilet/Commode Transfer(FIM): 6 Toilet/Commode Transfer (QC): 6 Shower Transfer(FIM): 5 Additional Goals: 1-Demonstrate ADL Tasks, 2-Verbalize Understanding, 3- ImproveStrength/Rosemary 1=Demonstrate adherence to instructed precautions during ADL tasks. 2=Patient will verbalize/demonstrate understanding of assistive devices/ modifications for ADL. 3=Patient will improve strength/tolerance for activity to enable patient to perform ADL's. OT Education/Plan Problem List/Assessment Pt would benefit from skilled OT to increase her independence in basic self care to allow her to safely return home Discharge Recommendations Plan/Recommendations: Continue POC Treatment Plan/Plan of Care Patient would benefit from OT for education, treatment and training to promote independence in ADL's, mobility, safety and/or upper extremity function for ADL' s. Plan of Care: ADL Retraining, Functional Mobility, Group Exercise/Act as Ind ( education, exercise, activity tolerance, funct mobility, socialization), UE Funct Exercise/Act, UE Neuromus Re-Ed/Coord Treatment Duration: Apr 05, 2018 Frequency: At least 5 of 7 days/Wk (IRF) Estimated Hrs Per Day: 1.5 hours per day Agreement: Yes Rehab Potential: Guarded Time/GCodes Start Time: 09:00 Stop Time: 10:10 Total Time Billed (hr/min): 70 Billed Treatment Time 1 visit-ADL 5 (70 min) JUAN A TELLEZ Mar 16, 2018 10:15
--- NOTE | 2018-03-16 12:30 | Physical Therapy Daily Note ---
PT Daily Note-Current Subjective Pt. in bed, states she had such a headache earlier this morning but feels like she would like to try to do a little now. Pain Numeric Pain Scale: 0-No Pain Mental Status Patient Orientation: Normal For Age Attachments: Oxygen Transfers Functional [place] Measure 0=Not Assessed/NA 4=Minimal Assistance 1=Total Assistance 5=Supervision or Setup 2=Maximal Assistance 6=Modified [place] 3=Moderate Assistance 7=Complete IndependenceIRFPAI Quality Coding Scale 6 Independent with activity with or without an assistive device 5 Patient requires set up or clean up by helper. Patient completes activity by themselves 4 Supervision or touching assist (CGA). [place] provide cues , steadying assist 3 The helper provides less than half the effort to complete the activity 2 The helper provides more than half the effort to complete the activity 1 Dependent. The helper does all the effort to complete an activity 7 Patient refused to complete or attempt activity 9 The patient did not perform the activity before the current illness or injury 88 Not attempted due to Medical conditions or safety concerns Transfers (B, C, W/C) (FIM): 4 Scootin Rollin Supine to/from Sit: 4 (min t CGA from flat bed sup to side to sit) Sit to/from Stand: 4 c/o dizziness upon initial sit and initial stance Weight Bearing Right Lower Extremity: Right Weight Bearing/Tolerated Left Lower Extremity: Left Weight Bearing/Tolerated Gait Training Does the Patient Walk?: Yes Gait (FIM): 2 Distance (FIM): 7=367-28 ft (50ft) Gait Level of Assist: 4 Gait Persons Needed: 1 Gait Assistive Device: FWW Exercises Supine Ex: Bridging, Ankle pumps, Quad Set, Rolling, Glut sets, Heel Slides, Short Arc Quads, Scooting, Straight leg raise, Hip abd/add Supine Reps: 12 Seated Therapy Exercises: Ankle pumps, Long arc quads Seated Reps: 10 Assessment Current Status: Fair Progress fatigues, dizziness PT Short Term Goals Short Term Goals Time Frame: Mar 22, 2018 Gait (FIM): 4 Distance (FIM): 3=150 ft Gait Assistive Device: FWW PT Stone Polisher Hand Goals Skilled Nursing Goals PT Skilled Nursing Goals Time Frame: Apr 03, 2018 Transfers (B,C,W/C) (FIM): 6 Sit to Lying (QC): 6 Lying-Sitting on Side/Bed(QC): 6 Sit to Stand (QC): 6 Roll Left to Right (QC): 6 Chair/Zya-eg-Dnkti Xfer(QC): 6 Car Transfer (QC): 6 Does the Patient Walk: Yes Gait (FIM): 6 Gait distance (FIM): 3=150 ft Walk 10 feet (QC): 6 Walk 10ft-Uneven Surface(QC): 6 Walk 50ft with 2 Turns (QC): 6 Walk 150 ft (QC): 6 Gait Assistive Device: FWW Does the Pt use WC or Scooter?: No Stairs (FIM): 5 # of Steps: 4 (household number) 1 Step (curb) (QC): 6 4 Steps (QC): 6 12 Steps (QC): 88 Picking up an Object (QC): 4 PT Plan Treatment/Plan Treatment Plan: Continue Plan of Care Treatment Plan: Bed Mobility, Education, Functional Activity Rosemary, Functional Strength, Group Therapy, Gait, Safety, Therapeutic Exercise, Transfers Treatment Duration: Apr 03, 2018 Frequency: At least 5 of 7 days/Wk (IRF) Estimated Hrs Per Day: 1.5 hours per day Patient and/or Family Agrees t: Yes Safety Risks/Education Patient Education: Gait Training, Transfer Techniques, Correct Positioning, Disease Process Teaching Recipient: Patient Teaching Methods: Demonstration, Discussion Response to Teaching: Verbalize Understanding, Return Demonstration, Reinforcement Needed Time/GCodes Time In: 1155 Time Out: 1225 Total Billed Treatment Time: 30 Total Billed Treatment 1,EX15m,FA15m G Codes Necessary: AGUSTÍN Dang MAP PLOTTER Mar 16, 2018 12:30
[2018-03-16 18:00] VITALS: BP 108/58
[2018-03-16] MEDS: RT-ALBUTEROL SULF 2.5 MG/3 ML PRE-MIX VIAL INH PRN (20:03)
[2018-03-16] MEDS: DILTIAZEM 120 MG (CARDIZEM CD) CAP PO SCH (20:04)
[2018-03-16] MEDS: PATIENT'S OWN MED (RX USE ONLY) PO SCH (20:04)
[2018-03-17 06:00] VITALS: BP 115/56
[2018-03-17] MEDS: URSODIOL PO SCH ×2 (09:41→19:40)
[2018-03-17] MEDS: APIXABAN 2.5 MG (ELIQUIS) TABLET PO SCH ×2 (09:41→19:40)
[2018-03-17] MEDS: RT-ALBUTEROL SULF 2.5 MG/3 ML PRE-MIX VIAL INH SCH ×2 (11:11→20:08)
[2018-03-17] MEDS: HYDROcodone/APAP 5 MG/325 MG (LORTAB) TAB PO PRN (16:08)
[2018-03-17 18:00] VITALS: BP 105/64
[2018-03-17] MEDS: PATIENT'S OWN MED (RX USE ONLY) PO SCH (19:41)
[2018-03-17] MEDS: DILTIAZEM 120 MG (CARDIZEM CD) CAP PO SCH (19:41)
[2018-03-17] MEDS: ACETAMINOPHEN 325 MG TABLET PO PRN (20:10)
[2018-03-18 05:20] VITALS: BP 111/65
[2018-03-18] MEDS: RT-ALBUTEROL SULF 2.5 MG/3 ML PRE-MIX VIAL INH SCH ×2 (07:32→19:29)
[2018-03-18] MEDS: APIXABAN 2.5 MG (ELIQUIS) TABLET PO SCH ×2 (08:17→20:07)
[2018-03-18] MEDS: URSODIOL PO SCH ×2 (08:18→20:08)
[2018-03-18] MEDS: ACETAMINOPHEN 325 MG TABLET PO PRN (08:24)
--- NOTE | 2018-03-18 09:53 | Progress Note-Cardiology ---
Cardiology SOAP Progress Note Subjective: She notes gen malaise and tiredness and weakness and poor appetite No cp or palp or shortness of breath at rest Objective: I&O/Vital Signs 03/18/18 03/18/18 05:20 07:33 Temp 98.6 Pulse 64 Resp 18 B/P (MAP) 111/65 (80) Pulse Ox 96 94 O2 Delivery Nasal Cannula Nasal Cannula O2 Flow Rate 3.00 3.00 03/18/18 00:00 Intake Total 400 ml Balance 400 ml Weight (Pounds): 107 Weight (Ounces): 9.0 Weight (Calculated Kilograms): [id number] Constitutional: AAO x 3, other (cachectic-appearing) Respiratory: No accessory muscle use; other (scattered rhonchi over large airways; somewhat diminished air entry at the bases) Cardiovascular: regular rate-rhythm, S1 and S2, systolic murmur (3/6 MSM) Gastrointestional: No tender; soft; No guarding, No rebound; audible bowel sounds Extremities: No clubbing, No cyanosis, No significant edema Neurologic/Psychiatric: oriented x 3, other (gen weakness; power 4/5 bilat), grossly intact Skin: No rash on exposed areas, No ulcerations on exposed areas A/P: Assessment: Generalized weakness likely due to malignancy-related cachexia/[id number]-rx-[id number] H/o dig toxicity; currently off dig UTI - medical services managing Elevated liver enzymes Chronic diastolic and systolic CHF, class III, multiple hospitalizations since Jul 2016 Cardiac arrest (stated to be bradycardic and apneic in Anesthesiology notes) on 09/23/16 at time of [facility] by Dr Tuttle that showed the following: Dilated left atrium and left atrial appendage with smoke in the left atrial appendage. Low velocity by Doppler, unable to fully evaluate and rule out a thrombus at this point. Diffuse left ventricular hypokinesia with estimated ejection fraction 30% . Moderate to severe aortic valve stenosis. Mild to moderate aortic regurgitation.Moderate to severe mitral regurgitation. Echo of 03/14/18: LVEF 55-65%, mild conc LVH, mild LA enlargement, mild to mod MAC, grade 3 diastolic dysfunction of LV, severe with peak pressure gradient approx 110 mmHg and valve area approx 0.7 sq cm Atrial fibrillation, non-valvular, chronic, heart rate difficult to control, currently controlled H/O Intolerance to digoxin due to dizziness and nonspecific malaise Intolerance to beta-lelia due to symptomatic fall in chronically low bp Dilated cardiomyopathy, first documented in March 2016. Metastatic carcinoma to the bone. 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 Status post adjuvant chemotherapy with Adriamycin and Cytoxan regimen 4 cycles followed by radiation therapy to the right breast completed in August 2008. Status post adjuvant hormonal therapy with Arimidex from August 2008 until early 2013. 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
--- NOTE | 2018-03-18 12:13 | Physical Therapy Daily Note ---
PT Daily Note-Current Subjective Pt. c/o she is fatigues easily but wants to try to walk etc. Requests frequent rest breaks, c/o some dizziness with change of position Mental Status Patient Orientation: Normal For Age Attachments: Oxygen Transfers Functional [place] Measure 0=Not Assessed/NA 4=Minimal Assistance 1=Total Assistance 5=Supervision or Setup 2=Maximal Assistance 6=Modified [place] 3=Moderate Assistance 7=Complete IndependenceIRFPAI Quality Coding Scale 6 Independent with activity with or without an assistive device 5 Patient requires set up or clean up by helper. Patient completes activity by themselves 4 Supervision or touching assist (CGA). [place] provide cues , steadying assist 3 The helper provides less than half the effort to complete the activity 2 The helper provides more than half the effort to complete the activity 1 Dependent. The helper does all the effort to complete an activity 7 Patient refused to complete or attempt activity 9 The patient did not perform the activity before the current illness or injury 88 Not attempted due to Medical conditions or safety concerns Transfers (B, C, W/C) (FIM): 4 Scootin Rollin Supine to/from Sit: 4 Sit to/from Stand: 5 Bed to/from Chair: 4 Weight Bearing Right Lower Extremity: Right Weight Bearing/Tolerated Left Lower Extremity: Left Weight Bearing/Tolerated Gait Training Does the Patient Walk?: Yes Gait (FIM): 2 Distance (FIM): 3=216-42 ft (50,25,30) Gait Level of Assist: 4 Gait Persons Needed: 1 Gait Assistive Device: FWW needs assist for O2 as well as w/c to follow Exercises Supine Ex: Bridging, Ankle pumps, Quad Set, Rolling, Glut sets, Heel Slides, Short Arc Quads, Scooting, Straight leg raise, Hip abd/add Supine Reps: 6 (x2) Seated Therapy Exercises: Ankle pumps, Sit to stand, Long arc quads, Hip flexion Seated Reps: 10 Treatments toileted with min assist clothes Assessment Current Status: Fair Progress fatigues very quickly, needs rest breaks PT Short Term Goals Short Term Goals Time Frame: Mar 22, 2018 Gait (FIM): 4 Distance (FIM): 3=150 ft Gait Assistive Device: FWW PT Group Home Goals Group Home Goals PT Vendor Manager Goals Time Frame: Apr 03, 2018 Transfers (B,C,W/C) (FIM): 6 Sit to Lying (QC): 6 Lying-Sitting on Side/Bed(QC): 6 Sit to Stand (QC): 6 Rollin Roll Left to Right (QC): 6 Chair/Xnh-nf-Itnus Xfer(QC): 6 Car Transfer (QC): 6 Does the Patient Walk: Yes Gait (FIM): 6 Gait distance (FIM): 3=150 ft Walk 10 feet (QC): 6 Walk 10ft-Uneven Surface(QC): 6 Walk 50ft with 2 Turns (QC): 6 Walk 150 ft (QC): 6 Gait Assistive Device: FWW Does the Pt use WC or Scooter?: No Stairs (FIM): 5 # of Steps: 4 (household number) 1 Step (curb) (QC): 6 4 Steps (QC): 6 12 Steps (QC): 88 Picking up an Object (QC): 4 PT Plan Treatment/Plan Treatment Plan: Continue Plan of Care Treatment Plan: Bed Mobility, Education, Functional Activity Rosemary, Functional Strength, Group Therapy, Gait, Safety, Therapeutic Exercise, Transfers Treatment Duration: Apr 03, 2018 Frequency: At least 5 of 7 days/Wk (IRF) Estimated Hrs Per Day: 1.5 hours per day Patient and/or Family Agrees t: Yes Safety Risks/Education Patient Education: Gait Training, Transfer Techniques, Correct Positioning, Disease Process, Safety Issues Teaching Recipient: Patient Teaching Methods: Demonstration, Discussion Response to Teaching: Verbalize Understanding, Return Demonstration, Reinforcement Needed Time/GCodes Time In: 1100 Time Out: 1200 Total Billed Treatment Time: 60 Total Billed Treatment 1,EX25m,GT20m,FA15m G Codes Necessary: AGUSTÍN Dang RUBBER TIRE CURER Mar 18, 2018 12:13
--- NOTE | 2018-03-18 13:58 | Occupational Ther Daily Note ---
OT Current Status-Daily Note Subjective Pt seen in room, up in bed, agreeable to OT. No pain mentioned. Appearance Alert, cooperative Mental Status/Objective Functional [place] Measure 0=Not Assessed/NA 4=Minimal Assistance 1=Total Assistance 5=Supervision or Setup 2=Maximal Assistance 6=Modified [place] 3=Moderate Assistance 7=Complete [place] ADL-Treatment Supine to sit EOB with pt educ for technique, min assist to push up with arms. She did some of ADLs without O2 and some with O2 at 3L/min using her portable tank. Sit to stand with min assist, FWW and walked to chair in bathroom. Pt sat at sink to groom and complete sponge bath, setup except SBA when standing to wash bottom at sink. Dressed upper body with min assist to pull sports bra down in back, min assist sit to stand, CGA when standing to dress lower body. She was able to put slipper socks on/take them off. Pt educ in steps to make sit to stand easier, with return demo. Toilet transfer w/c to [facility] over toilet with CGA. SBA to manage clothing down, CGA to pull pants up - she was able to manage hygiene. She walked CGA, FWW to w/c and was transported to gym. Functional [place] Measure 0=Not Assessed/NA 4=Minimal Assistance 1=Total Assistance 5=Supervision or Setup 2=Maximal Assistance 6=Modified [place] 3=Moderate Assistance 7=Complete IndependenceIRFPAI Quality Coding Scale 6 Independent with activity with or without an assistive device 5 Patient requires set up or clean up by helper. Patient completes activity by themselves 4 Supervision or touching assist (CGA). [place] provide cues , steadying assist 3 The helper provides less than half the effort to complete the activity 2 The helper provides more than half the effort to complete the activity 1 Dependent. The helper does all the effort to complete an activity 7 Patient refused to complete or attempt activity 9 The patient did not perform the activity before the current illness or injury 88 Not attempted due to Medical conditions or safety concerns Grooming (FIM): 5 Bathing (FIM): 4 (CGA) Upper Body (FIM): 4 Lower Body Dressing (FIM): 4 Toileting (FIM): 4 Toilet/Commode Transfer (FIM): 4 Other Treatment Pt did activity with graded clothespins to strengthen arms to help with ADLs and transfers. She had some difficulty with black ones with L hand (most difficult). Care transferred to PT. Education OT Patient Education: Modified ADL techniques, Progress toward Goal/Update tx plan, Purpose of tx/functional activities, Transfer techniques, Use of adapted equipment Teaching Recipient: Patient Teaching Methods: Demonstration, Discussion Response to Teaching: Verbalize Understanding, Return Demonstration, Reinforcement Needed OT Short Term Goals Short Term Goals Time Frame: Mar 22, 2018 Toilet/Commode Transfer(FIM): 5 1=Demonstrate adherence to instructed precautions during ADL tasks. 2=Patient will verbalize/demonstrate understanding of assistive devices/ modifications for ADL. 3=Patient will improve strength/tolerance for activity to enable patient to perform ADL's. OT Vice President Of Sales Goals Longterm Goals Time Frame: Apr 05, 2018 Eating (FIM): 7 Eating (QC): 6 Groomin Oral Hygiene (QC): 6 Bathing(FIM): 5 Shower/Bathe Self (QC): 5 Upper Body Dressing(FIM): 6 Upper Body Dressing (QC): 6 Lower Body Dressing(FIM): 6 Lower Body Dressing (QC): 6 On/Off Footwear (QC): 6 Toileting(FIM): 6 Toileting Hygiene (QC): 6 Toilet/Commode Transfer(FIM): 6 Toilet/Commode Transfer (QC): 6 Shower Transfer(FIM): 5 Additional Goals: 1-Demonstrate ADL Tasks, 2-Verbalize Understanding, 3- ImproveStrength/Rosemary 1=Demonstrate adherence to instructed precautions during ADL tasks. 2=Patient will verbalize/demonstrate understanding of assistive devices/ modifications for ADL. 3=Patient will improve strength/tolerance for activity to enable patient to perform ADL's. OT Education/Plan Problem List/Assessment Pt would benefit from skilled OT to increase her independence in basic self care to allow her to safely return home Discharge Recommendations Plan/Recommendations: Continue POC Treatment Plan/Plan of Care Patient would benefit from OT for education, treatment and training to promote independence in ADL's, mobility, safety and/or upper extremity function for ADL' s. Plan of Care: ADL Retraining, Functional Mobility, Group Exercise/Act as Ind ( education, exercise, activity tolerance, funct mobility, socialization), UE Funct Exercise/Act, UE Neuromus Re-Ed/Coord Treatment Duration: Apr 05, 2018 Frequency: At least 5 of 7 days/Wk (IRF) Estimated Hrs Per Day: 1.5 hours per day Agreement: Yes Rehab Potential: Guarded Time/GCodes Start Time: 10:00 Stop Time: 11:00 Total Time Billed (hr/min): 60 Billed Treatment Time visit, 50 minutes ADL, 10 minutes exercise ARON PANTOJA OT Mar 18, 2018 13:58
--- NOTE | 2018-03-18 14:30 | Therapy Group Daily Note ---
Therapy Daily Group Note Patient Education Topic Other List Below (importance and memory and strategies to enhance) Exercises LE Seated Exercise, UE Exercise Other/Notes Pt. participated in group PT OT session this date. Pt. came and went via w/c and instruction. Pt. was social, introduced herself and shared in all memory discussion and activities. Pts as a group established 5 things to remember by the end of the session . Pt. helped establish this and did remember parts of it well. Pt. also participated in visual memory game by matching images. Pt. participated in U&L extremity seated exercises. Pt back to room to bed with assist. Suni at hand Start Time: 13:00 Stop Time: 14:10 Total Billed Treatment Time: 70 Total Billed Treatment 1,GRP AGUSTÍN MARTE BUTT PRESSER Mar 18, 2018 14:30
[2018-03-18] MEDS: RT-ALBUTEROL SULF 2.5 MG/3 ML PRE-MIX VIAL INH PRN (15:50)
[2018-03-18 18:06] VITALS: BP 123/69
--- NOTE | 2018-03-18 18:57 | PM & R (SOAP) Progress Note ---
Subjective This was a face to face visit with the patient. Date Seen by Provider: Mar 18, 2018 Time Seen by Provider: 18:40 Subjective/Events-last exam Patient was seen in her room this evening Discussed case with RN Patient Min assist for transfers Patients endurance gradually improving. Objective Physician Exam Last Set of Vital Signs Vital Signs Date Time Temp Pulse Resp B/P (MAP) Pulse Ox O2 Delivery O2 Flow Rate FiO2 03/18/18 18:06 98.4 70 18 123/69 (87) 97 Nasal Cannula 3.00 Capillary Refill : I&O Intake and Output 03/18/18 00:00 Intake Total 850 ml Balance 850 ml Intake Oral 850 ml # Voids 4 General: Alert, Oriented X3, Cooperative, No Acute Distress HEENT: Atraumatic, PERRLA, EOMI, Mucous Memb Moist/[place], Other Neck: Supple, No JVD Lungs: Clear to Auscultation Heart: Regular Rate, Other Abdomen: Normal Bowel Sounds, Soft, No Tenderness Extremities: No Edema Neuro: Other Assessment/Plan Assessment and Plan General debil secondary to small cell lung CA with mets to bone and brain s/p chemo and RT Resp insufficiency Severe A FIB controlled with meds CHF with EF 35% S/P port placement DNR status Cardiomegaly being followed by Cardiology Plan Continue PT/OT Team Conference tomorrow Patients relatives in to visit this evening (1) Debility Status: Acute Co-Morbidities that are continuing to impact the rehab process: (include details ) NITA THOMAS MD Mar 18, 2018 18:57
[2018-03-18] MEDS: DILTIAZEM 120 MG (CARDIZEM CD) CAP PO SCH (20:08)
[2018-03-18] MEDS: PATIENT'S OWN MED (RX USE ONLY) PO SCH (20:09)
[2018-03-18] MEDS: HYDROcodone/APAP 5 MG/325 MG (LORTAB) TAB PO PRN (20:16)
[2018-03-19] MEDS: RT-ALBUTEROL SULF 2.5 MG/3 ML PRE-MIX VIAL INH PRN (02:12)
[2018-03-19 02:20] VITALS: BP 133/66
--- NOTE | 2018-03-19 07:08 | PM & R (SOAP) Progress Note ---
Subjective This was a face to face visit with the patient. Date Seen by Provider: Mar 19, 2018 Time Seen by Provider: 06:55 Subjective/Events-last exam Patient was seen in her room this AM Called by RN at 5AM Patient pronounced at 415.Patient a DNR with DX of lung Ca with mets to bone and brain.Multiple family members holding bedside cadet. Home her to P/U . Objective Physician Exam Last Set of Vital Signs Vital Signs Date Time Temp Pulse Resp B/P (MAP) Pulse Ox O2 Delivery O2 Flow Rate FiO2 03/19/18 02:20 97.0 93 22 133/66 (88) 93 Nasal Cannula 4.00 Capillary Refill : I&O Intake and Output 03/19/18 00:00 Intake Total 880 ml Balance 880 ml Intake Oral 880 ml # Voids 5 # Bowel Movements 2 General: Alert, Oriented X3, Cooperative, No Acute Distress HEENT: Atraumatic, PERRLA, EOMI, Mucous Memb Moist/Bowlegs, Other Neck: Supple, No JVD Lungs: Clear to Auscultation Heart: Regular Rate, Other Abdomen: Normal Bowel Sounds, Soft, No Tenderness Extremities: No Edema Neuro: Other Other physical findings Ignore above Patient without pulse or BP No respirations Patient unresponsive Results Lab Data Patient prnounced at 415 AM Assessment/Plan Assessment and Plan (1) Debility Status: Acute Co-Morbidities that are continuing to impact the rehab process: (include details ) NITA THOMAS MD Mar 19, 2018 07:08
--- NOTE | 2018-03-19 09:17 | Therapy Team Discharge Summary ---
Therapy Discharge Summary Discharge Recommendations Date of Discharge 03/19/2018 Physical Therapy This patient was seen on ARU after a brief acute stay due to progressive weakness as a result of cancer. Prior to her hospital stay, she was living at home alone and was caring for herself. She did have good family support that assisted as needed. Upon admit to ARU, she required mod assist with transfers and walked short distances with min assist. Her stay was short but treatment included strength, transfers and gait training. She was min assist iwth transfers and still walking a short distance with min assist when she was last seen by PT. No goals met. Pt . Occupational Therapy Decreased Activ Tolerance, Decreased UE Strength, Dependent Transfers, Impaired Funct Balance, Impaired Self-Care Skills PT Support Group Manager Goals Fdc Goals PT Fdc Goals Time Frame: Apr 03, 2018 Transfers (B,C,W/C) (FIM): 6 Roll Left to Right (QC): 6 Sit to Lying (QC): 6 Lying-Sitting on Side/Bed(QC): 6 Sit to Stand (QC): 6 Chair/Ryg-ub-Btuyr Xfer(QC): 6 Car Transfer (QC): 6 Does the Patient Walk: Yes Gait (FIM): 6 Gait distance (FIM): 3=150 ft Walk 10 feet (QC): 6 Walk 10ft-Uneven Surface(QC): 6 Walk 50ft with 2 Turns (QC): 6 Walk 150 ft (QC): 6 Gait Assistive Device: FWW Does the Pt use WC or Scooter?: No Stairs (FIM): 5 # of Steps: 4 (household number) 1 Step (curb) (QC): 6 4 Steps (QC): 6 12 Steps (QC): 88 Picking up an Object (QC): 4 No goals met as patient . OT Fdc Goals Support Group Manager Goals Time Frame: Apr 05, 2018 Eating (FIM): 7 Eating (QC): 6 Oral Hygiene (QC): 6 Grooming(FIM): 6 Bathing(FIM): 5 Shower/Bathe Self (QC): 5 Upper Body Dressing(FIM): 6 Upper Body Dressing (QC): 6 Lower Body Dressing(FIM): 6 Lower Body Dressing (QC): 6 On/Off Footwear (QC): 6 Toileting(FIM): 6 Toileting Hygiene (QC): 6 Toilet/Commode Transfer(FIM): 6 Toilet/Commode Transfer (QC): 6 Shower Transfer(FIM): 5 Additional Goals: 1-Demonstrate ADL Tasks, 2-Verbalize Understanding, 3- ImproveStrength/Rosemary 1=Demonstrate adherence to instructed precautions during ADL tasks. 2=Patient will verbalize/demonstrate understanding of assistive devices/ modifications for ADL. 3=Patient will improve strength/tolerance for activity to enable patient to perform ADL's. JUAN A MAYERS PT Mar 19, 2018 09:17
--- NOTE | 2018-03-19 09:39 | Therapy Team Discharge Summary ---
Therapy Discharge Summary Discharge Recommendations Date of Discharge Occupational Therapy Pt was seen for skilled OT to increase her independence with basic self care to help her return home safely with weakness from cancer treatment. On admission she needed setup gelp for grooming, no help with eating, contact guard with bathing, toileting and toilet transfers, min assist with upper body dressing and mod assist with lower body dressing. She progressed to mod I with grooming, min assist with lower body dressing but still needed CGA for bathing, toileting. See tx plan for goals met. Pt - will DC OT. Decreased Activ Tolerance, Decreased UE Strength, Dependent Transfers, Impaired Funct Balance, Impaired Self-Care Skills PT Travel Registered Nurse Oncology Goals Travel Registered Nurse Oncology Goals PT Travel Registered Nurse Oncology Goals Time Frame: Apr 03, 2018 Transfers (B,C,W/C) (FIM): 6 Roll Left to Right (QC): 6 Sit to Lying (QC): 6 Lying-Sitting on Side/Bed(QC): 6 Sit to Stand (QC): 6 Chair/Zvu-zp-Tkfzy Xfer(QC): 6 Car Transfer (QC): 6 Does the Patient Walk: Yes Gait (FIM): 6 Gait distance (FIM): 3=150 ft Walk 10 feet (QC): 6 Walk 10ft-Uneven Surface(QC): 6 Walk 50ft with 2 Turns (QC): 6 Walk 150 ft (QC): 6 Gait Assistive Device: FWW Does the Pt use WC or Scooter?: No Stairs (FIM): 5 # of Steps: 4 (household number) 1 Step (curb) (QC): 6 4 Steps (QC): 6 12 Steps (QC): 88 Picking up an Object (QC): 4 OT Jail Goals Jail Goals Time Frame: Apr 05, 2018 Eating (FIM): 7 (met) Eating (QC): 6 (met) Oral Hygiene (QC): 6 (met) Grooming(FIM): 6 (met) Bathing(FIM): 5 (not met) Shower/Bathe Self (QC): 5 (not met) Upper Body Dressing(FIM): 6 (not met) Upper Body Dressing (QC): 6 (not met) Lower Body Dressing(FIM): 6 (not met) Lower Body Dressing (QC): 6 (not met) On/Off Footwear (QC): 6 (not met) Toileting(FIM): 6 (not met) Toileting Hygiene (QC): 6 (not met) Toilet/Commode Transfer(FIM): 6 (not met) Toilet/Commode Transfer (QC): 6 (not met) Shower Transfer(FIM): 5 (not met) Additional Goals: 1-Demonstrate ADL Tasks, 2-Verbalize Understanding, 3- ImproveStrength/Rosemary 1=Demonstrate adherence to instructed precautions during ADL tasks. 2=Patient will verbalize/demonstrate understanding of assistive devices/ modifications for ADL. 3=Patient will improve strength/tolerance for activity to enable patient to perform ADL's. ARON PANTOJA OT Mar 19, 2018 09:39
--- NOTE | 2018-03-19 09:46 | Individualized Plan of Care ---
Individualized Plan of Care Rehab Nursing IPOC Order Admission Date Mar 15, 2018 at 10:45 Current Orders Orders Pt Evaluate/Treat Request (03/15/18 09:59) Request Ot Evaluate & Treat (03/15/18 09:59) Request For Cognitive Services (03/15/18 09:59) Admission-Acute Rehab Unit (03/15/18 10:45) Admission Arrival Bed Request (03/15/18 10:45) Patient Visit (03/15/18 ) Speech Sound Lang Comp (03/15/18 ) Code/Resuscitation (03/15/18 11:28) Sequential Compression Device 08,20 (03/15/18 11:28) Weight Bearing Status (03/15/18 11:28) General/Regular (03/15/18 Lunch) (Nf) Ursodiol (03/15/18 21:00) Acetaminophen Tablet/Caplet (Tylenol T (03/15/18 11:30) Albuterol Pre-Mix Nebs (Rt) (Proventil (03/15/18 11:30) Apixaban Tablet (Eliquis Tablet) (03/15/18 21:00) Diltiazem Cd 24 Hr Capsule (Cardizem Cd (03/15/18 21:00) Hydrocodone/Apap 5/325 Tablet (Lortab 5 (03/15/18 11:30) Lorazepam Tablet (Ativan Tablet) (03/15/18 11:30) Melatonin Tablet (Melatonin Tablet) (03/15/18 11:30) Magnesium Hydroxide Oral Susp (Mom Oral (03/15/18 11:30) Antacid Suspension (Mylanta Suspension (03/15/18 11:30) Patient May Use Own Meds, All (Patient M (03/15/18 11:30) Patient's Own Med(Rx Use Only) (Patient' (03/15/18 21:00) Sodium Chloride Flush (Catheter Flush Sy (03/15/18 11:30) Benzonatate Capsule (Tessalon Perles) (03/15/18 11:30) Ondansetron Injection (Zofran Injectio (03/15/18 11:30) Consult Physician (03/15/18 11:28) Albuterol Pre-Mix Nebs (Rt) (Proventil (03/15/18 21:00) Consult Oncology/Medical (03/15/18 11:44) Consult Hospitalist (03/15/18 11:45) Potassium Chloride (Tablet) (K Dur Table (03/15/18 10:15) Admission Order(Inpt,Obs,Sdc) (03/15/18 13:14) Vital Signs: Routine (Order) 08,16,00 (03/15/18 13:14) Sequential Compression Device 08,20 (03/15/18 13:14) Brand Marketing Manager-Inpt Rehab Con (03/15/18 13:14) Rehab Nursing Orders-Ipoc (03/15/18 13:14) Intake & Output 06,14,22 (03/15/18 13:14) Weekly Weight (Lbs) WEEK (03/15/18 13:14) Patient Visit (03/15/18 ) Pt Eval Moderate Complexity (03/15/18 ) Functional Activities, Ea 15 (03/15/18 ) Patient Visit (03/15/18 ) Cyanocobalamin Injection (Vitamin B-12 I (03/15/18 13:30) Pharmacy Communication (Pharmacy Communi (03/15/18 13:30) Therapeutic, Group (03/15/18 ) Patient Visit (03/15/18 ) Functional Activities, Ea 15 (03/15/18 ) Ambulate TID (03/15/18 17:03) Sequential Compression Device 08,20 (03/15/18 17:03) Dvt/Vte Risk - Notifiy Physici 08 (03/15/18 17:03) Edu Tobacco/Smoking Cessation .prn (03/15/18 17:03) Mat Initiate Protocol (03/16/18 10:15) Patient Visit (03/16/18 ) Exercise Therap, Ea 15 Min (03/16/18 ) Functional Activities, Ea 15 (03/16/18 ) Patient Visit (03/18/18 ) Therapeutic, Group (03/18/18 ) Exercise Therap, Ea 15 Min (03/18/18 ) Gait Training, Ea 15 Min (03/18/18 ) Functional Activities, Ea 15 (03/18/18 ) Discharge (03/19/18 07:10) Rehab Nursing Orders: Ongoing Assess. of Cognitive Status, Ongoing Assess. of Function Status, Disease Management & Educaiton, DVT Prophylaxis, Fall Prevention, Fluid/Electrolyte/Nutrition Mgmt, Infection Prevention, Medication Management & Education, Management of Risks & Complications, Management of Skin Intergrity, Nutrition Management, Pain Management, Patient/Family Support PT IPOC Problem List: Activity Tolerance, Functional Strength, Safety, Balance, Gait, Transfer, Bed Mobility, ROM Treatment Plan: Continue Plan of Care Bed Mobility, Education, Functional Activity Rosemary, Functional Strength, Group Therapy, Gait, Safety, Therapeutic Exercise, Transfers Treatment Duration: Apr 03, 2018 Frequency: At least 5 of 7 days/Wk (IRF) Estimated Hrs Per Day: 1.5 hours per day OT IPOC Problems: Decreased Activ Tolerance, Decreased UE Strength, Dependent Transfers , Impaired Funct Balance, Impaired Self-Care Skills OT Treatment, Training and Edu: Yes OT Problems Pt would benefit from skilled OT to increase her independence in basic self care to allow her to safely return home Plan of Care: ADL Retraining, Functional Mobility, Group Exercise/Act as Ind ( education, exercise, activity tolerance, funct mobility, socialization), UE Funct Exercise/Act, UE Neuromus Re-Ed/Coord Treatment Duration: Apr 05, 2018 Frequency: At least 5 of 7 days/Wk (IRF) Estimated Hrs Per Day: 1.[address] IPOC Speech Therapy Treatment Plan: Discontinue ST Treatment Duration: Mar 19, 2018 Frequency: Modified Program (IRF) (No ST warranted.) Estimated Hrs Per Day: Other (No ST warranted.) Brand Marketing Manager/Case Mgmt Brand Marketing Manager/Case Managemen: Discharge Planning, Patient/Family Counseling Dietitian/Chore Tender Dietitian/Chore Tender to monitor nutritional status and make changes and/or recommendations as needed and work with speech pathology on dietary upgrades as the occur. 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 Medical Prognosis: Patient 03-19-18 Anticipated Length of Stay: 03-19-18 Patient Comfort care provided at end Anticipated d/c Destination: Body released to home this AM NITA THOMAS MD Mar 19, 2018 09:46
--- NOTE | 2018-04-09 23:29 | DISCHARGE SUMMARY ---
DATE OF SERVICE: DISCHARGE SUMMARY/ NOTE HISTORY OF PRESENT ILLNESS: The patient is a 72-year-old female with extensive stage small-cell lung cancer diagnosed in mid 2016 with mets to the bone. She is status post multiple chemotherapy regimens including carboplatin, etoposide x3, topotecan x5 and Camptosar x1 with new recent diagnosis of mets to the brain, status post whole brain radiation therapy. The patient was admitted to [facility] due to increasing weakness and difficulty managing at home alone in [place], [place]. 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 PAST MEDICAL HISTORY: Lung cancer with mets to the bone and now the brain, status post chemo and radiation therapy, severe aortic stenosis followed by Cardiology service and cardiology, atrial fibrillation, controlled with digoxin. She has a port for IV access, chemo access. She was referred to inpatient rehabilitation unit with the goal of improving her endurance so that she could return home with Hospice services. MEDICAL COURSE: The patient fatigued easily and had limited endurance, but she did participate in therapies. She was O2 dependent. 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 She was a DNR. She was pronounced at 04:15 a.m. and family and home contacted as well as medical oncologist following her. She was seen once by cardiology while on rehab unit. DISCHARGE INSTRUCTIONS: The patient was released to home. Family and participating physicians informed. Dr. Moy informed at 05:00 a.m. that morning. DISCHARGE DIAGNOSES: 1. Brain metastases. 2. Bone metastases. 3. Lung cancer. 4. 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 5. Chronic systolic/diastolic congestive heart failure. 6. Aortic stenosis. 7. Atrial fibrillation. 8. Respiratory insufficiency. 9. Oxygen dependent. 10. Do not resuscitate status. Job ID: [id number] DocumentID: [id number] Dictated Date: 04/09/2018 11:20:28 Registered Nurse Surgical Services Date: 04/09/2018 23:28:52 Dictated By: NITA MOY MD [facility]
== END 2018-03-19 07:10 | disposition expired | DRG 55 ==
PROVIDERS: ADMIT Physical Medicine & Rehabilitation; ATTEND Physical Medicine & Rehabilitation
DX: C79.31 Secondary malignant neoplasm of brain (principal); C79.51 Secondary malignant neoplasm of bone; C34.90 Malignant neoplasm of unspecified part of unspecified bronchus or lung; R64 Cachexia; I50.42 Chronic combined systolic (congestive) and diastolic (congestive) heart failure; I35.0 Nonrheumatic aortic (valve) stenosis; I48.91 Unspecified atrial fibrillation; Z66 Do not resuscitate; R06.89 Other abnormalities of breathing; Z99.81 Dependence on supplemental oxygen
CPT/HCPCS: 94640; 94760